=== PATIENT | male | born 1965 | race Caucasian/White ===

== ENCOUNTER → 2016-04-28 | Day surgery (SDC) | payer BC, OTHER ==
[2016-04-21 13:48] VITALS: BMI 26.0
[~2016-04-28] VITALS: Ht 175.3 cm; Wt 84.1 kg
[~2016-04-28] MED LIST: AMLO2.5T PO; CRG40 PO; FLV1 PO; LIDOCAINE HCL 2% 2 ML VIAL (20MG/ML) ONE; LISI-725 PO; LSX20 PO; LSX40 PO; MULT-1042 PO; NADO40TA PO; POTA10TA32 PO; PROPOFOL IV EMULSION 10 MG/ML 20 ML VIAL IV ONE; SODIUM CHLORIDE 0.9% 500ML 500 ML IV ONE; SPIR25TA PO; SPRN100 PO; THM100 PO; VANC5CAP PO; VNCS125 PO
[2016-04-28 08:26] VITALS: Ht 175.3 cm; Wt 84.1 kg
--- NOTE | 2016-04-28 09:29 | Endo History and Physical ---
History & Physical Date of Service: Apr 28, 2016. Chief Complaint: esophageal varices, cirrhosis of liver Referring Physician: Dr. William Faustin History of Present Illness esophageal varices Past Surgical History Hx Cardiac Surgery: No Hx Internal Defibrillator: No Hx Pacemaker: No Hx Abdominal Surgery: No Hx of Implantable Prosthesis: No Hx Post-Op Nausea and Vomiting: No Hx Cancer Surgery: No Hx Thoracic Surgery: No Hx Orthopedic: No Hx Urinary Tract Surgery: No Family History None Social History Smoking Status: Former Smoker Hx Substance Use: No Hx Alcohol Use: No (QUIT FEBRUARY 2016) Allergies Coded Allergies: Penicillins (Verified Allergy, Mild, GI UPSET, 04/28/16) Cephalosporins (Verified Adverse Reaction, Unknown, Nausea/Vomiting, ) Current Medications Reported Home Medications Medications Dose Route/Sig Max Daily Dose Days Date Category Norvasc (Amlodipine Besylate) 2.5 Mg Tab 2.5 Mg PO QAM 04/21/16 Reported Aldactone (Spironolactone) 25 Mg Tab 2 Tab PO QAM 04/21/16 Reported Vitamin B-1 (Thiamine HCl) 100 Mg Tab 100 Mg PO QAM 30 03/04/16 Rx Folic Acid 1 Mg Tab 1 Mg PO QAM 30 03/04/16 Rx Furosemide 20 Mg Tab 20 Mg PO QAM 30 03/04/16 Rx Nadolol 40 Mg Tab 40 Mg PO QAM 30 03/04/16 Rx Zestril (Lisinopril) 20 Mg Tab 20 Mg PO QAM 03/02/16 Reported Vital Signs Weight (Kilograms): 84.09 Height (Feet): 5 Height (Inches): 9 Date Time Temp Pulse Resp B/P Pulse Ox O2 Delivery O2 Flow Rate FiO2 04/28/16 08:29 36.7 69 20 143/65 99 Room Air Physical Exam General Appearance: no apparent distress Respiratory/Chest: Auscultation: breath sounds normal Cardiovascular: Heart Auscultation: RRR Abdomen: Inspection & Palpation: soft Assessment and Plan Cirrhosis - EGD
--- NOTE | 2016-04-28 10:13 | Discharge Instructions ---
Endoscopy Patient Instructions Date / Procedure(s) Performed Apr 28, 2016. EGD Allergy Information Coded Allergies: Penicillins (Verified Allergy, Mild, GI UPSET, 04/28/16) Cephalosporins (Verified Adverse Reaction, Unknown, Nausea/Vomiting, ) Discharge Date / Findings Apr 28, 2016. Esophagitis, small varices, portal gastropathy, small gastric polyp Medication Instructions Stopped Medication(s): told to only take blood pressure medications today. Provider Instructions Activity Restrictions - No exercising or heavy lifting for 24 hours. - Do not drink alcohol the day of the procedure. - Do not drive a car or operate machinery until the day after the procedure. - Do not make any important decisions or sign important papers in 24 hours after the procedure. Following Day: - Return to full activity which may include returning to work/school. Diet Start your diet with liquids and light foods (jello, soup, juice, toast). Then eat your usual diet if not nauseated. Treatment For Common After Affects For mild abdominal pain, bloating, or excessive gas: - Rest - Eat lightly - Lie on right side Follow-Up Information Follow-up with Dr. William Faustin as scheduled Anesthesia Information What You Should Know You have had a procedure that required some medicine to reduce anxiety and discomfort. This treatment is called moderate sedation. After receiving the treatment, you may be sleepy, but you will be able to breathe on your own. The effects of the treatment may last for several hours. Follow these instructions along with Activity/Diet recommendations noted above: * Do NOT do anything where dizziness or clumsiness would be dangerous. * Rest quietly at home today, then you can be up and about tomorrow. * Have a responsible person stay with you the rest of today. * You may have had an I.V. today. If so, you may take the dressing off later today. Recommendations Call your doctor if: * Trouble breathing * Continuous vomiting for more than 24 hours * Temperature above 101 degrees * Severe abdominal pain or bloating * Pain not relieved by pain medicine ordered * There is increased drainage or redness from any incision * A large amount of rectal bleeding greater than 2-3 tablespoons. (If you had a polyp/s removed or have hemorrhoids, a small amount of blood - from the rectum is to be expected.) * You have any unanswered questions or concerns. IN THE EVENT OF A SERIOUS EMERGENCY, GO TO THE NEAREST EMERGENCY ROOM Your discharge instructions were prepared by provider Keira Stokes. Patient Instructions Signature Page [place] Patient (or Guardian) Signature/Date: I have read and understand the instructions given to me by my caregivers. Caregiver/RN/Doctor Signature/Date: The above-named patient and/or guardian has received patient instructions on this date. + Original Patient Signature Page (only) stays with chart. Please make copy for patient.
[2016-04-28 10:20] VITALS: BP 139/65; PULSE 63; O2SAT 100
--- NOTE | 2016-04-28 10:53 | GI REPORT ---
Procedure Date: 04/28/2016 9:20 AM Procedure: Upper GI endoscopy Indications: Follow-up of esophageal varices Medicines: See the Anesthesia note for documentation of the administered medications Complications: No immediate complications. Estimated Blood Loss: Estimated blood loss: none. Procedure: Pre-Anesthesia Assessment: - ASA Grade Assessment: III - A patient with severe systemic disease. After obtaining informed consent, the endoscope was passed under direct vision. Throughout the procedure, the patient's blood pressure, pulse, and oxygen saturations were monitored continuously. The scope was introduced through the mouth, and advanced to the second part of duodenum. The upper GI endoscopy was accomplished without difficulty. The patient tolerated the procedure well. Findings: LA Grade B (one or more mucosal breaks greater than 5 mm, not extending between the tops of two mucosal folds) esophagitis with no bleeding was found. There was a single tongue of salmon colored mucosa extending approximately 1 cm above GE junction. The GE junction was found 40 cm from the incisors. This was brushed. Because of small varices, coagulopathy, and stigmata of portal HTN, this was not biopsied. A mild Schatzki ring (acquired) was found at the gastroesophageal junction. Grade I varices were found at the gastroesophageal junction. There was mild congestion of the mucosa in the fundus and body, suggestive of mild portal gastropathy. There was a 5 mm polyp in the body removed by saline lift and hot snare. Site was then clipped. The antrum was normal. The duodenum was normal. No adenoma was seen in duodenum. Impression: - LA Grade B reflux esophagitis. 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 - Mild Schatzki ring. - Grade I esophageal varices. - Gastric polyp. Recommendation: - Discharge patient to home. Continue BID PPI. Consider repeat exam in 1-2 years for variceal surveillance. Defer beta blockade. Keira Guthrie M.D. Keira Guthrie MD 04/28/2016 10:13:02 AM This report has been signed electronically. Note Initiated On: 04/28/2016 9:20 AM I attest to the content of the Intraoperative Record and orders documented therein, exceptions below
--- NOTE | 2016-04-28 11:12 | Anesthesiology Progress Note ---
Anesthesia Post Op Note Date & Time Apr 28, 2016 at 11:13 Vital Signs Pain Intensity: 0 Vital Signs Past 12 Hours Date Time Temp Pulse Resp B/P Pulse Ox O2 Delivery O2 Flow Rate FiO2 04/28/16 10:20 63 20 139/65 100 Room Air 04/28/16 10:05 67 20 136/62 100 Room Air 04/28/16 09:50 80 20 115/67 100 Room Air 04/28/16 08:29 36.7 69 20 143/65 99 Room Air Notes Mental Status: alert / awake / arousable, participated in evaluation Pt Amnestic to Procedure: Yes Nausea / Vomiting: adequately controlled Pain: adequately controlled Airway Patency, RR, SpO2: stable & adequate BP & HR: stable & adequate Hydration State: stable & adequate Anesthetic Complications: no major complications apparent
== END | disposition home or self-care (01) ==
LOC: C.GI 08:03
PROVIDERS: ATTEND Internal Medicine Gastroenterology
DX: K31.7 Polyp of stomach and duodenum (principal); K22.70 Barrett's esophagus without dysplasia; I85.00 Esophageal varices without bleeding; K22.2 Esophageal obstruction; K76.6 Portal hypertension; K21.0 Gastro-esophageal reflux disease with esophagitis; K76.9 Liver disease, unspecified; Z87.891 Personal history of nicotine dependence; Z88.0 Allergy status to penicillin; Z88.1 Allergy status to other antibiotic agents

== ENCOUNTER 2016-10-22 16:45 | Inpatient (IN) | payer BC ==
[~2016-10-22] VITALS: Ht 177.8 cm; Wt 85.4 kg
[~2016-10-22 16:45] MED LIST changes: -LIDOCAINE HCL 2% 2 ML VIAL (20MG/ML) ONE; -LSX40 PO; -MULT-1042 PO; -NADO40TA PO; -POTA10TA32 PO; -PROPOFOL IV EMULSION 10 MG/ML 20 ML VIAL IV ONE; -SODIUM CHLORIDE 0.9% 500ML 500 ML IV ONE; -SPRN100 PO; -VANC5CAP PO; -VNCS125 PO
[2016-10-22] MEDS ORDERED: SODIUM CHLORIDE 0.9% 1000ML 1,000 ML IV ONE (17:15)
--- NOTE | 2016-10-22 17:28 | EMERGENCY ROOM VISIT NOTE ---
History Report prepared by [place]: Osbaldo Bedoya Under the Supervision of: Dr. Alfonso Shields D.O. First contact with patient: 17:07 Chief Complaint: BACK PAIN Stated Complaint: BACK, NECK PAIN, STOMACH ACHE History of Present Illness The patient is a 50 year old male who presents to the Emergency Room with complaints of generalized weakness that began recently. The patient has chronic lower back and upper neck pain for the past 15 years. Recently, he has been shaky, pale, and not very active. He has not been eating very well as well. He has been experiencing the occasional bloody stool, and right sided abdominal pain. He denies any swelling in the legs. He has a past medical history of hypertension, stroke, and liver cirrhosis. He is scheduled for an MRI in a couple of weeks. He received recent blood work that he has not received the results for. Source of History: patient Onset: recently Position: other (Global) Symptom Intensity: mild Quality: other (Weakness) Timing: constant Associated Symptoms: + neck pain (chronic), + abdominal pain, + back pain ( chronic), + hematochezia Note: He denies any leg pain. Review of Systems See HPI for pertinent positives & negatives. A total of 10 systems reviewed and were otherwise negative. Past Medical & Surgical Medical Problems: (1) ARF (acute renal failure) (2) Decompensated hepatic cirrhosis (3) Intracerebral bleed (4) No Known Active Medical Problems Family History FH: diabetes mellitus FH: heart disease FHx: hypertension FHx: kidney disease Kidney stone Social History Smoking Status: Former Smoker Alcohol Use: occasionally Drug Use: none Marital Status: Housing Status: lives with family Occupation Status: employed Current/Historical Medications Scheduled Amlodipine (Norvasc), 2.5 MG PO QAM Folic Acid (Folic Acid), 1 MG PO QAM Furosemide (Furosemide), 20 MG PO QAM Lisinopril (Zestril), 20 MG PO QAM Nadolol (Nadolol), 40 MG PO QAM Spironolactone (Aldactone), 2 TAB PO QAM Thiamine HCl (Vitamin B-1), 100 MG PO QAM Allergies Coded Allergies: Penicillins (Verified Allergy, Mild, GI UPSET, 10/22/16) Cephalosporins (Verified Adverse Reaction, Unknown, Nausea/Vomiting, ) Physical Exam Vital Signs Date Time Temp Pulse Resp B/P (MAP) Pulse Ox O2 Delivery O2 Flow Rate FiO2 10/22/16 19:29 85 16 117/39 98 Room Air 10/22/16 19:14 87 10/22/16 18:59 88 16 100/47 98 Room Air 10/22/16 18:54 97 Room Air 10/22/16 18:18 93/45 10/22/16 17:54 73 114/45 98 Room Air 10/22/16 17:20 87/31 10/22/16 16:58 36.5 72 16 82/36 99 Room Air Physical Exam GENERAL: Patient is awake and somewhat listless appearing. Answers questions slowly buy appropriately. EYES: The conjunctivae are clear. The pupils are round and reactive. EARS, NOSE, MOUTH AND THROAT: The nose is without any evidence of any deformity. Mucous membranes are dry tongue is midline NECK: The neck is nontender and supple. RESPIRATORY: Diminished at the bilateral bases with rales noted in these areas. CARDIOVASCULAR: Regular rate and rhythm noted there no murmurs rubs or gallops normal S1 normal S2 GASTROINTESTINAL: The abdomen moderately distended but soft. There is diffuse tenderness noted with point tenderness in the RLQ. No guarding or rigidity. RECTAL: Light brown stool that is heme positive. PELVIS: The Pelvis is stable. No tenderness to palpation is noted. BACK: No midline tenderness or or step-off noted range of motion in flexion extension as well as rotation no signs of muscle spasm noted MUSCULOSKELETAL/EXTREMITIES: There is no evidence of gross deformity full range of motion is noted in the hips and shoulders. Pedal edema bilaterally. SKIN: There is no obvious evidence of any rash. There are no petechiae, pallor or cyanosis noted. Jaundiced skin. NEUROLOGIC: Oriented x3, strength is diminished on the right which is consistent with prior stroke. No drift in upper extremities. Medical Decision & Procedures ER Provider Diagnostic Interpretation: Radiology results as stated below per my review and radiologist interpretation: HEAD CT NONCONTRAST CT DOSE: 1133.88 mGy.cm HISTORY: Altered mental status. TECHNIQUE: Multiaxial CT images of the head were performed without the use of intravenous contrast. Automated exposure control was utilized for this study. A dose lowering technique was utilized adhering to the principles of ALARA. Comparison: Head CT 06/09/2015. Findings: The paranasal sinuses and mastoid air cells are clear. The calvarium and skull base are intact. There is a small linear focus of hyperdensity within the left high convexity at the site of prior intracranial hemorrhage. This is best seen on images 21 and 22. This is concerning for a small focus of acute hemorrhage. There is mild surrounding encephalomalacia due to the old hemorrhage. There is no mass or midline shift. Impression: Small linear hyperdense focus within the left high convexity of the site of prior intracranial hemorrhage. This is concerning for a small focus of acute hemorrhage. 6 [address] follow-up is recommended to ensure stability. Electronically signed by: Ishaan Haley M.D. 10/22/2016 6:20 PM Dictated Date/Time: 10/22/2016 6:15 PM CHEST ONE VIEW PORTABLE HISTORY: Sepsis COMPARISON: Chest 03/02/2016. FINDINGS: The lungs are clear. Cardiac silhouette is normal in size. No pleural effusions. No pneumothorax. IMPRESSION: No acute process. Electronically signed by: Ishaan Haley M.D. 10/22/2016 5:44 PM Dictated Date/Time: 10/22/2016 5:[address] SCAN OF THE ABDOMEN AND PELVIS WITHOUT CONTRAST CLINICAL HISTORY: right flank pain COMPARISON STUDY: 03/02/2016 TECHNIQUE: CT scan of the abdomen and pelvis was performed from the lung bases to the proximal femurs. Images are reviewed in the axial, sagittal, and coronal planes. IV contrast was not administered for this examination. A dose lowering technique was utilized adhering to the principles of ALARA. CT DOSE: FINDINGS: Lower chest: The heart is normal in size and configuration, without pericardial effusion. The lung bases and pleural spaces are clear. Liver: The liver has a nodular serosal surface. This may indicate cirrhosis. Gallbladder: Cholelithiasis with mild gallbladder wall thickening Spleen: Normal in size and attenuation. Pancreas: Unremarkable. Adrenal glands: Unremarkable. Kidneys: No renal, ureteral, or bladder calculi are visualized. Bowel: Evaluation the bowel is limited given the lack of intravenous and oral contrast. There are no transition zones to indicate bowel obstruction. There is bowel wall thickening involving the ascending colon with infiltration of the surrounding fat. The findings are indicative of a nonspecific colitis. There is mild appendiceal thickening but this is likely a secondary phenomenon. Peritoneum: There is no intraperitoneal free air or abdominal ascites. Vasculature: There are multiple upper abdominal varices, consistent with portal hypertension. Adenopathy: None. Pelvic viscera: The bladder, and pelvic viscera are unremarkable. Skeletal structures: No destructive osseous lesions are seen. IMPRESSION: 1. Cirrhotic liver with evidence of portal hypertension and multiple varices 2. No renal, ureteral, or bladder calculi identified 3. Bowel wall thickening involving the ascending colon with infiltration of the adjacent fat. The findings are indicative of a nonspecific colitis 4. Mild appendiceal thickening, likely secondary to the diffuse ascending colon colitis 5. Cholelithiasis and mild gallbladder wall thickening Electronically signed by: Randolph Metcalf M.D. 10/22/2016 6:25 PM Dictated Date/Time: 10/22/2016 6:20 PM Laboratory Results 10/22/16 17:49 Red Blood Count 2.11, Mean Corpuscular Volume 100.0, Mean Corpuscular Hemoglobin 37.4, Mean Corpuscular Hemoglobin Concent 37.4, Mean Platelet Volume 11.1, Neutrophils (%) (Auto) 70.5, Lymphocytes (%) (Auto) 11.6, Monocytes (%) ( Auto) 17.1, Eosinophils (%) (Auto) 0.2, Basophils (%) (Auto) 0.1, Neutrophils # (Auto) 8.89, Lymphocytes # (Auto) 1.46, Monocytes # (Auto) 2.16, Eosinophils # ( Auto) 0.03, Basophils # (Auto) 0.01 Test 10/22/16 17:27 10/22/16 17:31 10/22/16 17:49 10/22/16 17:52 Urine Color DK YELLOW Urine Appearance CLEAR (CLEAR) Urine pH 5.0 (4.5-7.5) Urine Specific Monette 1.020 (1.000-1.030) Urine Protein NEG (NEG) Urine Glucose (UA) NEG (NEG) Urine Ketones NEG (NEG) Urine Occult Blood NEG (NEG) Urine Nitrite NEG (NEG) Urine Bilirubin NEG (NEG) Urine Urobilinogen NEG (NEG) Urine Leukocyte Esterase NEG (NEG) Urine WBC (Auto) 1-5 /hpf (0-5) Urine RBC (Auto) 0-4 /hpf (0-4) Urine Hyaline Casts (Auto) 5-10 /lpf (0-5) Urine Epithelial Cells (Auto) 5-10 /lpf (0-5) Urine Bacteria (Auto) 1+ (NEG) Venous Blood pH 7.22 (7.36-7.41) Venous Blood Partial Pressure CO2 30 mmHg (38.0-50.0) Venous Blood Partial Pressure O2 26 mmHg Venous Blood HCO3 12 mmol/L Venous Blood Oxygen Saturation < 60.0 % Venous Blood Base Excess -14.4 mEq/L White Blood Count 12.61 K/uL (4.8-10.8) Red Blood Count 2.11 M/uL (4.7-6.1) Hemoglobin 7.9 g/dL (14.0-18.0) Hematocrit 21.1 % (42-52) Mean Corpuscular Volume 100.0 fL (80-100) Mean Corpuscular Hemoglobin 37.4 pg (25-34) Mean Corpuscular Hemoglobin Concent 37.4 g/dl (32-36) Platelet Count 71 K/uL (130-400) Mean Platelet Volume 11.1 fL (7.4-10.4) Neutrophils (%) (Auto) 70.5 % Lymphocytes (%) (Auto) 11.6 % Monocytes (%) (Auto) 17.1 % Eosinophils (%) (Auto) 0.2 % Basophils (%) (Auto) 0.1 % Neutrophils # (Auto) 8.89 K/uL (1.4-6.5) Lymphocytes # (Auto) 1.46 K/uL (1.2-3.4) Monocytes # (Auto) 2.16 K/uL (0.11-0.59) Eosinophils # (Auto) 0.03 K/uL (0-0.5) Basophils # (Auto) 0.01 K/uL (0-0.2) RDW Standard Deviation 51.7 fL (36.4-46.3) RDW Coefficient of Variation 14.1 % (11.5-14.5) Immature Granulocyte % (Auto) 0.5 % Immature Granulocyte # (Auto) 0.06 K/uL (0.00-0.02) Ovalocytes 1+ Echinocytes 2+ Erythrocyte Sedimentation Rate 29 mm/hr (0-14) Prothrombin Time 16.0 SECONDS (9.0-12.0) Prothromb Time International Ratio 1.5 (0.9-1.1) Activated Partial Thromboplast Time 34.3 SECONDS (21.0-31.0) Partial Thromboplastin Ratio 1.3 Est Creatinine Clear Calc Drug Dose 23.5 ml/min Phosphorus Level 6.6 mg/dl (2.5-4.9) Magnesium Level 2.3 mg/dl (1.8-2.4) Total Bilirubin 4.1 mg/dl (0.2-1) Aspartate Amino Transf (AST/SGOT) 39 U/L (15-37) Alanine Aminotransferase (ALT/SGPT) 28 U/L (12-78) Alkaline Phosphatase 121 U/L (45-117) Ammonia 28.0 umol/L (11-32) Total Creatine Kinase 51 U/L (39-308) Creatine Kinase MB 0.6 ng/ml (0.5-3.6) Creatine Kinase MB Ratio 1.2 (0-3.0) Troponin I < 0.015 ng/ml (0-0.045) C-Reactive Protein 1.14 mg/dl (0-0.29) Pro-B-Type Natriuretic Peptide 1902 pg/ml (0-900) Total Protein 6.2 gm/dl (6.4-8.2) Albumin 2.5 gm/dl (3.4-5.0) Globulin 3.7 gm/dl (2.5-4.0) Albumin/Globulin Ratio 0.7 (0.9-2) Bedside Lactic Acid Venous 1.73 mmol/L (0.90-1.70) Test 10/22/16 19:58 Laboratory results per my review. Medications Administered Medications (Trade) Dose Ordered Sig/Tim Route Start Time Stop Time Status Last Admin Dose Admin Sodium Chloride 1,000 ml @ 999 mls/hr Q1H1M ONCE IV 10/22/16 17:15 10/22/16 18:15 DC 10/22/16 17:27 999 MLS/HR Sodium Chloride 1,000 ml @ 999 mls/hr Q1H1M STAT IV 10/22/16 18:58 10/22/16 19:58 DC 10/22/16 19:17 999 MLS/HR Levofloxacin (Levaquin / D5W) 750 mg NOW STAT IV 10/22/16 18:58 10/22/16 18:59 DC 10/22/16 19:16 750 MG ECG Indication: weakness Rate (beats per minute): 73 Rhythm: normal sinus Findings: no ectopy, other (No acute ST segment abnormalities) ED Course 1706: The patient was evaluated in room B8. A complete history and physical examination were performed. 1714: Ordered NSS 1,000 ml @ 999 mls/hr IV 1857: Ordered Levofloxacin 750 mg IV, NSS 1,000 ml @ 999 mls/hr IV 1954: Upon reevaluation, the patient is resting. I discussed results and treatment plan with him. He verbalizes agreement and understanding. I spoke with Dr. Haile of the [facility]. The patient will be evaluated for further management and care. Medical Decision Differential diagnosis: Etiologies such as metabolic, infection, hypo/hyperglycemia, electrolyte abnormalities, cardiac sources, intracerebral event, toxicologic, neurologic, as well as others were entertained. Nursing notes reviewed. Additional history is obtained from the patient's significant other. The patient is a 50-year-old male who presented to the emergency department for evaluation of back pain and generalized weakness. The patient did not have any focal neurologic deficits but has a history of stroke in the past. The patient' s CT did not show a definite hemorrhagic CVA but did show some abnormality on the left parietal convexity which could be consistent with a small amount of intracranial blood. This was not traumatic in nature according to the patient in the history. The patient was also found have significant anemia renal insufficiency. He was treated with IV fluids and IV antibiotics. I discussed the patient's laboratory and radiographic studies with him. [facility] to evaluate the patient in the emergency apartment for further management and disposition. Medication Reconcilliation Current Medication List: was personally reviewed by me Blood Pressure Screening Patient's blood pressure: Low blood pressure Consults Time Called: 1949 Consulting Physician: Dr. Haile - [facility] Returned Call: 1954 I discussed the patient's case with him. The patient will be evaluated for further management. Impression Primary Impression: Colitis Additional Impressions: Hypotension Anemia GI bleeding Dehydration Acute kidney injury Hyponatremia Pancreatitis Scribe Attestation The scribe's documentation has been prepared under my direction and personally reviewed by me in its entirety. I confirm that the note above accurately reflects all work, treatment, procedures, and medical decision making performed by me. Departure Information Dispostion Being Evaluated By Hospitalist Referrals William Faustin M.D. (PCP) Patient Instructions [facility] Problem Qualifiers Additional Impressions: Hypotension Hypotension type: unspecified hypotension type Qualified Codes: I95.9 - Hypotension, unspecified Anemia Anemia type: unspecified type Qualified Codes: D64.9 - Anemia, unspecified GI bleeding GI bleed type/associated pathology: unspecified gastrointestinal hemorrhage type Qualified Codes: K92.2 - Gastrointestinal hemorrhage, unspecified Pancreatitis Chronicity: chronic
[2016-10-22 17:45] LABS: VEN BLD GAS O2 SATURATION < 60.0 %; VEN BLOOD GAS BASE EXCESS -14.4 mEq/L; VENOUS BLOOD GAS PCO2 30 mmHg (38.0-50.0); VENOUS BLOOD GAS PO2 26 mmHg
--- NOTE | 2016-10-22 17:45 | DIAGNOSTIC IMAGING REPORT ---
CHEST ONE VIEW PORTABLE HISTORY: Sepsis COMPARISON: Chest 03/02/2016. FINDINGS: The lungs are clear. Cardiac silhouette is normal in size. No pleural effusions. No pneumothorax. IMPRESSION: No acute process. Electronically signed by: Ishaan Haley M.D. 10/22/2016 5:44 PM Dictated Date/Time: 10/22/2016 5:43 PM
[2016-10-22 18:09] LABS: INR 1.5 (0.9-1.1); PARTIAL THROMBOPLASTIN RATIO 1.3
[2016-10-22 18:13] LABS: HEMATOCRIT 21.1 % (42-52); MEAN CORPUSCULAR HEMOGLOBIN 37.4 pg (25-34); MEAN CORPUSCULAR HGB CONC 37.4 g/dl (32-36); MEAN PLATELET VOLUME 11.1 fL (7.4-10.4); PLATELET COUNT 71 K/uL (130-400); RED BLOOD COUNT 2.11 M/uL (4.7-6.1); WHITE BLOOD COUNT 12.61 K/uL (4.8-10.8)
--- NOTE | 2016-10-22 18:22 | DIAGNOSTIC IMAGING REPORT ---
HEAD CT NONCONTRAST CT DOSE: 1133.88 mGy.cm HISTORY: Altered mental status. TECHNIQUE: Multiaxial CT images of the head were performed without the use of intravenous contrast. Automated exposure control was utilized for this study. A dose lowering technique was utilized adhering to the principles of ALARA. Comparison: Head CT 06/09/2015. Findings: The paranasal sinuses and mastoid air cells are clear. The calvarium and skull base are intact. There is a small linear focus of hyperdensity within the left high convexity at the site of prior intracranial hemorrhage. This is best seen on images 21 and 22. This is concerning for a small focus of acute hemorrhage. There is mild surrounding encephalomalacia due to the old hemorrhage. There is no mass or midline shift. Impression: Small linear hyperdense focus within the left high convexity of the site of prior intracranial hemorrhage. This is concerning for a small focus of acute hemorrhage. 6 [address] follow-up is recommended to ensure stability. Electronically signed by: Ishaan Haley M.D. 10/22/2016 6:20 PM Dictated Date/Time: 10/22/2016 6:15 PM
[2016-10-22 18:26] LABS: ALT/SGPT 28 U/L (12-78); AST/SGOT 39 U/L (15-37); BLOOD UREA NITROGEN 78 mg/dl (7-18); BUN/CREATININE RATIO 20.5 (10-20); CALCIUM 8.6 mg/dl (8.5-10.1); CARBON DIOXIDE 11 mmol/L (21-32); CHLORIDE 100 mmol/L (98-107); GLUCOSE 137 mg/dl (70-99); MAGNESIUM 2.3 mg/dl (1.8-2.4); POTASSIUM 4.9 mmol/L (3.5-5.1); SODIUM 125 mmol/L (136-145)
--- NOTE | 2016-10-22 18:26 | DIAGNOSTIC IMAGING REPORT ---
CT SCAN OF THE ABDOMEN AND PELVIS WITHOUT CONTRAST CLINICAL HISTORY: right flank pain COMPARISON STUDY: 03/02/2016 TECHNIQUE: CT scan of the abdomen and pelvis was performed from the lung bases to the proximal femurs. Images are reviewed in the axial, sagittal, and coronal planes. IV contrast was not administered for this examination. A dose lowering technique was utilized adhering to the principles of ALARA. CT DOSE: FINDINGS: Lower chest: The heart is normal in size and configuration, without pericardial effusion. The lung bases and pleural spaces are clear. Liver: The liver has a nodular serosal surface. This may indicate cirrhosis. Gallbladder: Cholelithiasis with mild gallbladder wall thickening Spleen: Normal in size and attenuation. Pancreas: Unremarkable. Adrenal glands: Unremarkable. Kidneys: No renal, ureteral, or bladder calculi are visualized. Bowel: Evaluation the bowel is limited given the lack of intravenous and oral contrast. There are no transition zones to indicate bowel obstruction. There is bowel wall thickening involving the ascending colon with infiltration of the surrounding fat. The findings are indicative of a nonspecific colitis. There is mild appendiceal thickening but this is likely a secondary phenomenon. Peritoneum: There is no intraperitoneal free air or abdominal ascites. Vasculature: There are multiple upper abdominal varices, consistent with portal hypertension. Adenopathy: None. Pelvic viscera: The bladder, and pelvic viscera are unremarkable. Skeletal structures: No destructive osseous lesions are seen. IMPRESSION: 1. Cirrhotic liver with evidence of portal hypertension and multiple varices 2. No renal, ureteral, or bladder calculi identified 3. Bowel wall thickening involving the ascending colon with infiltration of the adjacent fat. The findings are indicative of a nonspecific colitis 4. Mild appendiceal thickening, likely secondary to the diffuse ascending colon colitis 5. Cholelithiasis and mild gallbladder wall thickening Electronically signed by: Randolph Metcalf M.D. 10/22/2016 6:25 PM Dictated Date/Time: 10/22/2016 6:20 PM
[2016-10-22 18:28] LABS: ALB/GLOB RATIO 0.7 (0.9-2); ALKALINE PHOSPHATASE 121 U/L (45-117); C-REACTIVE PROTEIN 1.14 mg/dl (0-0.29); CKMB/CK RATIO 1.2 (0-3.0); PHOSPHORUS 6.6 mg/dl (2.5-4.9)
[2016-10-22 18:34] LABS: URINE APPEARANCE CLEAR (CLEAR); URINE BILIRUBIN NEG (NEG); URINE COLOR DK YELLOW; URINE NITRITE NEG (NEG); UROBILINOGEN NEG (NEG)
[2016-10-22 18:38] LABS: MANUAL MICROSCOPIC REQUIRED? NO; REVIEW REQ? YES
[2016-10-22 18:46] LABS: ZZUR CULT IF INDIC CLEAN CATCH YES
[2016-10-22] MEDS ORDERED: SODIUM CHLORIDE 0.9% 1000ML 1,000 ML IV STA (18:58)
[2016-10-22] MEDS ORDERED: LEVAQUIN 750MG / 150ML D5W IV STA (18:58)
[2016-10-22 19:45] LABS: BASO % 0.1 %; BASO ABS # 0.01 K/uL (0-0.2); COMPLETE YES; ECHINOCYTES 2+; EOS % 0.2 %; IG% 0.5 %; LYMPH % 11.6 %; LYMPH ABS # 1.46 K/uL (1.2-3.4); MONO % 17.1 %; NEUT % 70.5 %; OVALOCYTES 1+
[2016-10-22] MEDS ORDERED: THIAMINE HCL 100 MG/ML 2 ML VIAL IV STA (20:58)
[2016-10-22] MEDS ORDERED: LORAZEPAM 2 MG/ML 1 ML VIAL IV PRN (21:00)
[2016-10-22] MEDS ORDERED: ACETAMINOPHEN 325 MG TAB PO PRN (21:00)
[2016-10-22] MEDS ORDERED: ONDANSETRON INJ 2 MG/ML 2 ML VIAL IV PRN (21:00)
[2016-10-22] MEDS ORDERED: HYDROmorphone INJ 0.5 MG/0.5 ML SYR IV PRN (21:00)
[2016-10-22] MEDS ORDERED: NITROGLYCERIN 0.4 MG SL PER TAB CHARGE SL PRN (21:00)
[2016-10-22] MEDS ORDERED: GABAPENTIN 600 MG TAB PO SCH (21:00)
[2016-10-22] MEDS ORDERED: OXYCODONE HCL IR 5 MG TAB (IMMEDIATE RELEASE) PO PRN (21:00)
[2016-10-22 21:08] VITALS: Ht 177.8 cm; Wt 85.4 kg
[2016-10-22] MEDS ORDERED: PANTOprazole INJ 80 MG in DEXTROSE 5% 100ML IV SCH (21:15)
[2016-10-22] MEDS ORDERED: THIAMINE HCL INJ 100 MG in SYRINGE 9 ML IV SCH (21:15)
[2016-10-22 21:24] LABS: HEMATOCRIT 22.3 % (42-52)
[2016-10-22 21:27] VITALS: BP 107/60; PULSE 92; TEMP 36.5; O2SAT 97
[2016-10-22] MEDS: PANTOprazole INJ 40 MG in DEXTROSE 5% 100ML IV SCH (21:52)
[2016-10-22 21:53] LABS: BUN/CREATININE RATIO 22.8 (10-20); CALCIUM 8.3 mg/dl (8.5-10.1); CREATININE 3.2 mg/dl (0.60-1.40); POTASSIUM 4.5 mmol/L (3.5-5.1)
[2016-10-22 21:58] LABS: THYROID STIMULATING HORMONE 0.37 uIu/ml (0.300-4.500)
[2016-10-22] MEDS ORDERED: GABAPENTIN 600MG LOADING DOSE PO SCH ×2 (22:00)
[2016-10-22 23:38] VITALS: BP 99/44; PULSE 83; TEMP 36.6; O2SAT 98
[2016-10-23] VITALS (34 sets, daily range): BP systolic 71–120; BP diastolic 35–69; PULSE 69–98; TEMP 36.2–37.3; O2SAT 90–100
[2016-10-23] MEDS: SODIUM CHLORIDE 0.9% 1000ML 1,000 ML IV SCH (00:08)
[2016-10-23] MEDS: PANTOprazole INJ 40 MG in DEXTROSE 5% 100ML IV SCH ×3 (02:14→12:01)
[2016-10-23] MEDS ORDERED: CIPROFLOXACIN / D5W 400 MG in PREMIXED IN D5W 200 ML IV ONE (02:45)
[2016-10-23] MEDS: ALBUMIN HUMAN 25% 12.5 GM/50 ML VIAL IV SCH ×2 (02:45→04:10)
[2016-10-23 03:12] LABS: BUN/CREATININE RATIO 24.8 (10-20); CALCIUM 7.9 mg/dl (8.5-10.1); CREATININE 2.8 mg/dl (0.60-1.40); MAGNESIUM 1.9 mg/dl (1.8-2.4)
[2016-10-23 03:17] LABS: ALB/GLOB RATIO 0.6 (0.9-2)
[2016-10-23 03:22] LABS: HEMATOCRIT 20.2 % (42-52); MEAN CORPUSCULAR HEMOGLOBIN 36.1 pg (25-34); MEAN CORPUSCULAR HGB CONC 36.1 g/dl (32-36); MEAN PLATELET VOLUME 10.5 fL (7.4-10.4); PLATELET COUNT 53 K/uL (130-400); RED BLOOD COUNT 2.02 M/uL (4.7-6.1); WHITE BLOOD COUNT 7.68 K/uL (4.8-10.8)
[2016-10-23 03:28] LABS: BASO % 0.1 %; BASO ABS # 0.01 K/uL (0-0.2); COMPLETE YES; ECHINOCYTES 1+; EOS % 0.4 %; IG% 0.3 %; LYMPH % 13.3 %; LYMPH ABS # 1.02 K/uL (1.2-3.4); MONO % 17.4 %; NEUT % 68.5 %
[2016-10-23] MEDS: GABAPENTIN 100MG Q6H DOSE PO SCH ×2 (04:19→11:52)
[2016-10-23] MEDS: METRONIDAZOLE / NSS 500 MG in PREMIXED NSS 100 ML IV SCH ×3 (04:32→21:30)
--- NOTE | 2016-10-23 04:36 | Progress Note ---
Internal Med Progress Note Date of Service: Oct 23, 2016. Provider Documentation: Made aware by RN of persistent hypotension this AM. SBP 70 to 90s s. Patient comfortable. Minimal response to IVF bolus. Normal lactic acid. serum sodium 130 serum K 5 AP Hypotension Hyponatremia, borderline hyperkalemia (History one-week prednisone course prescribed by PCP last August, for back pain as per records) ? possible adrenal insufficiency Decadron 1 dose now Continue NSS Hold all anti-hypertensives for now Check serum cortisol, ACTH, cosyntropin simulation test tomorrow a.m. May need Endocrinology opinion. Will relay to AM provider. Vital Signs: Date Time Temp Pulse Resp B/P (MAP) Pulse Ox O2 Delivery O2 Flow Rate FiO2 10/23/16 09:20 36.5 76 16 93/54 10/23/16 08:50 36.6 76 16 94/54 10/23/16 08:20 36.7 76 18 93/58 10/23/16 08:05 37.0 76 18 90/48 10/23/16 07:59 37.0 76 18 95/55 (68) 98 Room Air 10/23/16 07:46 36.6 76 16 92/51 10/23/16 06:24 37.1 80 16 91/52 99 10/23/16 06:02 37.1 82 16 82/43 97 10/23/16 05:24 37.1 78 16 77/35 97 10/23/16 04:53 37.2 82 16 79/42 96 10/23/16 04:30 37.3 81 16 79/42 95 10/23/16 04:15 37.1 76 18 71/38 99 10/23/16 04:00 37.0 77 17 73/36 99 10/23/16 04:00 Room Air 10/23/16 03:55 37.3 69 17 81/38 97 10/23/16 03:35 78 74/35 (48) 10/23/16 02:58 84 87/48 (61) 10/23/16 02:20 83 78/36 (50) 10/23/16 00:00 Room Air 10/22/16 23:38 36.6 83 20 99/44 (62) 98 Room Air 10/22/16 21:27 36.5 92 18 107/60 (76) 97 Room Air 10/22/16 21:08 Room Air 10/22/16 20:20 72 16 104/34 98 Room Air 10/22/16 19:29 85 16 117/39 98 Room Air 10/22/16 19:14 87 10/22/16 18:59 88 16 100/47 98 Room Air 10/22/16 18:54 97 Room Air 10/22/16 18:18 93/45 10/22/16 17:54 73 114/45 98 Room Air 10/22/16 17:20 87/31 10/22/16 16:58 36.5 72 16 82/36 99 Room Air Lab Results: Results Past 24 Hours Test 10/22/16 17:27 10/22/16 17:31 10/22/16 17:49 10/22/16 17:52 Range/Units Urine Color DK YELLOW Urine Appearance CLEAR CLEAR Urine pH 5.0 4.5-7.5 Urine Specific [place] 1.020 1.000-1.030 Urine Protein NEG NEG Urine Glucose (UA) NEG NEG Urine Ketones NEG NEG Urine Occult Blood NEG NEG Urine Nitrite NEG NEG Urine Bilirubin NEG NEG Urine Urobilinogen NEG NEG Urine Leukocyte Esterase NEG NEG Urine WBC (Auto) 1-5 0-5 /hpf Urine RBC (Auto) 0-4 0-4 /hpf Urine Hyaline Casts (Auto) 5-10 0-5 /lpf Urine Epithelial Cells (Auto) 5-10 0-5 /lpf Urine Bacteria (Auto) 1+ NEG Urine Osmolality 325 500-800 mOms/kg Urine Random Sodium < 5 mEq/L Venous Blood pH 7.22 7.36-7.41 Venous Blood Partial Pressure CO2 30 38.0-50.0 mmHg Venous Blood Partial Pressure O2 26 mmHg Venous Blood HCO3 12 mmol/L Venous Blood Oxygen Saturation < 60.0 % Venous Blood Base Excess -14.4 mEq/L White Blood Count 12.61 4.8-10.8 K/uL Red Blood Count 2.11 4.7-6.1 M/uL Hemoglobin 7.9 14.0-18.0 g/dL Hematocrit 21.1 42-52 % Mean Corpuscular Volume 100.0 80-100 fL Mean Corpuscular Hemoglobin 37.4 25-34 pg Mean Corpuscular Hemoglobin Concent 37.4 32-36 g/dl Platelet Count 71 130-400 K/uL Mean Platelet Volume 11.1 7.4-10.4 fL Neutrophils (%) (Auto) 70.5 % Lymphocytes (%) (Auto) 11.6 % Monocytes (%) (Auto) 17.1 % Eosinophils (%) (Auto) 0.2 % Basophils (%) (Auto) 0.1 % Neutrophils # (Auto) 8.89 1.4-6.5 K/uL Lymphocytes # (Auto) 1.46 1.2-3.4 K/uL Monocytes # (Auto) 2.16 0.11-0.59 K/uL Eosinophils # (Auto) 0.03 0-0.5 K/uL Basophils # (Auto) 0.01 0-0.2 K/uL RDW Standard Deviation 51.7 36.4-46.3 fL RDW Coefficient of Variation 14.1 11.5-14.5 % Immature Granulocyte % (Auto) 0.5 % Immature Granulocyte # (Auto) 0.06 0.00-0.02 K/uL Ovalocytes 1+ Echinocytes 2+ Erythrocyte Sedimentation Rate 29 0-14 mm/hr Prothrombin Time 16.0 9.0-12.0 SECONDS Prothromb Time International Ratio 1.5 0.9-1.1 Activated Partial Thromboplast Time 34.3 21.0-31.0 SECONDS Partial Thromboplastin Ratio 1.3 Sodium Level 125 136-145 mmol/L Potassium Level 4.9 3.5-5.1 mmol/L Chloride Level 100 98-107 mmol/L Carbon Dioxide Level 11 21-32 mmol/L Anion Gap 14.0 3-11 mmol/L Blood Urea Nitrogen 78 7-18 mg/dl Creatinine 3.80 0.60-1.40 mg/dl Est Creatinine Clear Calc Drug Dose 23.5 ml/min Estimated GFR () 19.9 Estimated GFR (Non- 17.2 BUN/Creatinine Ratio 20.5 10-20 Random Glucose 137 70-99 mg/dl Calcium Level 8.6 8.5-10.1 mg/dl Phosphorus Level 6.6 2.5-4.9 mg/dl Magnesium Level 2.3 1.8-2.4 mg/dl Total Bilirubin 4.1 0.2-1 mg/dl Aspartate Amino Transf (AST/SGOT) 39 15-37 U/L Alanine Aminotransferase (ALT/SGPT) 28 12-78 U/L Alkaline Phosphatase 121 45-117 U/L Ammonia 28.0 11-32 umol/L Total Creatine Kinase 51 39-308 U/L Creatine Kinase MB 0.6 0.5-3.6 ng/ml Creatine Kinase MB Ratio 1.2 0-3.0 Troponin I < 0.015 0-0.045 ng/ml C-Reactive Protein 1.14 0-0.29 mg/dl Pro-B-Type Natriuretic Peptide 1902 0-900 pg/ml Total Protein 6.2 6.4-8.2 gm/dl Albumin 2.5 3.4-5.0 gm/dl Globulin 3.7 2.5-4.0 gm/dl Albumin/Globulin Ratio 0.7 0.9-2 Lipase 1106 73-393 U/L Bedside Lactic Acid Venous 1.73 0.90-1.70 mmol/L Test 10/22/16 20:59 10/23/16 02:40 Range/Units Hemoglobin 8.0 7.3 14.0-18.0 g/dL Hematocrit 22.3 20.2 42-52 % Sodium Level 129 130 136-145 mmol/L Potassium Level 4.5 5.0 3.5-5.1 mmol/L Chloride Level 104 108 98-107 mmol/L Carbon Dioxide Level 14 11 21-32 mmol/L Anion Gap 11.0 11.0 3-11 mmol/L Blood Urea Nitrogen 73 69 7-18 mg/dl Creatinine 3.20 2.80 0.60-1.40 mg/dl Est Creatinine Clear Calc Drug Dose 27.9 31.9 ml/min Estimated GFR () 24.5 28.8 Estimated GFR (Non- 21.1 24.8 BUN/Creatinine Ratio 22.8 24.8 10-20 Random Glucose 134 114 70-99 mg/dl Osmolality 285 280-300 mOsm/kg Lactic Acid Level 1.7 1.3 0.4-2.0 mmol/L Calcium Level 8.3 7.9 8.5-10.1 mg/dl Lipase 1381 1013 73-393 U/L Thyroid Stimulating Hormone (TSH) 0.370 0.300-4.500 uIu/ml Ethyl Alcohol mg/dL < 3.0 0-3 mg/dl White Blood Count 7.68 4.8-10.8 K/uL Red Blood Count 2.02 4.7-6.1 M/uL Mean Corpuscular Volume 100.0 80-100 fL Mean Corpuscular Hemoglobin 36.1 25-34 pg Mean Corpuscular Hemoglobin Concent 36.1 32-36 g/dl Platelet Count 53 130-400 K/uL Mean Platelet Volume 10.5 7.4-10.4 fL Neutrophils (%) (Auto) 68.5 % Lymphocytes (%) (Auto) 13.3 % Monocytes (%) (Auto) 17.4 % Eosinophils (%) (Auto) 0.4 % Basophils (%) (Auto) 0.1 % Neutrophils # (Auto) 5.26 1.4-6.5 K/uL Lymphocytes # (Auto) 1.02 1.2-3.4 K/uL Monocytes # (Auto) 1.34 0.11-0.59 K/uL Eosinophils # (Auto) 0.03 0-0.5 K/uL Basophils # (Auto) 0.01 0-0.2 K/uL RDW Standard Deviation 51.1 36.4-46.3 fL RDW Coefficient of Variation 13.9 11.5-14.5 % Immature Granulocyte % (Auto) 0.3 % Immature Granulocyte # (Auto) 0.02 0.00-0.02 K/uL Echinocytes 1+ Magnesium Level 1.9 1.8-2.4 mg/dl Total Bilirubin 3.3 0.2-1 mg/dl Aspartate Amino Transf (AST/SGOT) 32 15-37 U/L Alanine Aminotransferase (ALT/SGPT) 24 12-78 U/L Alkaline Phosphatase 102 45-117 U/L Total Protein 5.3 6.4-8.2 gm/dl Albumin 1.9 3.4-5.0 gm/dl Globulin 3.4 2.5-4.0 gm/dl Albumin/Globulin Ratio 0.6 0.9-2 Microbiology Results 10/22/16 Blood Culture, Received Pending 10/22/16 Blood Culture, Received Pending 10/23/16 C.difficile Toxin B Gene (PCR) - Final, Complete Positive for C. difficile toxin B gene 10/22/16 Urine Culture, Received Pending
[2016-10-23] MEDS ORDERED: DEXAMETHASONE INJ 4 MG in SYRINGE 0 ML IV ONE (05:00)
[2016-10-23] MEDS ORDERED: CIPROFLOXACIN CONSULT ACTIVE PRN ×2 (05:30)
--- NOTE | 2016-10-23 05:53 | HISTORY & PHYSICAL EXAMINATION ---
DATE OF ADMISSION: 10/22/2016 PRIMARY CARE DOCTOR: Dr. Faustin CHIEF COMPLAINT: Weakness and abdominal pain. HISTORY OF PRESENT ILLNESS: Medical is history significant for alcoholic cirrhosis, going on abuse, past tobacco abuse, hypertension, history of esophageal varices, history of intracranial hemorrhage,chronic thrombocytopenia, chronic anemia (baseline hemoglobin 10-11 since February 2016). In May 2015, the patient had intracranial hemorrhage, L parietal secondary to uncontrolled hypertension. Transferred to [facility]. No operative intervention was done. Recent confinement last February 2016 for decompensated cirrhosis. Two months ago patient was seen at PCPs office for bothersome back pain symptoms that has been going on for years - neck to low back, no numbness tingling. Outpatient cervical and lumbar spine x-rays showed degenerative disease and L4-L5 minimal grade 1 anterolisthesis and narrowing, respectively. Patient prescribed outpatient prednisone course. Some response as per patient. Outpatient PT recommended. In the last few weeks patient noted bleeding in stools, occasionally black, occasionally bloody. He had increasing generalized weakness. In the last week patient noted worsening weakness, right-sided abdominal pain, achy , some nausea. No vomiting. No fever, no chills, no headaches, no trauma. Patient denies NSAID intake. No recent antibiotics. No known sick contacts. Had a followup with PCP a few days ago. Patient still complaining of back pain despite PT. Outpatient MRI contemplated. Persistent right lower extremity weakness from intracranial hemorrhage from last year Noted to be pale. Patient denies headache, nausea vomiting. No chest pain or shortness of breath. Outpatient blood work was done. Hemoglobin was noted to be 8.9. BUN was noted to be 58. Creatinine 3.8. Patient brought to the emergency room by for worsening symptoms. MEDICAL HISTORY: As above. 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 PPI twice a day recommended. Beta reyna deferred as per GI note. Colonoscopy in September 2015 just showed cecal anal polyps. PAST SURGERIES: None. HOME MEDICATIONS: Include; Norvasc, lisinopril, Aldactone, nadolol and thiamine. ALLERGIES: TO CEPHALOSPORIN AND PENICILLIN. FAMILY HISTORY: Hypertension PERSONAL AND SOCIAL HISTORY: Ongoing occasional alcohol beverage intake, past tobacco abuse, Disabled. REVIEW OF SYSTEMS: As per HPI. All other ROS negative. PHYSICAL EXAMINATION: VITAL SIGNS: Blood pressure was noted to be initially 82/36 later 114/45 pulse rate of 73, RR 16, temperature 36.5, sats 98 on room air. GEN : Noted to be chronically ill. no respiratory distress. SKIN: Pallor. Spider angiomata HEENT: Pale palpebral conjunctivae. Dry mucosa. NECK: No JVD. Supple. CHEST: Clear to auscultation. HEART: Regular rate and rhythm. ABDOMEN: upper abdominal tenderness. EXTREMITIES: No edema. No tenderness NEUROLOGIC: No gross focality except for decrease MMT RLE (chronic), some rest tremors. LABORATORIES: Hemoglobin was 7.9, white cell count 12.6 and platelets 71, sodium 135, potassium 4.9, chloride 100 and CO2 11. BUN 78, creatinine 3.8, glucose was noted to be 137, lipase was 1106. CT head; small linear hyperdense focus within the left high convexity on site of previous intracranial hemorrhage. FFup 6 to [address] recommended. Chest x-ray; no acute process. CT abdomen and pelvis; cirrhosis with portal hypertension with varices, bowel wall thickening, ascending colon with infiltration and adjacent fat indicative of nonspecific colitis; appendiceal wall thickening secondary to reactive colitis, cholelithiasis, mild gallbladder wall thickening. ASSESSMENT: 1. Gastrointestinal bleed Elements of combined upper gastrointestinal bleeding and lower gastrointestinal bleed. Patient gives history of passage both melanotic and bloody brown stools over the last few months. Decreasing hemoglobin over the last few months on review of outpatient blood work. history of esophagitis, gastric polyps,varices on EGD; colonic polyps on colonoscopy Colitis on CT. 2. Abdominal pain Multifactorial : Colitis on CT rule out C. difficile ? Alcoholic/biliary pancreatitis Rule out cholecystitis 3. alcoholic cirrhosis, no overt decompensation except for bleeding 4. Hypertension, BP on the lower side, 5. hyponatremia, acute renal failure clinical dehydration secondary to illness, home meds, diuretics, ongoing alcohol abuse 6. Metabolic acidosis secondary to above 7. recurrent intracranial hemorrhage. Spontaneous on the basis patient account Patient denies headache or recent trauma. Neuro status stable. 8. Chronic thrombocytopenia secondary to cirrhosis PLAN: PCU transfuse packed RBC if hemoglobin is less than 7 and/or for symptomatic anemia, PPI drip for now for possible UGIB. IV Cipro, Flagyl for hemorrhagic colitis. Stool C. diff. Right upper quadrant ultrasound rule out cholecystitis GI consult for GI bleed Hold antihypertensives, home diuretics for now given borderline BP (Home beta reyna should have been stopped after every 04/2016 EGD as per note.) Monitor creatinine response to IV fluids Careful correction of sodium May need renal ultrasound , Nephrology consult if with worsening kidney function Follow-up CT of the head in a.m. ? Neurology consult Transfuse platelets to attain level of 100,000 with intracranial hemorrhage DT precautions. DVT prophylaxis, SCDs RE thrombocytopenia. Full code. MTDD
[2016-10-23] MEDS ORDERED: GABAPENTIN 100MG Q6H DOSE PO SCH (06:00)
--- NOTE | 2016-10-23 07:02 | DIAGNOSTIC IMAGING REPORT ---
CT HEAD WITHOUT CONTRAST (CT) CLINICAL HISTORY: Intracranial hemorrhage. Follow-up examination. COMPARISON STUDY: 10/22/2016 TECHNIQUE: Axial CT of the brain is performed from the vertex to the skull base. IV contrast was not administered for this examination. A dose lowering technique was utilized adhering to the principles of ALARA. CT DOSE: 614.27 mGy.cm FINDINGS: No intra or extra-axial mass lesions are visualized. There is no CT evidence of acute cortical infarction. There is no evidence of midline shift. There is a small linear focus of increased attenuation within the high left parasagittal convexity. This is in an area of prior hemorrhage as visualized in May 2015. This could represent mineralization, or a tiny focus of acute hemorrhage. There remains unchanged from the study dated 10/22/2016. There is adjacent subtle encephalomalacia. There are patchy white matter hypodensities likely on a small vessel basis. There is no evidence of pathologic ventricular dilatation. There is a small left maxillary sinus retention cyst/polyp. IMPRESSION: 1. No change from the preceding study 2. Stable linear hyperdense focus within the high left convexity. This could represent either a small focus of acute hemorrhage, or parenchymal mineralization secondary to a remote hemorrhage. There is mild adjacent encephalomalacia. Electronically signed by: Randolph Metcalf M.D. 10/23/2016 7:01 AM Dictated Date/Time: 10/23/2016 6:57 AM
--- NOTE | 2016-10-23 07:28 | DIAGNOSTIC IMAGING REPORT ---
BILIARY ULTRASOUND CLINICAL HISTORY: Right upper quadrant abdominal pain COMPARISON STUDY: CT scan dated 10/22/2016 FINDINGS: There are multiple gallstones. There is mild gallbladder wall thickening. There is a small amount of sludge in the gallbladder. There is a coarsened hepatic echotexture. The liver appears cirrhotic. There is 2 and fro flow within the main portal vein suggesting portal hypertension. There is no ductal dilatation. The common bile duct measures 5 mm. There is no right-sided hydronephrosis. There are multiple upper abdominal varices. Evaluation of the pancreas is quite limited. IMPRESSION: 1. Cirrhotic liver morphology with evidence of portal hypertension and multiple varices 2. Cholelithiasis with mild gallbladder wall thickening. No evidence of ductal dilatation. Electronically signed by: Randolph Metcalf M.D. 10/23/2016 7:26 AM Dictated Date/Time: 10/23/2016 7:24 AM
[2016-10-23] MEDS ORDERED: AMLODIPINE BESYLATE 5 MG TAB PO SCH (09:00)
[2016-10-23] MEDS ORDERED: NADOLOL 40 MG TAB PO SCH (09:00)
[2016-10-23] MEDS: THIAMINE HCL 100 MG TAB PO SCH (12:20)
[2016-10-23] MEDS: RASPBERRY SYRUP 5 ML UDP PO SCH ×3 (12:20→21:28)
[2016-10-23] MEDS: VANCOMYCIN HCL 125 MG/2.5ML SOLN PO SCH ×3 (12:21→21:29)
--- NOTE | 2016-10-23 13:02 | GASTROINTESTINAL CONSULTATION ---
DATE OF CONSULTATION: 10/23/2016 AGE: 50. SEX: Male. RACE: . ATTENDING PHYSICIAN: Dr. Haile. CONSULTING PHYSICIAN: Dr. Flores. REASON FOR CONSULTATION: Upper GI bleed. HISTORY OF PRESENT ILLNESS: Glen Deng is a 50-year-old male with a known past medical history of alcohol-induced cirrhosis with grade 1 esophageal varices as seen by Dr. Guthrie on prior upper endoscopy in April of 2016. At that time, he had no stigmata of bleeding and was placed on nonselective beta reyna. The patient was placed on nadolol [address] Guthrie for primary prophylaxis against variceal bleeding. Over the past few weeks, the patient developed general malaise and weakness and presented to the Department of Emergency Medicine on October 22 and did admit to having intermittent bloody stools. He has no history of colonoscopy as per chart review at [facility]. He did have an H&H of 7.9 and 21.1 on arrival. His vital signs did show some systolic blood pressures in the 70s-80s overnight and was given a fluid bolus. He underwent a CT scan of his abdomen and pelvis in the Department of Emergency Medicine and was noted to have a cirrhotic appearing liver with evidence of portal hypertension. There was no renal, ureteral or bladder calculi identified. There was bowel wall thickening involving the ascending colon. He had mild appendiceal thickening and he also underwent a gallbladder ultrasound, which did show cholelithiasis with mild gallbladder wall thickening, but no evidence of ductal dilatation and a head CT, which showed no change from prior study with stable linear hyperdense focus within the high left convexity. He was subsequently admitted. He did have a heme positive stool and C. diff testing did return positive. He was started on vancomycin therapy. At the time that I saw the patient, he had no complaints of hematemesis or melena. He states that he has moved his bowels a few times since his hospitalization. He denies any lightheadedness or dizziness. He denies any alcohol intake. His total bilirubin on admission was 4.1 and AST of 39, ALT of 28 and an alkaline phosphatase of 121. His INR was noted to be 1.5. He denies any fevers, chills or other complaints at present. PAST MEDICAL HISTORY: Significant for alcohol-induced cirrhosis, history of tobacco abuse, hypertension, chronic thrombocytopenia, intracranial hemorrhage, hypertension, and esophageal varices. PAST SURGICAL HISTORY: None. ALLERGIES: CEPHALOSPORINS AND PENICILLINS. MEDICATIONS AT PRESENT: Include Neurontin 200 mg p.o. daily, Neurontin 400 mg p.o. daily, Neurontin 600 mg p.o. daily, vancomycin 125 mg p.o. q.i.d., folic acid 1 mg p.o. q.a.m., thiamin 100 mg p.o. q.a.m., Flagyl 500 mg IV q. 8 hours, Protonix drip at 8 mg per hour, Dilaudid 0.5 mg IV q. 3 hours p.r.n. pain, oxycodone 5 mg p.o. q. 4 hours p.r.n. pain, Zofran 4 mg IV q. 6 hours p.r.n. nausea, and Ativan as needed for signs and symptoms of alcohol withdrawal. SOCIAL HISTORY: He is a former alcoholic and continues to have an occasional alcoholic beverage. He is on disability. He denies any tobacco or illicit drug use. FAMILY HISTORY: Negative for GI malignancy or inflammatory bowel disease. REVIEW OF SYSTEMS: Negative x12 system review other than pertinent positives listed in the HPI. PHYSICAL EXAMINATION: VITAL SIGNS: Include a temp of 37, pulse 77, respirations 18, blood pressure 94/51, and pulse ox 94% on room air. GENERAL: He is awake, cooperative, chronic ill appearing, in no acute distress. HEAD: Normocephalic and atraumatic. EYES: Pupils equally round. Sclerae are icteric. ENT: Oropharynx is clear. External evaluation of ears and nose is normal. NECK: Soft and supple. CHEST: Clear to auscultation bilaterally. CARDIOVASCULAR SYSTEM: Regular rate and rhythm. ABDOMEN: Soft. Tender in the right lower quadrant. Nondistended. Positive bowel sounds. There is no hepatosplenomegaly or stigmata of chronic liver disease appreciable on this exam. EXTREMITIES: No clubbing, cyanosis, or edema. SKIN: Noted jaundice. LABORATORY STUDIES AND RADIOGRAPHIC STUDIES: Reviewed in the HPI. IMPRESSION: This is a 50-year-old male who presented with general malaise, heme positive stool, abnormal CT imaging showing an ascending nonspecific colitis and a positive C. diff testing since his arrival. PLAN: At the present time, I believe the patient's symptoms including his GI bleeding are related to his acute colitis secondary to C. diff. He has been placed on vancomycin 125 mg p.o. q.i.d. I would recommend a 10-day treatment course with this. I would recommend monitoring for any further signs of overt GI blood loss. If he has any evidence of hematemesis or any melena, I am happy to reevaluate him and possibly perform an upper endoscopy during this hospitalization; however, he did just have an upper endoscopy in March and did have a primary prophylaxis with nadolol since that time. I will follow his clinical course and make further recommendations as needed. Once again, thanks for allowing me to participate in the care of this patient. If you have any further questions, please do not hesitate in contacting me. RODRICK
--- NOTE | 2016-10-23 13:23 | GASTROINTESTINAL CONSULTATION ---
DATE OF CONSULTATION: 10/23/2016 ADDENDUM The patient was placed on nadolol [address] Guthrie for primary prophylaxis against variceal bleeding. Over the past few weeks, the patient developed general malaise and weakness and presented to the Department of Emergency Medicine on October 22 and did admit to having intermittent bloody stools. He has no history of colonoscopy as per chart review at [facility]. He did have an H&H of 7.9 and 21.1 on arrival. His vital signs did show some systolic blood pressures in the 70s-80s overnight and was given a fluid bolus. He underwent a CT scan of his abdomen and pelvis in the Department of Emergency Medicine and was noted to have a cirrhotic appearing liver with evidence of portal hypertension. There was no renal, ureteral or bladder calculi identified. There was bowel wall thickening involving the ascending colon. He had mild appendiceal thickening and he also underwent a gallbladder ultrasound, which did show cholelithiasis with mild gallbladder wall thickening, but no evidence of ductal dilatation and a head CT, which showed no change from prior study with stable linear hyperdense focus within the high left convexity. He was subsequently admitted. He did have a heme positive stool and C. diff testing did return positive. He was started on vancomycin therapy. At the time that I saw the patient, he had no complaints of hematemesis or melena. He states that he has moved his bowels a few times since his hospitalization. He denies any lightheadedness or dizziness. He denies any alcohol intake. His total bilirubin on admission was 4.1 and AST of 39, ALT of 28 and an alkaline phosphatase of 121. His INR was noted to be 1.5. He denies any fevers, chills or other complaints at present. PAST MEDICAL HISTORY: Significant for alcohol-induced cirrhosis, history of tobacco abuse, hypertension, chronic thrombocytopenia, intracranial hemorrhage, hypertension, and esophageal varices. PAST SURGICAL HISTORY: None. ALLERGIES: CEPHALOSPORINS AND PENICILLINS. MEDICATIONS AT PRESENT: Include Neurontin 200 mg p.o. daily, Neurontin 400 mg p.o. daily, Neurontin 600 mg p.o. daily, vancomycin 125 mg p.o. q.i.d., folic acid 1 mg p.o. q.a.m., thiamin 100 mg p.o. q.a.m., Flagyl 500 mg IV q. 8 hours, Protonix drip at 8 mg per hour, Dilaudid 0.5 mg IV q. 3 hours p.r.n. pain, oxycodone 5 mg p.o. q. 4 hours p.r.n. pain, Zofran 4 mg IV q. 6 hours p.r.n. nausea, and Ativan as needed for signs and symptoms of alcohol withdrawal. SOCIAL HISTORY: He is a former alcoholic and continues to have an occasional alcoholic beverage. He is on disability. He denies any tobacco or illicit drug use. FAMILY HISTORY: Negative for GI malignancy or inflammatory bowel disease. REVIEW OF SYSTEMS: Negative x12 system review other than pertinent positives listed in the HPI. PHYSICAL EXAMINATION: VITAL SIGNS: Include a temp of 37, pulse 77, respirations 18, blood pressure 94/51, and pulse ox 94% on room air. GENERAL: He is awake, cooperative, chronic ill appearing, in no acute distress. HEAD: Normocephalic and atraumatic. EYES: Pupils equally round. Sclerae are icteric. ENT: Oropharynx is clear. External evaluation of ears and nose is normal. NECK: Soft and supple. CHEST: Clear to auscultation bilaterally. CARDIOVASCULAR SYSTEM: Regular rate and rhythm. ABDOMEN: Soft. Tender in the right lower quadrant. Nondistended. Positive bowel sounds. There is no hepatosplenomegaly or stigmata of chronic liver disease appreciable on this exam. EXTREMITIES: No clubbing, cyanosis, or edema. SKIN: Noted jaundice. LABORATORY STUDIES AND RADIOGRAPHIC STUDIES: Reviewed in the HPI. IMPRESSION: This is a 50-year-old male who presented with general malaise, heme positive stool, abnormal CT imaging showing an ascending nonspecific colitis and a positive C. diff testing since his arrival. PLAN: At the present time, I believe the patient's symptoms including his GI bleeding are related to his acute colitis secondary to C. diff. He has been placed on vancomycin 125 mg p.o. q.i.d. I would recommend a 10-day treatment course with this. I would recommend monitoring for any further signs of overt GI blood loss. If he has any evidence of hematemesis or any melena, I am happy to reevaluate him and possibly perform an upper endoscopy during this hospitalization; however, he did just have an upper endoscopy in March and did have a primary prophylaxis with nadolol since that time. I will follow his clinical course and make further recommendations as needed. Once again, thanks for allowing me to participate in the care of this patient. If you have any further questions, please do not hesitate in contacting me. RODRICK
[2016-10-23 13:31] LABS: HEMATOCRIT 20.8 % (42-52); MEAN CELL VOLUME 96.7 fL (80-100); MEAN CORPUSCULAR HEMOGLOBIN 34.4 pg (25-34); MEAN CORPUSCULAR HGB CONC 35.6 g/dl (32-36); MEAN PLATELET VOLUME 10.3 fL (7.4-10.4); PLATELET COUNT 76 K/uL (130-400); RED BLOOD COUNT 2.15 M/uL (4.7-6.1); WHITE BLOOD COUNT 6.31 K/uL (4.8-10.8)
[2016-10-23 13:32] LABS: COMPLETE YES; ECHINOCYTES 3+; LYMPH % 5.9 %; LYMPH ABS # 0.37 K/uL (1.2-3.4); MONO % 8.1 %
[2016-10-23 13:34] LABS: BUN/CREATININE RATIO 27.5 (10-20); CALCIUM 8.5 mg/dl (8.5-10.1); CREATININE 2.3 mg/dl (0.60-1.40); POTASSIUM 5.2 mmol/L (3.5-5.1)
[2016-10-23] MEDS ORDERED: ACETAMINOPHEN 325 MG TAB PO SCH (14:30)
[2016-10-23] MEDS ORDERED: FUROSEMIDE INJ 20 MG in SYRINGE 0 ML IV SCH (16:00)
[2016-10-23] MEDS ORDERED: CIPROFLOXACIN 400MG / D5W IV SCH (16:00)
--- NOTE | 2016-10-23 17:52 | Progress Note ---
Internal Med Progress Note Date of Service: Oct 23, 2016. Provider Documentation: SUBJECTIVE: resting comfortably feeling fine poor appetite has abdominal pain once in a while afebrile has diarrhea denies blood in stool or black stools no nausea or vomiting no headaches OBJECTIVE: Vital Signs-as noted below Exam: General-alert and oriented. Not in distress ENT-Normal hearing Neck-no neck masses supple Lungs-cta b/l no wheezing no crackles present Heart-s1 and s2 heard regular rate and rhythm no murmurs Abdomen-soft bowel sounds present non tender no distension Extremities- no erythema Neuro-alert and oriented moves extremities Lab data as noted below. ASSESSMENT & PLAN: 1. Gastrointestinal bleed question of acute GI bleed? heme positive stool acute vs chronic hb 7.9 on presentation and s/p one unit prbc transfused hb 7.4 today history of esophagitis, varices on EGD, colonic polyps on colonoscopy transfusing two more units today seen by GI if concern for acute bleeding GI plans for egd will monitor h and h. 2. c diff colitis abdominal pain colitis on ct scan hemepositive stools on iv Flagyl started on po vancomycin will monitor Gi on board. 3. alcoholic cirrhosis, no overt decompensation except for bleeding Diuretics and nadolol on hold for relative low BP. 4. Hypertension, BP on the lower side,. holding diuretics, nadolol and lisinopril. Will monitor. 5. hyponatremia, acute renal failure from clinical dehydration secondary to illness, home meds, diuretics, ongoing alcohol abuse on fluids will f/u labs. Hypotension Hyperkalemia adrenal insufficiency? was on steroids in recent past started on iv hydrocortisone will monitor Metabolic acidosis secondary to above f/u labs. recurrent intracranial hemorrhage.? Spontaneous on the basis patient account Patient denies headache or recent trauma. Neuro status stable. repeat ct head- possible remnants of old bleed will repeat ct head in am and consult neurology. Chronic thrombocytopenia secondary to cirrhosis DVT PROPHYLAXIS scds DISPOSITION to be determined Vital Signs: Date Time Temp Pulse Resp B/P (MAP) Pulse Ox O2 Delivery O2 Flow Rate FiO2 10/23/16 16:55 36.4 72 16 92/54 99 10/23/16 16:25 36.7 72 16 100/63 10/23/16 16:00 99 Room Air 10/23/16 15:55 36.6 72 16 91/52 99 10/23/16 15:40 36.2 72 16 110/67 99 10/23/16 15:25 36.5 72 18 98/62 99 10/23/16 15:22 36.5 72 18 98/62 99 0.0 10/23/16 12:00 Room Air 10/23/16 11:34 37.0 77 18 94/51 (65) 94 Room Air 10/23/16 10:20 36.9 74 18 92/54 97 10/23/16 09:20 36.5 76 16 93/54 10/23/16 08:50 36.6 76 16 94/54 10/23/16 08:20 36.7 76 18 93/58 10/23/16 08:05 37.0 76 18 90/48 10/23/16 08:00 98 Room Air 10/23/16 07:59 37.0 76 18 95/55 (68) 98 Room Air 10/23/16 07:46 36.6 76 16 92/51 10/23/16 06:24 37.1 80 16 91/52 99 10/23/16 06:02 37.1 82 16 82/43 97 10/23/16 05:24 37.1 78 16 77/35 97 10/23/16 04:53 37.2 82 16 79/42 96 10/23/16 04:30 37.3 81 16 79/42 95 10/23/16 04:15 37.1 76 18 71/38 99 10/23/16 04:00 37.0 77 17 73/36 99 10/23/16 04:00 Room Air 10/23/16 03:55 37.3 69 17 81/38 97 10/23/16 03:35 78 74/35 (48) 10/23/16 02:58 84 87/48 (61) 10/23/16 02:20 83 78/36 (50) 10/23/16 00:00 Room Air 10/22/16 23:38 36.6 83 20 99/44 (62) 98 Room Air 10/22/16 21:27 36.5 92 18 107/60 (76) 97 Room Air 10/22/16 21:08 Room Air 10/22/16 20:20 72 16 104/34 98 Room Air 10/22/16 19:29 85 16 117/39 98 Room Air 10/22/16 19:14 87 8/4/17 18:59 88 16 100/47 98 Room Air 10/22/16 18:54 97 Room Air 10/22/16 18:18 93/45 10/22/16 17:54 73 114/45 98 Room Air Lab Results: Results Past 24 Hours Test 10/22/16 17:49 10/22/16 17:52 10/22/16 20:59 10/23/16 02:40 Range/Units White Blood Count 12.61 7.68 4.8-10.8 K/uL Red Blood Count 2.11 2.02 4.7-6.1 M/uL Hemoglobin 7.9 8.0 7.3 14.0-18.0 g/dL Hematocrit 21.1 22.3 20.2 42-52 % Mean Corpuscular Volume 100.0 100.0 80-100 fL Mean Corpuscular Hemoglobin 37.4 36.1 25-34 pg Mean Corpuscular Hemoglobin Concent 37.4 36.1 32-36 g/dl Platelet Count 71 53 130-400 K/uL Mean Platelet Volume 11.1 10.5 7.4-10.4 fL Neutrophils (%) (Auto) 70.5 68.5 % Lymphocytes (%) (Auto) 11.6 13.3 % Monocytes (%) (Auto) 17.1 17.4 % Eosinophils (%) (Auto) 0.2 0.4 % Basophils (%) (Auto) 0.1 0.1 % Neutrophils # (Auto) 8.89 5.26 1.4-6.5 K/uL Lymphocytes # (Auto) 1.46 1.02 1.2-3.4 K/uL Monocytes # (Auto) 2.16 1.34 0.11-0.59 K/uL Eosinophils # (Auto) 0.03 0.03 0-0.5 K/uL Basophils # (Auto) 0.01 0.01 0-0.2 K/uL RDW Standard Deviation 51.7 51.1 36.4-46.3 fL RDW Coefficient of Variation 14.1 13.9 11.5-14.5 % Immature Granulocyte % (Auto) 0.5 0.3 % Immature Granulocyte # (Auto) 0.06 0.02 0.00-0.02 K/uL Ovalocytes 1+ Echinocytes 2+ 1+ Erythrocyte Sedimentation Rate 29 0-14 mm/hr Prothrombin Time 16.0 9.0-12.0 SECONDS Prothromb Time International Ratio 1.5 0.9-1.1 Activated Partial Thromboplast Time 34.3 21.0-31.0 SECONDS Partial Thromboplastin Ratio 1.3 Sodium Level 125 129 130 136-145 mmol/L Potassium Level 4.9 4.5 5.0 3.5-5.1 mmol/L Chloride Level 100 104 108 98-107 mmol/L Carbon Dioxide Level 11 14 11 21-32 mmol/L Anion Gap 14.0 11.0 11.0 3-11 mmol/L Blood Urea Nitrogen 78 73 69 7-18 mg/dl Creatinine 3.80 3.20 2.80 0.60-1.40 mg/dl Est Creatinine Clear Calc Drug Dose 23.5 27.9 31.9 ml/min Estimated GFR () 19.9 24.5 28.8 Estimated GFR (Non- 17.2 21.1 24.8 BUN/Creatinine Ratio 20.5 22.8 24.8 10-20 Random Glucose 137 134 114 70-99 mg/dl Calcium Level 8.6 8.3 7.9 8.5-10.1 mg/dl Phosphorus Level 6.6 2.5-4.9 mg/dl Magnesium Level 2.3 1.9 1.8-2.4 mg/dl Total Bilirubin 4.1 3.3 0.2-1 mg/dl Aspartate Amino Transf (AST/SGOT) 39 32 15-37 U/L Alanine Aminotransferase (ALT/SGPT) 28 24 12-78 U/L Alkaline Phosphatase 121 102 45-117 U/L Ammonia 28.0 11-32 umol/L Total Creatine Kinase 51 39-308 U/L Creatine Kinase MB 0.6 0.5-3.6 ng/ml Creatine Kinase MB Ratio 1.2 0-3.0 Troponin I < 0.015 0-0.045 ng/ml C-Reactive Protein 1.14 0-0.29 mg/dl Pro-B-Type Natriuretic Peptide 1902 0-900 pg/ml Total Protein 6.2 5.3 6.4-8.2 gm/dl Albumin 2.5 1.9 3.4-5.0 gm/dl Globulin 3.7 3.4 2.5-4.0 gm/dl Albumin/Globulin Ratio 0.7 0.6 0.9-2 Lipase 1106 1381 1013 73-393 U/L Bedside Lactic Acid Venous 1.73 0.90-1.70 mmol/L Osmolality 285 280-300 mOsm/kg Lactic Acid Level 1.7 1.3 0.4-2.0 mmol/L Thyroid Stimulating Hormone (TSH) 0.370 0.300-4.500 uIu/ml Ethyl Alcohol mg/dL < 3.0 0-3 mg/dl Test 10/23/16 11:49 10/23/16 12:30 10/23/16 16:00 Range/Units White Blood Count 6.31 4.8-10.8 K/uL Red Blood Count 2.15 4.7-6.1 M/uL Hemoglobin 7.4 14.0-18.0 g/dL Hematocrit 20.8 42-52 % Mean Corpuscular Volume 96.7 80-100 fL Mean Corpuscular Hemoglobin 34.4 25-34 pg Mean Corpuscular Hemoglobin Concent 35.6 32-36 g/dl Platelet Count 76 130-400 K/uL Mean Platelet Volume 10.3 7.4-10.4 fL Neutrophils (%) (Auto) 86.0 % Lymphocytes (%) (Auto) 5.9 % Monocytes (%) (Auto) 8.1 % Eosinophils (%) (Auto) 0.0 % Basophils (%) (Auto) 0.0 % Neutrophils # (Auto) 5.43 1.4-6.5 K/uL Lymphocytes # (Auto) 0.37 1.2-3.4 K/uL Monocytes # (Auto) 0.51 0.11-0.59 K/uL Eosinophils # (Auto) 0.00 0-0.5 K/uL Basophils # (Auto) 0.00 0-0.2 K/uL RDW Standard Deviation 55.9 36.4-46.3 fL RDW Coefficient of Variation 15.6 11.5-14.5 % Immature Granulocyte % (Auto) 0.0 % Immature Granulocyte # (Auto) 0.00 0.00-0.02 K/uL Echinocytes 3+ Sodium Level 132 136-145 mmol/L Potassium Level 5.2 3.5-5.1 mmol/L Chloride Level 111 98-107 mmol/L Carbon Dioxide Level 12 21-32 mmol/L Anion Gap 9.0 3-11 mmol/L Blood Urea Nitrogen 63 7-18 mg/dl Creatinine 2.30 0.60-1.40 mg/dl Est Creatinine Clear Calc Drug Dose 38.5 ml/min Estimated GFR () 36.5 Estimated GFR (Non- 31.5 BUN/Creatinine Ratio 27.5 10-20 Random Glucose 147 70-99 mg/dl Calcium Level 8.5 8.5-10.1 mg/dl Stool Occult Blood POSITIVE NEGATIVE Microbiology Results 10/22/16 Blood Culture, Received Pending 10/23/16 C.difficile Toxin B Gene (PCR) - Final, Complete Positive for C. difficile toxin B gene
[2016-10-23 23:59] LABS: HEMATOCRIT 27.1 % (42-52)
[2016-10-24] VITALS (7 sets, daily range): BP systolic 97–116; BP diastolic 51–69; PULSE 76–96; TEMP 36.2–37; O2SAT 97–100
[2016-10-24 00:24] LABS: BUN/CREATININE RATIO 22.3 (10-20); CALCIUM 8.5 mg/dl (8.5-10.1); CREATININE 2.5 mg/dl (0.60-1.40); POTASSIUM 4.5 mmol/L (3.5-5.1)
[2016-10-24] MEDS: SODIUM CHLORIDE 0.9% 1000ML 1,000 ML IV SCH (01:32)
[2016-10-24] MEDS: METRONIDAZOLE / NSS 500 MG in PREMIXED NSS 100 ML IV SCH ×2 (03:39→13:15)
[2016-10-24] MEDS ORDERED: COSYNTROPIN INJ 0.25 MCG in SYRINGE 4 ML IV ONE (08:00)
[2016-10-24 08:30] LABS: HEMATOCRIT 26.1 % (42-52); MEAN CELL VOLUME 94.9 fL (80-100); MEAN CORPUSCULAR HEMOGLOBIN 34.2 pg (25-34); RED BLOOD COUNT 2.75 M/uL (4.7-6.1); WHITE BLOOD COUNT 7.48 K/uL (4.8-10.8)
[2016-10-24 08:51] LABS: MEAN PLATELET VOLUME 10.8 fL (7.4-10.4); PLATELET COUNT 69 K/uL (130-400)
[2016-10-24 08:55] LABS: COMPLETE YES; ECHINOCYTES 2+; IG% 0.8 %; LYMPH % 8.3 %; LYMPH ABS # 0.62 K/uL (1.2-3.4); MONO % 15.4 %; NEUT % 75.5 %
[2016-10-24 08:57] LABS: BUN/CREATININE RATIO 25.5 (10-20); CALCIUM 8.7 mg/dl (8.5-10.1); CREATININE 2.1 mg/dl (0.60-1.40); MAGNESIUM 1.8 mg/dl (1.8-2.4); POTASSIUM 4.8 mmol/L (3.5-5.1)
[2016-10-24 09:00] LABS: ALB/GLOB RATIO 0.6 (0.9-2)
[2016-10-24] MEDS: THIAMINE HCL 100 MG TAB PO SCH (09:07)
--- NOTE | 2016-10-24 09:07 | DIAGNOSTIC IMAGING REPORT ---
HEAD CT NONCONTRAST CT DOSE: 537.48 mGy.cm HISTORY: recurrent intracranial hemorrhage? TECHNIQUE: Multiaxial CT images of the head were performed without the use of intravenous contrast. Automated exposure control was utilized for this study. A dose lowering technique was utilized adhering to the principles of ALARA. Comparison: Head CT 10/23/2016. Findings: Small retention cyst within the left max a sinus. No fluid levels within the paranasal sinuses. The mastoid air cells are clear. The calvarium and skull base are intact. There is no mass, midline shift, acute infarct. White matter hypodensity is nonspecific but suggestive of microvascular ischemic change. The ventricles and sulci demonstrate mild age-related involutional changes. There is again noted a tiny linear hyperdense focus within the left high convexity best seen on image 21. This has not increased in size. Impression: No significant change in the tiny linear hyperdense focus within the left high convexity at the site of prior hemorrhage. Therefore, this could represent a small focus of calcification versus acute hemorrhage. An additional [address] follow-up is recommended. Electronically signed by: Ishaan Haley M.D. 10/24/2016 9:06 AM Dictated Date/Time: 10/24/2016 9:02 AM
[2016-10-24] MEDS: RASPBERRY SYRUP 5 ML UDP PO SCH ×4 (09:08→21:33)
[2016-10-24] MEDS: PANTOprazole SOD 40 MG TAB PO SCH (09:12)
[2016-10-24] MEDS: VANCOMYCIN HCL 125 MG/2.5ML SOLN PO SCH ×4 (09:12→21:33)
[2016-10-24] MEDS ORDERED: GABAPENTIN 600MG X1 DOSE PO SCH ×2 (10:00→12:00)
--- NOTE | 2016-10-24 11:33 | PROGRESS NOTE ---
DATE: 10/24/2016 AGE: 50 SEX: Male. RACE: . I had the pleasure of seeing Glen Deng today at his bedside in cross coverage for [facility]. The patient states that he is feeling much better today. He did have one soft to semi-formed brown stool today without blood. He denies any abdominal pain, fevers, chills, nausea, vomiting, hematemesis, melena or hematochezia. REVIEW OF SYSTEMS: Negative x10. PHYSICAL EXAMINATION: VITAL SIGNS: Temp 37, pulse 79, respirations 18, blood pressure 98/51, pulse ox 100% on room air. GENERAL: He is awake, cooperative, chronic ill-appearing, in no acute distress. HEAD: Normocephalic, atraumatic. EYES: Pupils equally round. Extraocular muscles are intact. ENT: External evaluation of ears and nose are normal. Oropharynx is clear. NECK: Soft, supple. No JVD or lymphadenopathy. CHEST: Decreased breath sounds bilateral bases. CARDIOVASCULAR SYSTEM: Regular rate and rhythm. ABDOMEN: Soft, nontender, nondistended. There are positive bowel sounds. EXTREMITIES: No clubbing, cyanosis, or edema. LABORATORY STUDIES: From today include a white blood cell count of 7.48, hemoglobin 9.4, hematocrit 26.1 and a platelet count of 69. His sodium was 137, potassium 4.8, chloride 114, bicarb 16, BUN 54, creatinine 2.10. Blood glucose level 152. IMPRESSION: A 50-year-old male with history of cirrhosis and esophageal varices, who presented with general malaise and abnormal CT imaging and was subsequently found to have positive Clostridium difficile testing. PLAN: At the present time, he is feeling much better on vancomycin 125 mg p.o. q.i.d., I would recommend a 10-day treatment course with this. I would also recommend that he have reinitiation of his nadolol therapy 40 mg daily when he is felt to be stable from primary standpoint. I will follow his clinical course and he will have his care resumed by [facility] tomorrow.
--- NOTE | 2016-10-24 14:31 | CONSULTATION REPORT ---
DATE OF CONSULTATION: 10/24/2016 FOR: Dr. Quispe. HISTORY OF PRESENT ILLNESS: Glen is 50 years old, was admitted to the hospital for hypotension and anemia due to GI bleeding and this occurred in the setting of longstanding cirrhosis and thrombocytopenia and in the setting of some low back pain. I Refer the reader to the admission history and physical and progress notes. 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 In the course of his evaluation for his hypotension with low grade confusion, he had a CAT scan that showed possibly a recurrent hemorrhage in this area versus some calcification. He has had a second CAT scan which is unchanged and he is due for third one tomorrow. He is absolutely asymptomatic from a neurologic point of view, he has no headaches, no focal signs, he still has some back pain and abdominal pain and had some diarrhea and again I refer the reader to the progress notes from Dr. Quispe. Neurology has been consulted I suppose because of the abnormal CT scans. I reviewed the images. My personal opinion is that this is calcification from the prior hemorrhage, but I think a third CT scan should be sufficient to exclude active bleeding. This man is not on antiplatelet drugs anyway and at this point I do not think neurology has much more to offer. I will review the CAT scan tomorrow, but for now we do need to make regular visits to his bedside as he is absolutely asymptomatic and I am not going to charge for this consultation. RODRICK
--- NOTE | 2016-10-24 18:40 | Progress Note ---
Internal Med Progress Note Date of Service: Oct 24, 2016. Provider Documentation: SUBJECTIVE: resting comfortably ambulating ok no bowel movement today afebrile tolerating diet fine feeling better OBJECTIVE: Vital Signs-as noted below Exam: General-alert and oriented. Not in distress ENT-Normal hearing Neck-no neck masses supple Lungs-cta b/l no wheezing no crackles present Heart-s1 and s2 heard regular rate and rhythm no murmurs Abdomen-soft bowel sounds present non tender no distension Extremities- no erythema Neuro-alert and oriented moves extremities Lab data as noted below. ASSESSMENT & PLAN: 1. Gastrointestinal bleed question of acute GI bleed? heme positive stool acute vs chronic hb 7.9 on presentation and s/p one unit prbc transfused hb 7.4 on 10/23/16 history of esophagitis, varices on EGD, colonic polyps on colonoscopy transfusing two more units today seen by GI if concern for acute bleeding GI plans for egd will monitor h and h. hb stable at 9.4. 2. c diff colitis abdominal pain colitis on ct scan hemepositive stools on iv Flagyl started on po vancomycin will monitor improving will stop iv flagyl Gi on board. 3. alcoholic cirrhosis, no overt decompensation except for bleeding Diuretics and nadolol on hold for relative low BP.Will restart when BP improves. 4. Hypertension, BP on the lower side,. holding diuretics, nadolol and lisinopril. Will monitor. 5. hyponatremia, acute renal failure from clinical dehydration secondary to illness, home meds, diuretics, ongoing alcohol abuse on fluids cr2.1 today will f/u labs. Hypotension Hyperkalemia adrenal insufficiency? was on steroids in recent past improving Metabolic acidosis secondary to above f/u labs. recurrent intracranial hemorrhage.? Spontaneous on the basis patient account Patient denies headache or recent trauma. Neuro status stable. repeat ct head- possible remnants of old bleed appreciate neurology input f/u ct head in am. Chronic thrombocytopenia secondary to cirrhosis DVT PROPHYLAXIS scds DISPOSITION pt/ot possible d/c in 1-2 days Vital Signs: Date Time Temp Pulse Resp B/P (MAP) Pulse Ox O2 Delivery O2 Flow Rate FiO2 10/24/16 16:00 Room Air 10/24/16 15:26 36.3 90 18 113/69 (84) 100 Room Air 10/24/16 12:00 Room Air 10/24/16 11:37 36.2 81 18 112/62 (79) 98 Room Air 10/24/16 08:00 Room Air 10/24/16 07:32 37.0 79 18 98/51 (67) 100 Room Air 10/24/16 04:28 36.8 76 18 97/55 (69) 99 Room Air 10/24/16 04:00 Room Air 10/24/16 00:00 Room Air 10/24/16 00:00 36.6 81 20 98/56 (70) 100 Room Air 10/23/16 21:47 36.6 86 18 112/62 96 10/23/16 21:24 36.9 83 20 107/57 98 10/23/16 20:23 36.3 84 20 94/48 100 10/23/16 20:00 Room Air 10/23/16 19:50 36.7 80 16 97/55 99 10/23/16 19:05 36.6 80 18 94/54 99 10/23/16 18:46 36.7 83 18 83/43 98 Lab Results: Results Past 24 Hours Test 10/23/16 23:51 10/24/16 07:57 Range/Units Hemoglobin 9.6 9.4 14.0-18.0 g/dL Hematocrit 27.1 26.1 42-52 % Sodium Level 135 137 136-145 mmol/L Potassium Level 4.5 4.8 3.5-5.1 mmol/L Chloride Level 111 114 98-107 mmol/L Carbon Dioxide Level 12 16 21-32 mmol/L Anion Gap 12.0 7.0 3-11 mmol/L Blood Urea Nitrogen 56 54 7-18 mg/dl Creatinine 2.50 2.10 0.60-1.40 mg/dl Est Creatinine Clear Calc Drug Dose 35.4 42.5 ml/min Estimated GFR () 33.0 40.7 Estimated GFR (Non- 28.5 35.1 BUN/Creatinine Ratio 22.3 25.5 10-20 Random Glucose 169 152 70-99 mg/dl Calcium Level 8.5 8.7 8.5-10.1 mg/dl White Blood Count 7.48 4.8-10.8 K/uL Red Blood Count 2.75 4.7-6.1 M/uL Mean Corpuscular Volume 94.9 80-100 fL Mean Corpuscular Hemoglobin 34.2 25-34 pg Mean Corpuscular Hemoglobin Concent 36.0 32-36 g/dl Platelet Count 69 130-400 K/uL Mean Platelet Volume 10.8 7.4-10.4 fL Neutrophils (%) (Auto) 75.5 % Lymphocytes (%) (Auto) 8.3 % Monocytes (%) (Auto) 15.4 % Eosinophils (%) (Auto) 0.0 % Basophils (%) (Auto) 0.0 % Neutrophils # (Auto) 5.65 1.4-6.5 K/uL Lymphocytes # (Auto) 0.62 1.2-3.4 K/uL Monocytes # (Auto) 1.15 0.11-0.59 K/uL Eosinophils # (Auto) 0.00 0-0.5 K/uL Basophils # (Auto) 0.00 0-0.2 K/uL RDW Standard Deviation 60.5 36.4-46.3 fL RDW Coefficient of Variation 17.4 11.5-14.5 % Immature Granulocyte % (Auto) 0.8 % Immature Granulocyte # (Auto) 0.06 0.00-0.02 K/uL Echinocytes 2+ Magnesium Level 1.8 1.8-2.4 mg/dl Total Bilirubin 3.6 0.2-1 mg/dl Aspartate Amino Transf (AST/SGOT) 50 15-37 U/L Alanine Aminotransferase (ALT/SGPT) 34 12-78 U/L Alkaline Phosphatase 135 45-117 U/L Total Protein 5.9 6.4-8.2 gm/dl Albumin 2.3 3.4-5.0 gm/dl Globulin 3.6 2.5-4.0 gm/dl Albumin/Globulin Ratio 0.6 0.9-2 Cortisol Response to Stimulation Cortisol Baseline
[2016-10-25 04:33] VITALS: BP 94/52; PULSE 84; TEMP 37.1; O2SAT 98
[2016-10-25 07:08] VITALS: BP 116/66; PULSE 74; TEMP 36.6; O2SAT 99
[2016-10-25 08:13] LABS: HEMATOCRIT 26.8 % (42-52); MEAN CELL VOLUME 96.4 fL (80-100); MEAN CORPUSCULAR HEMOGLOBIN 34.2 pg (25-34); MEAN CORPUSCULAR HGB CONC 35.4 g/dl (32-36); RED BLOOD COUNT 2.78 M/uL (4.7-6.1); WHITE BLOOD COUNT 6.71 K/uL (4.8-10.8)
[2016-10-25 08:17] LABS: MEAN PLATELET VOLUME 10.1 fL (7.4-10.4); PLATELET COUNT 72 K/uL (130-400)
[2016-10-25] MEDS: PANTOprazole SOD 40 MG TAB PO SCH (08:38)
[2016-10-25] MEDS: RASPBERRY SYRUP 5 ML UDP PO SCH ×4 (08:38→20:51)
[2016-10-25] MEDS: VANCOMYCIN HCL 125 MG/2.5ML SOLN PO SCH ×4 (08:38→20:51)
[2016-10-25] MEDS: THIAMINE HCL 100 MG TAB PO SCH (08:38)
[2016-10-25 08:54] LABS: BUN/CREATININE RATIO 21.7 (10-20); CALCIUM 8.9 mg/dl (8.5-10.1); CREATININE 1.5 mg/dl (0.60-1.40); POTASSIUM 4.7 mmol/L (3.5-5.1)
[2016-10-25 09:39] LABS: COMPLETE YES; LYMPH ABS # 1.05 K/uL (1.2-3.4); LYMPHOCYTE % 15.7 %; NEUTROPHILS % 74.7 %
--- NOTE | 2016-10-25 09:50 | Gastroenterology Progress Note ---
Progress Note Date of Service: Oct 25, 2016 Subjective Pt evaluation today including: conversation w/ patient, physical exam, chart review, lab review Pt. was seen and examined. No acute changes overnight. He tells me he feels 50% improved this AM. He is tolerating a regular diet. Had one BM this morning, no black or bloody stools that he is aware of. Review of Systems Constitutional: No fever Respiratory: No cough Cardiac: No chest pain Abdomen: + diarrhea, No pain, No nausea, No vomiting, No constipation Medications Current Inpatient Medications Medications (Trade) Dose Ordered Sig/Tim Route Start Time Stop Time Status Last Admin Dose Admin Acetaminophen (Tylenol Tab) 325 mg Q6H PRN PO 10/22/16 21:00 11/21/16 20:59 Nitroglycerin (Nitrostat Tab) 0.4 mg UD PRN SL 10/22/16 21:00 11/21/16 20:59 Folic Acid (Folvite Tab) 1 mg QAM PO 10/23/16 09:00 11/22/16 08:59 10/25/16 08:38 1 MG Thiamine HCl (Vitamin B-1 Tab) 100 mg QAM PO 10/23/16 09:00 11/22/16 08:59 10/25/16 08:38 100 MG Hydromorphone HCl (Dilaudid Inj) 0.5 mg Q3H PRN IV 10/22/16 21:00 11/05/16 20:59 Oxycodone HCl (Roxicodone Immediate Rel Tab) 5 mg Q4H PRN PO 10/22/16 21:00 11/05/16 20:59 Ondansetron HCl (Zofran Inj) 4 mg Q6H PRN IV 10/22/16 21:00 11/21/16 20:59 Lorazepam (Ativan Inj) PRN Dosing -Active Protocol Q1H PRN IV 10/22/16 21:00 11/21/16 20:59 Gabapentin (Neurontin Cap) 400 mg Q24H PO 10/25/16 10:00 10/25/16 10:01 10/25/16 08:38 400 MG Gabapentin (Neurontin Cap) 200 mg Q24H PO 10/26/16 10:00 10/26/16 10:01 Vancomycin HCl (Vancomycin Oral Soln) 125 mg QID PO 10/23/16 13:00 11/06/16 12:59 10/25/16 08:38 125 MG Raspberry (Raspberry Syrup 5ml Cup) 5 ml QID PO 10/23/16 13:00 11/06/16 12:59 10/25/16 08:38 5 ML Pantoprazole Sodium (Protonix Tab) 40 mg QAM PO 10/24/16 09:00 11/23/16 08:59 10/25/16 08:38 40 MG Objective Vital Signs Date Time Temp Pulse Resp B/P (MAP) Pulse Ox O2 Delivery O2 Flow Rate FiO2 10/25/16 08:00 Room Air 10/25/16 07:08 36.6 74 18 116/66 (83) 99 Room Air 10/25/16 04:33 37.1 84 20 94/52 (66) 98 Room Air 10/25/16 04:00 Room Air 10/25/16 00:00 Room Air 10/24/16 22:51 36.4 93 20 110/63 (79) 97 Room Air 10/24/16 20:08 36.5 96 20 116/55 (75) 100 Room Air 10/24/16 20:00 Room Air 10/24/16 16:00 Room Air 10/24/16 15:26 36.3 90 18 113/69 (84) 100 Room Air 10/24/16 12:00 Room Air 10/24/16 11:37 36.2 81 18 112/62 (79) 98 Room Air Physical Exam General Appearance: no apparent distress Eyes: PERRL ENT: hearing grossly normal Neck: supple Respiratory/Chest: lungs clear Cardiovascular: regular rate, rhythm Abdomen: normal bowel sounds, soft Neurologic/Psych: alert, normal mood/affect, oriented x 3 Skin: + jaundice Laboratory Results Last 24 Hours Test 10/25/16 07:48 White Blood Count 6.71 K/uL Red Blood Count 2.78 M/uL Hemoglobin 9.5 g/dL Hematocrit 26.8 % Mean Corpuscular Volume 96.4 fL Mean Corpuscular Hemoglobin 34.2 pg Mean Corpuscular Hemoglobin Concent 35.4 g/dl Platelet Count 72 K/uL Mean Platelet Volume 10.1 fL RDW Standard Deviation 62.4 fL RDW Coefficient of Variation 17.5 % Neutrophils % (Manual) 74.7 % Lymphocytes % (Manual) 15.7 % Monocytes % (Manual) 9.6 % Neutrophils # (Manual) 5.01 K/uL Total Absolute Neutrophils 5.01 K/uL Lymphocytes # (Manual) 1.05 K/uL Total Absolute Lymphocytes 1.05 K/uL Monocytes # (Manual) 0.64 K/uL Sodium Level 139 mmol/L Potassium Level 4.7 mmol/L Chloride Level 113 mmol/L Carbon Dioxide Level 17 mmol/L Anion Gap 9.0 mmol/L Blood Urea Nitrogen 33 mg/dl Creatinine 1.50 mg/dl Est Creatinine Clear Calc Drug Dose 59.5 ml/min Estimated GFR () 61.2 Estimated GFR (Non- 52.8 BUN/Creatinine Ratio 21.7 Random Glucose 149 mg/dl Calcium Level 8.9 mg/dl Assessment and Plan A 50-year-old male with history of cirrhosis and esophageal varices, who presented with general malaise and abnormal CT imaging and was subsequently found to have positive Clostridium difficile testing - he was started on Vanaco and reports his symptoms are 50% improved. He tells me he continues to drink ETOH. - Vancomycin 125 mg QID x 10 days - Daily probiotic x 3 months - complete ETOH abstinence Per review of records non-selective BB have been deferred at time of most recent EGD GI to sign off. Please call with questions or concerns. ATTESTATION: I have performed a history and physical examination of this patient and reviewed the electronic record. Specifically, on physical examination abdomen is soft and non-tender. I have discussed the case with AKANKSHA Biggs. The above note reflects my findings, conclusions, and recommendations. Alfonso Mckeon MD
[2016-10-25] MEDS ORDERED: GABAPENTIN 400MG X1 DOSE PO SCH ×2 (10:00→12:00)
[2016-10-25 11:18] VITALS: BP 118/63; PULSE 93; TEMP 36.7; O2SAT 100
[2016-10-25 14:44] VITALS: BP 111/64; PULSE 93; TEMP 36.5; O2SAT 100
--- NOTE | 2016-10-25 18:02 | Progress Note ---
Internal Med Progress Note Date of Service: Oct 25, 2016. Provider Documentation: SUBJECTIVE: resting comfortably no more diarrhea didn't noticed blood in stools eating ok afebrile requests fo mri back as he was scheduled one for his back pain OBJECTIVE: Vital Signs-as noted below Exam: General-alert and oriented. Not in distress ENT-Normal hearing Neck-no neck masses supple Lungs-cta b/l no wheezing no crackles present Heart-s1 and s2 heard regular rate and rhythm no murmurs Abdomen-soft bowel sounds present non tender no distension Extremities- no erythema Neuro-alert and oriented moves extremities Lab data as noted below. ASSESSMENT & PLAN: 1. Gastrointestinal bleed question of acute GI bleed? heme positive stool acute vs chronic hb 7.9 on presentation and s/p one unit prbc transfused hb 7.4 on 10/23/16 history of esophagitis, varices on EGD, colonic polyps on colonoscopy transfusing two more units today seen by GI if concern for acute bleeding GI plans for egd will monitor h and h. hb stable at 9.4. stable 2. c diff colitis abdominal pain colitis on ct scan hemepositive stools was on iv Flagyl started on po vancomycin stopped iv flagyl improving to complete 10day course of po vancomycin 3. alcoholic cirrhosis, no overt decompensation except for bleeding Diuretics and nadolol on hold for relative low BP.Will restart when BP improves. 4. Hypertension, BP on the lower side,. holding diuretics, nadolol and lisinopril. Will monitor. 5. hyponatremia, acute renal failure from clinical dehydration secondary to illness, home meds, diuretics, ongoing alcohol abuse on fluids presented with cr 3.8 cr 1.5 today will f/u labs. Hypotension Hyperkalemia adrenal insufficiency? was on steroids in recent past improving Metabolic acidosis secondary to above f/u labs. recurrent intracranial hemorrhage.? Spontaneous on the basis patient account Patient denies headache or recent trauma. Neuro status stable. repeat ct head- possible remnants of old bleed appreciate neurology input f/u repeat ct head . Lower back santos limiting ambulation mri back. Chronic thrombocytopenia secondary to cirrhosis DVT PROPHYLAXIS scds DISPOSITION pt/ot possible d/c in am if stable Vital Signs: Date Time Temp Pulse Resp B/P (MAP) Pulse Ox O2 Delivery O2 Flow Rate FiO2 10/25/16 16:00 Room Air 10/25/16 14:44 36.5 93 20 111/64 (80) 100 Room Air 10/25/16 12:00 Room Air 10/25/16 11:18 36.7 93 20 118/63 (81) 100 Room Air 10/25/16 08:00 Room Air 10/25/16 07:08 36.6 74 18 116/66 (83) 99 Room Air 10/25/16 04:33 37.1 84 20 94/52 (66) 98 Room Air 10/25/16 04:00 Room Air 10/25/16 00:00 Room Air 10/24/16 22:51 36.4 93 20 110/63 (79) 97 Room Air 10/24/16 20:08 36.5 96 20 116/55 (75) 100 Room Air 10/24/16 20:00 Room Air Lab Results: Results Past 24 Hours Test 10/25/16 07:48 Range/Units White Blood Count 6.71 4.8-10.8 K/uL Red Blood Count 2.78 4.7-6.1 M/uL Hemoglobin 9.5 14.0-18.0 g/dL Hematocrit 26.8 42-52 % Mean Corpuscular Volume 96.4 80-100 fL Mean Corpuscular Hemoglobin 34.2 25-34 pg Mean Corpuscular Hemoglobin Concent 35.4 32-36 g/dl Platelet Count 72 130-400 K/uL Mean Platelet Volume 10.1 7.4-10.4 fL RDW Standard Deviation 62.4 36.4-46.3 fL RDW Coefficient of Variation 17.5 11.5-14.5 % Neutrophils % (Manual) 74.7 % Lymphocytes % (Manual) 15.7 % Monocytes % (Manual) 9.6 % Neutrophils # (Manual) 5.01 1.4-6.5 K/uL Total Absolute Neutrophils 5.01 1.4-6.5 K/uL Lymphocytes # (Manual) 1.05 1.2-3.4 K/uL Total Absolute Lymphocytes 1.05 1.2-3.4 K/uL Monocytes # (Manual) 0.64 0.11-0.59 K/uL Sodium Level 139 136-145 mmol/L Potassium Level 4.7 3.5-5.1 mmol/L Chloride Level 113 98-107 mmol/L Carbon Dioxide Level 17 21-32 mmol/L Anion Gap 9.0 3-11 mmol/L Blood Urea Nitrogen 33 7-18 mg/dl Creatinine 1.50 0.60-1.40 mg/dl Est Creatinine Clear Calc Drug Dose 59.5 ml/min Estimated GFR () 61.2 Estimated GFR (Non- 52.8 BUN/Creatinine Ratio 21.7 10-20 Random Glucose 149 70-99 mg/dl Calcium Level 8.9 8.5-10.1 mg/dl
--- NOTE | 2016-10-25 18:13 | DIAGNOSTIC IMAGING REPORT ---
HEAD WITHOUT CONTRAST (CT) CT DOSE: 537.48 mGy.cm HISTORY: Mental status change recurrent intracranial hemorrhage? TECHNIQUE: Multiaxial CT images of the head were performed without the use of intravenous contrast. A dose lowering technique was utilized adhering to the principles of ALARA. Comparison: 10/24/2016 Findings: The paranasal sinuses and mastoid air cells are clear. The previously described high density focus is not easily seen currently. Study currently is otherwise negative for acute intracranial hemorrhage. There are no new or interval progressive changes. Impression: Improved exam. No evidence for acute intracranial hemorrhage on the current study. The above report was generated using voice recognition software. It may contain grammatical, syntax or spelling errors. Electronically signed by: William Chavez M.D. 10/25/2016 6:12 PM Dictated Date/Time: 10/25/2016 6:10 PM
[2016-10-25 20:09] VITALS: BP 112/62; PULSE 97; TEMP 36.7; O2SAT 100
--- NOTE | 2016-10-25 21:16 | DIAGNOSTIC IMAGING REPORT ---
ORBITS FOR MRI HISTORY: Pre-MRI pre-MRI screening. COMPARISON: None. FINDINGS: There are no radiopaque foreign bodies identified within the orbits. IMPRESSION: No radiopaque foreign bodies identified within the orbits. The above report was generated using voice recognition software. It may contain grammatical, syntax or spelling errors. Electronically signed by: William Chavez M.D. 10/25/2016 9:15 PM Dictated Date/Time: 10/25/2016 9:14 PM
--- NOTE | 2016-10-25 21:54 | DIAGNOSTIC IMAGING REPORT ---
LUMBAR SPINE W/O CONTRAST HISTORY: Back pain severe back pain. Ambulatory dysfunction TECHNIQUE: Multiplanar multisequence MRI of the lumbar spine was performed without the use of contrast. COMPARISON: None. FINDINGS: For the purpose of the report the L5-S1 disc space will be located on axial image 27 of 30. Mild disc desiccation throughout the entire lumbar region. No compromise of vertebral body height. No bone marrow infiltrating process. L1-L2: No significant central canal or neural foraminal narrowing. L2-L3: No significant central canal or neural foraminal narrowing. L3-L4: Minimal broad-based disc bulge. No significant impact with the thecal sac. L4-L5: Broad-based right lateral disc bulge. Moderate narrowing right neuroforamina. No significant impact with thecal sac or left neural foramina. L5-S1: No significant central canal or neural foraminal narrowing. IMPRESSION: 1. Mild right lateral disc bulge L4-L5 with moderate narrowing of the right neuroforamina. 2. No major disc herniation or significant component of spinal stenosis. 3. Mild degenerative disc change throughout the entire lumbar region. The above report was generated using voice recognition software. It may contain grammatical, syntax or spelling errors. Electronically signed by: William Chavez M.D. 10/25/2016 9:53 PM Dictated Date/Time: 10/25/2016 9:49 PM
[2016-10-26] VITALS (7 sets, daily range): BP systolic 101–132; BP diastolic 51–69; PULSE 72–107; TEMP 36.3–37; O2SAT 99–100
[2016-10-26 07:20] LABS: HEMATOCRIT 27.1 % (42-52); MEAN CELL VOLUME 96.1 fL (80-100); MEAN CORPUSCULAR HEMOGLOBIN 31.9 pg (25-34); MEAN CORPUSCULAR HGB CONC 33.2 g/dl (32-36); RED BLOOD COUNT 2.82 M/uL (4.7-6.1); WHITE BLOOD COUNT 5.22 K/uL (4.8-10.8)
[2016-10-26 07:30] LABS: MEAN PLATELET VOLUME 10.2 fL (7.4-10.4); PLATELET COUNT 65 K/uL (130-400)
[2016-10-26 07:31] LABS: COMPLETE YES; EOS % 0.8 %; IG% 2.9 %; LYMPH % 23.9 %; LYMPH ABS # 1.25 K/uL (1.2-3.4); MONO % 19.7 %; NEUT % 52.7 %
[2016-10-26 07:55] LABS: BUN/CREATININE RATIO 19.6 (10-20); CALCIUM 8.4 mg/dl (8.5-10.1); CREATININE 1.2 mg/dl (0.60-1.40); POTASSIUM 4.7 mmol/L (3.5-5.1)
[2016-10-26] MEDS: RASPBERRY SYRUP 5 ML UDP PO SCH ×4 (09:15→20:39)
[2016-10-26] MEDS: THIAMINE HCL 100 MG TAB PO SCH (09:15)
[2016-10-26] MEDS: VANCOMYCIN HCL 125 MG/2.5ML SOLN PO SCH ×4 (09:15→20:39)
[2016-10-26] MEDS: PANTOprazole SOD 40 MG TAB PO SCH (09:15)
[2016-10-26] MEDS ORDERED: GABAPENTIN 200MG X1 DOSE PO SCH ×2 (10:00→12:00)
--- NOTE | 2016-10-26 19:07 | Progress Note ---
Internal Med Progress Note Date of Service: Oct 26, 2016. Provider Documentation: SUBJECTIVE: resting comfortably diarrhea improved afebrile eating ok has back pain OBJECTIVE: Vital Signs-as noted below Exam: General-alert and oriented. Not in distress ENT-Normal hearing Neck-no neck masses supple Lungs-cta b/l no wheezing no crackles present Heart-s1 and s2 heard regular rate and rhythm no murmurs Abdomen-soft bowel sounds present non tender no distension Extremities- no erythema Neuro-alert and oriented moves extremities Lab data as noted below. ASSESSMENT & PLAN: 1. Gastrointestinal bleed question of acute GI bleed? heme positive stool acute vs chronic hb 7.9 on presentation and s/p one unit prbc transfused hb 7.4 on 10/23/16 history of esophagitis, varices on EGD, colonic polyps on colonoscopy transfused total of three units prbc. seen by GI if concern for acute bleeding GI plans for egd will monitor h and h. hb stable at 9.4. stable 2. c diff colitis abdominal pain colitis on ct scan hemepositive stools was on iv Flagyl started on po vancomycin stopped iv flagyl improving to complete 10day course of po vancomycin 3. alcoholic cirrhosis, no overt decompensation except for bleeding Diuretics and nadolol on hold for relative low BP.Will restart when BP improves. May need to hold diuretics and restart nadolol at lower dose and close followup with pcp and gi. 4. Hypertension, BP on the lower side,. holding diuretics, nadolol and lisinopril and amlodipine. Will monitor. 5. hyponatremia, acute renal failure from clinical dehydration secondary to illness, home meds, diuretics, ongoing alcohol abuse on fluids presented with cr 3.8 cr 1.2 today will f/u labs. Hypotension Hyperkalemia adrenal insufficiency? was on steroids in recent past improving Metabolic acidosis secondary to above f/u labs. recurrent intracranial hemorrhage.? Spontaneous on the basis patient account Patient denies headache or recent trauma. Neuro status stable. repeat ct head- possible remnants of old bleed appreciate neurology input repeat ct head 10/25/16-improved . Lower back santos limiting ambulation mri back.-disc diseae. f/u as out patient Chronic thrombocytopenia secondary to cirrhosis DVT PROPHYLAXIS scds DISPOSITION pt/ot possible d/c in am if stable Vital Signs: Date Time Temp Pulse Resp B/P (MAP) Pulse Ox O2 Delivery O2 Flow Rate FiO2 10/26/16 16:00 Room Air 10/26/16 15:51 36.9 87 18 117/67 (84) 100 10/26/16 12:00 Room Air 10/26/16 11:42 36.9 107 18 132/69 (90) 100 10/26/16 08:00 Room Air 10/26/16 07:10 36.5 72 18 108/65 (79) 99 Room Air 10/26/16 05:10 36.3 75 20 103/63 (76) 99 Room Air 10/26/16 04:00 Room Air 10/26/16 00:33 36.8 86 20 111/55 (73) 100 Room Air 10/26/16 00:00 Room Air 10/25/16 20:09 36.7 97 20 112/62 (79) 100 Room Air 10/25/16 20:00 Room Air Lab Results: Results Past 24 Hours Test 10/26/16 06:47 Range/Units White Blood Count 5.22 4.8-10.8 K/uL Red Blood Count 2.82 4.7-6.1 M/uL Hemoglobin 9.0 14.0-18.0 g/dL Hematocrit 27.1 42-52 % Mean Corpuscular Volume 96.1 80-100 fL Mean Corpuscular Hemoglobin 31.9 25-34 pg Mean Corpuscular Hemoglobin Concent 33.2 32-36 g/dl Platelet Count 65 130-400 K/uL Mean Platelet Volume 10.2 7.4-10.4 fL Neutrophils (%) (Auto) 52.7 % Lymphocytes (%) (Auto) 23.9 % Monocytes (%) (Auto) 19.7 % Eosinophils (%) (Auto) 0.8 % Basophils (%) (Auto) 0.0 % Neutrophils # (Auto) 2.75 1.4-6.5 K/uL Lymphocytes # (Auto) 1.25 1.2-3.4 K/uL Monocytes # (Auto) 1.03 0.11-0.59 K/uL Eosinophils # (Auto) 0.04 0-0.5 K/uL Basophils # (Auto) 0.00 0-0.2 K/uL RDW Standard Deviation 61.6 36.4-46.3 fL RDW Coefficient of Variation 17.3 11.5-14.5 % Immature Granulocyte % (Auto) 2.9 % Immature Granulocyte # (Auto) 0.15 0.00-0.02 K/uL Sodium Level 138 136-145 mmol/L Potassium Level 4.7 3.5-5.1 mmol/L Chloride Level 112 98-107 mmol/L Carbon Dioxide Level 18 21-32 mmol/L Anion Gap 8.0 3-11 mmol/L Blood Urea Nitrogen 24 7-18 mg/dl Creatinine 1.20 0.60-1.40 mg/dl Est Creatinine Clear Calc Drug Dose 74.4 ml/min Estimated GFR () 80.1 Estimated GFR (Non- 69.1 BUN/Creatinine Ratio 19.6 10-20 Random Glucose 108 70-99 mg/dl Calcium Level 8.4 8.5-10.1 mg/dl
[2016-10-27 04:30] VITALS: BP 111/62; PULSE 78; TEMP 36.9; O2SAT 99
[2016-10-27 07:01] LABS: HEMATOCRIT 25.5 % (42-52); MEAN CORPUSCULAR HEMOGLOBIN 33.8 pg (25-34); MEAN CORPUSCULAR HGB CONC 34.9 g/dl (32-36); RED BLOOD COUNT 2.63 M/uL (4.7-6.1); WHITE BLOOD COUNT 5.11 K/uL (4.8-10.8)
[2016-10-27 07:09] VITALS: BP 109/66; PULSE 81; TEMP 36.9; O2SAT 100
[2016-10-27 07:27] LABS: BUN/CREATININE RATIO 17.9 (10-20); CALCIUM 8.2 mg/dl (8.5-10.1); CREATININE 1.1 mg/dl (0.60-1.40); POTASSIUM 4.4 mmol/L (3.5-5.1)
[2016-10-27] MEDS: RASPBERRY SYRUP 5 ML UDP PO SCH ×2 (07:30→12:42)
[2016-10-27] MEDS: PANTOprazole SOD 40 MG TAB PO SCH (07:30)
[2016-10-27] MEDS: THIAMINE HCL 100 MG TAB PO SCH (07:30)
[2016-10-27] MEDS: VANCOMYCIN HCL 125 MG/2.5ML SOLN PO SCH ×2 (07:31→12:42)
[2016-10-27 07:43] LABS: MEAN PLATELET VOLUME 9.9 fL (7.4-10.4); PLATELET COUNT 56 K/uL (130-400)
[2016-10-27 08:00] VITALS: O2SAT 100
[2016-10-27 08:42] LABS: ACANTHOCYTES 1+; ANISOCYTOSIS PRESENT; BASO % 0.2 %; BASO ABS # 0.01 K/uL (0-0.2); COMPLETE YES; ECHINOCYTES 1+; IG% 5.5 %; LYMPH % 22.3 %; LYMPH ABS # 1.14 K/uL (1.2-3.4); MONO % 23.1 %; NEUT % 46.9 %
[2016-10-27 11:22] VITALS: BP 114/62; PULSE 82; TEMP 37; O2SAT 99
[2016-10-27] MEDS ORDERED: VNCS125 PO ×2 (13:13→13:18)
[2016-10-27] MEDS ORDERED: MULT-1042 PO ×2 (13:13→13:18)
--- NOTE | 2016-10-27 13:16 | Discharge Instructions ---
Discharge Instructions Date of Service Oct 27, 2016. Admission Reason for Admission: ARF Discharge Discharge Diagnosis / Problem: ARF. C DIFF COLITIS Discharge Goals Goal(s): Decrease discomfort Activity Recommendations Activity Limitations: resume your previous activity . Instructions / Follow-Up Instructions / Follow-Up FOLLOWUP WITH FAMILY DOCTOR ON October AT 10:45AM LAB: BMP WITH MG LEVELS IN ONE WEEK AND FOLLOW RESULTS WITH FAMILY DOCTOR. RESTARTING OF DIURETICS ( FUROSEMIDE AND SPIRONOLACTONE), AND NADOLOL AND OTHER BLOOD PRESSURE MEDICATIONS PE FAMILY DOCTOR. Current Hospital Diet Patient's current hospital diet: Low Fiber Diet, Low Lactose Diet Discharge Diet Recommended Diet: Low Sodium Diet (2gm Na) Pending Studies Studies pending at discharge: no Medical Emergencies . Who to Call and When: Medical Emergencies: If at any time you feel your situation is an emergency, please call 911 immediately. . Non-Emergent Contact Non-Emergency issues call your: Primary Care Provider . . "Provider Documentation" section prepared by [employer]. . VTE Core Measure Inpt VTE Proph given/why not?: SCD's
[2016-10-27 13:30] VITALS: BP 114/62; PULSE 82; TEMP 37; O2SAT 99
--- NOTE | 2016-10-27 19:37 | Progress Note ---
Internal Med Progress Note Date of Service: Oct 27, 2016. Provider Documentation: SUBJECTIVE: resting comfortably diarrhea resolved has chronic back pain eating ok wants to go home OBJECTIVE: Vital Signs-as noted below Exam: General-alert and oriented. Not in distress ENT-Normal hearing Neck-no neck masses supple Lungs-cta b/l no wheezing no crackles present Heart-s1 and s2 heard regular rate and rhythm no murmurs Abdomen-soft bowel sounds present non tender no distension Extremities- no erythema Neuro-alert and oriented moves extremities Lab data as noted below. ASSESSMENT & PLAN: 1. Gastrointestinal bleed question of acute GI bleed? heme positive stool acute vs chronic hb 7.9 on presentation and s/p one unit prbc transfused hb 7.4 on 10/23/16 history of esophagitis, varices on EGD, colonic polyps on colonoscopy transfused total of three units prbc. seen by GI if concern for acute bleeding GI plans for egd will monitor h and h. hb stable at 9.4. stable 2. c diff colitis abdominal pain colitis on ct scan hemepositive stools was on iv Flagyl started on po vancomycin stopped iv flagyl improving to complete 10day course of po vancomycin 3. alcoholic cirrhosis, no overt decompensation except for bleeding Diuretics and nadolol on hold for relative low BP.Will restart when BP improves. May need to hold diuretics and restart nadolol at lower dose and close followup with pcp and gi. stooped diuretics and nadolol at discharge secondary to low BP. F/U with pcp and gI closely. 4. Hypertension, BP on the lower side,. holding diuretics, nadolol and lisinopril and amlodipine. Will monitor. Stopped all his BP meds at discharge. Close followup with pcp 5. hyponatremia, acute renal failure from clinical dehydration secondary to illness, home meds, diuretics, ongoing alcohol abuse on fluids presented with cr 3.8 cr 1.1 today will f/u labs with pcp Hypotension Hyperkalemia adrenal insufficiency? was on steroids in recent past resolved now Metabolic acidosis secondary to above f/u labs. recurrent intracranial hemorrhage.? Spontaneous on the basis patient account Patient denies headache or recent trauma. Neuro status stable. repeat ct head- possible remnants of old bleed appreciate neurology input repeat ct head 10/25/16-improved . Lower back santos limiting ambulation mri back.-disc disease. f/u as out patient Chronic thrombocytopenia secondary to cirrhosis Discharged home Vital Signs: Date Time Temp Pulse Resp B/P (MAP) Pulse Ox O2 Delivery O2 Flow Rate FiO2 10/27/16 13:30 37.0 82 16 99 Room Air 10/27/16 12:00 Room Air 10/27/16 11:22 37.0 82 16 114/62 (79) 99 Room Air 10/27/16 08:00 100 Room Air 10/27/16 07:09 36.9 81 16 109/66 (80) 100 Room Air 10/27/16 04:30 36.9 78 20 111/62 (78) 99 Room Air 10/27/16 04:00 Room Air 10/27/16 00:01 Room Air 10/26/16 23:50 36.9 81 20 101/51 (68) 100 Room Air 10/26/16 20:00 Room Air 10/26/16 19:44 37.0 95 20 115/62 (79) 99 Room Air Lab Results: Results Past 24 Hours Test 10/27/16 06:36 Range/Units White Blood Count 5.11 4.8-10.8 K/uL Red Blood Count 2.63 4.7-6.1 M/uL Hemoglobin 8.9 14.0-18.0 g/dL Hematocrit 25.5 42-52 % Mean Corpuscular Volume 97.0 80-100 fL Mean Corpuscular Hemoglobin 33.8 25-34 pg Mean Corpuscular Hemoglobin Concent 34.9 32-36 g/dl Platelet Count 56 130-400 K/uL Mean Platelet Volume 9.9 7.4-10.4 fL Neutrophils (%) (Auto) 46.9 % Lymphocytes (%) (Auto) 22.3 % Monocytes (%) (Auto) 23.1 % Eosinophils (%) (Auto) 2.0 % Basophils (%) (Auto) 0.2 % Neutrophils # (Auto) 2.40 1.4-6.5 K/uL Lymphocytes # (Auto) 1.14 1.2-3.4 K/uL Monocytes # (Auto) 1.18 0.11-0.59 K/uL Eosinophils # (Auto) 0.10 0-0.5 K/uL Basophils # (Auto) 0.01 0-0.2 K/uL RDW Standard Deviation 60.8 36.4-46.3 fL RDW Coefficient of Variation 17.1 11.5-14.5 % Immature Granulocyte % (Auto) 5.5 % Immature Granulocyte # (Auto) 0.28 0.00-0.02 K/uL Anisocytosis PRESENT Echinocytes 1+ Acanthocytes 1+ Sodium Level 136 136-145 mmol/L Potassium Level 4.4 3.5-5.1 mmol/L Chloride Level 109 98-107 mmol/L Carbon Dioxide Level 21 21-32 mmol/L Anion Gap 6.0 3-11 mmol/L Blood Urea Nitrogen 20 7-18 mg/dl Creatinine 1.10 0.60-1.40 mg/dl Est Creatinine Clear Calc Drug Dose 81.1 ml/min Estimated GFR () 89.0 Estimated GFR (Non- 76.8 BUN/Creatinine Ratio 17.9 10-20 Random Glucose 107 70-99 mg/dl Calcium Level 8.2 8.5-10.1 mg/dl
--- NOTE | 2016-10-27 19:49 | Discharge Summary ---
Discharge Summary Date of Service Oct 27, 2016. Discharge Summary Admission Date: Oct 22, 2016 at 20:05 Discharge Date: Oct 27, 2016 Discharge Disposition: Home Principal Diagnosis: GI BLEED C DIFF COLITIS ARF Secondary Diagnoses/Problems: alcoholic cirrhosis, going on abuse, past tobacco abuse, hypertension, history of esophageal varices, history of intracranial hemorrhage,chronic thrombocytopenia, chronic anemia Procedures: CT HEAD: Small linear hyperdense focus within the left high convexity of the site of prior intracranial hemorrhage. This is concerning for a small focus of acute hemorrhage. [address] follow-up is recommended to ensure stability. CT ABD/PELVIS: 1. Cirrhotic liver with evidence of portal hypertension and multiple varices 2. No renal, ureteral, or bladder calculi identified 3. Bowel wall thickening involving the ascending colon with infiltration of the adjacent fat. The findings are indicative of a nonspecific colitis 4. Mild appendiceal thickening, likely secondary to the diffuse ascending colon colitis 5. Cholelithiasis and mild gallbladder wall thickening GALL BLADDER US:1. Cirrhotic liver morphology with evidence of portal hypertension and multiple varices 2. Cholelithiasis with mild gallbladder wall thickening. No evidence of ductal dilatation. LUMBAR SPINE MRI: 1. Mild right lateral disc bulge L4-L5 with moderate narrowing of the right neuroforamina. 2. No major disc herniation or significant component of spinal stenosis. 3. Mild degenerative disc change throughout the entire lumbar region. CT HEAD 10/25/16: Improved exam. No evidence for acute intracranial hemorrhage on the current study. Consultations: GI Medication Reconciliation New Medications: Multiple Vitamins W/ Minerals (Multi Vitamin and Mineral) 1 Tab Tab 1 TAB PO DAILY for 30 Days, #30 TAB 1 Refill Vancomycin HCl (Vancomycin HCl) 125 Mg/2.5 Ml Susp 125 MG PO QID for 6 Days, #1 BTL vancomycin 125mg po four times daily x 6 days Continued Medications: Folic Acid (Folic Acid) 1 Mg Tab 1 MG PO QAM for 30 Days, #30 TAB Thiamine HCl (Vitamin B-1) 100 Mg Tab 100 MG PO QAM for 30 Days, #30 TAB Discontinued Medications: Amlodipine (Norvasc) 2.5 Mg Tab 2.5 MG PO QAM, TAB Furosemide (Furosemide) 20 Mg Tab 20 MG PO QAM for 30 Days, #30 TAB Lisinopril (Zestril) 20 Mg Tab 20 MG PO QAM, TAB Nadolol (Nadolol) 40 Mg Tab 40 MG PO QAM for 30 Days, #30 TAB Spironolactone (Aldactone) 25 Mg Tab 2 TAB PO QAM, TAB Admission Information HPI (per Admitting provider): Medical is history significant for alcoholic cirrhosis, going on abuse, past tobacco abuse, hypertension, history of esophageal varices, history of intracranial hemorrhage,chronic thrombocytopenia, chronic anemia (baseline hemoglobin 10-11 since February 2016). In May 2015, the patient had intracranial hemorrhage, L parietal secondary to uncontrolled hypertension. Transferred to [facility]. No operative intervention was done. Recent confinement last February 2016 for decompensated cirrhosis. Two months ago patient was seen at PCPs office for bothersome back pain symptoms that has been going on for years - neck to low back, no numbness tingling. Outpatient cervical and lumbar spine x-rays showed degenerative disease and L4-L5 minimal grade 1 anterolisthesis and narrowing, respectively. Patient prescribed outpatient prednisone course. Some response as per patient. Outpatient PT recommended. In the last few weeks patient noted bleeding in stools, occasionally black, occasionally bloody. He had increasing generalized weakness. In the last week patient noted worsening weakness, right-sided abdominal pain, achy , some nausea. No vomiting. No fever, no chills, no headaches, no trauma. Patient denies NSAID intake. No recent antibiotics. No known sick contacts. Had a followup with PCP a few days ago. Patient still complaining of back pain despite PT. Outpatient MRI contemplated. Persistent right lower extremity weakness from intracranial hemorrhage from last year Noted to be pale. Patient denies headache, nausea vomiting. No chest pain or shortness of breath. Outpatient blood work was done. Hemoglobin was noted to be 8.9. BUN was noted to be 58. Creatinine 3.8. Patient brought to the emergency room by for worsening symptoms. Physical Exam (per Admitting): VITAL SIGNS: Blood pressure was noted to be initially 82/36 later 114/45 pulse rate of 73, RR 16, temperature 36.5, sats 98 on room air. GEN : Noted to be chronically ill. no respiratory distress. SKIN: Pallor. Spider angiomata HEENT: Pale palpebral conjunctivae. Dry mucosa. NECK: No JVD. Supple. CHEST: Clear to auscultation. HEART: Regular rate and rhythm. ABDOMEN: upper abdominal tenderness. EXTREMITIES: No edema. No tenderness NEUROLOGIC: No gross focality except for decrease MMT RLE (chronic), some rest tremors. Hospital Course 1. Gastrointestinal bleed question of acute GI bleed? heme positive stool acute vs chronic hb 7.9 on presentation and s/p one unit prbc transfused hb 7.4 on 10/23/16 history of esophagitis, varices on EGD, colonic polyps on colonoscopy transfused total of three units prbc. seen by GI if concern for acute bleeding GI plans for egd will monitor h and h. hb stable at 9.4. stable 2. c diff colitis abdominal pain colitis on ct scan hemepositive stools was on iv Flagyl started on po vancomycin stopped iv flagyl improving to complete 10day course of po vancomycin 3. alcoholic cirrhosis, no overt decompensation except for bleeding Diuretics and nadolol on hold for relative low BP.Will restart when BP improves. May need to hold diuretics and restart nadolol at lower dose and close followup with pcp and gi. stooped diuretics and nadolol at discharge secondary to low BP. F/U with pcp and gI closely. 4. Hypertension, BP on the lower side,. holding diuretics, nadolol and lisinopril and amlodipine. Will monitor. Stopped all his BP meds at discharge. Close followup with pcp 5. hyponatremia, acute renal failure from clinical dehydration secondary to illness, home meds, diuretics, ongoing alcohol abuse on fluids presented with cr 3.8 cr 1.1 today will f/u labs with pcp Hypotension Hyperkalemia adrenal insufficiency? was on steroids in recent past resolved now Metabolic acidosis secondary to above f/u labs. recurrent intracranial hemorrhage.? Spontaneous on the basis patient account Patient denies headache or recent trauma. Neuro status stable. repeat ct head- possible remnants of old bleed appreciate neurology input repeat ct head 10/25/16-improved . Lower back santos limiting ambulation mri back.-disc disease. f/u as out patient Chronic thrombocytopenia secondary to cirrhosis Discharged home Total time spent on discharge = [id number] This includes examination of the patient, discharge planning, medication reconciliation, and communication with other providers. Discharge Instructions Discharge Instructions Date of Service Oct 27, 2016. Admission Reason for Admission: ARF Discharge Discharge Diagnosis / Problem: ARF. C DIFF COLITIS Discharge Goals Goal(s): Decrease discomfort Activity Recommendations Activity Limitations: resume your previous activity . Instructions / Follow-Up Instructions / Follow-Up FOLLOWUP WITH FAMILY DOCTOR ON October AT 10:45AM LAB: BMP WITH MG LEVELS IN ONE WEEK AND FOLLOW RESULTS WITH FAMILY DOCTOR. RESTARTING OF DIURETICS ( FUROSEMIDE AND SPIRONOLACTONE), AND NADOLOL AND OTHER BLOOD PRESSURE MEDICATIONS PE FAMILY DOCTOR. Current Hospital Diet Patient's current hospital diet: Low Fiber Diet, Low Lactose Diet Discharge Diet Recommended Diet: Low Sodium Diet (2gm Na) Pending Studies Studies pending at discharge: no Medical Emergencies . Who to Call and When: Medical Emergencies: If at any time you feel your situation is an emergency, please call 911 immediately. . Non-Emergent Contact Non-Emergency issues call your: Primary Care Provider . . "Provider Documentation" section prepared by [employer]. . VTE Core Measure Inpt VTE Proph given/why not?: SCD's
[2016-12-18] MEDS ORDERED: VANC5CAP PO (12:47)
== END 2016-10-27 14:46 | disposition home or self-care (01) | DRG 372 ==
LOC: C.EDB 16:46 → C.MED 20:05 → CANRESERV 20:35 → ENRESERV 20:35
PROVIDERS: ADMIT Internal Medicine; ATTEND Internal Medicine
DX: A04.7 Enterocolitis due to Clostridium difficile (principal); K92.2 Gastrointestinal hemorrhage, unspecified; N17.9 Acute kidney failure, unspecified; E87.1 Hypo-osmolality and hyponatremia; E87.2 Acidosis; I62.9 Nontraumatic intracranial hemorrhage, unspecified; K70.30 Alcoholic cirrhosis of liver without ascites; I10 Essential (primary) hypertension; D64.9 Anemia, unspecified; M54.5 Low back pain; G89.29 Other chronic pain; D69.59 Other secondary thrombocytopenia; Z79.899 Other long term (current) drug therapy; Z86.73 Personal history of transient ischemic attack (TIA), and cerebral infarction without residual deficits; Z87.891 Personal history of nicotine dependence; F10.10 Alcohol abuse, uncomplicated

== ENCOUNTER 2016-12-15 16:41 | Inpatient (IN) | payer BC ==
[~2016-12-15] VITALS: Ht 177.8 cm; Wt 88.9 kg
[~2016-12-15 16:41] MED LIST changes: -AMLO2.5T PO; -CRG40 PO; -LISI-725 PO; -LSX20 PO; +MULT-1042 PO; -SPIR25TA PO; +VNCS125 PO
[2016-12-15] MEDS ORDERED: ACETAMINOPHEN 325 MG TAB PO PRN (18:45)
[2016-12-15] MEDS ORDERED: ONDANSETRON INJ 2 MG/ML 2 ML VIAL IV PRN (18:45)
[2016-12-15] MEDS ORDERED: LSX40 PO (19:14)
[2016-12-15] MEDS ORDERED: NADO40TA PO (19:14)
[2016-12-15] MEDS ORDERED: SPRN100 PO (19:14)
[2016-12-15] MEDS ORDERED: POTA10TA32 PO (19:14)
[2016-12-15 19:17] LABS: HEMATOCRIT 33.2 % (42-52); MEAN CELL VOLUME 101.2 fL (80-100); MEAN CORPUSCULAR HEMOGLOBIN 34.5 pg (25-34); RED BLOOD COUNT 3.28 M/uL (4.7-6.1); WHITE BLOOD COUNT 3.76 K/uL (4.8-10.8)
[2016-12-15 19:23] LABS: BASO % 0.8 %; BASO ABS # 0.03 K/uL (0-0.2); COMPLETE YES; EOS % 4.5 %; IG% 0.3 %; LYMPH % 29.5 %; LYMPH ABS # 1.11 K/uL (1.2-3.4); MEAN PLATELET VOLUME 9.8 fL (7.4-10.4); MONO % 20.7 %; NEUT % 44.2 %; PLATELET COUNT 74 K/uL (130-400)
[2016-12-15 19:27] LABS: INR 1.6 (0.9-1.1); PARTIAL THROMBOPLASTIN RATIO 1.3; PROTHROMBIN TIME (PATIENT) 17.1 SECONDS (9.0-12.0)
[2016-12-15] MEDS ORDERED: POTASSIUM CHLORIDE 20 MEQ TABCR PO ONE (19:30)
[2016-12-15 19:36] LABS: ALB/GLOB RATIO 0.6 (0.9-2); ALKALINE PHOSPHATASE 261 U/L (45-117); ALT/SGPT 25 U/L (12-78); AST/SGOT 67 U/L (15-37); BLOOD UREA NITROGEN 4 mg/dl (7-18); BUN/CREATININE RATIO 6.4 (10-20); CALCIUM 8.3 mg/dl (8.5-10.1); CARBON DIOXIDE 30 mmol/L (21-32); CHLORIDE 103 mmol/L (98-107); CREATININE 0.66 mg/dl (0.60-1.40); GLUCOSE 115 mg/dl (70-99); POTASSIUM 3.3 mmol/L (3.5-5.1); SODIUM 140 mmol/L (136-145)
[2016-12-15 19:53] VITALS: BP 129/62; PULSE 78; TEMP 36.7; O2SAT 96; Ht 177.8 cm; Wt 88.9 kg
[2016-12-15] MEDS ORDERED: ALBUMIN 25% 50 ML with FUROSEMIDE INJ 40 MG IV ONE ×2 (20:30)
[2016-12-15 20:35] VITALS: BP 125/72; PULSE 77; TEMP 36.5; O2SAT 97
[2016-12-15 21:51] VITALS: BP 109/48; PULSE 78; TEMP 36.9; O2SAT 97
--- NOTE | 2016-12-15 21:54 | History and Physical ---
History & Physical Date & Time of Service: Dec 15, 2016 at 19:17 Chief Complaint: Cirrhosis With Ascitites Primary Care Physician: William Faustin M.D. History of Present Illness Source: patient, clinic records, hospital records This is a 51 y/o male with PMH of alcoholic cirrhosis, history of varices, HTN, history of intracranial hemorrhage, chronic thrombocytopenia, chronic anemia, and other problems listed below who was sent for direct admission by from GI clinic for alcoholic cirrhosis with bilateral LE edema. Patient was recently hospitalized at [facility] from October 22-2016 for GI bleed, C diff colitis, ARF. Patient reports increased bilateral LE edema x 1 month. Has been taking diuretics as prescribed. He is on Lasix 40 mg BID and was started on spironolactone 100 mg daily 1 week ago without improvement. He does not add salt to his food, however does not track sodium intake. He reports weight gain of approximately 15 lb after recent hospitalization. Daily weight has varied within a few lb over past few days. His recent C. diff diarrhea had resolved, but then developed diarrhea again for past 5-6 days with liquid stool 5x per day. Reports associated intermittent dull abdominal pain. No pain at present. States he is voiding frequently on the diuretics. He chronically feels cold. Denies fever, nausea, vomiting, chest pain, SOB, dysuria. Past Medical/Surgical History Medical Problems: (1) Chronic anemia Status: Chronic (2) Cirrhosis, alcoholic Status: Chronic (3) Esophageal varices Status: Chronic (4) History of Clostridium difficile colitis Status: Chronic (5) History of intracranial hemorrhage Status: Chronic (6) Hypertension Status: Chronic (7) Portal hypertensive gastropathy Status: Chronic (8) Thrombocytopenia Status: Chronic Surgical Problems: (1) H/O colonoscopy with polypectomy Status: Chronic (2) H/O esophagogastroduodenoscopy Status: Chronic Family History FH: diabetes mellitus FH: heart disease FHx: hypertension FHx: kidney disease Kidney stone Social History Smoking Status: Former Smoker Alcohol Use: prior alcohol use, last drink in September 2016 Drug Use: none Marital Status: Housing status: lives with significant other Multi-Drug Resistant Organisms History of MDRO: No Allergies Coded Allergies: Penicillins (Verified Adverse Reaction, Mild, GI UPSET, 10/22/16) Cephalosporins (Verified Adverse Reaction, Unknown, Nausea/Vomiting, ) Home Medications Scheduled Folic Acid (Folic Acid), 1 MG PO QAM Furosemide (Furosemide), 40 MG PO BID Multiple Vitamins W/ Minerals (Multi Vitamin and Mineral), 1 TAB PO DAILY Nadolol (Corgard), 0.5 TAB PO DAILY Potassium Chloride Microencaps (Potassium Chloride Er), 1 TAB PO DAILY Spironolactone (Spironolactone), 100 MG PO DAILY Thiamine HCl (Vitamin B-1), 100 MG PO QAM Review of Systems Ten systems reviewed and negative except as noted in HPI. Physical Exam General Appearance: WD/WN, no apparent distress Head: normocephalic, atraumatic Eyes: normal inspection, PERRL, sclerae normal ENT: hearing grossly normal, pharynx normal Neck: supple, trachea midline Respiratory/Chest: lungs clear, normal breath sounds, no respiratory distress, no accessory muscle use Cardiovascular: regular rate, rhythm, no murmur Abdomen/GI: normal bowel sounds, non tender, soft Extremities/Musculoskelatal: no calf tenderness, + pertinent finding ( bilateral lower extremity pitting edema 3+ extending to just above the knees) Neurologic/Psych: alert, normal mood/affect, oriented x 3 Skin: normal color, warm/dry Diagnostics Laboratory Results Results Past 24 Hours Test 12/15/16 19:03 Range/Units White Blood Count 3.76 4.8-10.8 K/uL Red Blood Count 3.28 4.7-6.1 M/uL Hemoglobin 11.3 14.0-18.0 g/dL Hematocrit 33.2 42-52 % Mean Corpuscular Volume 101.2 80-100 fL Mean Corpuscular Hemoglobin 34.5 25-34 pg RDW Standard Deviation 57.4 36.4-46.3 fL RDW Coefficient of Variation 15.6 11.5-14.5 % Microbiology Results 12/15/16 C.difficile Toxin B Gene (PCR), Ordered Pending 12/15/16 Shiga Toxin Test, Ordered Pending 12/15/16 Stool Culture, Ordered Pending Impression Assessment and Plan BILATERAL LE EDEMA in setting of ALCOHOLIC CIRRHOSIS Failed outpatient diuresis with Lasix 40 mg BID and spironolactone Check doppler of bilateral LE to r/o DVT Start IV Lasix 40 mg BID with albumin, continue spironolactone Sodium and fluid restriction Monitor daily weight, I/O's Consult GI DIARRHEA History of C. diff colitis treated in early October 2016 Check stool culture and C. diff HISTORY OF ESOPHAGEAL VARICES Continue nadolol HISTORY OF HYPERTENSION BP is controlled CHRONIC THROMBOCYTOPENIA No active bleeding Monitor FULL CODE DVT PROPHYLAXIS SCD's due to thrombocytopenia Patient seen in collaboration with Dr. Quispe. Please see his addendum. Agree with above H and P. Briefly 51M with hx of cirrhosis and recent hx of c diff was sent in by GI for worsening lower extremity edema. Denies sob or chest pain. No nausea or abdominal pain. Afebrile. p/e Ge not in distress Cvs s1 and s2 heard no murmurs Rs cta b/l no added sounds Abd: soft bs present non tender Cable Tester non focal Ext b/l lower extremity edema present a/p B/L lower extremity edema with underlying cirrhosis worsening failed out patient tx will start on iv Lasix with albumin i/o's daily weights GI consult Diarrhea recent hx of c diff recheck c diff VTE Prophylaxis VTE Risk Assessment Done? Y/N: Yes Risk Level: Moderate Given or contraindicated: SCD's
--- NOTE | 2016-12-15 23:02 | DIAGNOSTIC IMAGING REPORT ---
VENOUS DOPPLER LW EXT BILA HISTORY: Pain. Edema. dvt? COMPARISON STUDY: None. FINDINGS: There is normal compressibility, flow, and augmentation within the bilateral lower extremity deep venous systems. IMPRESSION: No DVT within the right or left lower extremity. The above report was generated using voice recognition software. It may contain grammatical, syntax or spelling errors. Electronically signed by: William Chavez M.D. 12/15/2016 11:01 PM Dictated Date/Time: 12/15/2016 11:00 PM
[2016-12-16 00:18] VITALS: BP 112/66; PULSE 74; TEMP 36.6; O2SAT 97
[2016-12-16] MEDS: RASPBERRY SYRUP 5 ML UDP PO SCH ×5 (01:16→19:59)
[2016-12-16] MEDS: VANCOMYCIN HCL 125 MG/2.5ML SOLN PO SCH ×5 (01:16→20:00)
[2016-12-16 07:13] VITALS: BP 106/58; PULSE 80; TEMP 36.7; O2SAT 92
[2016-12-16] MEDS ORDERED: NADOLOL 40 MG TAB PO SCH (08:00)
[2016-12-16 08:40] LABS: HEMATOCRIT 30.9 % (42-52); MEAN PLATELET VOLUME 10.2 fL (7.4-10.4); PLATELET COUNT 65 K/uL (130-400); RED BLOOD COUNT 3.09 M/uL (4.7-6.1); WHITE BLOOD COUNT 3.56 K/uL (4.8-10.8)
[2016-12-16] MEDS: POTASSIUM CHLORIDE 10 MEQ TABCR PO SCH (08:50)
[2016-12-16] MEDS: ALBUMIN 25% 50 ML with FUROSEMIDE INJ 40 MG IV SCH ×4 (08:50→20:01)
[2016-12-16] MEDS: THIAMINE HCL 100 MG TAB PO SCH (08:50)
[2016-12-16] MEDS: SPIRONOLACTONE 100 MG TAB PO SCH (08:51)
[2016-12-16] MEDS: CEROVITE ADV FORMULA TAB PO SCH (08:52)
[2016-12-16 09:12] LABS: BUN/CREATININE RATIO 8.9 (10-20); CALCIUM 8.2 mg/dl (8.5-10.1); CREATININE 0.56 mg/dl (0.60-1.40); MAGNESIUM 1.8 mg/dl (1.8-2.4); POTASSIUM 3.8 mmol/L (3.5-5.1)
--- NOTE | 2016-12-16 12:06 | Gastrointestinal Consultation ---
Gastrointestinal Consultation Date of Consultation: Dec 16, 2016 Attending Physician: Jatinder Ramírez Consulting Physician: Keira Santos Reason for Consultation: ETOH cirrhosis, bilateral LE edema History of Present Illness Patient is a 51 year old male w ETOH cirrhosis (last ETOH intake October 17 2016), admitted for leg edema. He was seen admitted at [facility] on 10/22-10/27 for Cdiff diarrhea which had resolved when followed up on 12/07/16 in GI clinic. At follow up he was c/o leg swelling & 10lbs weight gain in 2 weeks. On Lasix 40mg BID, Spironolactone previously DC'd due to hyponatremia. He admits being compliant w meds, also not using additional salt on food. Though never calculates sodium in food/seasoning. He was started back on Spironolactone 100mg daily. Told to f/u in one week. Saw AKANKSHA Biggs in GI clinic yesterday. He was down 10 lbs since previous visit on 12/07 though still c/o leg edema. Thus directly admitted at [facility] for volume overload management. VS, labs reviewed - stable mild anemia, elevated LFTs on baseline. Hypokalemia corrected. Bilateral LE doppler ruled out DVT. He had been started on Lasix 40mg IV BID, continued on Aldactone 100mg daily. He denies any fever, chills, CP , SOB, abd distension. Diarrhea back, and he tested positive on Cdiff, stool cx pending. He denies any rectal bleeding. He is started back on Vancomycin 125mg QID. Last EGD in 04/2017: Hyperplastic gastric polyp, no IM on bx, LA Grade B reflux esophagitis, grade I esophageal varices, mild Schatzski's ring. Last colonoscopy in 2016 - TA polyps, recommended for f/u in 1 year. Past Medical/Surgical History Medical Problems: (1) Acute kidney injury Status: Acute (2) Anemia Status: Acute (3) Cirrhosis Status: Acute (4) Colitis Status: Acute (5) Dehydration Status: Acute (6) GI bleeding Status: Acute (7) Hemorrhagic cerebrovascular accident (CVA) Status: Acute (8) Hyponatremia Status: Acute (9) Hypotension Status: Acute (10) Intra-abdominal varices Status: Acute (11) Jaundice Status: Acute (12) Pancreatitis Status: Acute Past Medical History: See above, HTN Portal HTN gastropathy Family History FH: diabetes mellitus FH: heart disease FHx: hypertension FHx: kidney disease Kidney stone Social History Smoking Status: Former Smoker Alcohol Use: occasionally Drug Use: none Marital Status: Housing Status: lives with family Allergies Coded Allergies: Penicillins (Verified Adverse Reaction, Mild, GI UPSET, 10/22/16) Cephalosporins (Verified Adverse Reaction, Unknown, Nausea/Vomiting, ) Current Medications Home Meds and Scripts Medications Dose Route/Sig Max Daily Dose Days Date Category Spironolactone 100 Mg Tab 100 Mg PO DAILY 12/15/16 Reported Potassium Chloride Er (Potassium Chloride Microencaps) 10 Meq Tab 1 Tab PO DAILY 30 12/15/16 Reported Furosemide 40 Mg Tab 40 Mg PO BID 12/15/16 Reported Corgard (Nadolol) 40 Mg Tab 0.5 Tab PO DAILY 30 12/15/16 Reported Multi Vitamin and Mineral (Multiple Vitamins W/ Minerals) 1 Tab Tab 1 Tab PO DAILY 30 10/27/16 Rx Vitamin B-1 (Thiamine HCl) 100 Mg Tab 100 Mg PO QAM 30 03/04/16 Rx Folic Acid 1 Mg Tab 1 Mg PO QAM 30 03/04/16 Rx Review of Systems Constitutional: No fever, No chills Respiratory: No cough, No shortness of breath Cardiac: + edema, No chest pain Abdomen: + diarrhea, No pain, No nausea, No vomiting, No GI bleeding Skin: No rash, No itch, No jaundice Physical Exam Date Time Temp Pulse Resp B/P (MAP) Pulse Ox O2 Delivery O2 Flow Rate FiO2 12/16/16 08:00 Room Air 12/16/16 07:13 36.7 80 18 106/58 (74) 92 Room Air 12/16/16 00:18 36.6 74 18 112/66 (81) 97 Room Air 12/16/16 00:00 Room Air 12/15/16 21:51 36.9 78 18 109/48 (68) 97 Room Air 12/15/16 20:35 36.5 77 18 125/72 (89) 97 Room Air 12/15/16 19:53 36.7 78 18 129/62 96 Room Air General Appearance: WD/WN, no apparent distress Eyes: normal inspection, PERRL, EOMI Neck: supple, no JVD, trachea midline Respiratory/Chest: normal breath sounds, no respiratory distress, no accessory muscle use Cardiovascular: regular rate, rhythm, no gallop, no murmur Abdomen: normal bowel sounds, non tender, soft Extremities: + swelling (+2-3 bilateral LE edema) Neurologic/Psych: alert, normal mood/affect, oriented x 3 Skin: + pertinent finding (spider angiomas on chest ) Laboratory Results Last 24 Hours Test 12/15/16 19:03 12/16/16 07:43 White Blood Count 3.76 K/uL 3.56 K/uL Red Blood Count 3.28 M/uL 3.09 M/uL Hemoglobin 11.3 g/dL 10.2 g/dL Hematocrit 33.2 % 30.9 % Mean Corpuscular Volume 101.2 fL 100.0 fL Mean Corpuscular Hemoglobin 34.5 pg 33.0 pg Mean Corpuscular Hemoglobin Concent 34.0 g/dl 33.0 g/dl Platelet Count 74 K/uL 65 K/uL Mean Platelet Volume 9.8 fL 10.2 fL Neutrophils (%) (Auto) 44.2 % Lymphocytes (%) (Auto) 29.5 % Monocytes (%) (Auto) 20.7 % Eosinophils (%) (Auto) 4.5 % Basophils (%) (Auto) 0.8 % Neutrophils # (Auto) 1.66 K/uL Lymphocytes # (Auto) 1.11 K/uL Monocytes # (Auto) 0.78 K/uL Eosinophils # (Auto) 0.17 K/uL Basophils # (Auto) 0.03 K/uL RDW Standard Deviation 57.4 fL 56.9 fL RDW Coefficient of Variation 15.6 % 15.7 % Immature Granulocyte % (Auto) 0.3 % Immature Granulocyte # (Auto) 0.01 K/uL Prothrombin Time 17.1 SECONDS Prothromb Time International Ratio 1.6 Activated Partial Thromboplast Time 34.7 SECONDS Partial Thromboplastin Ratio 1.3 Sodium Level 140 mmol/L 142 mmol/L Potassium Level 3.3 mmol/L 3.8 mmol/L Chloride Level 103 mmol/L 107 mmol/L Carbon Dioxide Level 30 mmol/L 27 mmol/L Anion Gap 7.0 mmol/L 8.0 mmol/L Blood Urea Nitrogen 4 mg/dl 5 mg/dl Creatinine 0.66 mg/dl 0.56 mg/dl Estimated GFR () 127.9 136.9 Estimated GFR (Non- 110.4 118.1 BUN/Creatinine Ratio 6.4 8.9 Random Glucose 115 mg/dl 87 mg/dl Calcium Level 8.3 mg/dl 8.2 mg/dl Magnesium Level 1.9 mg/dl 1.8 mg/dl Total Bilirubin 4.2 mg/dl Aspartate Amino Transf (AST/SGOT) 67 U/L Alanine Aminotransferase (ALT/SGPT) 25 U/L Alkaline Phosphatase 261 U/L Total Protein 6.3 gm/dl Albumin 2.3 gm/dl Globulin 4.0 gm/dl Albumin/Globulin Ratio 0.6 Blood Smear Review Est Creatinine Clear Calc Drug Dose 174.8 ml/min Impression Patient is a 51 year old male w ETOH cirrhosis, admitted w bilateral LE edema. MELD 17. He was on Lasix, Aldactone and reported low salt diet but doesn't calculate sodium amt in food nor on fluid restrictions. Bilateral LE dopplers w/ o sign of DVT. He is also having diarrhea. Hx of Cdiff in October. Cdiff positive again at this admission. Plan - Continue current doses of Lasix IV and Aldactone. Monitor electrolytes and renal function - Vancomycin 125mg QID x 14 days recurrent - Loading Unit Operator consult on FL restriction and low Na diet - Strict ETOH cessation Attg addendum: I interviewed and examined pt, reviewed chart and labs. Pt with cirrhosis, prgressive edema. Check urine na/k to eval diet compliance. Agree with current diuretic regimen; follow elytes and kidney funciton, and plan for albumin if has difficulty tolerating diuretics. Would consider liver imaging to r/o PVT, also urine studies and echo if has not been done recently. He is on BB but does not have large varices - conside rd.c. C diff rx as above - plan for taper.
--- NOTE | 2016-12-16 16:05 | Progress Note ---
Internal Med Progress Note Date of Service: Dec 16, 2016. Provider Documentation: SUBJECTIVE: Seen and examined at bedside States having some abdominal discomfort Had 3BMs today Denies CP, SOB, nausea, vomiting Has B/L leg swelling Poor understanding about his medical condition OBJECTIVE: Vital Signs-as noted below Physical Exam: General Appearance:Moderately built and nourished, no apparent distress Head: normocephalic, Atraumatic Eyes: normal inspection, EOMI, PERRL, Icteric Neck: supple, Trachea midline Respiratory/Chest: Normal breath sounds, CTA Cardiovascular: S1, S2, No murmur Abdomen/GI:Soft, RUQ tender, Bowel sounds present Extremities/Musculoskelatal:normal inspection, B/L LE edema Neurologic/Psych:grossly no focal neurological deficits Skin: normal color, warm Lab data as noted below. ASSESSMENT & PLAN: Alcoholic Cirrhosis: Presented with worsening B/L edema and weight gain Failed outpatient diuresis with Lasix 40 mg BID and spironolactone ? Compliance with salt and fluid restriction Venous Doppler: Negative for DVT Continue IV albumin, Lasix and spironolactone monitor electrolytes Check Urine sodium, potassium, ECHO Sodium and fluid restriction monitor daily weight, I/O's Appreciate GI Input May consider liver imaging to r/o PVT as per GI Recurrent C.diff Colitis : H/O C. diff colitis treated in early October 2016 Continue Oral Vancomycin Day # 04/03 H/O Esophageal Varices Not large varices nadolol discontinued as per GI recommendations H/O HTN stable Chronic Thrombocytopenia No active bleeding Monitor Code Status Full Code DVT Px: SCD's due to thrombocytopenia Disposition: Plan to discharge home when stable Vital Signs: Date Time Temp Pulse Resp B/P (MAP) Pulse Ox O2 Delivery O2 Flow Rate FiO2 12/16/16 16:08 36.8 77 18 104/61 (75) 94 Room Air 12/16/16 08:00 Room Air 12/16/16 07:13 36.7 80 18 106/58 (74) 92 Room Air 12/16/16 00:18 36.6 74 18 112/66 (81) 97 Room Air 12/16/16 00:00 Room Air 12/15/16 21:51 36.9 78 18 109/48 (68) 97 Room Air 12/15/16 20:35 36.5 77 18 125/72 (89) 97 Room Air 12/15/16 19:53 36.7 78 18 129/62 96 Room Air Lab Results: Results Past 24 Hours Test 12/15/16 19:03 12/16/16 07:43 Range/Units White Blood Count 3.76 3.56 4.8-10.8 K/uL Red Blood Count 3.28 3.09 4.7-6.1 M/uL Hemoglobin 11.3 10.2 14.0-18.0 g/dL Hematocrit 33.2 30.9 42-52 % Mean Corpuscular Volume 101.2 100.0 80-100 fL Mean Corpuscular Hemoglobin 34.5 33.0 25-34 pg Mean Corpuscular Hemoglobin Concent 34.0 33.0 32-36 g/dl Platelet Count 74 65 130-400 K/uL Mean Platelet Volume 9.8 10.2 7.4-10.4 fL Neutrophils (%) (Auto) 44.2 % Lymphocytes (%) (Auto) 29.5 % Monocytes (%) (Auto) 20.7 % Eosinophils (%) (Auto) 4.5 % Basophils (%) (Auto) 0.8 % Neutrophils # (Auto) 1.66 1.4-6.5 K/uL Lymphocytes # (Auto) 1.11 1.2-3.4 K/uL Monocytes # (Auto) 0.78 0.11-0.59 K/uL Eosinophils # (Auto) 0.17 0-0.5 K/uL Basophils # (Auto) 0.03 0-0.2 K/uL RDW Standard Deviation 57.4 56.9 36.4-46.3 fL RDW Coefficient of Variation 15.6 15.7 11.5-14.5 % Immature Granulocyte % (Auto) 0.3 % Immature Granulocyte # (Auto) 0.01 0.00-0.02 K/uL Prothrombin Time 17.1 9.0-12.0 SECONDS Prothromb Time International Ratio 1.6 0.9-1.1 Activated Partial Thromboplast Time 34.7 21.0-31.0 SECONDS Partial Thromboplastin Ratio 1.3 Sodium Level 140 142 136-145 mmol/L Potassium Level 3.3 3.8 3.5-5.1 mmol/L Chloride Level 103 107 98-107 mmol/L Carbon Dioxide Level 30 27 21-32 mmol/L Anion Gap 7.0 8.0 3-11 mmol/L Blood Urea Nitrogen 4 5 7-18 mg/dl Creatinine 0.66 0.56 0.60-1.40 mg/dl Estimated GFR () 127.9 136.9 Estimated GFR (Non- 110.4 118.1 BUN/Creatinine Ratio 6.4 8.9 10-20 Random Glucose 115 87 70-99 mg/dl Calcium Level 8.3 8.2 8.5-10.1 mg/dl Magnesium Level 1.9 1.8 1.8-2.4 mg/dl Total Bilirubin 4.2 0.2-1 mg/dl Aspartate Amino Transf (AST/SGOT) 67 15-37 U/L Alanine Aminotransferase (ALT/SGPT) 25 12-78 U/L Alkaline Phosphatase 261 45-117 U/L Total Protein 6.3 6.4-8.2 gm/dl Albumin 2.3 3.4-5.0 gm/dl Globulin 4.0 2.5-4.0 gm/dl Albumin/Globulin Ratio 0.6 0.9-2 Blood Smear Review Est Creatinine Clear Calc Drug Dose 174.8 ml/min Microbiology Results 12/15/16 C.difficile Toxin B Gene (PCR) - Final, Complete Positive for C. difficile toxin B gene 12/15/16 Shiga Toxin Test - Preliminary, Resulted No E. Coli shiga toxin 1 or shiga tox... 12/15/16 Stool Culture - Preliminary, Resulted NO SALMONELLA ISOLATED TO DATE,...
[2016-12-16 16:08] VITALS: BP 104/61; PULSE 77; TEMP 36.8; O2SAT 94
[2016-12-16 19:43] VITALS: BP 105/63; PULSE 78; TEMP 36.6; O2SAT 95
[2016-12-16 23:22] VITALS: BP 98/52; PULSE 104; TEMP 36.8; O2SAT 94
[2016-12-17 06:51] LABS: HEMATOCRIT 33.1 % (42-52); MEAN CELL VOLUME 100.9 fL (80-100); MEAN CORPUSCULAR HEMOGLOBIN 32.9 pg (25-34); MEAN CORPUSCULAR HGB CONC 32.6 g/dl (32-36); RED BLOOD COUNT 3.28 M/uL (4.7-6.1); WHITE BLOOD COUNT 3.94 K/uL (4.8-10.8)
[2016-12-17 06:56] LABS: MEAN PLATELET VOLUME 9.9 fL (7.4-10.4); PLATELET COUNT 68 K/uL (130-400)
[2016-12-17 07:35] LABS: BUN/CREATININE RATIO 13.7 (10-20); CALCIUM 8.2 mg/dl (8.5-10.1); CREATININE 0.61 mg/dl (0.60-1.40); MAGNESIUM 1.8 mg/dl (1.8-2.4); POTASSIUM 3.9 mmol/L (3.5-5.1)
[2016-12-17 07:49] VITALS: BP 92/50; PULSE 77; TEMP 36.6; O2SAT 93
[2016-12-17 08:38] VITALS: BP 119/66; PULSE 82
[2016-12-17] MEDS: ALBUMIN 25% 50 ML with FUROSEMIDE INJ 40 MG IV SCH ×4 (08:39→20:38)
[2016-12-17] MEDS: THIAMINE HCL 100 MG TAB PO SCH (08:40)
[2016-12-17] MEDS: CEROVITE ADV FORMULA TAB PO SCH (08:40)
[2016-12-17] MEDS: VANCOMYCIN HCL 125 MG/2.5ML SOLN PO SCH ×4 (08:40→20:38)
[2016-12-17] MEDS: RASPBERRY SYRUP 5 ML UDP PO SCH ×4 (08:40→20:40)
[2016-12-17] MEDS: POTASSIUM CHLORIDE 10 MEQ TABCR PO SCH (08:41)
[2016-12-17] MEDS: SPIRONOLACTONE 100 MG TAB PO SCH (08:41)
[2016-12-17 08:54] VITALS: BP 115/54; PULSE 78
[2016-12-17 10:00] VITALS: BP 128/68; PULSE 79
--- NOTE | 2016-12-17 12:05 | Gastroenterology Progress Note ---
Progress Note Date of Service: Dec 17, 2016 Subjective Pt evaluation today including: conversation w/ patient, physical exam, chart review, lab review, review of inpatient medication list Pt reports leg swelling is improving. Diarrhea also slowing down, stools forming up, denies any blood in stools. Denies any abd pain, n/v. Echo completed , awaiting results. Review of Systems Constitutional: No fever, No chills Respiratory: No cough, No shortness of breath Cardiac: + edema (improving), No chest pain Abdomen: + diarrhea (improving), No pain, No nausea, No vomiting Medications Current Inpatient Medications Medications (Trade) Dose Ordered Sig/Tim Route Start Time Stop Time Status Last Admin Dose Admin Acetaminophen (Tylenol Tab) 650 mg Q4H PRN PO 12/15/16 18:45 01/14/17 18:44 Ondansetron HCl (Zofran Inj) 4 mg Q6H PRN IV 12/15/16 18:45 01/14/17 18:44 Folic Acid (Folvite Tab) 1 mg QAM PO 12/16/16 08:00 01/15/17 07:59 12/17/16 08:39 1 MG Multivitamins/ Minerals (Multivitamin W/ Minerals Tab) 1 tab DAILY PO 12/16/16 08:00 01/15/17 07:59 12/17/16 08:40 1 TAB Potassium Chloride (Klor-Con M10) 10 meq DAILY PO 12/16/16 08:00 01/15/17 07:59 12/17/16 08:41 10 MEQ Spironolactone (Aldactone Tab) 100 mg DAILY PO 12/16/16 08:00 01/15/17 07:59 12/17/16 08:41 100 MG Thiamine HCl (Vitamin B-1 Tab) 100 mg QAM PO 12/16/16 08:00 01/15/17 07:59 12/17/16 08:40 100 MG Furosemide 40 mg/ Albumin Human 54 ml @ 54 mls/hr BID IV 12/16/16 08:00 12/19/16 07:59 12/17/16 08:39 54 MLS/HR Vancomycin HCl (Vancomycin Oral Soln) 125 mg QID PO 12/16/16 01:00 12/30/16 00:59 12/17/16 08:40 125 MG Raspberry (Raspberry Syrup 5ml Cup) 5 ml QID PO 12/16/16 01:00 12/30/16 00:59 12/17/16 08:40 5 ML Objective Vital Signs Date Time Temp Pulse Resp B/P (MAP) Pulse Ox O2 Delivery O2 Flow Rate FiO2 12/17/16 10:00 79 128/68 (88) 12/17/16 08:54 78 115/54 (74) Room Air 12/17/16 08:38 82 119/66 (83) 12/17/16 07:49 36.6 77 18 92/50 (64) 93 Room Air 12/17/16 00:00 Room Air 12/16/16 23:22 36.8 104 18 98/52 (67) 94 Room Air 12/16/16 19:43 36.6 78 18 105/63 (77) 95 Room Air 12/16/16 18:00 Room Air 12/16/16 16:08 36.8 77 18 104/61 (75) 94 Room Air Physical Exam General Appearance: WD/WN, no apparent distress Eyes: normal inspection, PERRL, EOMI Neck: supple, no JVD, trachea midline Respiratory/Chest: normal breath sounds, no respiratory distress, no accessory muscle use Cardiovascular: regular rate, rhythm, no gallop, no murmur Abdomen: normal bowel sounds, non tender, soft Extremities: + swelling (+1 pitting edema on bilateral LE) Neurologic/Psych: alert, normal mood/affect, oriented x 3 Skin: warm/dry, + jaundice Laboratory Results Last 24 Hours Test 12/16/16 17:20 12/17/16 06:24 Urine Random Sodium 26 mEq/L Urine Random Potassium 36.9 mEq/L White Blood Count 3.94 K/uL Red Blood Count 3.28 M/uL Hemoglobin 10.8 g/dL Hematocrit 33.1 % Mean Corpuscular Volume 100.9 fL Mean Corpuscular Hemoglobin 32.9 pg Mean Corpuscular Hemoglobin Concent 32.6 g/dl RDW Standard Deviation 57.2 fL RDW Coefficient of Variation 15.5 % Platelet Count 68 K/uL Mean Platelet Volume 9.9 fL Sodium Level 141 mmol/L Potassium Level 3.9 mmol/L Chloride Level 108 mmol/L Carbon Dioxide Level 28 mmol/L Anion Gap 5.0 mmol/L Blood Urea Nitrogen 8 mg/dl Creatinine 0.61 mg/dl Est Creatinine Clear Calc Drug Dose 158.9 ml/min Estimated GFR () 132.1 Estimated GFR (Non- 114.0 BUN/Creatinine Ratio 13.7 Random Glucose 88 mg/dl Calcium Level 8.2 mg/dl Magnesium Level 1.8 mg/dl Assessment and Plan Patient is a 51 year old male w ETOH cirrhosis, admitted w bilateral LE edema. MELD 17. He was on Lasix, Aldactone and reported low salt diet but doesn't calculate sodium amt in food nor on fluid restrictions. Bilateral LE dopplers w/ o sign of DVT. He is also having diarrhea. Hx of Cdiff in October. Cdiff positive again at this admission. Leg edema and diarrhea improving. Plans - Continue current doses of Lasix IV and Aldactone. Monitor electrolytes and renal function - Vancomycin taper for recurrent Cdiff. - Modeling Teacher consult on [place] restriction and low Na diet - Strict ETOH cessation - F/U on Urine Na, K, echo results. - Last abd imaging CT 10/22/16 w/o contrast - nodular liver, upper abd varices. Will obtain liver u/s to r/o PVT Attg addendum. I interviewed and examined pt, reviewed chart and labs. His edema is improved, and lytes remain stable. Diarrhea improved.Urine studies suggest compliance with low NA diet. Echo pending. Would cont IV lasix today, and loosen fluid restriction. Plan for d/c home tomorow on aldactone 200 + Lasix 40 BID, with outpt labs and clinic f/u in 1 week. Will need extended Vanco taper for C diff (125 QID x 10 days, then TID x 7 d, then BID x 7 d, then qd x 7 d, then QOD x 7d).
[2016-12-17 15:42] VITALS: BP 109/62; PULSE 82; TEMP 36.6; O2SAT 95
--- NOTE | 2016-12-17 16:30 | Progress Note ---
Internal Med Progress Note Date of Service: Dec 17, 2016. Provider Documentation: SUBJECTIVE: Seen and examined at bedside Had 2 BMs today Denies CP, SOB, nausea, vomiting B/L leg swelling is improving OBJECTIVE: Vital Signs-as noted below Physical Exam: General Appearance:Moderately built and nourished, no apparent distress Head: normocephalic, Atraumatic Eyes: normal inspection, EOMI, PERRL, Icteric Neck: supple, Trachea midline Respiratory/Chest: Normal breath sounds, CTA Cardiovascular: S1, S2, No murmur Abdomen/GI:Soft, RUQ tender, Bowel sounds present Extremities/Musculoskelatal:normal inspection, B/L LE edema Neurologic/Psych:grossly no focal neurological deficits Skin: normal color, warm Lab data as noted below. ASSESSMENT & PLAN: Alcoholic Cirrhosis: Presented with worsening B/L edema and weight gain Failed outpatient diuresis with Lasix 40 mg BID and spironolactone Continue salt and fluid restriction Venous Doppler: Negative for DVT Continue IV albumin, Lasix and spironolactone monitor electrolytes: stable ECHO pending monitor daily weight, I/O's Weight down by 3kg Appreciate GI Input Last abd CT: 11/04:nodular liver, upper abd varices Liver USD to r/o PVT: Pending Recurrent C.diff Colitis : H/O C.diff colitis treated in early October 2016 Continue Oral Vancomycin Day # 2/ Plan to give 125 QID x 10 days, then TID x 7 d, then BID x 7 d, then QD x 7 d, then QOD x 7d as per GI recommendations H/O Esophageal Varices Not large varices nadolol discontinued as per GI recommendations H/O HTN stable Chronic Thrombocytopenia No active bleeding Monitor Code Status Full Code DVT Px: SCD's due to thrombocytopenia Disposition: Plan to discharge home when stable Vital Signs: Date Time Temp Pulse Resp B/P (MAP) Pulse Ox O2 Delivery O2 Flow Rate FiO2 12/17/16 16:00 Room Air 12/17/16 15:42 36.6 82 20 109/62 (78) 95 Room Air 12/17/16 10:00 79 128/68 (88) 12/17/16 08:54 78 115/54 (74) Room Air 12/17/16 08:38 82 119/66 (83) 12/17/16 08:00 Room Air 12/17/16 07:49 36.6 77 18 92/50 (64) 93 Room Air 12/17/16 00:00 Room Air 12/16/16 23:22 36.8 104 18 98/52 (67) 94 Room Air 12/16/16 19:43 36.6 78 18 105/63 (77) 95 Room Air 12/16/16 18:00 Room Air Lab Results: Results Past 24 Hours Test 12/16/16 17:20 12/17/16 06:24 Range/Units Urine Random Sodium 26 mEq/L Urine Random Potassium 36.9 mEq/L White Blood Count 3.94 4.8-10.8 K/uL Red Blood Count 3.28 4.7-6.1 M/uL Hemoglobin 10.8 14.0-18.0 g/dL Hematocrit 33.1 42-52 % Mean Corpuscular Volume 100.9 80-100 fL Mean Corpuscular Hemoglobin 32.9 25-34 pg Mean Corpuscular Hemoglobin Concent 32.6 32-36 g/dl RDW Standard Deviation 57.2 36.4-46.3 fL RDW Coefficient of Variation 15.5 11.5-14.5 % Platelet Count 68 130-400 K/uL Mean Platelet Volume 9.9 7.4-10.4 fL Sodium Level 141 136-145 mmol/L Potassium Level 3.9 3.5-5.1 mmol/L Chloride Level 108 98-107 mmol/L Carbon Dioxide Level 28 21-32 mmol/L Anion Gap 5.0 3-11 mmol/L Blood Urea Nitrogen 8 7-18 mg/dl Creatinine 0.61 0.60-1.40 mg/dl Est Creatinine Clear Calc Drug Dose 158.9 ml/min Estimated GFR () 132.1 Estimated GFR (Non- 114.0 BUN/Creatinine Ratio 13.7 10-20 Random Glucose 88 70-99 mg/dl Calcium Level 8.2 8.5-10.1 mg/dl Magnesium Level 1.8 1.8-2.4 mg/dl
--- NOTE | 2016-12-17 16:50 | ECHOCARDIOGRAM REPORT ---
*NOTICE TO RECEIVING [employer] This information is strictly Confidential and protected under [place] law. [place] law prohibits you from making any further disclosure of this information unless further disclosure is expressly permitted by the written consent of the person to whom it pertains or is authorized by law. A general authorization for the release of medical or other information is not sufficient for this purpose. Hospital accepts no responsibility if the information is made available to any other person, INCLUDING THE PATIENT. Interpretation Summary * Name: CRYSTAL RUEDA JR Study Date: 12/17/2016 07:45 AM BP: 98/52 mmHg * Patient Location: .[id number] HR: 78 * : 1965 (M/d/yyyy) Gender: Male Height: 70 in * Age: 51 yrs Ethnicity: [place] Weight: 205 lb * Ordering Physician: Jatinder Ramírez * Referring Physician: No Doctor, Assigned * Performed By: Angela Spencer RCS * * Reason For Study: B/L Leg Swelling, Cirrhosis * BSA: 2.1 m2 * The study was technically adequate. * There is no comparison study available. * -- Conclusions -- * Ejection Fraction = 65-70%. * Pulse wave TDI of the anterior and posterior mitral annulas demonstrates normal LV relaxation * There is mild tricuspid regurgitation. * The estimated systolic PAP 35mmhg. * Aortic valve sclerosis mild, without significant aortic valvular stenosis. Procedure Details * A complete two-dimensional transthoracic echocardiogram was performed (2D, M-mode, Doppler and color flow Doppler). Left Ventricle * The left ventricle is normal in size. * There is normal left ventricular wall thickness. * Left ventricular systolic function is normal. * Ejection Fraction = 65-70%. * The left ventricular wall motion is normal. Right Ventricle * The right ventricle is normal size. * The right ventricular systolic function is normal as assessed by tricuspid annular plane systolic excursion (TAPSE) (normal >1.5 cm). Atria * The left atrium is mildly dilated. * Right atrial size is normal. * There is no evidence of atrial septal defect, but resolution does not allow assessment for a patent foramen ovale. Mitral Valve * The mitral valve is normal. * There is no mitral valve stenosis. * Significant mitral regurgitation is absent. Tricuspid Valve * The tricuspid valve is normal. * There is no tricuspid stenosis. * There is mild tricuspid regurgitation. * The estimated systolic PAP 35mmhg. Aortic Valve * The aortic valve is trileaflet. * Aortic valve sclerosis mild, without significant aortic valvular stenosis. * Aortic stenosis is absent. * There is no significant aortic regurgitation. Pulmonic Valve * The pulmonary valve is not well seen, but the Doppler examination is normal without significant regurgitation or stenosis. Great Vessels * The aortic root and proximal ascending aorta are normal sized. Pericardium/Pleural * There is no pericardial effusion. Great Vessels * Normal inferior vena cava size and collapsability with sniff indicates a normal right atrial pressure of 3 mmHg Left Ventricular Diastolic Function * Pulse wave TDI of the anterior and posterior mitral annulas demonstrates normal LV relaxation MMode 2D Measurements and Calculations IVSd 1.0 cm IVSs 1.3 cm LVIDd 4.9 cm LVIDs 2.3 cm LVPWd 1.0 cm LVPWs 1.4 cm IVS/LVPW 1.0 FS 52.2 % EDV(Teich) 113.9 ml ESV(Teich) 19.1 ml EF(Teich) 83.2 % EDV(cubed) 119.0 ml ESV(cubed) 13.0 ml EF(cubed) 89.1 % % IVS thick 28.3 % % LVPW thick 39.5 % LV mass(C)d 181.3 grams LV mass(C)dI 85.9 grams/m\S\2 LV mass(C)s 98.4 grams LV mass(C)sI 46.7 grams/m\S\2 SV(Teich) 94.7 ml SI(Teich) 44.9 ml/m\S\2 SV(cubed) 106.1 ml SI(cubed) 50.3 ml/m\S\2 Ao root diam 3.6 cm Ao root area 10.1 cm\S\2 ACS 1.6 cm LA dimension 4.0 cm LA/Ao 1.1 Doppler Measurements and Calculations MV E max joanna 115.9 cm/sec MV A max joanna 65.2 cm/sec MV E/A 1.8 MV P1/2t max joanna 146.9 cm/sec MV P1/2t 83.2 msec MVA(P1/2t) 2.6 cm\S\2 MV dec slope 517.1 cm/sec\S\2 MV dec time 0.21 sec Ao V2 max 134.3 cm/sec Ao max PG 7.2 mmHg Ao max PG (full) 1.4 mmHg LV V1 max PG 5.8 mmHg LV V1 max 120.7 cm/sec PA V2 max 128.2 cm/sec PA max PG 6.6 mmHg TR max joanna 253.4 cm/sec
--- NOTE | 2016-12-17 17:04 | DIAGNOSTIC IMAGING REPORT ---
DUPLEX PORTAL HEPATIC VEINS HISTORY: 51 years-old Male r/o PVT. Cirrhotic liver disease with ascites. Concern for possible portal venous thrombosis. COMPARISON: Ultrasound of the right upper quadrant 10/23/2016 TECHNIQUE: Multiple real-time sonographic images of the upper abdomen were obtained assessing grayscale appearance, color and spectral analysis FINDINGS: Increased vascularity within the region of the splenic vein noted with to and fro color Doppler suggesting portosystemic varices. Splenic vein appears patent. Portal splenic confluence is patent. Hepatopedal flow is noted within the portal vein which is patent. Hepatic artery is patent. Normal phasic waveforms are seen within the hepatic veins. Peak systolic velocities in the hepatic artery measures 160 cm/s. The liver demonstrates pacer chronic morphology measuring up to 12.3 cm. Previously noted cholelithiasis not imaged. IMPRESSION: 1. Cirrhotic morphology of the liver redemonstrated with perisplenic portosystemic varices. 2. Normal appearance of the hepatic vasculature as above. No evidence of portal vein thrombosis. The above report was generated using voice recognition software. It may contain grammatical, syntax or spelling errors. Electronically signed by: Wiliam Davis M.D. 12/17/2016 5:03 PM Dictated Date/Time: 12/17/2016 4:58 PM
[2016-12-17 23:27] VITALS: BP 93/46; PULSE 74; TEMP 37; O2SAT 93
[2016-12-18 06:50] VITALS: BP 109/63; PULSE 76; TEMP 36.8; O2SAT 92
[2016-12-18 07:27] LABS: HEMATOCRIT 30.3 % (42-52); MEAN CELL VOLUME 102.4 fL (80-100); MEAN CORPUSCULAR HEMOGLOBIN 33.1 pg (25-34); MEAN CORPUSCULAR HGB CONC 32.3 g/dl (32-36); RED BLOOD COUNT 2.96 M/uL (4.7-6.1)
[2016-12-18 07:33] LABS: MEAN PLATELET VOLUME 9.6 fL (7.4-10.4); PLATELET COUNT 59 K/uL (130-400)
[2016-12-18 08:06] LABS: BUN/CREATININE RATIO 11.3 (10-20); CALCIUM 8.2 mg/dl (8.5-10.1); CREATININE 0.62 mg/dl (0.60-1.40); MAGNESIUM 1.7 mg/dl (1.8-2.4); POTASSIUM 3.7 mmol/L (3.5-5.1)
[2016-12-18 08:20] VITALS: BP 109/61; PULSE 80
[2016-12-18] MEDS: RASPBERRY SYRUP 5 ML UDP PO SCH ×2 (08:23→13:04)
[2016-12-18] MEDS: ALBUMIN 25% 50 ML with FUROSEMIDE INJ 40 MG IV SCH ×2 (08:23)
[2016-12-18] MEDS: VANCOMYCIN HCL 125 MG/2.5ML SOLN PO SCH ×2 (08:23→13:04)
[2016-12-18] MEDS: SPIRONOLACTONE 100 MG TAB PO SCH (08:23)
[2016-12-18] MEDS: POTASSIUM CHLORIDE 10 MEQ TABCR PO SCH (08:24)
[2016-12-18] MEDS: CEROVITE ADV FORMULA TAB PO SCH (08:24)
[2016-12-18] MEDS: THIAMINE HCL 100 MG TAB PO SCH (08:24)
[2016-12-18 08:35] VITALS: BP 116/67; PULSE 76
[2016-12-18 08:55] VITALS: BP 123/70; PULSE 89
--- NOTE | 2016-12-18 12:20 | Progress Note ---
Internal Med Progress Note Date of Service: Dec 18, 2016. Provider Documentation: SUBJECTIVE: Seen and examined at bedside Feels well Had 1 BMs today Denies CP, SOB, nausea, vomiting B/L leg swelling is improving Eager to get discharged OBJECTIVE: Vital Signs-as noted below Physical Exam: General Appearance:Moderately built and nourished, no apparent distress Head: normocephalic, Atraumatic Eyes: normal inspection, EOMI, PERRL, Icteric Neck: supple, Trachea midline Respiratory/Chest: Normal breath sounds, CTA Cardiovascular: S1, S2, No murmur Abdomen/GI:Soft, RUQ tender, Bowel sounds present Extremities/Musculoskelatal:normal inspection, B/L LE edema Neurologic/Psych:grossly no focal neurological deficits Skin: normal color, warm Lab data as noted below. ASSESSMENT & PLAN: Alcoholic Cirrhosis: Presented with worsening B/L edema and weight gain Failed outpatient diuresis with Lasix 40 mg BID and spironolactone Continue salt and fluid restriction Venous Doppler: Negative for DVT Continue IV albumin, Lasix and spironolactone monitor electrolytes: stable ECHO: as below monitor daily weight, I/O's Weight down by 5kg Appreciate GI Input Last abd CT: 11/04:nodular liver, upper abd varices Liver USD: no PVT as below Recurrent C.diff Colitis : H/O C.diff colitis treated in early October 2016 Continue Oral Vancomycin Day # 3 Plan to give 125 QID x 10 days, then TID x 7 d, then BID x 7 d, then QD x 7 d, then QOD x 7d as per GI recommendations H/O Esophageal Varices Not large varices nadolol discontinued as per GI recommendations H/O HTN stable Chronic Thrombocytopenia No active bleeding Monitor Code Status Full Code DVT Px: SCD's due to thrombocytopenia Disposition: Plan to discharge home when stable Follow up with on Dec 23, 2016 at 12:45pm Follow up with your certified histologic technician in 2 weeks as advised Complete the antibiotic taper course (Vancomycin) as prescribed. Taper course:Start taking 125 Four every 6 hours for 8 more days, then every 8 hours for 7 days, then every 12 hours for 7 days, then once a day for 7 days, then once every other day for 7days. Seek immediate medical attention if your symptoms reoccur or worsen PROCEDURES: Liver USD: 1. Cirrhotic morphology of the liver re demonstrated with perisplenic portosystemic varices. 2. Normal appearance of the hepatic vasculature as above. No evidence of portal vein thrombosis. ECHO: * Ejection Fraction = 65-70%. * Pulse wave TDI of the anterior and posterior mitral annulas demonstrates normal LV relaxation * There is mild tricuspid regurgitation. * The estimated systolic PAP 35mmhg. * Aortic valve sclerosis mild, without significant aortic valvular stenosis. Vital Signs: Date Time Temp Pulse Resp B/P (MAP) Pulse Ox O2 Delivery O2 Flow Rate FiO2 12/18/16 08:55 89 123/70 (87) 12/18/16 08:35 76 116/67 (83) 12/18/16 08:20 80 109/61 (77) 12/18/16 08:00 Room Air 12/18/16 06:50 36.8 76 18 109/63 (78) 92 Room Air 12/18/16 00:45 Room Air 12/17/16 23:27 37.0 74 18 93/46 (62) 93 Room Air 12/17/16 21:37 Room Air 12/17/16 16:00 Room Air 12/17/16 15:42 36.6 82 20 109/62 (78) 95 Room Air Lab Results: Results Past 24 Hours Test 12/18/16 07:06 Range/Units White Blood Count 3.40 4.8-10.8 K/uL Red Blood Count 2.96 4.7-6.1 M/uL Hemoglobin 9.8 14.0-18.0 g/dL Hematocrit 30.3 42-52 % Mean Corpuscular Volume 102.4 80-100 fL Mean Corpuscular Hemoglobin 33.1 25-34 pg Mean Corpuscular Hemoglobin Concent 32.3 32-36 g/dl RDW Standard Deviation 58.3 36.4-46.3 fL RDW Coefficient of Variation 15.6 11.5-14.5 % Platelet Count 59 130-400 K/uL Mean Platelet Volume 9.6 7.4-10.4 fL Sodium Level 142 136-145 mmol/L Potassium Level 3.7 3.5-5.1 mmol/L Chloride Level 107 98-107 mmol/L Carbon Dioxide Level 28 21-32 mmol/L Anion Gap 7.0 3-11 mmol/L Blood Urea Nitrogen 7 7-18 mg/dl Creatinine 0.62 0.60-1.40 mg/dl Est Creatinine Clear Calc Drug Dose 154.7 ml/min Estimated GFR () 131.3 Estimated GFR (Non- 113.3 BUN/Creatinine Ratio 11.3 10-20 Random Glucose 96 70-99 mg/dl Calcium Level 8.2 8.5-10.1 mg/dl Magnesium Level 1.7 1.8-2.4 mg/dl
[2016-12-18] MEDS ORDERED: MAGNESIUM SULFATE 1GM / D5W 1 GM in PREMIXED IN D5W 100 ML IV ONE (12:30)
[2016-12-18] MEDS ORDERED: VANC5CAP PO (12:47)
--- NOTE | 2016-12-18 12:51 | Discharge Summary ---
Discharge Summary Date of Service Dec 18, 2016. Discharge Summary Admission Date: Dec 15, 2016 at 18:38 Discharge Date: Dec 18, 2016 Discharge Disposition: Home Principal Diagnosis: Cirrhosis Procedures: Liver USD: 1. Cirrhotic morphology of the liver re demonstrated with perisplenic portosystemic varices. 2. Normal appearance of the hepatic vasculature as above. No evidence of portal vein thrombosis. ECHO: * Ejection Fraction = 65-70%. * Pulse wave TDI of the anterior and posterior mitral annulas demonstrates normal LV relaxation * There is mild tricuspid regurgitation. * The estimated systolic PAP 35mmhg. * Aortic valve sclerosis mild, without significant aortic valvular stenosis. Consultations: GI Pending Studies/Follow-Up: Follow up with on Dec 23, 2016 at 12:45pm Follow up with your bed teacher in 2 weeks as advised Complete the antibiotic taper course (Vancomycin) as prescribed. Taper course:Start taking 125 Four every 6 hours for 8 more days, then every 8 hours for 7 days, then every 12 hours for 7 days, then once a day for 7 days, then once every other day for 7days. Seek immediate medical attention if your symptoms reoccur or worsen Your Nadolol was discontinued. Discuss with your bed teacher if it needed to be restarted again. Medication Reconciliation New Medications: Vancomycin Hcl (Vancomycin) 125 Mg Cap 125 MG PO UD for 43 Days, #81 CAP Start taking 125 QID x 8 days, then TID x 7 d, then BID x 7 d, then QD x 7 d, then QOD x 7d Continued Medications: Folic Acid (Folic Acid) 1 Mg Tab 1 MG PO QAM for 30 Days, #30 TAB Furosemide (Furosemide) 40 Mg Tab 40 MG PO BID Multiple Vitamins W/ Minerals (Multi Vitamin and Mineral) 1 Tab Tab 1 TAB PO DAILY for 30 Days, #30 TAB 1 Refill Potassium Chloride Microencaps (Potassium Chloride Er) 10 Meq Tab 1 TAB PO DAILY for 30 Days, #30 TAB 5 Refills Spironolactone (Spironolactone) 100 Mg Tab 100 MG PO DAILY Thiamine HCl (Vitamin B-1) 100 Mg Tab 100 MG PO QAM for 30 Days, #30 TAB Discontinued Medications: Nadolol (Corgard) 40 Mg Tab 0.5 TAB PO DAILY for 30 Days, #30 TAB 5 Refills Admission Information HPI (per Admitting provider): This is a 51 y/o male with PMH of alcoholic cirrhosis, history of varices, HTN, history of intracranial hemorrhage, chronic thrombocytopenia, chronic anemia, and other problems listed below who was sent for direct admission by from GI clinic for alcoholic cirrhosis with bilateral LE edema. Patient was recently hospitalized at [facility] from October 22-2016 for GI bleed, C diff colitis, ARF. Patient reports increased bilateral LE edema x 1 month. Has been taking diuretics as prescribed. He is on Lasix 40 mg BID and was started on spironolactone 100 mg daily 1 week ago without improvement. He does not add salt to his food, however does not track sodium intake. He reports weight gain of approximately 15 lb after recent hospitalization. Daily weight has varied within a few lb over past few days. His recent C. diff diarrhea had resolved, but then developed diarrhea again for past 5-6 days with liquid stool 5x per day. Reports associated intermittent dull abdominal pain. No pain at present. States he is voiding frequently on the diuretics. He chronically feels cold. Denies fever, nausea, vomiting, chest pain, SOB, dysuria. Physical Exam (per Admitting): General Appearance: WD/WN, no apparent distress Head: normocephalic, atraumatic Eyes: normal inspection, PERRL, sclerae normal ENT: hearing grossly normal, pharynx normal Neck: supple, trachea midline Respiratory/Chest: lungs clear, normal breath sounds, no respiratory distress, no accessory muscle use Cardiovascular: regular rate, rhythm, no murmur Abdomen/GI: normal bowel sounds, non tender, soft Extremities/Musculoskelatal: no calf tenderness, + pertinent finding ( bilateral lower extremity pitting edema 3+ extending to just above the knees) Neurologic/Psych: alert, normal mood/affect, oriented x 3 Skin: normal color, warm/dry Hospital Course Alcoholic Cirrhosis: Presented with worsening B/L edema and weight gain Failed outpatient diuresis with Lasix 40 mg BID and spironolactone Continue salt and fluid restriction Venous Doppler: Negative for DVT Continue IV albumin, Lasix and spironolactone monitor electrolytes: stable ECHO: as below monitor daily weight, I/O's Weight down by 5kg Appreciate GI Input Last abd CT: 11/04:nodular liver, upper abd varices Liver USD: no PVT as below Recurrent C.diff Colitis : H/O C.diff colitis treated in early October 2016 Continue Oral Vancomycin Day # 3 Plan to give 125 QID x 10 days, then TID x 7 d, then BID x 7 d, then QD x 7 d, then QOD x 7d as per GI recommendations H/O Esophageal Varices Not large varices nadolol discontinued as per GI recommendations H/O HTN stable Chronic Thrombocytopenia No active bleeding Monitor Code Status Full Code DVT Px: SCD's due to thrombocytopenia Disposition: Plan to discharge home when stable Follow up with on Dec 23, 2016 at 12:45pm Follow up with your bed teacher in 2 weeks as advised Complete the antibiotic taper course (Vancomycin) as prescribed. Taper course:Start taking 125 Four every 6 hours for 8 more days, then every 8 hours for 7 days, then every 12 hours for 7 days, then once a day for 7 days, then once every other day for 7days. Seek immediate medical attention if your symptoms reoccur or worsen PROCEDURES: Liver USD: 1. Cirrhotic morphology of the liver re demonstrated with perisplenic portosystemic varices. 2. Normal appearance of the hepatic vasculature as above. No evidence of portal vein thrombosis. ECHO: * Ejection Fraction = 65-70%. * Pulse wave TDI of the anterior and posterior mitral annulas demonstrates normal LV relaxation * There is mild tricuspid regurgitation. * The estimated systolic PAP 35mmhg. * Aortic valve sclerosis mild, without significant aortic valvular stenosis. Total time spent on discharge = 35 minutes This includes examination of the patient, discharge planning, medication reconciliation, and communication with other providers. Discharge Instructions Discharge Instructions Date of Service Dec 18, 2016. Admission Reason for Admission: Cirrhosis With Ascitites Discharge Discharge Diagnosis / Problem: Cirrhosis Discharge Goals Goal(s): Decrease discomfort, Improve function Activity Recommendations Activity Limitations: resume your previous activity Exercise/Sports Limitations: as tolerated . Instructions / Follow-Up Instructions / Follow-Up Follow up with on Dec 23, 2016 at 12:45pm Follow up with your bed teacher in 2 weeks as advised Complete the antibiotic taper course (Vancomycin) as prescribed. Taper course:Start taking 125 Four every 6 hours for 8 more days, then every 8 hours for 7 days, then every 12 hours for 7 days, then once a day for 7 days, then once every other day for 7days. Seek immediate medical attention if your symptoms reoccur or worsen Your Nadolol was discontinued. Discuss with your bed teacher if it needed to be restarted again. Current Hospital Diet Patient's current hospital diet: AHA Diet (Heart Healthy), Low Sodium Diet (2gm Na) Discharge Diet Recommended Diet: AHA Diet (Heart Healthy), Low Sodium Diet (2gm Na) Fluid Restriction: 1800 ml (7 cups) Pending Studies Studies pending at discharge: no Medical Emergencies . Who to Call and When: Medical Emergencies: If at any time you feel your situation is an emergency, please call 911 immediately. . Non-Emergent Contact Non-Emergency issues call your: Primary Care Provider, Service Inspector Call Non-Emergent contact if: you have a fever, your pain is not controlled, your pain is worsening, your pain is unusual for you, your pain is concerning you, you have any medication questions Seek immediate medical attention if your symptoms reoccur or worsen . . "Provider Documentation" section prepared by Jatinder Ramírez. . VTE Core Measure Inpt VTE Proph given/why not?: SCD's
[2016-12-18 13:14] VITALS: BP 123/70; PULSE 89; TEMP 36.8; O2SAT 92
== END 2016-12-18 15:05 | disposition home or self-care (01) | DRG 433 ==
LOC: C.MS4W 17:54 → UNDOADMOB 17:54 → OBSVTOIN 18:38
PROVIDERS: ADMIT Internal Medicine; ATTEND Internal Medicine
DX: K70.30 Alcoholic cirrhosis of liver without ascites (principal); I85.00 Esophageal varices without bleeding; A04.7 Enterocolitis due to Clostridium difficile; I10 Essential (primary) hypertension; D69.6 Thrombocytopenia, unspecified; D64.9 Anemia, unspecified; Z83.3 Family history of diabetes mellitus; Z82.49 Family history of ischemic heart disease and other diseases of the circulatory system; Z87.891 Personal history of nicotine dependence

== ENCOUNTER 2019-04-23 03:51 | Inpatient (IN) ==
--- OUTSIDE RECORDS SUMMARY | 2019-04-23 03:54 | External Medical Summary | Continuity of Care Document ---
:1965 Author Name Natty Green, Provider Address Unavailable Unavailable , Care Team Providers Name Role Phone NonMNPG MMargie, Provider Unavailable [email or web address], NO Unavailable Unavailable Problems Active medical history not documented Allergies and Adverse Reactions Allergy history not documented Medications Medications not documented Procedures Procedures not documented Immunizations Immunizations not documented Plan of Treatment Planned Observations Planned Goals not documented Results No Known Results Results not documented
--- OUTSIDE RECORDS SUMMARY | 2019-04-23 03:55 | External Medical Summary | Continuity of Care Document ---
:1965 Author Name Natty Green, Provider Address Unavailable Unavailable , Care Team Providers Name Role Phone NonMNPG MMargie, Provider Unavailable [email or web address] [email or web address], NO Unavailable Unavailable Problems Active medical history not documented Allergies and Adverse Reactions Allergy history not documented Medications Medications not documented Procedures Procedures not documented Immunizations Immunizations not documented Plan of Treatment Planned Observations Planned Goals not documented Results No Known Results Results not documented
[2019-04-23] MEDS ORDERED: DiphenhydrAMINE HCL 50 MG/ML VIAL IV STA (04:13)
[2019-04-23] MEDS ORDERED: METOCLOPRAMIDE HCL INJ 5 MG/ML 2 ML VIAL IV STA (04:13)
--- NOTE | 2019-04-23 04:16 | Emergency Department Note ---
History of Present Illness General Chief complaint: Headache Stated complaint: HEADACHE,BACK PAIN-CAN'T WALK,COUGH,NOT FEELING RI History of Present Illness Maximum Pain Intensity: 5 This 53-year-old presents to the ER complaining of headache, cough, weakness, back pain Location: Generalized Quality: Weak Severity: Moderate Duration: Past few days Timing: Started few days ago Context: Symptoms got worse and patient came in Modifying factors: better with rest; worse with activity Patient is on the liver transplant list. 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 Patient states his been feeling more weak lately with headache and back pain. Patient denies chest pain, dyspnea, abdominal pain, vomiting, diarrhea. No fever or chills. He states he had a lack of appetite. Patient denies any loss of vision or change in vision. Home Medications Home Medications Medication Instructions Recorded Confirmed Type folic acid 1 mg PO DAILY 04/23/19 04/23/19 History furosemide 60 mg PO BID 04/23/19 04/23/19 History nadolol 40 mg PO DAILY 04/23/19 04/23/19 History spironolactone 100 mg PO BID 04/23/19 04/23/19 History Allergies Allergy/AdvReac Type Severity Reaction Status Date / Time Penicillins AdvReac Mild GI UPSET Verified 04/23/19 04:14 Cephalosporins AdvReac Unknown Nausea/Vomi Verified 04/23/19 04:14 ting Past Med/Surg History Medical History Cirrhosis, alcoholic (Chronic) History of intracranial hemorrhage (Chronic) Hypertension (Chronic) Surgical History H/O esophagogastroduodenoscopy (Chronic) Social History Preferred Language: Bahamian Communication Ability: Effective Netting Weaver Required: No Beliefs That Will Affect Care: None Current Living Situation: Spouse Other Information That Helps Us Care for You: No Feels Safe at Home: Yes Safety Concerns: Feels Safe At This Time Smoking Status: Former smoker Do You Dip or Chew Tobacco: No ; Smoking End Date: 2015 ; Second Hand Exposure: No ; Tobacco Cessation Education Requested by Patient: No Hx Alcohol Use: No Hx Substance Use: No Review of Systems A total of 10 systems reviewed and were otherwise negative Physical Exam Vital Signs Vital Signs - 24 hr 04/23/19 03:52 04/23/19 04:13 04/23/19 04:21 Temperature 36.7 C Temperature Source Oral Pulse Rate - Lying Pulse Rate - Sitting Pulse Rate - Standing Pulse Rate 58 L 51 L 53 L Pulse Rate from SpO2 Sensor 52 L Pulse Rhythm Regular Respiratory Rate 18 20 15 Respiratory Effort / Characteristics Non-Labored Spontaneous Blood Pressure - Lying Blood Pressure - Sitting Blood Pressure- Standing Blood Pressure 108/53 L Blood Pressure Mean 71 Blood Pressure Position Sitting Pulse Oximetry 92 98 98 Oxygen Delivery Method Room Air Nasal Cannula Oxygen Flow Rate 2 Sepsis Recent Fever Within 48 Hours No Sepsis Action Taken by Nursing No Action Required 04/23/19 04:30 04/23/19 04:57 04/23/19 05:00 Temperature Temperature Source Pulse Rate - Lying Pulse Rate - Sitting Pulse Rate - Standing Pulse Rate 54 L 52 L 55 L Pulse Rate from SpO2 Sensor 53 L 52 L 55 L Pulse Rhythm Respiratory Rate 18 15 20 Respiratory Effort / Characteristics Blood Pressure - Lying Blood Pressure - Sitting Blood Pressure- Standing Blood Pressure 103/50 L 115/52 L Blood Pressure Mean 73 69 Blood Pressure Position Pulse Oximetry 99 94 92 Oxygen Delivery Method Oxygen Flow Rate Sepsis Recent Fever Within 48 Hours Sepsis Action Taken by Nursing 04/23/19 05:01 04/23/19 05:02 04/23/19 05:50 Temperature Temperature Source Pulse Rate - Lying 56 L Pulse Rate - Sitting 67 Pulse Rate - Standing 53 L Pulse Rate 53 L 63 54 L Pulse Rate from SpO2 Sensor 54 L 62 55 L Pulse Rhythm Respiratory Rate 16 16 13 Respiratory Effort / Characteristics Blood Pressure - Lying 103/50 L Blood Pressure - Sitting 115/52 L Blood Pressure- Standing 114/52 L Blood Pressure 114/52 L Blood Pressure Mean 83 Blood Pressure Position Pulse Oximetry 91 89 L 92 Oxygen Delivery Method Oxygen Flow Rate Sepsis Recent Fever Within 48 Hours Sepsis Action Taken by Nursing 04/23/19 06:00 Temperature Temperature Source Pulse Rate - Lying Pulse Rate - Sitting Pulse Rate - Standing Pulse Rate 54 L Pulse Rate from SpO2 Sensor 55 L Pulse Rhythm Respiratory Rate 13 Respiratory Effort / Characteristics Blood Pressure - Lying Blood Pressure - Sitting Blood Pressure- Standing Blood Pressure Blood Pressure Mean Blood Pressure Position Pulse Oximetry 92 Oxygen Delivery Method Oxygen Flow Rate Sepsis Recent Fever Within 48 Hours Sepsis Action Taken by Nursing VITALS: Vitals are noted on the nurse's note and reviewed by myself. Vital signs stable. GENERAL: Pleasant male weak appearing, in no acute distress, nondiaphoretic, well-developed well-nourished. SKIN: Capillary reflex less than 2 seconds. HEENT: Normocephalic. PERRLA. EOMI. no visual field deficits. Nares patent. Mucous membranes mildly dry. Neck is supple without nuchal rigidity. HEART: Regular rate and rhythm LUNGS: Clear to auscultation bilaterally without wheezes, rales or rhonchi. No retractions or accessory muscle use. ABDOMEN: Positive bowel sounds x 4. Normal tympanic percussion. Soft, nontender, without masses or organomegaly. Zeng sign negative. No guarding or rebound tenderness. MUSCULOSKELETAL: No gross musculoskeletal defects. No thoracic or lumbar tenderness on exam. Lower extremities venous stasis dermatitis right leg more swollen than the left NEURO: Patient was alert and oriented to person place and time. Cranial nerves II through XII grossly intact. No pronator drift. Cerebellar exam intact. No focal neurological deficits. Course Administered Medications Folic Acid (Folvite) 1 mg PO DAILY GARETH Stop: 05/23/19 09:27 Last Admin: 04/23/19 11:58 Dose: 1 mg Documented by: [id number] Albumin Human (Albumin 25%) 50 mls @ 50 mls/hr IV Q6H GARETH Stop: 04/26/19 11:59 Last Infusion: 04/23/19 21:09 Dose: 50 mls/hr Documented by: [id number] Admin: 04/23/19 18:29 Dose: 50 mls/hr Documented by: [id number] Infusion: 04/23/19 13:14 Dose: 0 mls/hr Documented by: [id number] Admin: 04/23/19 11:58 Dose: 50 mls/hr Documented by: [id number] Discontinued Medications Aspirin (Ecotrin Ectab) 81 mg PO NOW STA Stop: 04/23/19 06:49 Last Admin: 04/23/19 07:54 Dose: 81 mg Documented by: [id number] Diphenhydramine HCl (Benadryl) 25 mg IV NOW STA Stop: 04/23/19 04:14 Last Admin: 04/23/19 04:59 Dose: 25 mg Documented by: [id number] Sodium Chloride (Nss 1000ml) 1,000 mls @ 999 mls/hr IV .Q1H1M ONE Stop: 04/23/19 06:57 Last Infusion: 04/23/19 08:15 Dose: 0 mls/hr Documented by: [id number] Admin: 04/23/19 07:13 Dose: 999 mls/hr Documented by: [id number] Albumin Human (Albumin 25%) 50 mls @ 50 mls/hr IV ONE ONE Stop: 04/23/19 07:21 Last Infusion: 04/23/19 07:10 Dose: 0 mls/hr Documented by: [id number] Admin: 04/23/19 06:37 Dose: 50 mls/hr Documented by: [id number] Metoclopramide HCl (Reglan) 10 mg IV NOW STA Stop: 04/23/19 04:14 Last Admin: 04/23/19 04:59 Dose: 10 mg Documented by: [id number] Perflutren Lipid Microsphere (Definity) 2 ml IV ONCE ONE Stop: 04/23/19 10:47 Last Admin: 04/23/19 10:47 Dose: 2 ml Documented by: [id number] Medical Decision Making Medical Records Attestation: I reviewed the patient's medical records. Home Medications Current Medication List: was personally reviewed by me Laboratory Data Attestation: I reviewed the patient's lab results. Result diagrams: 04/23/19 04:43 04/23/19 09:52 Lab Results 04/23/19 04/23/19 04/23/19 Range/Units 04:43 04:43 04:43 WBC 5.88 (4.8-10.8) K/uL RBC 3.78 L (4.7-6.1) M/uL Hgb 13.3 L (14.0-18.0) g/dL Hct 38.6 L (42-52) % MCV 102.1 H (80-100) fL MCH 35.2 H (25-34) pg MCHC 34.5 (32-36) g/dL RDW Std Deviation 55.5 H (36.4-46.3) fL RDW Coeff of Cathy 14.7 H (11.5-14.5) % Plt Count 75 L (130-400) K/uL MPV 9.8 (7.4-10.4) fL Immature Gran % (Auto) 0.3 % Neut % (Auto) 54.9 % Lymph % (Auto) 23.6 % [place] % (Auto) 18.7 % Eos % (Auto) 2.0 % Baso % (Auto) 0.5 % Immature Gran # (Auto) 0.02 (0.00-0.02) K/uL Neut # (Auto) 3.22 (1.4-6.5) K/uL Lymph # (Auto) 1.39 (1.2-3.4) K/uL [place] # (Auto) 1.10 H (0.11-0.59) K/uL Eos # (Auto) 0.12 (0-0.5) K/uL Baso # (Auto) 0.03 (0-0.2) K/uL Platelet Estimate Decreased L (Normal) PT 17.6 H (9.0-12.0) Seconds INR 1.8 H (0.9-1.1) APTT 37.8 H (21.0-31.0) Seconds PTT Ratio 1.4 Sodium 135 L (136-145) mmol/L Potassium 3.6 (3.5-5.1) mmol/L Chloride 99 (98-107) mmol/L Carbon Dioxide 31 (21-32) mmol/L Anion Gap 5.0 (3-11) BUN 37 H (7-18) mg/dl Creatinine 2.28 H (0.6-1.4) mg/dl Est Cr Clr Drug Dosing 40.6 ml/min Est GFR ( Amer) 36.1 Est GFR (Non-Af Amer) 31.1 BUN/Creatinine Ratio 16.0 (10-20) Glucose 99 (70-99) mg/dl Calcium 8.9 (8.5-10.1) mg/dl Magnesium 2.0 (1.8-2.4) mg/dl Total Bilirubin 5.0 H (0.2-1) mg/dl AST 65 H (15-37) U/L ALT 30 (12-78) U/L Alkaline Phosphatase 211 H (45-117) U/L Total Creatine Kinase 64 (39-308) U/L Troponin I < 0.015 (0-0.045) ng/ml Total Protein 6.4 (6.4-8.2) gm/dl Albumin 1.6 L (3.4-5.0) gm/dl Globulin 4.8 H (2.5-4.0) gm/dl Albumin/Globulin Ratio 0.3 L (0.9-2) Lipase (73-393) U/L TSH 1.580 (0.300-4.500) uIu/ml 04/23/19 Range/Units 04:43 WBC (4.8-10.8) K/uL RBC (4.7-6.1) M/uL Hgb (14.0-18.0) g/dL Hct (42-52) % MCV (80-100) fL MCH (25-34) pg MCHC (32-36) g/dL RDW Std Deviation (36.4-46.3) fL RDW Coeff of Cathy (11.5-14.5) % Plt Count (130-400) K/uL MPV (7.4-10.4) fL Immature Gran % (Auto) % Neut % (Auto) % Lymph % (Auto) % [place] % (Auto) % Eos % (Auto) % Baso % (Auto) % Immature Gran # (Auto) (0.00-0.02) K/uL Neut # (Auto) (1.4-6.5) K/uL Lymph # (Auto) (1.2-3.4) K/uL [place] # (Auto) (0.11-0.59) K/uL Eos # (Auto) (0-0.5) K/uL Baso # (Auto) (0-0.2) K/uL Platelet Estimate (Normal) PT (9.0-12.0) Seconds INR (0.9-1.1) APTT (21.0-31.0) Seconds PTT Ratio Sodium (136-145) mmol/L Potassium (3.5-5.1) mmol/L Chloride (98-107) mmol/L Carbon Dioxide (21-32) mmol/L Anion Gap (3-11) BUN (7-18) mg/dl Creatinine (0.6-1.4) mg/dl Est Cr Clr Drug Dosing ml/min Est GFR ( Amer) Est GFR (Non-Af Amer) BUN/Creatinine Ratio (10-20) Glucose (70-99) mg/dl Calcium (8.5-10.1) mg/dl Magnesium (1.8-2.4) mg/dl Total Bilirubin (0.2-1) mg/dl AST (15-37) U/L ALT (12-78) U/L Alkaline Phosphatase (45-117) U/L Total Creatine Kinase (39-308) U/L Troponin I (0-0.045) ng/ml Total Protein (6.4-8.2) gm/dl Albumin (3.4-5.0) gm/dl Globulin (2.5-4.0) gm/dl Albumin/Globulin Ratio (0.9-2) Lipase 122 (73-393) U/L TSH (0.300-4.500) uIu/ml Imaging Data Attestation: I personally reviewed and interpreted this imaging study as follows: MDM Narrative Prior records/ancillary studies reviewed and summarized above. Nursing notes reviewed. Additional history obtained from family. The patient's history was concerning for weakness, cough, headache. Differential diagnosis: Etiologies such as metabolic, infection, hypo/hyperglycemia, electrolyte abnormalities, cardiac sources, intracerebral event, toxicologic, neurologic, as well as others were entertained. Physical examination: As above. ER treatment provided: IV Lock, IV fluids Benadryl, Reglan On reassessment the patient felt better. Diagnostics interpretation by me: ECG: Ordered for weakness EKG: Normal sinus, normal intervals, no acute ST-T wave changes. Impression sinus bradycardia interpreted myself I think arrhythmia is unlikely. EKG shows normal sinus rhythm with no interval abnormalities such as QT prolongation or WPW. There are no findings to suggest Brugada syndrome. Cardiac monitoring in the emergency department reveals no tachycardic or bradycardic dysrhythmia. Hypertrophic cardiomyopathy was considered but there are no clear historical elements pointing toward this. EKG is not suggestive. The QRS voltage is not extremely large and there are no suggestive Q waves. The labs revealed elevated creatinine. INR 1.8. Mild anemia. Imaging studies: Chest x-ray with mild pulmonary congestion without free air per my interpretation CT HEAD: Comparison: CT head 10/25/16. 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 Left paracentral lobule and parietal lobe subcortical hypoattenuation and volume loss, likely related to remote infarct, similar to prior. No acute intracranial hemorrhage or mass effect. Small retention cyst in left maxillary sinus. Radiologist: Orville Zuñiga MD Consultation: A consultation was placed with the hospitalist, Dr Haile The case was discussed and diagnostics were reviewed. The patient was evaluated in the ER for further treatment. Exam and history seem consistent with acute renal failure and late acute right posterior cerebral artery territory infarct. Medicine was consulted. Patient was hydrated as above. Patient is agreeable treatment plan of admission. By the evaluation outlined above emergent etiologies such as infection, cardiac sources, abnormalities blood glucose, as well as others were deemed relatively unlikely. The pt informed about the findings as listed above. All questions were answered and pleased with the treatment. The chart was completed utilizing [employer] Speech voice recognition software. Grammatical errors, random word insertions, pronoun errors, and incomplete sentences are an occassional consequence of this system due to software limitations, ambient noise, and hardware issues. Any formal questions or concerns about the content, text, or information contained within the body of this dictation should be directly addressed to the physician assistant executive housekeeper for clarification. Impression & Plan Acute renal failure (ARF), CVA (cerebrovascular accident) Discharge Plan Visit Data *Final* Discharge Date/Time: 04/23/19 08:18 Chief Complaint: Headache Stated Complaint: HEADACHE,BACK PAIN-CAN'T WALK,COUGH,NOT FEELING RI ED Provider: Comfort Agustin ED Midlevel Provider: Viky Acevedo Discharge Problem: Acute renal failure (ARF), CVA (cerebrovascular accident) Patient Disposition: Admitted As Inpatient Condition: Fair Discharge Instructions Interventions: ED Discharge Assessment Last Done: 04/23/19 08:18 Discharge Problem: Acute renal failure (ARF) Qualifiers: Acute renal failure type: unspecified Qualified Code(s): N17.9 - Acute kidney failure, unspecified
[2019-04-23 05:16] LABS: INR 1.8 (0.9-1.1); Partial Thromboplastin Ratio 1.4; Partial Thromboplastin Time 37.8 Seconds (21.0-31.0); Prothrombin Time 17.6 Seconds (9.0-12.0)
[2019-04-23 05:32] LABS: Alanine Aminotransferase 30 U/L (12-78); Albumin Level 1.6 gm/dl (3.4-5.0); Aspartate Aminotransferase 65 U/L (15-37); Blood Urea Nitrogen 37 mg/dl (7-18); Calcium 8.9 mg/dl (8.5-10.1); Carbon Dioxide 31 mmol/L (21-32); Chloride 99 mmol/L (98-107); Creatinine Clr Calc Pharmacy 40.6 ml/min; Est GFR (African American) 36.1; Est GFR (Non-African American) 31.1; Glucose 99 mg/dl (70-99); Potassium 3.6 mmol/L (3.5-5.1); Sodium 135 mmol/L (136-145)
[2019-04-23 05:33] LABS: Hematocrit (blood only) 38.6 % (42-52); Hemoglobin 13.3 g/dL (14.0-18.0); Mean Corpuscular Hemoglobin 35.2 pg (25-34); Mean Corpuscular Hgb Conc 34.5 g/dL (32-36); Mean Corpuscular Volume 102.1 fL (80-100); Mean Platelet Volume 9.8 fL (7.4-10.4); Platelet Count 75 K/uL (130-400); RDW Coefficient of Variation 14.7 % (11.5-14.5); RDW Standard Deviation 55.5 fL (36.4-46.3); Red Blood Count 3.78 M/uL (4.7-6.1); White Blood Count 5.88 K/uL (4.8-10.8)
[2019-04-23 05:35] LABS: Basophils # (auto) 0.03 K/uL (0-0.2); Basophils % (auto) 0.5 %; Eosinophils # (auto) 0.12 K/uL (0-0.5); Immature Granulocytes # (auto) 0.02 K/uL (0.00-0.02); Immature Granulocytes % (auto) 0.3 %; Lymphocytes # (auto) 1.39 K/uL (1.2-3.4); Lymphocytes % (auto) 23.6 %; Monocytes % (auto) 18.7 %; Neutrophils # (auto) 3.22 K/uL (1.4-6.5); Neutrophils % (auto) 54.9 %; Platelet Estimate Decreased (Normal)
[2019-04-23 05:43] LABS: Albumin Globulin Ratio 0.3 (0.9-2); Alkaline Phosphatase 211 U/L (45-117); Creatine Kinase 64 U/L (39-308); Globulin 4.8 gm/dl (2.5-4.0); Total Protein 6.4 gm/dl (6.4-8.2); Troponin I < 0.015 ng/ml (0-0.045)
[2019-04-23] MEDS ORDERED: SODIUM CHLORIDE 0.9% 1000ML 1,000 ML IV ONE (05:57)
[2019-04-23] MEDS ORDERED: ALBUMIN 25% 50 ML IV ONE (06:22)
[2019-04-23] MEDS ORDERED: ASPIRIN 81 MG ECTAB PO STA (06:48)
--- NOTE | 2019-04-23 06:48 | History & Physical Report ---
Date of Service April 23, 2019 Assessment & Plan (1) Acute renal failure (ARF): hx alcoholic cirrhosis on diuretic Rx Patient intravascularly dry with signs of fluid retention Rule out obstructive uropathy given back pain complaints Recent ischemic infarct on CT hx intracranial hemorrhage as per records HTN, BP on the lower side Pancytopenia secondary to cirrhosis Hemoglobin better than baseline likely secondary to hemoconcentration past tobacco/alcohol abuse Medical telemetry IV albumin given third spacing from liver disease Appropriate to hold home diuretics for now. Baseline UA, monitor daily renal function CT abdomen pelvis RE back pain Nephrology consult RE ARF in the setting of cirrhosis Aspirin for secondary stroke prevention MRI/MRA brain, carotid Dopplers, TTE, check lipid profile for stroke work-up Neurology consult RE subacute ischemic stroke Hold home beta-reyna for now given borderline BP DVT prophylaxis. SCDs RE thrombocytopenia Full code History of Present Illness Chief Complaint: Generalized weakness, not feeling well Primary Care Provider: William Faustin MD History obtained from patient, family, and records. Medical is history significant for alcoholic cirrhosis, past tobacco/alcohol abuse, hypertension, history of esophageal varices, history of intracranial hemorrhage, chronic thrombocytopenia, chronic anemia (baseline hemoglobin 9-10). Recent confinement November 2016 for decompensated cirrhosis and recurrent C. difficile colitis. Patient currently being evaluated by [facility] transplant service for liver transplantation. Patient not feeling well the last 3 days, feeling fuzzy, blurred vision on the left eye, aching headache and low back pain not radiating to the legs as per ángel weeks. Patient denies chest pain. Usual shortness of breath. Denies increase fluid retention or abdominal pain. Usual leg swelling. No recent changes with diuretic regimen. Patient brought to the ER for evaluation. MEDICAL HISTORY: As above. SURGERIES: None FAMILY HISTORY: Hypertension, heart disease, diabetes PERSONAL AND SOCIAL HISTORY: Past tobacco/alcohol use, disabled. Allergies Allergy/AdvReac Type Severity Reaction Status Date / Time Penicillins AdvReac Mild GI UPSET Verified 04/23/19 04:14 Cephalosporins AdvReac Unknown Nausea/Vomi Verified 04/23/19 04:14 ting Home Medications Home Medications Medication Instructions Recorded Confirmed Type folic acid 1 mg PO DAILY 04/23/19 04/23/19 History furosemide 60 mg PO BID 04/23/19 04/23/19 History nadolol 40 mg PO DAILY 02/03/20 02/03/20 History spironolactone 100 mg PO BID 04/23/19 04/23/19 History Past Med/Surg History Medical History Cirrhosis, alcoholic (Chronic) History of intracranial hemorrhage (Chronic) Hypertension (Chronic) Surgical History H/O esophagogastroduodenoscopy (Chronic) Social History Preferred Language: Uzbek Communication Ability: Effective Guard Manager Required: No Beliefs That Will Affect Care: None Current Living Situation: Spouse Other Information That Helps Us Care for You: No Feels Safe at Home: Yes Safety Concerns: Feels Safe At This Time Smoking Status: Former smoker Do You Dip or Chew Tobacco: No ; Smoking End Date: 2015 ; Second Hand Exposure: No ; Tobacco Cessation Education Requested by Patient: No Hx Alcohol Use: No Hx Substance Use: No Review of Systems Review of Systems: As per HPI, all 10 systems reviewed, all other ROS negative Physical Exam Physical Exam: GENERAL: Comfortable, chronically ill, somewhat apathetic, no respiratory distress SKIN: Pallor, warm HEENT: Pale palpebral conjunctivae, no ptosis, dry buccal mucosa NECK : Supple, no tenderness CHEST : Decreased breath sounds , no tenderness HEART : Bradycardic, no obvious murmurs ABDOMEN: Some distention, nontender EXTREMITIES : Bilateral LE swelling, no LE tenderness, no other conspicuous deformities noted NEUROLOGIC : Coherent, visual acuity (near and far) within normal limits, no facial asymmetry, rest tremors, no other gross focality Results & Data Vital Signs (Past 12 Hours) Vital Signs Temp Pulse Resp BP Pulse Ox 04/23/19 06:00 54 L 13 92 04/23/19 05:50 54 L 13 92 04/23/19 05:02 63 16 89 L 04/23/19 05:01 53 L 16 114/52 L 91 04/23/19 05:00 55 L 20 115/52 L 92 04/23/19 04:57 52 L 15 103/50 L 94 04/23/19 04:30 54 L 18 99 04/23/19 04:21 53 L 15 98 04/23/19 04:13 51 L 20 98 04/23/19 03:52 36.7 C 58 L 18 108/53 L 92 Laboratory Results Laboratory Results WBC 5.88 K/uL (4.8-10.8) 04/23/19 04:43 RBC 3.78 M/uL (4.7-6.1) L 04/23/19 04:43 Hgb 13.3 g/dL (14.0-18.0) L 04/23/19 04:43 Hct 38.6 % (42-52) L 04/23/19 04:43 MCV 102.1 fL (80-100) H 04/23/19 04:43 MCH 35.2 pg (25-34) H 04/23/19 04:43 MCHC 34.5 g/dL (32-36) 04/23/19 04:43 RDW Std Deviation 55.5 fL (36.4-46.3) H 04/23/19 04:43 RDW Coeff of Cathy 14.7 % (11.5-14.5) H 04/23/19 04:43 Plt Count 75 K/uL (130-400) L 04/23/19 04:43 MPV 9.8 fL (7.4-10.4) 04/23/19 04:43 Immature Gran % (Auto) 0.3 % 04/23/19 04:43 Neut % (Auto) 54.9 % 04/23/19 04:43 Lymph % (Auto) 23.6 % 04/23/19 04:43 [place] % (Auto) 18.7 % 04/23/19 04:43 Eos % (Auto) 2.0 % 04/23/19 04:43 Baso % (Auto) 0.5 % 04/23/19 04:43 Immature Gran # (Auto) 0.02 K/uL (0.00-0.02) 04/23/19 04:43 Neut # (Auto) 3.22 K/uL (1.4-6.5) 04/23/19 04:43 Lymph # (Auto) 1.39 K/uL (1.2-3.4) 04/23/19 04:43 [place] # (Auto) 1.10 K/uL (0.11-0.59) H 04/23/19 04:43 Eos # (Auto) 0.12 K/uL (0-0.5) 04/23/19 04:43 Baso # (Auto) 0.03 K/uL (0-0.2) 04/23/19 04:43 Platelet Estimate Decreased (Normal) L 04/23/19 04:43 PT 17.6 Seconds (9.0-12.0) H 04/23/19 04:43 INR 1.8 (0.9-1.1) H 04/23/19 04:43 APTT 37.8 Seconds (21.0-31.0) H 04/23/19 04:43 PTT Ratio 1.4 04/23/19 04:43 Sodium 135 mmol/L (136-145) L 04/23/19 04:43 Potassium 3.6 mmol/L (3.5-5.1) 04/23/19 04:43 Chloride 99 mmol/L (98-107) 04/23/19 04:43 Carbon Dioxide 31 mmol/L (21-32) 04/23/19 04:43 Anion Gap 5.0 (3-11) 04/23/19 04:43 BUN 37 mg/dl (7-18) H 04/23/19 04:43 Creatinine 2.28 mg/dl (0.6-1.4) H 04/23/19 04:43 Est Cr Clr Drug Dosing 40.6 ml/min 04/23/19 04:43 Est GFR ( Amer) 36.1 04/23/19 04:43 Est GFR (Non-Af Amer) 31.1 04/23/19 04:43 BUN/Creatinine Ratio 16.0 (10-20) 04/23/19 04:43 Glucose 99 mg/dl (70-99) 04/23/19 04:43 Calcium 8.9 mg/dl (8.5-10.1) 04/23/19 04:43 Magnesium 2.0 mg/dl (1.8-2.4) 04/23/19 04:43 Total Bilirubin 5.0 mg/dl (0.2-1) H 04/23/19 04:43 AST 65 U/L (15-37) H 04/23/19 04:43 ALT 30 U/L (12-78) 04/23/19 04:43 Alkaline Phosphatase 211 U/L (45-117) H 04/23/19 04:43 Total Creatine Kinase 64 U/L (39-308) 04/23/19 04:43 Troponin I < 0.015 ng/ml (0-0.045) 04/23/19 04:43 Total Protein 6.4 gm/dl (6.4-8.2) 04/23/19 04:43 Albumin 1.6 gm/dl (3.4-5.0) L 04/23/19 04:43 Globulin 4.8 gm/dl (2.5-4.0) H 04/23/19 04:43 Albumin/Globulin Ratio 0.3 (0.9-2) L 04/23/19 04:43 Lipase 122 U/L (73-393) 04/23/19 04:43 TSH 1.580 uIu/ml (0.300-4.500) 04/23/19 04:[address] head initial read: Late acute right posterior cerebral artery territory infarct involving the medial aspect of the right occipital lobe. Left parietal lobe/left paracentral lobule volume loss likely related to remote infarct. Chest x-ray as per my interpretation, cardiomegaly, congestion, pleural effusions right greater than left EKG as per my interpretation : Rate 50, sinus bradycardia, normal axis, no ischemia (1) Acute renal failure (ARF) Acute renal failure type: unspecified Qualified Code(s): N17.9 - Acute kidney failure, unspecified
--- NOTE | 2019-04-23 06:50 | CT Scan Report ---
CT OF THE HEAD WITHOUT CONTRAST CLINICAL HISTORY: Headache. COMPARISON STUDY: Head CT October 25, 2016. CT DOSE: 614.27 mGy.cm TECHNIQUE: Helical axial images of the head were obtained without IV contrast. Automated exposure con trol was utilized for the study. A dose lowering technique was utilized adhering to the principles o f ALARA. FINDINGS: No acute intracranial hemorrhage, midline shift or mass effect is present. A 4.5 x 2.3 cm h ypodensity with loss of dale-white dislocation within the right occipital lobe is noted. There is an adjacent linear hyperdensity. Small focus of encephalomalacia with subtle cortical hyperdensity withi n the left parietal lobe on axial image 24 is unchanged since exam of October 25, 2016. This represents a remote insult. Ventricular system is unremarkable. Basilar cisterns are patent. There are no signi ficant calvarial abnormalities. Small mucous retention cyst within left maxillary sinus is noted. IMPRESSION: 4.5 x 2.3 cm right occipital lobe hypodensity which represents a subacute to acute infarct. No hemorr tristian. No significant mass effect. Adjacent linear hyperdensity may reflect calcification/calcified em bolus within the vessel which resulted in the infarct. ACT 112: Negative or not required by law. Electronically signed by: Lm Pantoja M.D. 04/23/2019 6:48 AM
--- NOTE | 2019-04-23 06:59 | Ultrasound Report ---
ULTRASOUND BILATERAL LOWER EXTREMITY VENOUS CLINICAL HISTORY: Lower extremity edema. COMPARISON STUDY: Bilateral lower extremity venous ultrasound dated 12/15/2016. TECHNIQUE: Real-time, grayscale, and color Doppler sonography of the deep veins of the right and left lower extremity was performed from the inguinal crease to the calf. Compression and augmentation wer e utilized. FINDINGS: There is no sonographic evidence of deep venous thrombosis identified in the right or left lower extremity. The common femoral, superficial femoral, and popliteal veins are patent and normally compressible bilaterally. The greater saphenous vein and the profunda femoris vein at the junction w ith the common femoral vein are clear in both legs. The visualized calf veins are patent bilaterally. IMPRESSION: There is no sonographic evidence of deep venous thrombosis identified in the right or lef t lower extremity. ACT 112: Negative or not required by law. Electronically signed by: Nathaniel Roper M.D. 04/23/2019 6:58 AM
--- NOTE | 2019-04-23 07:08 | XRay Report ---
SINGLE VIEW CHEST CLINICAL HISTORY: Generalized weakness. FINDINGS: An AP, portable, upright chest radiograph is compared to study dated 10/22/2016. The examinat ion is degraded by portable technique and patient rotation. The heart is enlarged noting atheroscle rotic calcification of the thoracic aorta. There is mild pulmonary vascular congestion. There are lef t larger than right pleural effusions with bibasilar consolidation. No pneumothorax is seen. The bony thorax is grossly intact. IMPRESSION: 1. Cardiomegaly with evidence of congestive failure. 2. Left larger than right pleural effusions with bibasilar consolidation. ACT 112: Negative or not required by law. Electronically signed by: Nathaniel Roper M.D. 04/23/2019 7:07 AM
--- NOTE | 2019-04-23 09:11 | CT Scan Report ---
CT OF THE ABDOMEN AND PELVIS WITHOUT CONTRAST CLINICAL HISTORY: Back pain. COMPARISON STUDY: CT of the abdomen and pelvis October 22, 2016. Right upper quadrant ultrasound Augus 2016. TECHNIQUE: Axial images of the abdomen and pelvis were obtained without IV contrast. Images were revi ewed in the axial, sagittal, and coronal planes. Automated exposure control was utilized for the felipa dy. A dose lowering technique was utilized adhering to the principles of ALARA. FINDINGS: Imaged portions of the lower chest demonstrate moderate bilateral pleural effusions, left l arger than right. There is associated segmental atelectasis. Evaluation of the abdomen and pelvis is suboptimal on this unenhanced exam. Anasarca is noted. No pneumatosis, free air or portal venous gas is present. Marked gallbladder distention is noted. There are gallstones within the gallbladder. Ther e is no pericholecystic infiltration. The liver is cirrhotic. Sensitivity for detection of hepatic le sions is diminished on this unenhanced exam but none are identified. Collaterals are noted. The size of the spleen is normal. There is no hydronephrosis or hydroureter. There is no evidence for a bowel obstruction. There is no ascites. No suspicious osseous lesions are noted. No lymphadenopathy is pres ent. There is hyperdense material within the appendix without evidence for acute appendicitis. There is extensive plaque of the abdominal aorta which is normal in caliber. IMPRESSION: 1. Cholelithiasis. Marked gallbladder distention. No pericholecystic infiltration however acute carol cystitis cannot be excluded. A right upper quadrant ultrasound is recommended. 2. Cirrhosis. Collaterals indicative of portal hypertension. 3. Moderate bilateral pleural effusions. Anasarca. ACT 112: Negative or not required by law. Electronically signed by: Lm Pantoja M.D. 04/23/2019 9:09 AM
[2019-04-23] MEDS ORDERED: NITROGLYCERIN SL 0.4 MG/TAB TAB SL PRN (09:28)
[2019-04-23] MEDS ORDERED: PROMETHAZINE HCL 12.5 MG in SODIUM CHLORIDE 0.9% 50 ML IV PRN (09:28)
[2019-04-23] MEDS ORDERED: PHARMACIST DISCHARGE MED REC CONSULT PRN (09:28)
[2019-04-23] MEDS ORDERED: OXYCODONE HCL IR 5 MG TAB (IMMEDIATE RELEASE) PO PRN (09:28)
[2019-04-23] MEDS ORDERED: ACETAMINOPHEN 325 MG TAB PO PRN (09:28)
[2019-04-23 10:35] LABS: BUN Creatinine Ratio 17.2 (10-20); Calcium 8.4 mg/dl (8.5-10.1); Creatinine Clr Calc Pharmacy 43.4 ml/min; Est GFR (African American) 39.2; Est GFR (Non-African American) 33.8; Potassium 3.5 mmol/L (3.5-5.1)
[2019-04-23] MEDS ORDERED: PERFLUTREN LIPID MICROSPHERE (DEFINITY) IV ONE (10:46)
[2019-04-23] MEDS: ALBUMIN 25% 50 ML IV SCH ×2 (11:58→18:29)
[2019-04-23] MEDS: FOLIC ACID 1 MG TAB PO SCH (11:58)
--- NOTE | 2019-04-23 12:45 | Electrocardiogram Report ---
Test Reason : Blood Pressure : / mmHG Vent. Rate : 052 BPM Atrial Rate : 052 BPM P-R Int : 166 ms QRS Dur : 094 ms QT Int : 458 ms P-R-T Axes : 006 023 024 degrees QTc Int : 425 ms Sinus bradycardia Otherwise normal ECG When compared with ECG of 22-OCT-2016 17:08, T wave amplitude has decreased in Anterior leads Confirmed by Alfonso Mirza ([id number]) on 04/23/2019 12:45:29 PM Referred By: REFERRED SELF Confirmed By:Alfonso Mirza
--- NOTE | 2019-04-23 14:57 | Electrocardiogram Report ---
Test Reason : Blood Pressure : / mmHG Vent. Rate : 053 BPM Atrial Rate : 053 BPM P-R Int : 164 ms QRS Dur : 088 ms QT Int : 488 ms P-R-T Axes : -17 023 047 degrees QTc Int : 457 ms Sinus bradycardia Low voltage QRS Borderline ECG When compared with ECG of 23-APR-2019 04:40, No significant change was found Confirmed by Alfonso Mirza ([id number]) on 04/23/2019 2:56:58 PM Referred By: REFERRED SELF Confirmed By:Alfonso Mirza
--- NOTE | 2019-04-23 15:01 | Ultrasound Report ---
US carotid doppler BI CLINICAL HISTORY: 53 years-old Male presenting with stroke. TECHNIQUE: Real-time grayscale and color and spectral Doppler ultrasound imaging of the bilateral car otid arteries was performed. Stenosis measurements were based on NASCET-like criteria (distal lumen d iameter as the denominator for stenosis measurement). COMPARISON: None. FINDINGS: RIGHT: Common carotid artery (CCA): Patent. Peak systolic velocity (PSV) 101 cm/s. Internal carotid artery (ICA): Atherosclerosis of the proximal ICA. PSV 116 cm/s. End diastolic veloc ity (EDV) 11 cm/s. ICA/CCA (systolic) ratio: 1.1. External carotid artery (ECA): Patent. PSV 139 cm/s. LEFT: CCA: Patent. PSV 98 cm/s. ICA: Atherosclerosis of the proximal ICA. PSV 148 cm/s in the distal ICA. EDV 19 cm/s. ICA/CCA (systolic) ratio: 1.5. ECA: Patent. PSV 124 cm/s. Bilateral antegrade flow within the vertebral arteries. Blood pressure: Not performed Brachial: Right: mmHg, Left: mmHg. Reference ranges: Stenosis measurements are compared to reference velocity parameters by the Society of Radiologists in Ultrasound (SRU) consensus and Sonographic NASCET index (S-NASCET). * SRU Primary parameters: ICA PSV <125 cm/s = normal or less than 50% stenosis; ICA PSV 125-230 cm/s = 50-69% stenosis; ICA PSV >230 cm/s = greater than or equal to 70% stenosis. * SRU Additional parameters: ICA/CCA PSV ratio <2 = normal or less than 50% stenosis; ratio 2-4 = 5 0-69% stenosis; ratio >4 = greater than or equal to 70% stenosis. ICA EDV <40 cm/s = normal or less t ramos 50% stenosis; ICA EDV 40-100 cm/s = 50-69% stenosis; ICA EDV >100 cm/s = greater than or equal to 70% stenosis. * S-NASCET parameters: Deceleration spectral broadening + PSV <125 cm/s = less than 50% stenosis; pa nsystolic spectral broadening + PSV <125 cm/s = 16-49% stenosis; pansystolic spectral broadening + PS V >125 cm/s + EDV <110 cm/s or ICA/CCA PSV ratio 2-4 = 50-69% stenosis; pansystolic spectral broadeni ng + PSV >270 cm/s OR EDV >110 cm/s OR ICA/CCA PSV ratio >4 = 70-79% stenosis; EDV >140 cm/s = 80-99% stenosis. IMPRESSION: 1. 50-69% stenosis of the distal left ICA. Follow-up to be considered. 2. No hemodynamically significant stenosis of the right ICA. ACT 112: Negative or not required by law. Electronically signed by: Jose Luis Giles M.D. 04/23/2019 3:00 PM
--- NOTE | 2019-04-23 16:07 | Nephrology Consultation ---
Date of Consultation April 23, 2019 Assessment & Plan (1) Acute renal failure (ARF): baseline creatinine 1.0-1.1. Renal imaging on CT reassuring no obstruction. chemistries acceptable and notable for mild hypokalemia. marked volume overload w/ BL L>R pl effusions, hypoxia, ascites, anasarca. suspect prerenal w/ total body overload but intravascular volume depletion; also possibly a role for nsaids -check UA and prot/creat-orders in -daily bmp -agree w/ trial of resuscitation w/ albumin, cautiously and stop if hypoxia worsens -cont to hold diuretics for now -cont to avoid nephrotoxins, including nsaids -will limit fluid to 1.5L/day and Na intake to <2 gm -daily standing wts pls Present on Admission?: Yes History of Present Illness Reason for Consultation: BETSY on CKD Requesting Physician: Dr Richards Attending Physician: Jaye Keller MD History of Present Illness 53 y/o M whom I'm asked to see for Acute renal failure after he was admitted overnight for same. Baseline creatinine 1.1; presenting creatinine 2.3 on presentation this am, slight improvment to 2.1 later this morning. PMH includes alcoholic cirrhosis on OP diuretics and w/ hx esophageal varices, 2016 intracranial hemorrhage, pancytopenia; past EtOH and tobacco abuse; admission 2017 for decompensated cirrhosis and C diff colitis. Being evaluated at [facility] for liver txplt. Concern at admission for ischemic stroke; neuro eval pending. His baseline creatinine is 1.1; has been in this range since December, most recently 03/29/2019. slow renal progression since 2017 when creat was 0.7 gradually up to current baseline; no dipstick proteinuria on 01/2019 check. he had 1L NS in ER; then changed to albumin 12.5 gm q 6h. pt family at bedside and answers many questions for him -- , daughter. son present but does not contribute. mentions pt took ibuprofen yesterday late afternoon for PEREZ. pt CC is back pain; 's is generalized weakness. Allergies Allergy/AdvReac Type Severity Reaction Status Date / Time Penicillins AdvReac Mild GI UPSET Verified 04/23/19 04:14 Cephalosporins AdvReac Unknown Nausea/Vomi Verified 04/23/19 04:14 ting Home Medications Home Medications Medication Instructions Recorded Confirmed Type folic acid 1 mg PO DAILY 04/23/19 04/23/19 History furosemide 60 mg PO BID 04/23/19 04/23/19 History nadolol 40 mg PO DAILY 04/23/19 04/23/19 History spironolactone 100 mg PO BID 04/23/19 04/23/19 History Patient History Medical History Cirrhosis, alcoholic (Chronic) History of intracranial hemorrhage (Chronic) Hypertension (Chronic) Surgical History H/O esophagogastroduodenoscopy (Chronic) Social History Preferred Language: Bulgarian Communication Ability: Effective Training And Documentation Specialist Required: No Beliefs That Will Affect Care: None Current Living Situation: Spouse Other Information That Helps Us Care for You: No Feels Safe at Home: Yes Safety Concerns: Feels Safe At This Time Smoking Status: Former smoker Do You Dip or Chew Tobacco: No ; Smoking End Date: 2015 ; Second Hand Exposure: No ; Tobacco Cessation Education Requested by Patient: No Hx Alcohol Use: No Hx Substance Use: No Review of Systems Constitutional: + weakness; no fever, no body aches and no weight gain Eyes: no worsening vision Ear, Nose, Mouth, Throat: no dry mouth Respiratory: + dyspnea and + dyspnea on exertion Cardiovascular: + edema (stable chronic) Gastrointestinal: no vomiting and no diarrhea/loose stools Genitourinary: + flank pain and + problem reported (c/o darker/tea colored urine < does) Musculoskeletal: + swelling Integumentary: no rash Hematologic / Lymphatic: + easy bleeding Physical Exam Constitutional: well developed and well nourished; no acute distress on 02nc 2L, nad; maneuvers readily for exam Eyes: EOM intact bilaterally ENMT: Ears: no external ear abnormality Nose: no external nose abnormality Mouth: + dry oral mucous membranes Neck: no nuchal rigidity Respiratory: normal respiratory effort Auscultation: + breath sounds absent (BL posterior hernandez 1/3 (R) to 1/2 way (L) up from base) and + diminished lung sounds; no wheezes Gastrointestinal (Abdomen): Inspection/Auscultation: normal bowel sounds Percussion/Palpation: abdomen soft; abdomen nontender Musculoskeletal: Extremities: strength 5/5 throughout Skin: no rashes, warm and dry Neurologic: morejon, fluent speech, no tremor Genitourinary: no estrada Results & Data Vital Signs (Past 12 Hours) Vital Signs Temp Pulse Pulse Resp BP BP Pulse Ox 04/23/19 08:18 53 L 16 101/44 L 04/23/19 07:25 56 L 16 104/43 L 04/23/19 06:00 54 L 13 92 04/23/19 05:50 54 L 13 92 04/23/19 05:02 63 16 89 L 04/23/19 05:01 53 L 16 114/52 L 91 04/23/19 05:00 55 L 20 115/52 L 92 04/23/19 04:57 52 L 15 103/50 L 94 04/23/19 04:30 54 L 18 99 04/23/19 04:21 53 L 15 98 04/23/19 04:13 51 L 20 98 04/23/19 03:52 36.7 C 58 L 18 108/53 L 92 Laboratory Results 04/23/19 04:43 04/23/19 09:52 albumin 1.6; TSH wnl; rd urine sodium 26 Diagnostic Findings cxr 2/3 1. Cardiomegaly with evidence of congestive failure. 2. Left larger than right pleural effusions with bibasilar consolidation. head CT 4.5 x 2.3 cm right occipital lobe hypodensity which represents a subacute to acute infarct. No hemorrhage. No significant mass effect. Adjacent linear hyperdensity may reflect calcification/calcified embolus within the vessel which resulted in the infarct. Venous dopplers no DVT either LE noncon CT abd/pelvis FINDINGS: Imaged portions of the lower chest demonstrate moderate bilateral pleural effusions, left larger than right. There is associated segmental atelectasis. Evaluation of the abdomen and pelvis is suboptimal on this unenha nced exam. Anasarca is noted. No pneumatosis, free air or portal venous gas is present. Marked gallbladder distention is noted. There are gallstones within the gallbladder. There is no pericholecystic infiltration. The liver is cirrhotic. Sensitivity for detection of hepatic lesions is diminished on this unenhanced exam but none are identified. Collaterals are noted. The size of the spleen is normal. There is no hydronephrosis or hydroureter. There is no evidence for a bowel obstruction. There is no ascites. No suspicious osseous lesions are noted. No lymphadenopathy is present. There is hyperdense material within the appendix without evidence for acute appendicitis. There is extensive plaque of the abdominal aorta which is normal in caliber. IMPRESSION: 1. Cholelithiasis. Marked gallbladder distention. No pericholecystic infiltration however acute cholecystitis cannot be excluded. A right upper quadrant ultrasound is recommended. 2. Cirrhosis. Collaterals indicative of portal hypertension. 3. Moderate bilateral pleural effusions. Anasarca. TTE 01/25/19 ([facility]) EF 58%; normal lv WM/cavity size; PASP 30; small L pl effusion present as is ascites TTE today > moderate [facility]; EF 55-60%; patent foramen ovale (1) Acute renal failure (ARF) Acute renal failure type: unspecified Qualified Code(s): N17.9 - Acute kidney failure, unspecified
--- NOTE | 2019-04-23 17:02 | Neurology Consultation ---
Date of Consultation April 23, 2019 Assessment & Plan (1) CVA (cerebrovascular accident): 1. CT head- evidence of ischemic event 2. TTE- EF 55-60% PFO 3. optimize HTN, HLD, DM LDL <70 4. would advise dual antiplt but in this setting risk may outway benefit 5. MRI brain MRa head and neck ordered 6. may not drive with current vision deficency and will need formal ophthalmology exam as outpatient 7. PT/OT speech for discharge needs 8. medical management per primary team (2) Acute renal failure (ARF): 1. per nephology recs (3) Thrombocytopenia: 1. low plt - risk of bleed with aspirin (4) Hypertension: as above Supervising Physician Co-Signing Physician Notes I have seen and discussed above patient with Dr Coretta Sethi, neurology. PT liver failure with elevated PTT and prior hx of L parietal cortical hemorrhage in 2016. Pt had impaired vision poss speech and gait x several day. 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 carotid LICA 50-69%, echo, mri P. Exam Os L field cut, otherwise pt appearing chronically ill, with no facial asymm or drift. Eq strength. No flapPlt 65k INR 1.8 related to liver disease . 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 Await mri brain to see if evidence of other hems or microhem. Will then need hospitalist to advise re bleeding risk, antiplt tx. Wi ll follow with you. MD Erich History of Present Illness Reason for Consultation: stroke Requesting Physician: Arianna Cee MD Attending Physician: Jaye Keller MD History of Present Illness Glen is a 53 year old male with PMH includes alcoholic cirrhosis on OP diuretics and w/ hx esophageal varices, 2016 intracranial hemorrhage, pancytopenia; past EtOH and tobacco abuse; admission 2017 for decompensated cirrhosis and C diff colitis, low plts. His states he was having difficulty walking and left sided weakness. He walks at baseline with a cane, but no recent falls. He has not been on antiplt therapy due to high risk of bleed and low plts. He currently is walking in the room with his cane slow steady gait. denies CP, SOB, abdominal pain, one sided weakness, numbness tingling, N, V, +vision changes. Allergies Allergy/AdvReac Type Severity Reaction Status Date / Time Penicillins AdvReac Mild GI UPSET Verified 04/23/19 04:14 Cephalosporins AdvReac Unknown Nausea/Vomi Verified 04/23/19 04:14 ting Home Medications Home Medications Medication Instructions Recorded Confirmed Type folic acid 1 mg PO DAILY 04/23/19 04/23/19 History furosemide 60 mg PO BID 04/23/19 04/23/19 History nadolol 40 mg PO DAILY 04/23/19 04/23/19 History spironolactone 100 mg PO BID 04/23/19 04/23/19 History Patient History Medical History Cirrhosis, alcoholic (Chronic) History of intracranial hemorrhage (Chronic) Hypertension (Chronic) Surgical History H/O esophagogastroduodenoscopy (Chronic) Social History Preferred Language: Yakut Communication Ability: Effective Door 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 Installer Required: No Beliefs That Will Affect Care: None Current Living Situation: Spouse Other Information That Helps Us Care for You: No Feels Safe at Home: Yes Safety Concerns: Feels Safe At This Time Smoking Status: Former smoker Do You Dip or Chew Tobacco: No ; Smoking End Date: 2015 ; Second Hand Exposure: No ; Tobacco Cessation Education Requested by Patient: No Hx Alcohol Use: No Hx Substance Use: No Physical Exam Physical Exam: Physical Exam: Constitutional: appearance older than stated age Ears, Nose, Mouth and Throat: mucous membranes moist, no injection and skin normal, eyes normal Cardiovascular: normal S-1 and S-2 and regular rate and rhythm Respiratory: course breath sounds Musculoskeletal: no peripheral edema decrease peripheral pulses Skin: bilateral venous stasis R>L, decrease sensation to touch and cool, jaundice Eyes: extraocular muscles intact (EOMI) and pupils equal, round and reactive to light (PERRL), left sided hemianopsia NEUROLOGIC EXAMINATION: Mental status: Alert and interactive Oriented to full date and location Oriented to person Speech fluent with no evidence of aphasia Cranial Nerves smile eye brow raise symmetric Reflexes: Deep tendon reflexes were symmetrical and brisk, no hand flap bilaterally, down going toes Sensory: decreased sensation in LE bilaterally with cool and light touch Coordination: finger to nose no bi pass, heel to batres intact, rapid hand movement bilaterally slow Gait/Stance: Posture normal. Gait normal: with steady with steps, base, turning, and tandem gait slow but stable. Motor: Negative for pronator drift of out stretched arms with eyes closed. Strength: hand back shoe cutter biceps triceps bilaterally 5/5 hip flex plantar flex ext patellar flex ext 5/5 bilaterally Results & Data Vital Signs (Past 12 Hours) Vital Signs Temp Pulse Pulse Resp BP BP Pulse Ox 04/23/19 16:06 36.4 C L 57 L 19 94/54 L 97 04/23/19 08:18 53 L 16 101/44 L 04/23/19 07:25 56 L 16 104/43 L 04/23/19 06:00 54 L 13 92 04/23/19 05:50 54 L 13 92 04/23/19 05:02 63 16 89 L Laboratory Results Abnormal lab results 04/23/19 04/23/19 04/23/19 Range/Units 04:43 04:43 04:43 RBC 3.78 L (4.7-6.1) M/uL Hgb 13.3 L (14.0-18.0) g/dL Hct 38.6 L (42-52) % MCV 102.1 H (80-100) fL MCH 35.2 H (25-34) pg RDW Std Deviation 55.5 H (36.4-46.3) fL RDW Coeff of Cathy 14.7 H (11.5-14.5) % Plt Count 75 L (130-400) K/uL Victoria # (Auto) 1.10 H (0.11-0.59) K/uL Platelet Estimate Decreased L (Normal) PT 17.6 H (9.0-12.0) Seconds INR 1.8 H (0.9-1.1) APTT 37.8 H (21.0-31.0) Seconds Sodium 135 L (136-145) mmol/L BUN 37 H (7-18) mg/dl Creatinine 2.28 H (0.6-1.4) mg/dl Calcium (8.5-10.1) mg/dl Total Bilirubin 5.0 H (0.2-1) mg/dl AST 65 H (15-37) U/L Alkaline Phosphatase 211 H (45-117) U/L Ammonia (11-32) umol/L Albumin 1.6 L (3.4-5.0) gm/dl Globulin 4.8 H (2.5-4.0) gm/dl Albumin/Globulin Ratio 0.3 L (0.9-2) 04/23/19 04/23/19 Range/Units 09:52 09:52 RBC (4.7-6.1) M/uL Hgb (14.0-18.0) g/dL Hct (42-52) % MCV (80-100) fL MCH (25-34) pg RDW Std Deviation (36.4-46.3) fL RDW Coeff of Cathy (11.5-14.5) % Plt Count (130-400) K/uL Victoria # (Auto) (0.11-0.59) K/uL Platelet Estimate (Normal) PT (9.0-12.0) Seconds INR (0.9-1.1) APTT (21.0-31.0) Seconds Sodium (136-145) mmol/L BUN 37 H (7-18) mg/dl Creatinine 2.13 H (0.6-1.4) mg/dl Calcium 8.4 L (8.5-10.1) mg/dl Total Bilirubin (0.2-1) mg/dl AST (15-37) U/L Alkaline Phosphatase (45-117) U/L Ammonia < 10.0 L (11-32) umol/L Albumin (3.4-5.0) gm/dl Globulin (2.5-4.0) gm/dl Albumin/Globulin Ratio (0.9-2) Diagnostic Findings CXR - Cardiomegaly with evidence of congestive failure. Left larger than right pleural effusions with bibasilar consolidation. abd/pelvis CT-Cholelithiasis. Marked gallbladder distention. No pericholecystic infiltration however acute cholecystitis cannot be excluded. A right upper quadrant ultrasound is recommended. Cirrhosis. Collaterals indicative of portal hypertension. Moderate bilateral pleural effusions. Anasarca. doppler LE- There is no sonographic evidence of deep venous thrombosis identified in the right or left lower extremity. CT head- 4.5 x 2.3 cm right occipital lobe hypodensity which represents a subacute to acute infarct. No hemorrhage. No significant mass effect. Adjacent linear hyperdensity may reflect calcification/calcified embolus within the vessel which resulted in the infarct. (1) Acute renal failure (ARF) Acute renal failure type: unspecified Qualified Code(s): N17.9 - Acute kidney failure, unspecified
[2019-04-23 18:48] LABS: Appearance Urine Clear (Clear); Bilirubin Urine Negative (Negative); Blood Urine Negative (Negative); Color Urine Dark Yellow; Glucose Urine UA Negative (Negative); Ketones Urine Negative (Negative); Leukocyte Esterase Urine Negative (Negative); Nitrite Urine Negative (Negative); Protein Urine Negative (Negative); Specific Gravity Urine 1.012 (1.000-1.030); Urobilinogen Urine Negative (Negative)
--- NOTE | 2019-04-23 18:57 | Communication Note ---
Date of Service: April 23, 2019
[2019-04-23 19:50] LABS: Influenza A virus by PCR Neg for Influ A (Neg); Influenza B virus by PCR Neg for Influ B (Neg)
[2019-04-24] MEDS: ALBUMIN 25% 50 ML IV SCH ×2 (00:35→06:19)
[2019-04-24 01:52] LABS: Total Protein Urine Random < 5.0 mg/dl (0-11.9)
[2019-04-24] MEDS ORDERED: POTASSIUM CHLORIDE 10 MEQ TABCR PO STA (02:13)
[2019-04-24] MEDS ORDERED: MAGNESIUM SULFATE / D5W 1 GM/100 ML BAG IV ONE (02:13)
[2019-04-24] MEDS ORDERED: ALBUT/IPRATROP 3MG/0.5MG NEB 3 ML VIAL NEB STA (02:15)
[2019-04-24 02:44] LABS: Hematocrit (blood only) 31.9 % (42-52); Hemoglobin 11.3 g/dL (14.0-18.0); Mean Corpuscular Hemoglobin 35.6 pg (25-34); Mean Corpuscular Hgb Conc 35.4 g/dL (32-36); Mean Corpuscular Volume 100.6 fL (80-100); RDW Coefficient of Variation 14.8 % (11.5-14.5); RDW Standard Deviation 54.1 fL (36.4-46.3); Red Blood Count 3.17 M/uL (4.7-6.1)
[2019-04-24] MEDS ORDERED: ALBUMIN 25% 50 ML with FUROSEMIDE 20 MG IV ONE (02:46)
[2019-04-24 02:49] LABS: Mean Platelet Volume 10.3 fL (7.4-10.4); Platelet Count 65 K/uL (130-400)
[2019-04-24 03:03] LABS: Base Excess ABG 3.7 mEq/L (-9-1.8); HCO3 ABG 28 mmol/L (19-24); Oxygen Saturation ABG 95.9 % (90-95); PCO2 ABG 39 mmHg (35-46); PO2 ABG 77 mmHg (80-95); pH ABG 7.47 (7.35-7.45)
[2019-04-24 03:04] LABS: Allen Test POS (Pos)
[2019-04-24 03:15] LABS: Albumin Globulin Ratio 0.5 (0.9-2); Albumin Level 2.1 gm/dl (3.4-5.0); BUN Creatinine Ratio 19.6 (10-20); Bilirubin,Total 5.3 mg/dl (0.2-1); Calcium 8.1 mg/dl (8.5-10.1); Creatinine Clr Calc Pharmacy 43.6 ml/min; Est GFR (African American) 39.4; Globulin 3.9 gm/dl (2.5-4.0); Magnesium 1.8 mg/dl (1.8-2.4); Potassium 3.4 mmol/L (3.5-5.1)
[2019-04-24 03:39] LABS: Basophils # (auto) 0.02 K/uL (0-0.2); Basophils % (auto) 0.4 %; Echinocytes 1+; Eosinophils # (auto) 0.11 K/uL (0-0.5); Eosinophils % (auto) 2.4 %; Immature Granulocytes # (auto) 0.02 K/uL (0.00-0.02); Immature Granulocytes % (auto) 0.4 %; Lymphocytes # (auto) 1.09 K/uL (1.2-3.4); Lymphocytes % (auto) 23.7 %; Monocytes # (auto) 0.78 K/uL (0.11-0.59); Neutrophils # (auto) 2.58 K/uL (1.4-6.5); Neutrophils % (auto) 56.1 %
[2019-04-24] MEDS ORDERED: POTASSIUM CHLORIDE 20 MEQ TABCR PO STA ×2 (04:07→08:24)
--- NOTE | 2019-04-24 06:45 | XRay Report ---
XR chest 1V portable CLINICAL HISTORY: low o2 COMPARISON STUDY: Chest radiograph April 23, 2019. FINDINGS: Pulmonary edema persists. There is no pneumothorax. Moderate bilateral pleural effusions, l eft larger than right, are again noted. Cardiomediastinal silhouette is stable. Appearance of the kaylene st is unchanged. IMPRESSION: No change in appearance of the chest. Persistent pulmonary edema and moderate bilateral pleural effusions, left larger than right. ACT 112: Negative or not required by law. Electronically signed by: Lm Pantoja M.D. 04/24/2019 6:44 AM
--- NOTE | 2019-04-24 06:49 | Magnetic Resonance Report ---
MR angio neck wo con HISTORY: 53 years-old Male r occiptal infarct acute strokelike symptoms with right occipital lobe in farct COMPARISON: Brain MRI and MRA of the head of same day TECHNIQUE: MRA of the neck was obtained without the use of IV contrast utilizing 3-D [id number]-[id number] s equencing with MIP reformats. All measurements were obtained according to NASCET criteria. FINDINGS: Motion degraded exam. Three-vessel morphology of aortic arch. Visualized proximal subclavian arteries appear patent. The common carotid and internal carotid arteries appear patent. Codominant vertebral arteries. Vertebral arteries also appear patent. No aneurysm, dissection, high-grade stenosis or prox imal branch occlusion identified. Luminal narrowing of the petrous segment right ICA is not identified on the MRA head of same day and is likely artifactual. IMPRESSION: Motion degraded exam with otherwise unremarkable MRA of the neck. ACT 112: Negative or not required by law. The above report was generated using voice recognition software. It may contain grammatical, syntax o r spelling errors. Electronically signed by: Wiliam Davis M.D. 04/24/2019 6:47 AM
--- NOTE | 2019-04-24 07:10 | Magnetic Resonance Report ---
MR brain wo con CLINICAL HISTORY: 53 years-old Male presenting with acute infarct suspected on noncontrast CT head, M RI for further characterization, dizziness, headache, history of stroke/intracranial hemorrhage 3 yea rs ago in 2016. TECHNIQUE: Multisequence, multiplanar MR imaging of the brain was performed without the use of intrav enous contrast. IV contrast: None. COMPARISON: Noncontrast CT head from 04/23/2019. FINDINGS: Localizer images: Unremarkable. Bone marrow signal intensity within the calvarium within normal limits. Normal midline sagittal structures. Effacement of the right lateral ventricle occipital horn. No hydr ocephalus. No midline shift. Regional mass effect in the paramedian right occipital lobe. Restricted diffusion in the paramedian right occipital lobe. Associated T2/FLAIR hyperintensity of this region. Punctate foci of restricted diffusion in the splenium of the corpus callosum and left superior meenu. Susceptibility artifact in the paramedian left parieto-occipital region associated with encephalomala shruit and gliosis consistent with an old hemorrhagic infarct. No extra-axial fluid collection. Susceptibility artifact along the P2/P3 segment of the right posteri or cerebral artery consistent with thrombus (series 10 image 40). IMPRESSION: 1. Acute infarct in the right occipital lobe at least 6 to 12 hours old evidenced by abnormal T2/FLA IR signal. 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 Please see separately dictated MRA head. 2. Acute lacunar infarcts in the splenium of the corpus callosum and left superior meenu. 3. Old hemorrhagic infarct in the left parieto-occipital region. These findings were discussed with nurse Herbert by Dr. Zuñiga on 04/24/2019 2:50 AM. ACT 112: Negative or not required by law. Electronically signed by: Jose Luis Giles M.D. 04/24/2019 7:08 AM
--- NOTE | 2019-04-24 07:46 | Magnetic Resonance Report ---
MRA OF THE INTRACRANIAL CIRCULATION WITHOUT CONTRAST CLINICAL HISTORY: stroke COMPARISON STUDY: Head CT April 23, 2019. TECHNIQUE: Utilizing a 1.5 Yenifer magnet and 3-D [id number] technique, unenhanced MRA of the intra cranial circulation was obtained. FINDINGS: The bilateral M1, M2, A1 and A2 segments are patent. There is suspected cutoff of a distal branch of the right posterior cerebral artery shown on axial image 140 of 200. This corresponds to th e hyperdensity on head CT May 03 and would account for the acute infarct within the right oc cipital lobe on MRI. No additional sites of vessel occlusion are noted. There is no intracranial aneu rysm. There is no evidence for dissection within the major intracranial vessels. IMPRESSION: Suspected cut off of a distal branch of the right posterior cerebral artery, likely due to thrombus. This corresponds to the hyperdensity on head CT of April 23, 2019 and would account fo r the acute infarct within the right occipital lobe on MRI. This finding will be called/faxed to the ordering provider at time of dictation. ACT 112: Negative or not required by law. Electronically signed by: Lm Pantoja M.D. 04/24/2019 7:45 AM
[2019-04-24] MEDS: ASPIRIN 81 MG ECTAB PO SCH (10:07)
[2019-04-24] MEDS: FOLIC ACID 1 MG TAB PO SCH (10:07)
[2019-04-24] MEDS: ALBUMIN 25% 50 ML with FUROSEMIDE 40 MG IV SCH ×2 (10:09→22:02)
--- NOTE | 2019-04-24 12:18 | Nephrology Progress Note ---
Date of Service April 24, 2019 Assessment & Plan (1) Acute renal failure (ARF): baseline creatinine 1.0-1.1. presenting creatinine 2.3, stable compared to last evening /this am at 2.1. Renal imaging on CT reassuring no obstruction. chemistries acceptable and notable for mild hypokalemia which is ongoing. marked volume overload w/ BL L>R pl effusions, hypoxia, ascites, anasarca. suspect prerenal w/ total body overload but intravascular volume depletion; also possibly a role for nsaids. bland urine sediment -daily bmp -trial of albumin w/ lasix - if renal function worsens again will need to hold diuretic; not on home 02 -cont to avoid nephrotoxins, including nsaids -cont to limit fluid to 1.5L/day and Na intake to <2 gm -daily standing wts pls >> 88.5 kg this am Subjective seen on rounds, no complaints of pain or sob or limitations by edema to getting around; working w/ PT on using walker Review of Systems Constitutional: + fatigue; no weakness and no weight gain Eyes: no worsening vision Respiratory: no cough, no dyspnea and no dyspnea on exertion Cardiovascular: + edema (chronic stable R>L); no chest pain Genitourinary: no dysuria and no urinary hesitancy Hematologic / Lymphatic: no easy bleeding Physical Exam Constitutional: well developed and well nourished; no acute distress on RA at time I saw him Eyes: EOM intact bilaterally ENMT: Ears: no external ear abnormality Nose: no external nose abnormality Mouth: + dry oral mucous membranes Neck: no nuchal rigidity Respiratory: normal respiratory effort Auscultation: + breath sounds absent (BL posterior hernandez 1/3 (R) to 1/2 way (L) up from base) and + diminished lung sounds; no wheezes Cardiovascular: Rate/Rhythm: regular rate and regular rhythm Extremities: + edema (2+ LLE, 3+ L pedal) Gastrointestinal (Abdomen): Inspection/Auscultation: normal bowel sounds Percussion/Palpation: abdomen soft; abdomen nontender Musculoskeletal: Extremities: strength 5/5 throughout Skin: no rashes, warm and dry icteric Neurologic: morejon, fluent speech Results & Data Vital Signs (Past 12 Hours) Vital Signs Temp Pulse Resp BP Pulse Ox 04/24/19 11:10 36.6 C 71 16 108/62 96 04/24/19 07:38 36.8 C 82 18 110/57 L 88 L 04/24/19 03:53 36.7 C 68 16 110/62 96 04/24/19 02:41 60 20 94 04/24/19 00:39 36.5 C 57 L 19 115/56 L 94 Laboratory Results 04/24/19 02:32 04/24/19 02:32 no blood or protein in urine; sb 1012 (1) Acute renal failure (ARF) Acute renal failure type: unspecified Qualified Code(s): N17.9 - Acute kidney failure, unspecified
--- NOTE | 2019-04-24 16:23 | Neurology Progress Note ---
Date of Service April 24, 2019 Assessment & Plan (1) CVA (cerebrovascular accident): 1. CT head- evidence of ischemic event 2. TTE- EF 55-60% PFO 3. optimize HTN, HLD, DM LDL <70 4. would advise dual antiplt but in this setting risk may out way benefit 5. MRI brain MRA head and neck acute and chronic infarcts and MRA occlusion R HUNTER GUIDE stenosis R ICA 6. [address] with current vision deficiency and will need formal ophthalmology exam as outpatient 7. PT/OT speech for discharge needs 8. medical management per primary team- hematology may be helpful with management and risk to start aspirin would not start dual therapy (2) Acute renal failure (ARF): 1. per nephology recs (3) Thrombocytopenia: 1. low plt - risk of bleed with aspirin (4) Hypertension: as above Supervising Physician Co-Signing Physician Notes I have seen and discussed above patient with Dr Coretta Sethi, neurology. Discussed with Kalin, MRI mult vasc distribution acute infarct. Hx of prior intracranial hem. Pt INR 1.8 due to liver disease. REc discussion with heme/GI re plt, plt function and antiplt tx. Check lipid status, unclear to me if pt would be a candidate for statin. LICA stenosis, asx. Rec fu carotid us in 6 months and if stable yearly.Referral to vascular surgery if degree of stenosis greater than 70% Subjective Glen is a 53 year old male with PMH includes alcoholic cirrhosis on OP diuretics and w/ hx esophageal varices, 2016 intracranial hemorrhage, pancytopenia; past EtOH and tobacco abuse; admission 2017 for decompensated cirrhosis and C diff colitis, low plts. His states he was having difficulty walking and left sided weakness. He walks at baseline with a cane, but no recent falls. He has not been on antiplt therapy due to high risk of bleed and low plts. He is lying in bed. States he has been up to the bathroom with cane. denies CP, SOB, abdominal pain, one sided weakness, numbness tingling, N, V, +vision changes. 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 hip flex plantar flex ext 5/5 smile eye brow raise symmetric left visual field hemianopsia Results & Data Vital Signs (Past 12 Hours) Vital Signs Temp Pulse Pulse Resp BP Pulse Ox 04/24/19 15:35 36.6 C 62 18 106/56 L 97 04/24/19 11:10 36.6 C 71 16 108/62 96 04/24/19 08:00 61 04/24/19 07:38 36.8 C 82 18 110/57 L 88 L Laboratory Results Abnormal lab results 04/24/19 04/24/19 04/24/19 Range/Units 02:32 02:32 02:32 WBC 4.60 L (4.8-10.8) K/uL RBC 3.17 L (4.7-6.1) M/uL Hgb 11.3 L (14.0-18.0) g/dL Hct 31.9 L (42-52) % MCV 100.6 H (80-100) fL MCH 35.6 H (25-34) pg RDW Std Deviation 54.1 H (36.4-46.3) fL RDW Coeff of Cathy 14.8 H (11.5-14.5) % Plt Count 65 L (130-400) K/uL Lymph # (Auto) 1.09 L (1.2-3.4) K/uL [place] # (Auto) 0.78 H (0.11-0.59) K/uL ABG pH 7.47 H (7.35-7.45) ABG pO2 77 L (80-95) mmHg ABG HCO3 28 H (19-24) mmol/L ABG O2 Saturation 95.9 H (90-95) % ABG Base Excess 3.7 H (-9-1.8) mEq/L Potassium 3.4 L (3.5-5.1) mmol/L BUN 41 H (7-18) mg/dl Creatinine 2.12 H (0.6-1.4) mg/dl Calcium 8.1 L (8.5-10.1) mg/dl Total Bilirubin 5.3 H (0.2-1) mg/dl AST 51 H (15-37) U/L Alkaline Phosphatase 152 H (45-117) U/L Total Protein 6.0 L (6.4-8.2) gm/dl Albumin 2.1 L (3.4-5.0) gm/dl Albumin/Globulin Ratio 0.5 L (0.9-2) Diagnostic Findings MRI brain- Acute infarct in the right occipital lobe at least 6 to 12 hours old evidenced by abnormal T2/FLAIR signal. Associated thrombus in the distal right HUNTER GUIDE. Acute lacunar infarcts in the splenium of the corpus callosum and left superior meenu. Old hemorrhagic infarct in the left parieto-occipital region. carotid doppler- 50-69% stenosis of the distal left ICA. Follow-up to be considered. No hemodynamically significant stenosis of the right ICA. MRA head/neck-Suspected cut off of a distal branch of the right posterior cerebral artery, likely due to thrombus. This corresponds to the hyperdensity on head CT of April 23, 2019 and would account for the acute infarct within the right occipital lobe on MRI. CXR-No change in appearance of the chest. Persistent pulmonary edema and moderate bilateral pleural effusions, left larger than right. (1) Acute renal failure (ARF) Acute renal failure type: unspecified Qualified Code(s): N17.9 - Acute kidney failure, unspecified
--- NOTE | 2019-04-24 18:13 | Hospitalist Progress Note ---
Date of Service April 24, 2019 Assessment & Plan (1) Acute renal failure (ARF): Creatinine on admission 2.2, baseline creatinine 1.0-1.[address]ure[address] for Cirrh[address] abd/pelvis showed no hydronephrosis or hydroureter Creatinine today 2.1 Spironolactone on hold Nephrology on board recommended Lasix and albumin Continue monitor BMP Recent CVA CT head showed 4.5 x 2.3 cm right occipital lobe hypodensity which represents a subacute to acute infarct. MRI of head showed acute infarct in the right occipital lobe at least 6 to 12 hours old evidenced by abnormal T2/FLAIR signal. 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 Acute lacunar infarcts in the splenium of the corpus callosum and left superior meenu. Carotid doppler showed 50-69% stenosis of the distal left ICA. MRA HEAD showed suspected cut off of a distal branch of the right posterior cerebral artery, likely due to thrombus. case discussed with Neuro recommended to hematology advised since pt is very high risk for bleeding due to low platelet, hx of intracranial hemorrhage and esophageal varices in the setting of auto anticoagulate with INR 1.8 Case discussed with hematology Dr. Alonzo recommended to use only a single agent due to very high risk of bleeding( Low platetet of 65, INR 1.8, Bilirubin of 5.3, Hx Esophageal varices) Pt awared of risk of bleeding with the use of antiplatelet therapy Since we cannot use dual antiplatelet, pt understands the risk of more stroke Thrombocytopenia Platelet 65 today Will monitor closely for sign of bleeding while on aspirin 81mg HTN BP in the low side Nadolol on hold Continue monitor BP Alcoholic Cirrhosis of Liver Hx Esophageal varices Pt has been abstinence for alcohol Nadolol on hold due to borderline BS DVT prophylaxis. SCDs RE thrombocytopenia Full code Subjective Pt was seen and examined Lying in bed with no distress Pt said that he feels a little weak Yesterday pt had 3 episodes of VTach During his ECHO, his HR dropped in the 20's when they tried to lower the head of the bed Pt was asymptomatic during the episode Denies any chest pain, palpitation, dizziness and SOB Physical Exam Physical Exam: General- No acute distress Head- atraumatic Eyes- PERRL, EOMI, ENT- oropharynx clear Neck- supple, no JVD Lungs- Coarse BS Heart- regular rhythm; no murmur Abdomen- normal bowel sounds, soft, nontender Extremities- no calf tenderness, +edema Neuro- alert, oriented x 3; PERRL, EOMI; no facial palsy; no dysarthria Skin- warm & dry Results & Data ([facility]) Vital Signs (Past 12 Hours) Vital Signs Temp Pulse Pulse Resp BP Pulse Ox 04/24/19 15:35 36.6 C 62 18 106/56 L 97 04/24/19 11:10 36.6 C 71 16 108/62 96 04/24/19 08:00 61 04/24/19 07:38 36.8 C 82 18 110/57 L 88 L (1) Acute renal failure (ARF) Acute renal failure type: unspecified Qualified Code(s): N17.9 - Acute kidney failure, unspecified
[2019-04-25 07:28] LABS: Hemoglobin 10.8 g/dL (14.0-18.0); Mean Corpuscular Hemoglobin 35.2 pg (25-34); Mean Corpuscular Hgb Conc 33.8 g/dL (32-36); Mean Corpuscular Volume 104.2 fL (80-100); RDW Standard Deviation 57.1 fL (36.4-46.3); Red Blood Count 3.07 M/uL (4.7-6.1); White Blood Count 3.75 K/uL (4.8-10.8)
[2019-04-25 07:36] LABS: Prothrombin Time 19.5 Seconds (9.0-12.0)
[2019-04-25 07:39] LABS: Mean Platelet Volume 9.9 fL (7.4-10.4); Platelet Count 59 K/uL (130-400)
[2019-04-25 08:13] LABS: BUN Creatinine Ratio 22.6 (10-20); Calcium 8.5 mg/dl (8.5-10.1); Creatinine Clr Calc Pharmacy 61.5 ml/min; Est GFR (African American) 60.4; Est GFR (Non-African American) 52.1; Potassium 3.5 mmol/L (3.5-5.1)
[2019-04-25] MEDS: ASPIRIN 81 MG ECTAB PO SCH (09:15)
[2019-04-25] MEDS: FOLIC ACID 1 MG TAB PO SCH (09:15)
[2019-04-25] MEDS: ALBUMIN 25% 50 ML with FUROSEMIDE 40 MG IV SCH ×2 (09:31→21:30)
--- NOTE | 2019-04-25 16:13 | Hospitalist Progress Note ---
Date of Service April 25, 2019 Assessment & Plan (1) Acute renal failure (ARF): Creatinine on admission 2.2, baseline creatinine 1.0-1.1 On Diuretic for Cirrhosis CT abd/pelvis showed no hydronephrosis or hydroureter Creatinine today 2.1 Spironolactone on hold Nephrology on board recommended Lasix and albumin Renal function is improving with creatinine of 1.49 as of 04/25/2019 We will continue current management and advised more fluid intake up to 1500 mL a day Recent CVA CT head showed 4.5 x 2.3 cm right occipital lobe hypodensity which represents a subacute to acute infarct. MRI of head showed acute infarct in the right occipital lobe at least 6 to 12 hours old evidenced by abnormal T2/FLAIR signal. 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 Acute lacunar infarcts in the splenium of the corpus callosum and left superior meenu. Carotid doppler showed 50-69% stenosis of the distal left ICA. MRA HEAD showed suspected cut off of a distal branch of the right posterior cerebral artery, likely due to thrombus. case discussed with Neuro recommended to hematology advised since pt is very high risk for bleeding due to low platelet, hx of intracranial hemorrhage and esophageal varices in the setting of auto anticoagulate with INR 1.8 Case discussed with hematology Dr. Alonzo recommended to use only a single agent due to very high risk of bleeding( Low platetet of 65, INR 1.8, Bilirubin of 5.3, Hx Esophageal varices) Pt awared of risk of bleeding with the use of antiplatelet therapy Since we cannot use dual antiplatelet, pt understands the risk of more stroke He has been put on aspirin 81 mg daily no additional anticoagulants due to high risk of bleeding Thrombocytopenia Platelet 65 today Will monitor closely for sign of bleeding while on aspirin 81mg HTN BP in the low side Nadolol on hold Continue monitor BP Alcoholic Cirrhosis of Liver Hx Esophageal varices Pt has been abstinence for alcohol Nadolol on hold due to borderline BP DVT prophylaxis. SCDs RE thrombocytopenia Full code We will continue PT and OT evaluation Subjective 04/25/2019 The patient was seen and examined in medical telemetry unit Medical is history significant for alcoholic cirrhosis, past tobacco/alcohol abuse,hypertension, history of esophageal varices, history of intracranial hemorrhage, chronic thrombocytopenia, chronic anemia (baseline hemoglobin 9-10). Admitted with a generalized weakness and noted to have acute renal failure Remains weak and lethargic Denies any acute symptoms Review of Systems Review of Systems: All systems reviewed and are unremarkable except as noted below Constitutional: + malaise and + weakness Neurologic: + generalized weakness Physical Exam Physical Exam: Lying in bed without any acute distress Constitutional: well developed, well nourished and + ill appearing; no acute distress Eyes: PERRL, conjunctivae normal, anicteric sclerae ENMT: external ear and nose normal, oropharynx normal Neck: trachea midline, no thyromegaly Respiratory: normal respiratory effort; no respiratory distress Auscultation: + diminished lung sounds and + crackles (Minimal bibasilar rales) Cardiovascular: Rate/Rhythm: regular rate and regular rhythm Heart Sounds: no murmur Gastrointestinal (Abdomen): Inspection/Auscultation: abdomen normal to inspection and normal bowel sounds Percussion/Palpation: abdomen soft; abdomen nontender Musculoskeletal: No acute arthritis in any joints Neurologic: moves all extremities; no focal motor deficits Lymphatic: no cervical or axillary lymphadenopathy Results & Data ([place]) Vital Signs (Past 12 Hours) Vital Signs Temp Pulse Pulse Resp BP Pulse Ox 04/25/19 15:27 63 04/25/19 11:19 36.5 C 68 18 123/60 95 04/25/19 10:15 36.7 C 65 16 130/73 98 04/25/19 10:00 36.6 C 70 16 128/62 93 04/25/19 09:45 36.5 C 75 16 119/66 93 04/25/19 09:30 36.4 C L 76 16 105/58 L 96 04/25/19 07:26 36.5 C 70 18 101/53 L 95 04/25/19 07:00 69 Laboratory Results Short CBC 04/25/19 Range/Units 07:18 WBC 3.75 L (4.8-10.8) K/uL Hgb 10.8 L (14.0-18.0) g/dL Hct 32.0 L (42-52) % Plt Count 59 L (130-400) K/uL BMP 04/25/19 07:18 Sodium 140 Potassium 3.5 Chloride 105 Carbon Dioxide 30 BUN 34 H Creatinine 1.49 H D Glucose 117 H Calcium 8.5 Medications Administered Current Inpatient Medications Acetaminophen (Tylenol) 325 mg PO Q6H PRN PRN Reason: Pain or Fever Stop: 05/23/19 09:27 Aspirin (Ecotrin Ectab) 81 mg PO QAM [facility] Stop: 05/24/19 08:59 Last Admin: 04/25/19 09:15 Dose: 81 mg Documented by: Folic Acid (Folvite) 1 mg PO DAILY [facility] Stop: 05/23/19 09:27 Last Admin: 04/25/19 09:15 Dose: 1 mg Documented by: Promethazine HCl 12.5 mg/ (Sodium Chloride) 50.5 mls @ 202 mls/hr IV Q6H PRN PRN Reason: Nausea And Vomiting Stop: 05/23/19 09:27 Furosemide 40 mg/ Albumin (Human) 54 mls @ 54 mls/hr IV BID [facility] Stop: 04/27/19 09:29 Last Infusion: 04/25/19 10:36 Dose: Infused Documented by: Miscellaneous Information (Pharmacist Discharge Med Rec Consult) 1 ea N/A UD PRN PRN Reason: Consult Stop: 05/23/19 09:27 Nitroglycerin (Nitrostat) 0.4 mg SL UD PRN PRN Reason: Chest Pain Stop: 05/23/19 09:27 Oxycodone HCl (Roxicodone Immediate Rel) 5 mg PO Q4H PRN PRN Reason: Pain Stop: 05/07/19 09:27 (1) Acute renal failure (ARF) Acute renal failure type: unspecified Qualified Code(s): N17.9 - Acute kidney failure, unspecified
--- NOTE | 2019-04-25 19:14 | Nephrology Progress Note ---
Date of Service April 25, 2019 Assessment & Plan (1) Acute renal failure (ARF): improving. baseline creatinine 1.0-1.1. presenting creatinine 2.3, further improved this am at 1.5. Renal imaging on CT reassuring no obstruction. chemistries acceptable and notable for mild hypokalemia which is ongoing. marked volume overload w/ BL L>R pl effusions, hypoxia, ascites, anasarca. suspect prerenal w/ total body overload but intravascular volume depletion; also possibly a role for nsaids. bland urine sediment -daily bmp -cont to hold OP diuretics -continue albumin w/ lasix - if renal function worsens again will need to hold diuretic; not on home 02 -cont to avoid nephrotoxins, including nsaids -cont to limit fluid to 1.5L/day and Na intake to <2 gm -daily standing wts pls >> 88.5 kg > 88.1 this am Subjective seen on rounds this am at 0955; no particular complaints except that he keeps sliding down in bed/thinks something wrong w/ bed; denies focal weakness/numbness, sob Review of Systems Review of Systems: All systems reviewed & are unremarkable except as noted in HPI & below Physical Exam Constitutional: well developed and well nourished; no acute distress now on 02nc Eyes: EOM intact bilaterally ENMT: Ears: no external ear abnormality Nose: no external nose abnormality Mouth: + dry oral mucous membranes Neck: no nuchal rigidity Respiratory: normal respiratory effort Auscultation: + breath sounds absent (BL posterior hernandez 1/3 (R) to 1/2 way (L) up from base) and + diminished lung sounds; no wheezes Cardiovascular: Rate/Rhythm: regular rate and regular rhythm Extremities: + edema (1+ LLE, 2+ L pedal) Gastrointestinal (Abdomen): Inspection/Auscultation: normal bowel sounds Percussion/Palpation: abdomen soft; abdomen nontender Musculoskeletal: Extremities: strength 5/5 throughout Skin: no rashes, warm and dry + jaundice Neurologic: morejon; no tremor; fluent but limited speech Results & Data Vital Signs (Past 12 Hours) Vital Signs Temp Pulse Pulse Resp BP Pulse Ox 04/25/19 15:27 63 04/25/19 11:19 36.5 C 68 18 123/60 95 04/25/19 10:15 36.7 C 65 16 130/73 98 04/25/19 10:00 36.6 C 70 16 128/62 93 04/25/19 09:45 36.5 C 75 16 119/66 93 04/25/19 09:30 36.4 C L 76 16 105/58 L 96 04/25/19 07:26 36.5 C 70 18 101/53 L 95 Laboratory Results 04/25/19 07:18 04/25/19 07:18 (1) Acute renal failure (ARF) Acute renal failure type: unspecified Qualified Code(s): N17.9 - Acute kidney failure, unspecified
[2019-04-26 06:34] LABS: Hematocrit (blood only) 31.1 % (42-52); Hemoglobin 10.5 g/dL (14.0-18.0); Mean Corpuscular Hgb Conc 33.8 g/dL (32-36); Mean Corpuscular Volume 103.7 fL (80-100); Platelet Count 59 K/uL (130-400); RDW Coefficient of Variation 14.9 % (11.5-14.5); RDW Standard Deviation 56.8 fL (36.4-46.3); White Blood Count 4.17 K/uL (4.8-10.8)
[2019-04-26 07:19] LABS: Calcium 8.6 mg/dl (8.5-10.1); Creatinine Clr Calc Pharmacy 78.2 ml/min; Est GFR (African American) 81.7; Est GFR (Non-African American) 70.5; Magnesium 1.4 mg/dl (1.8-2.4); Potassium 3.4 mmol/L (3.5-5.1)
[2019-04-26 07:25] LABS: Basophils # (auto) 0.01 K/uL (0-0.2); Basophils % (auto) 0.2 %; Eosinophils # (auto) 0.09 K/uL (0-0.5); Eosinophils % (auto) 2.2 %; Immature Granulocytes # (auto) 0.02 K/uL (0.00-0.02); Immature Granulocytes % (auto) 0.5 %; Lymphocytes # (auto) 0.95 K/uL (1.2-3.4); Lymphocytes % (auto) 22.8 %; Monocytes # (auto) 0.91 K/uL (0.11-0.59); Monocytes % (auto) 21.8 %; Neutrophils # (auto) 2.19 K/uL (1.4-6.5); Neutrophils % (auto) 52.5 %
--- NOTE | 2019-04-26 07:51 | Nephrology Progress Note ---
Date of Service April 26, 2019 Assessment & Plan (1) Acute renal failure (ARF): improving. baseline creatinine 1.0-1.1. presenting creatinine 2.3, further improved this am at 1.2. Renal imaging on CT reassuring no obstruction. chemistries acceptable and notable for mild hypokalemia which is ongoing. marked volume overload w/ BL L>R pl effusions, hypoxia, ascites, anasarca. suspect prerenal w/ total body overload but intravascular volume depletion; also possibly a role for nsaids. bland urine sediment -daily bmp -today will resume OP diuretics and stop IV albumin/lasix - orders in ->> Follow-up weights and labs tomorrow after changes -Weights improving but still overloaded; not on home 02 -cont to avoid nephrotoxins, including nsaids -cont to limit fluid to 1.5L/day and Na intake to <2 gm -daily standing wts pls >> 88.5 kg > 88.1 > 86.1 this am (2) Electrolyte and fluid disorder: Hypomagnesemia and hypokalemia on diuresis. Patient will require standing obligate diuretics. Started daily magnesium and potassium supplements p.o.: May not need potassium supplements at discharge Gave 1 g magnesium IV Daily magnesium and chemistry ordered Present on Admission?: Yes Subjective Anxious for discharge home. Denies shortness of breath. Notes increased lower extremity swelling. Denies increased abdominal girth. No voiding complaints Review of Systems Review of Systems: All systems reviewed & are unremarkable except as noted in HPI & below Physical Exam Constitutional: well developed and well nourished; no acute distress Movers readily for exam Eyes: EOM intact bilaterally ENMT: Ears: no external ear abnormality Nose: no external nose abnormality Mouth: + dry oral mucous membranes Neck: no nuchal rigidity Respiratory: normal respiratory effort Auscultation: + breath sounds absent (BL posterior hernandez 1/3 (R) to 1/2 way (L) up from base) and + diminished lung sounds; no wheezes Cardiovascular: Rate/Rhythm: regular rate and regular rhythm Extremities: + edema (2+ bilateral lower extremity edema) Gastrointestinal (Abdomen): Inspection/Auscultation: normal bowel sounds Percussion/Palpation: abdomen soft; abdomen nontender Musculoskeletal: Extremities: strength 5/5 throughout Skin: no rashes, warm and dry + jaundice Neurologic: Was all extremities, fluent speech, no tremor Psychiatric: A+Ox3, euthymic affect Results & Data Vital Signs (Past 12 Hours) Vital Signs Temp Pulse Pulse Resp BP Pulse Ox 04/26/19 07:40 36.9 C 80 20 109/50 L 96 04/26/19 07:02 73 04/26/19 05:24 74 04/26/19 03:00 36.6 C 84 18 127/61 94 04/25/19 23:56 36.7 C 74 22 126/66 98 Laboratory Results 04/26/19 05:56 04/26/19 05:56 mag 1.4 (1) Acute renal failure (ARF) Acute renal failure type: unspecified Qualified Code(s): N17.9 - Acute kidney failure, unspecified
[2019-04-26] MEDS ORDERED: MAGNESIUM SULFATE / D5W 1 GM/100 ML BAG IV ONE (08:00)
[2019-04-26] MEDS: ASPIRIN 81 MG ECTAB PO SCH (08:35)
[2019-04-26] MEDS: FOLIC ACID 1 MG TAB PO SCH (08:35)
[2019-04-26] MEDS: MAGNESIUM OXIDE 400 MG TAB PO SCH (08:35)
[2019-04-26] MEDS: POTASSIUM CHLORIDE 20 MEQ TABCR PO SCH (08:35)
[2019-04-26] MEDS: SPIRONOLACTONE 100 MG TAB PO SCH ×2 (08:36→16:34)
[2019-04-26] MEDS: FUROSEMIDE 20 MG TAB PO SCH ×2 (08:38→16:34)
[2019-04-26] MEDS ORDERED: POTASSIUM CHLORIDE 20 MEQ TABCR PO STA (09:08)
--- NOTE | 2019-04-26 17:10 | Hospitalist Progress Note ---
Date of Service April 26, 2019 Assessment & Plan (1) Acute renal failure (ARF): Creatinine on admission 2.2, baseline creatinine 1.0-1.1 On Diuretic for Cirrhosis CT abd/pelvis showed no hydronephrosis or hydroureter Creatinine today 2.1 Spironolactone on hold Nephrology on board recommended Lasix and albumin Renal function is improving with creatinine of 1.49 as of 04/25/2019 We will continue current management and advised more fluid intake up to 1500 mL a day Renal function is normalized Recent CVA CT head showed 4.5 x 2.3 cm right occipital lobe hypodensity which represents a subacute to acute infarct. MRI of head showed acute infarct in the right occipital lobe at least 6 to 12 hours old evidenced by abnormal T2/FLAIR signal. 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 Acute lacunar infarcts in the splenium of the corpus callosum and left superior meenu. Carotid doppler showed 50-69% stenosis of the distal left ICA. MRA HEAD showed suspected cut off of a distal branch of the right posterior cerebral artery, likely due to thrombus. case discussed with Neuro recommended to hematology advised since pt is very high risk for bleeding due to low platelet, hx of intracranial hemorrhage and esophageal varices in the setting of auto anticoagulate with INR 1.8 Case discussed with hematology Dr. Alonzo recommended to use only a single agent due to very high risk of bleeding( Low platetet of 65, INR 1.8, Bilirubin of 5.3, Hx Esophageal varices) Pt awared of risk of bleeding with the use of antiplatelet therapy Since we cannot use dual antiplatelet, pt understands the risk of more stroke He has been put on aspirin 81 mg daily no additional anticoagulants due to high risk of bleeding Denies any symptoms suggestive of neurological origin Thrombocytopenia Platelet 65 today Will monitor closely for sign of bleeding while on aspirin 81mg HTN BP in the low side Nadolol on hold Continue monitor BP -remains the lower side of normal Alcoholic Cirrhosis of Liver Hx Esophageal varices Pt has been abstinence for alcohol Nadolol on hold due to borderline BP DVT prophylaxis. SCDs RE thrombocytopenia Full code We will continue PT and OT evaluation Likely be discharged tomorrow Subjective 04/25/2019 The patient was seen and examined in medical telemetry unit Medical is history significant for alcoholic cirrhosis, past tobacco/alcohol abuse,hypertension, history of esophageal varices, history of intracranial hemorrhage, chronic thrombocytopenia, chronic anemia (baseline hemoglobin 9-10). Admitted with a generalized weakness and noted to have acute renal failure Remains weak and lethargic Denies any acute symptoms 04/26/2019 The patient was seen and examined in medical telemetry unit He remains weak but otherwise stable Wants to drink more water and has been getting about 1500 mL daily Advised not to drink any more fluid than recommended Review of Systems Review of Systems: All systems reviewed and are unremarkable except as noted below Constitutional: + malaise and + weakness Neurologic: + generalized weakness Physical Exam Physical Exam: Lying in bed without any acute distress Constitutional: well developed, well nourished and + ill appearing; no acute distress Eyes: PERRL, conjunctivae normal, anicteric sclerae ENMT: external ear and nose normal, oropharynx normal Neck: trachea midline, no thyromegaly Respiratory: normal respiratory effort; no respiratory distress Auscultation: + diminished lung sounds and + crackles (Minimal bibasilar rales) Cardiovascular: Rate/Rhythm: regular rate and regular rhythm Heart Sounds: no murmur Gastrointestinal (Abdomen): Inspection/Auscultation: abdomen normal to inspection and normal bowel sounds Percussion/Palpation: abdomen soft; abdomen nontender Musculoskeletal: No acute arthritis in any joint Neurologic: moves all extremities; no focal motor deficits Lymphatic: no cervical or axillary lymphadenopathy Results & Data ([facility]) Vital Signs (Past 12 Hours) Vital Signs Temp Pulse Pulse Resp BP Pulse Ox 04/26/19 16:56 80 04/26/19 15:51 37 C 72 18 108/53 L 93 04/26/19 11:13 36.9 C 75 18 106/52 L 93 04/26/19 07:40 36.9 C 80 20 109/50 L 96 04/26/19 07:02 73 04/26/19 05:24 74 Laboratory Results Short CBC 04/26/19 Range/Units 05:56 WBC 4.17 L (4.8-10.8) K/uL Hgb 10.5 L (14.0-18.0) g/dL Hct 31.1 L (42-52) % Plt Count 59 L (130-400) K/uL BMP 04/26/19 05:56 Sodium 139 Potassium 3.4 L Chloride 103 Carbon Dioxide 32 BUN 27 H Creatinine 1.16 D Glucose 109 H Calcium 8.6 Medications Administered Current Inpatient Medications Acetaminophen (Tylenol) 325 mg PO Q6H PRN PRN Reason: Pain or Fever Stop: 05/23/19 09:27 Aspirin (Ecotrin Ectab) 81 mg PO [facility] Stop: 05/24/19 08:59 Last Admin: 04/26/19 08:35 Dose: 81 mg Documented by: Folic Acid (Folvite) 1 mg PO DAILY [facility] Stop: 05/23/19 09:27 Last Admin: 04/26/19 08:35 Dose: 1 mg Documented by: Furosemide (Lasix) 60 mg PO BID17 [facility] Stop: 05/26/19 08:59 Last Admin: 04/26/19 16:34 Dose: 60 mg Documented by: Promethazine HCl 12.5 mg/ (Sodium Chloride) 50.5 mls @ 202 mls/hr IV Q6H PRN PRN Reason: Nausea And Vomiting Stop: 05/23/19 09:27 Magnesium Oxide (Mag-Ox) 400 mg PO [facility] Stop: 05/26/19 08:59 Last Admin: 04/26/19 08:35 Dose: 400 mg Documented by: Miscellaneous Information (Pharmacist Discharge Med Rec Consult) 1 ea N/A UD PRN PRN Reason: Consult Stop: 05/23/19 09:27 Nitroglycerin (Nitrostat) 0.4 mg SL UD PRN PRN Reason: Chest Pain Stop: 05/23/19 09:27 Oxycodone HCl (Roxicodone Immediate Rel) 5 mg PO Q4H PRN PRN Reason: Pain Stop: 05/07/19 09:27 Potassium Chloride (Klor-Con M20) 20 meq PO [facility] Stop: 05/26/19 08:59 Last Admin: 04/26/19 08:35 Dose: 20 meq Documented by: Spironolactone (Aldactone) 100 mg PO BID17 [facility] Stop: 05/26/19 08:59 Last Admin: 04/26/19 16:34 Dose: 100 mg Documented by: (1) Acute renal failure (ARF) Acute renal failure type: unspecified Qualified Code(s): N17.9 - Acute kidney failure, unspecified
[2019-04-27 07:27] LABS: BUN Creatinine Ratio 19.6 (10-20); Calcium 8.6 mg/dl (8.5-10.1); Creatinine Clr Calc Pharmacy 79.3 ml/min; Est GFR (African American) 82.6; Est GFR (Non-African American) 71.2; Magnesium 1.3 mg/dl (1.8-2.4); Potassium 3.5 mmol/L (3.5-5.1)
[2019-04-27] MEDS: POTASSIUM CHLORIDE 20 MEQ TABCR PO SCH (08:24)
[2019-04-27] MEDS: MAGNESIUM OXIDE 400 MG TAB PO SCH (08:24)
[2019-04-27] MEDS: ASPIRIN 81 MG ECTAB PO SCH (08:24)
[2019-04-27] MEDS: FOLIC ACID 1 MG TAB PO SCH (08:24)
[2019-04-27] MEDS: SPIRONOLACTONE 100 MG TAB PO SCH (08:24)
[2019-04-27] MEDS: FUROSEMIDE 20 MG TAB PO SCH (08:24)
[2019-04-27] MEDS: MAGNESIUM SULFATE / D5W 1 GM/100 ML BAG IV SCH ×2 (10:59→11:55)
--- NOTE | 2019-04-27 14:07 | Hospitalist Progress Note ---
Date of Service April 27, 2019 Assessment & Plan (1) Acute renal failure (ARF): Creatinine on admission 2.2, baseline creatinine 1.0-1.1 On [address]uretic for Cirrh[address] CT abd/pelvis showed no hydronephrosis or hydroureter Creatinine today 2.1 Spironolactone on hold Nephrology on board recommended Lasix and albumin Renal function is improving with creatinine of 1.49 as of 04/25/2019 We will continue current management and advised more fluid intake up to 1500 mL a day Renal function is normalized Recent CVA CT head showed 4.5 x 2.3 cm right occipital lobe hypodensity which represents a subacute to acute infarct. MRI of head showed acute infarct in the right occipital lobe at least 6 to 12 hours old evidenced by abnormal T2/FLAIR signal. 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 Acute lacunar infarcts in the splenium of the corpus callosum and left superior meenu. Carotid doppler showed 50-69% stenosis of the distal left ICA. MRA HEAD showed suspected cut off of a distal branch of the right posterior cerebral artery, likely due to thrombus. case discussed with Neuro recommended to hematology advised since pt is very high risk for bleeding due to low platelet, hx of intracranial hemorrhage and esophageal varices in the setting of auto anticoagulate with INR 1.8 Case discussed with hematology Dr. Alonzo recommended to use only a single agent due to very high risk of bleeding( Low platetet of 65, INR 1.8, Bilirubin of 5.3, Hx Esophageal varices) Pt awared of risk of bleeding with the use of antiplatelet therapy Since we cannot use dual antiplatelet, pt understands the risk of more stroke He has been put on aspirin 81 mg daily no additional anticoagulants due to high risk of bleeding Denies any symptoms suggestive of neurological origin Thrombocytopenia Platelet 65 today Will monitor closely for sign of bleeding while on aspirin 81mg HTN BP in the low side Nadolol on hold Continue monitor BP -remains the lower side of normal Alcoholic Cirrhosis of Liver Hx Esophageal varices Pt has been abstinence for alcohol Nadolol on hold due to borderline BP DVT prophylaxis. SCDs RE thrombocytopenia Full code We will continue PT and OT evaluation Likely be discharged tomorrow Subjective 04/25/2019 The patient was seen and examined in medical telemetry unit Medical is history significant for alcoholic cirrhosis, past tobacco/alcohol abuse,hypertension, history of esophageal varices, history of intracranial hemorrhage, chronic thrombocytopenia, chronic anemia (baseline hemoglobin 9-10). Admitted with a generalized weakness and noted to have acute renal failure Remains weak and lethargic Denies any acute symptoms 04/26/2019 The patient was seen and examined in medical telemetry unit He remains weak but otherwise stable Wants to drink more water and has been getting about 1500 mL daily Advised not to drink any more fluid than recommended Review of Systems Review of Systems: All systems reviewed and are unremarkable except as noted below Constitutional: + malaise and + weakness Neurologic: + generalized weakness Physical Exam Physical Exam: Lying in bed without any acute distress Constitutional: well developed, well nourished and + ill appearing; no acute distress Eyes: PERRL, conjunctivae normal, anicteric sclerae ENMT: external ear and nose normal, oropharynx normal Neck: trachea midline, no thyromegaly Respiratory: normal respiratory effort; no respiratory distress Auscultation: + diminished lung sounds and + crackles (Minimal bibasilar rales) Cardiovascular: Rate/Rhythm: regular rate and regular rhythm Heart Sounds: no murmur Gastrointestinal (Abdomen): Inspection/Auscultation: abdomen normal to inspection and normal bowel sounds Percussion/Palpation: abdomen soft; abdomen nontender Neurologic: moves all extremities; no focal motor deficits Lymphatic: no cervical or axillary lymphadenopathy Results & Data ([facility]) Vital Signs (Past 12 Hours) Vital Signs Temp Pulse Pulse Resp BP BP Pulse Ox 04/27/19 12:01 37.0 C 78 18 105/61 93 04/27/19 07:50 73 04/27/19 07:00 36.6 C 76 20 111/56 L 90 04/27/19 04:14 36.9 C 76 18 102/58 L 90 Laboratory Results [facility] 04/27/19 06:18 Sodium 137 Potassium 3.5 Chloride 101 Carbon Dioxide 32 BUN 23 H Creatinine 1.15 Glucose 106 H Calcium 8.6 Medications Administered Current Inpatient Medications Acetaminophen (Tylenol) 325 mg PO Q6H PRN PRN Reason: Pain or Fever Stop: 05/23/19 09:27 [facility] ([facility]) [facility] Stop: 05/24/19 08:59 Last Admin: 04/27/19 08:24 Dose: 81 mg Documented by: Folic Acid (Folvite) 1 mg PO DAILY [facility] Stop: 05/23/19 09:27 Last Admin: 04/27/19 08:24 Dose: 1 mg Documented by: Furosemide (Lasix) 60 mg PO BID17 [facility] Stop: 05/26/19 08:59 Last Admin: 04/27/19 08:24 Dose: 60 mg Documented by: Promethazine HCl 12.5 mg/ (Sodium Chloride) 50.5 mls @ 202 mls/hr IV Q6H PRN PRN Reason: Nausea And Vomiting Stop: 05/23/19 09:27 Magnesium Oxide (Mag-Ox) [facility] Stop: 05/26/19 08:59 Last Admin: 04/27/19 08:24 Dose: 400 mg Documented by: Miscellaneous Information (Pharmacist Discharge Med Rec Consult) 1 ea N/A UD PRN PRN Reason: Consult Stop: 05/23/19 09:27 Nitroglycerin (Nitrostat) 0.4 mg SL UD PRN PRN Reason: Chest Pain Stop: 05/23/19 09:27 Oxycodone HCl (Roxicodone Immediate Rel) 5 mg PO Q4H PRN PRN Reason: Pain Stop: 05/07/19 09:27 Potassium Chloride (Klor-Con M20) 20 meq PO [facility] Stop: 05/26/19 08:59 Last Admin: 04/27/19 08:24 Dose: 20 meq Documented by: Spironolactone (Aldactone) 100 mg PO BID17 [facility] Stop: 05/26/19 08:59 Last Admin: 04/27/19 08:24 Dose: 100 mg Documented by: (1) Acute renal failure (ARF) Acute renal failure type: unspecified Qualified Code(s): N17.9 - Acute kidney failure, unspecified
[2019-04-27] MEDS ORDERED: STROKE PATIENT DISCHARGE ONE (14:12)
--- NOTE | 2019-04-27 14:41 | Pharmacy Report ---
Pharmacist Stroke Counseling - Date of Service April 27, 2019 - Scope: Pharmacy has been consulted to provide medication discharge counseling for this patient admitted with ischemic stroke as per the Pharmacist Discharge Counseling for Stroke Patients Protocol. - Medications on Discharge: Home Medications Medication Instructions Recorded Confirmed folic acid 1 mg PO DAILY 04/23/19 04/23/19 furosemide 60 mg PO BID 04/23/19 04/23/19 nadolol 40 mg PO DAILY 04/23/19 04/23/19 spironolactone 100 mg PO BID 04/23/19 04/23/19 New Rx's Medication Instructions Recorded aspirin [Ecotrin Low Strength] 81 mg PO QAM 30 Days #30 tab 04/27/19 magnesium oxide 400 mg PO QAM 30 Days #30 tab 04/27/19 potassium chloride [Klor-Con M20] 20 meq PO QAM 30 Days #30 tab 04/27/19 - Action: The above medications, specifically ones for stroke treatment/prophylaxis, have been reviewed in detail with the patient prior to discharge. This includes indication, common adverse reactions, drug interactions, and medication administration. Medication counseling has been employed using the teach-back method to ensure understanding. - Outcome: The patient has demonstrated understanding of the medications. Please note, they are aware that the pharmacist will call them within 72 hours post-discharge to confirm that the appropriate medications are being taken and answer any further medication related questions the patient might have at that time. Contact information Individual to be contacted: patient or patient's Phone number: [phone] or 's cellphone: [phone] Best time to call: anytime Additional comments: Statin not recommended d/t liver cirrhosis. Thank you for allowing pharmacy to be involved in the care of this patient. Please call [phone] or [phone] with any additional questions
--- NOTE | 2019-04-28 08:22 | Discharge Summary ---
Date of Service April 28, 2019 Admission HPI Per Admitting Provider History obtained from patient, family, and records. Medical is history significant for alcoholic cirrhosis, past tobacco/alcohol abuse, hypertension, history of esophageal varices, history of intracranial hemorrhage, chronic thrombocytopenia, chronic anemia (baseline hemoglobin 9-10). Recent confinement November 2016 for decompensated cirrhosis and recurrent C. difficile colitis. Patient currently being evaluated by [facility] transplant service for liver transplantation. Patient not feeling well the last 3 days, feeling fuzzy, blurred vision on the left eye, aching headache and low back pain not radiating to the legs as per patient. Patient denies chest pain. Usual shortness of breath. Denies increase fluid retention or abdominal pain. Usual leg swelling. No recent changes with diuretic regimen. Patient brought to the ER for evaluation. MEDICAL HISTORY: As above. SURGERIES: None FAMILY HISTORY: Hypertension, heart disease, diabetes PERSONAL AND SOCIAL HISTORY: Past tobacco/alcohol use, disabled. Admission Exam Per Admitting Provider Physical Exam: GENERAL: Comfortable, chronically ill, somewhat apathetic, no respiratory distress SKIN: Pallor, warm HEENT: Pale palpebral conjunctivae, no ptosis, dry buccal mucosa NECK : Supple, no tenderness CHEST : Decreased breath sounds , no tenderness HEART : Bradycardic, no obvious murmurs ABDOMEN: Some distention, nontender EXTREMITIES : Bilateral LE swelling, no LE tenderness, no other conspicuous deformities noted NEUROLOGIC : Coherent, visual acuity (near and far) within normal limits, no facial asymmetry, rest tremors, no other gross focality Principal Diagnosis Acute renal failure-resolved, stroke, alcoholic cirrhosis, hypertension Discharge Exam Constitutional well developed, well nourished and + ill appearing; no acute distress Eyes PERRL, conjunctivae normal, anicteric sclerae ENMT external ear and nose normal, oropharynx normal Neck trachea midline, no thyromegaly Respiratory normal respiratory effort; no respiratory distress Auscultation: + diminished lung sounds and + crackles (Minimal bibasilar rales) Cardiovascular Rate/Rhythm: regular rate and regular rhythm Heart Sounds: no murmur Gastrointestinal (Abdomen) Inspection/Auscultation: abdomen normal to inspection and normal bowel sounds Percussion/Palpation: abdomen soft; abdomen nontender Neurologic moves all extremities; no focal motor deficits Lymphatic no cervical or axillary lymphadenopathy Discharge Data Allergies Allergy/AdvReac Type Severity Reaction Status Date / Time Penicillins AdvReac Mild GI UPSET Verified 04/23/19 04:14 Cephalosporins AdvReac Unknown Nausea/Vomi Verified 04/23/19 04:14 ting Consultations 04/23/19 06:01 ED Decision to Admit Stat 04/23/19 09:28 Consult Case Management - Discharge Planning Routine Consult Case Management - Discharge Planning Routine Consult Nephrology Routine Consult Neurology Routine Ordered Studies 04/23/19 04:13 CT head/brain wo con Urgent 04/23/19 04:18 US venous doppler LE BI Urgent 04/23/19 06:53 CT abd pelvis wo con Urgent 04/23/19 09:28 MR angio head wo con Routine MR brain wo con Routine US carotid doppler BI Routine 04/23/19 15:57 MR angio neck wo con Routine Hospital Course (1) Acute renal failure (ARF): Creatinine on admission 2.2, baseline creatinine 1.0-1.[address] for [address] abd/pelvis showed no hydronephrosis or hydroureter Creatinine today 2.1 Spironolactone on hold Nephrology on board recommended Lasix and albumin Renal function is improving with creatinine of 1.49 as of 04/25/2019 We will continue current management and advised more fluid intake up to 1500 mL a day Renal function is normalized Recent CVA CT head showed 4.5 x 2.3 cm right occipital lobe hypodensity which represents a subacute to acute infarct. MRI of head showed acute infarct in the right occipital lobe at least 6 to 12 hours old evidenced by abnormal T2/FLAIR signal. Associated thrombus in the distal right VARNISHER. Acute lacunar infarcts in the splenium of the corpus callosum and left superior meenu. Carotid doppler showed 50-69% stenosis of the distal left ICA. MRA HEAD showed suspected cut off of a distal branch of the right posterior ce rebral artery, likely due to thrombus. case discussed with Neuro recommended to hematology advised since pt is very high risk for bleeding due to low platelet, hx of intracranial hemorrhage and esophageal varices in the setting of auto anticoagulate with INR 1.8 Case discussed with hematology Dr. Alonzo recommended to use only a single agent due to very high risk of bleeding( Low platetet of 65, INR 1.8, Bilirubin of 5.3, Hx Esophageal varices) Pt awared of risk of bleeding with the use of antiplatelet therapy Since we cannot use dual antiplatelet, pt understands the risk of more stroke He has been put on aspirin 81 mg daily no additional anticoagulants due to high risk of bleeding Denies any symptoms suggestive of neurological origin Thrombocytopenia Platelet 65 today Will monitor closely for sign of bleeding while on aspirin 81mg HTN BP in the low side Nadolol on hold Continue monitor BP -remains the lower side of normal Alcoholic Cirrhosis of Liver Hx Esophageal varices Pt has been abstinence for alcohol Nadolol on hold due to borderline BP DVT prophylaxis. SCDs RE thrombocytopenia Full code We will continue PT and OT evaluation Likely be discharged tomorrow Total Time Total Time Spent Total Time Spent (In Minutes): 35 minutes Total Time Includes: Examination of the Patient, Discharge Planning, Medication Reconciliation and Communication With Other Providers Discharge Plan Discharge Items Patient Disposition: Home - Self-Care Reason For Visit: STROKE, ARF Discharge Diagnosis: Acute renal failure-resolved, stroke, alcoholic cirrhosis, hypertension Condition on Discharge: Fair Activity: Resume your previous activity Non-emergency contact: Primary Care Provider Call non-emergency contact if: you have any medication questions and your symptoms worsen Follow-up/Referrals: William Faustin MD [Primary Care Provider] - 05/02/19 10:45 am Diet: Regular and Low Sodium (2gm) Fluids: 1500ml (6 cups) Addtl Attending Provider Instructions: Please take precaution to avoid falls Please keep appointment with your transplant team Pending Studies at Discharge: No Stand-Alone Forms: Medications to Prevent Stroke, My [facility] Spectra Analysis Instruments, Smoking Cessation Medications and DC Order Prescriptions: New aspirin [Ecotrin Low Strength] 81 mg Tablet,Delayed Release (Dr/Ec) 81 mg PO QAM 30 Days Qty: 30 RF: 0 potassium chloride [Klor-Con M20] 20 mEq Tablet,Er Particles/Crystals 20 meq PO QAM 30 Days Qty: 30 RF: 0 magnesium oxide 400 mg (241.3 mg magnesium) Tablet 400 mg PO QAM 30 Days Qty: 30 RF: 0 Continued furosemide 40 mg tablet 60 mg PO BID RF: 0 folic acid 1 mg tablet 1 mg PO DAILY RF: 0 spironolactone 100 mg tablet 100 mg PO BID RF: 0 nadolol 40 mg tablet 40 mg PO DAILY RF: 0 Discharge Orders: Discharge Order (Routine); Ordered 04/27/19 Ordered By: Rodney Hi Admission Data Admit Date/Time: 04/23/19 06:50 Attending Provider: Rodney Hi Admit Provider: Alec Haile Primary Care Provider: William Faustin Other Providers: Alec Haile ; Savanah Wiley ; Car Ramírez ; Samantha Kimball ; Julissa Valenzuela ; Hien Hammer ; Coretta Real ; Artur Fuller ; Coretta Sethi ; Cristino Iqbal ; Jaye Keller Other Interventions: Discharge Summary Assessment (RN) Last Done: 04/27/19 14:55 DC Date/Time DO NOT enter until pt leaves facility: 04/27/19 15:35
--- NOTE | 2019-04-30 11:35 | Pharmacy Report ---
Pharmacist Post D/C Phone Note - Phone Note: Date of phone call: April 30, 2019. Individual with whom pharmacist spoke to: CRYSTAL RUEDA JR The following questions were reviewed during the phone call with responses listed below each: Can you tell me the medications that you are currently taking as well as when and how you take each medication? -See Table Below When have you missed any doses of your medications? - NONE What side effects are you having from your medications, specifically, the new medications you were started on? - DIARRHEA (instructed patient to notify PCP about this) What questions do you have about your medications? - NONE What problems are you having obtaining your medications? - NO When is your next appointment with your primary care doctor? - TOMORROW Additional comments: - Patient takes spironolactone 100 mg - take 2 tablets once daily ... TOTAL daily dose is not incorrect on med list. As per the Pharmacist Discharge Counseling for Stroke Patients Protocol, this phone call has been completed within 72 hours of discharge. Thank you for allowing us to be involved in the care of this patient. - Home Medications: Home Medications Medication Instructions Recorded Confirmed folic acid 1 mg PO DAILY 04/23/19 04/23/19 furosemide 60 mg PO BID 04/23/19 04/23/19 nadolol 40 mg PO DAILY 04/23/19 04/23/19 spironolactone 100 mg PO BID 04/23/19 04/23/19 New Rx's Medication Instructions Recorded aspirin [Ecotrin Low Strength] 81 mg PO QAM 30 Days #30 tab 04/27/19 magnesium oxide 400 mg PO QAM 30 Days #30 tab 04/27/19 potassium chloride [Klor-Con M20] 20 meq PO QAM 30 Days #30 tab 04/27/19
== END 2019-04-27 15:35 | disposition home or self-care (01) | DRG 682 ==
LOC: ED 03:51 → 2N 06:50 → SUATTDRO 06:50 → 2N 08:18

== ENCOUNTER 2020-06-21 21:54 | Inpatient (IN) ==
[2020-06-21] MEDS ORDERED: ERTAPENEM SODIUM 10 ML IV STA (22:19)
[2020-06-21] MEDS ORDERED: SODIUM CHLORIDE 0.9% 1000ML 500 ML IV ONE ×2 (22:19→22:52)
--- NOTE | 2020-06-21 22:36 | Emergency Department Note ---
Impression & Plan Hypotension, Acute confusion, Fever, Hypomagnesemia, Vaccine reaction ED Provider Note NAME: CRYSTAL RUEDA JR AGE: 54 SEX: M : 1965 ARRIVES VIA: Ambulance INFORMANT: [Patient][, ems] ED PROVIDER(S): [Nathaniel España MD] CHIEF COMPLAINT: Weakness HISTORY OF PRESENT ILLNESS: The patient is a 54-year-old male who had his first Covid vaccine on the , 4 days ago. Today, he woke up with a slight headache. As the day went on, he felt weak. He did have a controlled fall today without any injuries. He developed some confusion and was noted to have a fever. EMS was called. The patient initially refused transport however, his O2 saturation was noted to be in the mid 80s. He had a fever. Transport to the hospital was advised. In route, he was given a gram of IV Tylenol, he received around 500 cc of IV saline. The patient denies any pain currently. He just complains of diffuse weakness. His arms and legs both are weak. He has had a previous stroke and his right side is always weaker than the left. As per his , she thinks he is more confused and definitely weaker than baseline. There has been no reported vomiting or diarrhea. The patient admits to a slight cough. He is not short of breath, no chest pain, no abdominal pain. No urinary complaints. He has had no sick contacts. Of note, the patient did have COVID-19 last year in January, his had this illness at the same time. REVIEW OF SYSTEMS: See HPI for pertinent positives and negatives. A total of ten systems were reviewed and were otherwise negative. PMHx/PSHx: See Below SOCIAL HISTORY: See Below. PHYSICAL EXAM: GENERAL: Patient is in no acute distress. HEENT: No acute trauma, normocephalic atraumatic, mucous membranes moist, no nasal congestion. NECK: No stridor, no adenopathy, no meningismus, trachea is midline. LUNGS: Clear to auscultation bilaterally when listening anterior, no wheeze, no rhonchi, breath sounds equal. HEART: Without murmurs gallops or rubs, regular rate and rhythm. ABDOMEN: Soft, nontender, bowel sounds positive, no hernias, no peritonitis. EXTREMITIES: No cyanosis, chronic bilateral pedal edema with skin change--worse on the right, full range of motion of all the joints without pain or difficulty, no signs for acute trauma. NEUROLOGIC: Oriented x 3, no acute motor or sensory deficits, no focal weakness. No speech slur. No extremity drift. The right arm and leg seem slightly weaker than the left but this is reportedly baseline. Both legs can be lifted off the bed. SKIN: No rash, moderate jaundice, no diaphoresis. Groin: There is no scrotal erythema. DIFFERENTIAL DIAGNOSIS: Sepsis, UTI, pneumonia, metabolic abnormality, electrolyte abnormalities, cardiac sources, cellulitis, UTI, COVID-19, influenza, vaccine reaction, spontaneous bacterial peritonitis, elevated ammonia level, bacteremia, intracerebral event, toxicologic etiology, neurologic event, as well as other pathologies. EMERGENCY DEPARTMENT COURSE/PROCEDURES: ECG: Indication was weakness. The ECG shows a normal sinus rhythm with a rate of 73. There is no ST elevation, no PVCs. The QTc is 425. Continuous Cardiac Monitoring: An order was placed for continuous cardiac monitoring. The monitor shows a rate of 73 with normal sinus rhythm. Given the patients BMI >30, IBW was used to calculate the 30ml/kg fluid bolus. Critical Care Note: I have personally spent 56 minutes of critical care time in the direct management of this patient. This includes bedside care, interpretation of diagnostic studies, and testing, discussion with consultants, patient, and family members, and other required patient management activities. This 56 minutes is in excess of all separately billable procedures. MEDICAL DECISION MAKING: There is no leukocytosis. The patient is anemic but this is baseline looking back at previous testing. Platelet count is low but baseline for the patient. INR is elevated, this is also baseline and consistent with his liver disease. No renal failure. Lactic acid level was elevated consistent with possible dehydration and/or infection. Magnesium was low at 1.1. Total bilirubin was high at 3.9, this elevation is consistent with his liver disease. Ammonia level was not elevated. Urinalysis did not show any evidence for infection. Covid and influenza testing returned negative. Chest film shows some chronic findings, no obvious pneumonia. Brain CT shows no acute bleed or mass-effect. The patient presents febrile, slightly confused as per his , hypotensive. He does carry a history of a lower blood pressure but, his pressure today was lower than baseline. Patient was felt at risk for sepsis. He received 2.5 L of IV saline in total. Some was given prehospital, the rest given here. The amount was given based on his ideal body weight. The patient received IV ertapenem as empiric antibiotic coverage. He was given IV magnesium. He had received Tylenol prior to arrival. The patient's blood pressure is still somewhat low. He feels better though and his believes he is more alert. I do not find any source for infection. Blood cultures are of course still pending. He does not have any abdominal pain so I doubt SBP as a cause for his fever. I suspect he is having a vaccine reaction from his recent Covid vaccinat ion. Given all his findings, given his hypotension, given the possibility of sepsis without a source, a hospitalization was felt warranted. I did speak with the patient and case management. I spoke with his as well. The on-call hospitalist was consulted. Past Med/Surg History Medical History Chronic back pain Cirrhosis, alcoholic Esophageal varices ? no banding History of intracranial hemorrhage Hypertension Stroke 2015--right leg weakness, uses a cane to ambulate; [facility] Transient ischemic attack (TIA) x2--last 04/2019--no deficits Surgical History H/O esophagogastroduodenoscopy History of colonoscopy with polypectomy History of tonsillectomy History of tooth extraction Family History Father Family history of diabetes mellitus Other No family history of adverse response to anesthesia Social History Smoking Status: Never smoker Second Hand Exposure: No; Hx Alcohol Use: No (quit 2015) Hx Substance Use: No Preferred Language: Kiswahili Communication Ability: Effective [employer] Chief Creative Officer Required: No Beliefs That Will Affect Care: None Current Living Situation: Spouse and Family Current Living Situation Comment: Lives with and stepson Feels Safe at Home: Yes Assistive Devices: Cane, Glasses and Wheelchair Allergies Allergies Allergy/AdvReac Type Severity Reaction Status Date / Time Cephalosporins AdvReac Mild Nausea/Vomi Verified 10/16/19 11:12 ting Penicillins AdvReac Mild GI UPSET Verified 10/16/19 11:12 Home Meds Home Medications Medication Instructions Recorded Confirmed folic acid 1 mg PO QAM 04/23/19 10/16/19 furosemide 60 mg PO BID 04/23/19 10/16/19 nadolol 40 mg PO QAM 04/23/19 10/16/19 spironolactone 200 mg PO QAM 04/23/19 10/16/19 Men 50 Plus Multivitamin 1 tab PO QAM 10/10/19 10/16/19 albuterol sulfate 1 inh INHALATION QID PRN 10/10/19 10/16/19 aspirin [Aspirin Low Dose] 81 mg PO QAM 10/10/19 10/16/19 magnesium oxide 200 mg PO QAM 10/10/19 10/16/19 thiamine HCl (vitamin B1) 100 mg PO QAM 10/10/19 10/16/19 Results & Data (ED) Vital Signs Vital Signs - 24 hr 06/21/20 21:54 06/21/20 23:02 06/21/20 23:11 Temperature 38.1 C H Temperature Source Oral Pulse Rate 77 73 73 Pulse Rate from SpO2 Sensor Pulse Rhythm Regular Respiratory Rate 12 16 20 Respiratory Effort / Characteristics Non-Labored Spontaneous Blood Pressure 92/41 L 93/34 L Blood Pressure [Right Arm] 75/42 L Blood Pressure Mean 58 53 Blood Pressure Mean [Right Arm] 53 Pulse Oximetry 95 94 95 Oxygen Delivery Method Room Air Room Air Sepsis Recent Fever Within 48 Hours Yes Sepsis New/Unexplained Change in Mental Status Yes Sepsis Action Taken by Nursing No Action Required 06/21/20 23:12 06/21/20 23:15 06/21/20 23:30 Temperature Temperature Source Pulse Rate 73 73 81 Pulse Rate from SpO2 Sensor 73 73 Pulse Rhythm Respiratory Rate 19 16 21 Respiratory Effort / Characteristics Blood Pressure 74/34 L 91/46 L Blood Pressure [Right Arm] Blood Pressure Mean 47 61 Blood Pressure Mean [Right Arm] Pulse Oximetry 95 95 Oxygen Delivery Method Sepsis Recent Fever Within 48 Hours Sepsis New/Unexplained Change in Mental Status Sepsis Action Taken by Nursing 06/21/20 23:31 06/21/20 23:45 06/22/20 00:00 Temperature Temperature Source Pulse Rate 73 72 71 Pulse Rate from SpO2 Sensor 74 72 Pulse Rhythm Respiratory Rate 15 19 20 Respiratory Effort / Characteristics Blood Pressure 90/39 L 83/37 L 88/38 L Blood Pressure [Right Arm] Blood Pressure Mean 56 52 54 Blood Pressure Mean [Right Arm] Pulse Oximetry 97 97 97 Oxygen Delivery Method Sepsis Recent Fever Within 48 Hours Sepsis New/Unexplained Change in Mental Status Sepsis Action Taken by Nursing 06/22/20 00:15 06/22/20 00:30 06/22/20 00:45 Temperature Temperature Source Pulse Rate 67 72 71 Pulse Rate from SpO2 Sensor 72 71 Pulse Rhythm Respiratory Rate 20 19 17 Respiratory Effort / Characteristics Blood Pressure 97/42 L 85/40 L 90/42 L Blood Pressure [Right Arm] Blood Pressure Mean 60 55 58 Blood Pressure Mean [Right Arm] Pulse Oximetry 95 96 95 Oxygen Delivery Method Sepsis Recent Fever Within 48 Hours Sepsis New/Unexplained Change in Mental Status Sepsis Action Taken by Nursing 06/22/20 01:00 Temperature Temperature Source Pulse Rate 69 Pulse Rate from SpO2 Sensor 69 Pulse Rhythm Respiratory Rate 18 Respiratory Effort / Characteristics Blood Pressure 84/41 L Blood Pressure [Right Arm] Blood Pressure Mean 55 Blood Pressure Mean [Right Arm] Pulse Oximetry 95 Oxygen Delivery Method Sepsis Recent Fever Within 48 Hours Sepsis New/Unexplained Change in Mental Status Sepsis Action Taken by Jail Medications Current Medication List: was personally reviewed by me Laboratory Data Attestation: I reviewed the patient's lab results. Result diagrams: 06/21/20 22:50 06/21/20 22:50 Lab Results 06/21/20 06/21/20 06/21/20 Range/Units 22:30 22:50 22:50 WBC (4.8-10.8) K/uL RBC (4.7-6.1) M/uL Hgb (14.0-18.0) g/dL Hct (42-52) % MCV (80-100) fL MCH (25-34) pg MCHC (32-36) g/dL RDW Std Deviation (36.4-46.3) fL RDW Coeff of Cathy (11.5-14.5) % Plt Count (130-400) K/uL MPV (7.4-10.4) fL Immature Gran % (Auto) % Neut % (Auto) % Lymph % (Auto) % [place] % (Auto) % Eos % (Auto) % Baso % (Auto) % Neut # (Auto) (1.4-6.5) K/uL Lymph # (Auto) (1.2-3.4) K/uL [place] # (Auto) (0.11-0.59) K/uL Eos # (Auto) (0-0.5) K/uL Baso # (Auto) (0-0.2) K/uL Immature Gran # (Auto) (0.00-0.02) K/uL PT (9.0-12.0) Seconds INR (0.9-1.1) APTT (21.0-31.0) Seconds PTT Ratio Sodium 137 (136-145) mmol/L Potassium 3.7 (3.5-5.1) mmol/L Chloride 111 H (98-107) mmol/L Carbon Dioxide 20 L (21-32) mmol/L Anion Gap 6.0 (3-11) BUN 24 H (7-18) mg/dl Creatinine 1.29 (0.6-1.4) mg/dl Est Cr Clr Drug Dosing 73.4 ml/min Est GFR ( Amer) 71.4 Est GFR (Non-Af Amer) 61.6 BUN/Creatinine Ratio 18.2 (10-20) Glucose 122 H (70-99) mg/dl Lactate (0.4-2.0) mmol/L Calcium 6.8 L (8.5-10.1) mg/dl Magnesium 1.1 L (1.8-2.4) mg/dl Total Bilirubin 3.9 H (0.2-1) mg/dl AST 43 H (15-37) U/L ALT 23 (12-78) U/L Alkaline Phosphatase 111 (45-117) U/L Ammonia 28.4 (11-32) umol/L Troponin I 0.036 (0-0.045) ng/ml Total Protein 4.8 L (6.4-8.2) gm/dl Albumin 1.6 L (3.4-5.0) gm/dl Globulin 3.2 (2.5-4.0) gm/dl Albumin/Globulin Ratio 0.5 L (0.9-2) Procalcitonin (0-0.5) ng/ml Urine Color [place] Urine Appearance Clear (Clear) Urine pH 5.0 (4.5-7.5) Ur Specific [place] 1.015 (1.000-1.030) Urine Protein Negative (Negative) Urine Glucose (UA) Negative (Negative) Urine Ketones Negative (Negative) Urine Blood Negative (Negative) Urine Nitrite Positive A (Negative) Urine Bilirubin Negative (Negative) Urine Urobilinogen Negative (Negative) Ur Leukocyte Esterase Negative (Negative) Urine WBC (Auto) 1-5 (0-5) /hpf Urine RBC (Auto) 0-4 (0-4) /hpf U Hyaline Cast (Auto) 10-30 H (0-5) /lpf U Epithel Cells (Auto) 5-10 H (0-5) /lpf Urine Bacteria (Auto) Negative (Negative) COVID-19 Eval Order SARS-CoV-2 (PCR) (Negative) Influenza Type A (PCR) (Neg) Influenza Type B (PCR) (Neg) RSV (RT-PCR) (Neg) 06/21/20 06/21/20 06/21/20 Range/Units 22:50 22:50 22:50 WBC 9.22 (4.8-10.8) K/uL RBC 2.95 L (4.7-6.1) M/uL Hgb 10.1 L (14.0-18.0) g/dL Hct 29.1 L (42-52) % MCV 98.6 (80-100) fL MCH 34.2 H (25-34) pg MCHC 34.7 (32-36) g/dL RDW Std Deviation 54.7 H (36.4-46.3) fL RDW Coeff of Cathy 15.3 H (11.5-14.5) % Plt Count 61 L (130-400) K/uL MPV 10.1 (7.4-10.4) fL Immature Gran % (Auto) 0.2 % Neut % (Auto) 83.8 % Lymph % (Auto) 4.2 % [place] % (Auto) 11.7 % Eos % (Auto) 0.0 % Baso % (Auto) 0.1 % Neut # (Auto) 7.72 H (1.4-6.5) K/uL Lymph # (Auto) 0.39 L (1.2-3.4) K/uL [place] # (Auto) 1.08 H (0.11-0.59) K/uL Eos # (Auto) 0.00 (0-0.5) K/uL Baso # (Auto) 0.01 (0-0.2) K/uL Immature Gran # (Auto) 0.02 (0.00-0.02) K/uL PT 18.4 H (9.0-12.0) Seconds INR 1.9 H (0.9-1.1) APTT 41.0 H (21.0-31.0) Seconds PTT Ratio 1.6 Sodium (136-145) mmol/L Potassium (3.5-5.1) mmol/L Chloride (98-107) mmol/L Carbon Dioxide (21-32) mmol/L Anion Gap (3-11) BUN (7-18) mg/dl Creatinine (0.6-1.4) mg/dl Est Cr Clr Drug Dosing ml/min Est GFR ( Amer) Est GFR (Non-Af Amer) BUN/Creatinine Ratio (10-20) Glucose (70-99) mg/dl Lactate (0.4-2.0) mmol/L Calcium (8.5-10.1) mg/dl Magnesium (1.8-2.4) mg/dl Total Bilirubin (0.2-1) mg/dl AST (15-37) U/L ALT (12-78) U/L Alkaline Phosphatase (45-117) U/L Ammonia (11-32) umol/L Troponin I (0-0.045) ng/ml Total Protein (6.4-8.2) gm/dl Albumin (3.4-5.0) gm/dl Globulin (2.5-4.0) gm/dl Albumin/Globulin Ratio (0.9-2) Procalcitonin 0.92 H (0-0.5) ng/ml Urine Color Urine Appearance (Clear) Urine pH (4.5-7.5) Ur Specific [place] (1.000-1.030) Urine Protein (Negative) Urine Glucose (UA) (Negative) Urine Ketones (Negative) Urine Blood (Negative) Urine Nitrite (Negative) Urine Bilirubin (Negative) Urine Urobilinogen (Negative) Ur Leukocyte Esterase (Negative) Urine WBC (Auto) (0-5) /hpf Urine RBC (Auto) (0-4) /hpf U Hyaline Cast (Auto) (0-5) /lpf U Epithel Cells (Auto) (0-5) /lpf Urine Bacteria (Auto) (Negative) COVID-19 Eval Order SARS-CoV-2 (PCR) (Negative) Influenza Type A (PCR) (Neg) Influenza Type B (PCR) (Neg) RSV (RT-PCR) (Neg) 06/21/20 06/21/20 06/21/20 Range/Units 22:50 23:22 23:22 WBC (4.8-10.8) K/uL RBC (4.7-6.1) M/uL Hgb (14.0-18.0) g/dL Hct (42-52) % MCV (80-100) fL MCH (25-34) pg MCHC (32-36) g/dL RDW Std Deviation (36.4-46.3) fL RDW Coeff of Cathy (11.5-14.5) % Plt Count (130-400) K/uL MPV (7.4-10.4) fL Immature Gran % (Auto) % Neut % (Auto) % Lymph % (Auto) % [place] % (Auto) % Eos % (Auto) % Baso % (Auto) % Neut # (Auto) (1.4-6.5) K/uL Lymph # (Auto) (1.2-3.4) K/uL [place] # (Auto) (0.11-0.59) K/uL Eos # (Auto) (0-0.5) K/uL Baso # (Auto) (0-0.2) K/uL Immature Gran # (Auto) (0.00-0.02) K/uL PT (9.0-12.0) Seconds INR (0.9-1.1) APTT (21.0-31.0) Seconds PTT Ratio Sodium (136-145) mmol/L Potassium (3.5-5.1) mmol/L Chloride (98-107) mmol/L Carbon Dioxide (21-32) mmol/L Anion Gap (3-11) BUN (7-18) mg/dl Creatinine (0.6-1.4) mg/dl Est Cr Clr Drug Dosing ml/min Est GFR ( Amer) Est GFR (Non-Af Amer) BUN/Creatinine Ratio (10-20) Glucose (70-99) mg/dl Lactate 2.7 H* (0.4-2.0) mmol/L Calcium (8.5-10.1) mg/dl Magnesium (1.8-2.4) mg/dl Total Bilirubin (0.2-1) mg/dl AST (15-37) U/L ALT (12-78) U/L Alkaline Phosphatase (45-117) U/L Ammonia (11-32) umol/L Troponin I (0-0.045) ng/ml Total Protein (6.4-8.2) gm/dl Albumin (3.4-5.0) gm/dl Globulin (2.5-4.0) gm/dl Albumin/Globulin Ratio (0.9-2) Procalcitonin (0-0.5) ng/ml Urine Color Urine Appearance (Clear) Urine pH (4.5-7.5) Ur Specific [place] (1.000-1.030) Urine Protein (Negative) Urine Glucose (UA) (Negative) Urine Ketones (Negative) Urine Blood (Negative) Urine Nitrite (Negative) Urine Bilirubin (Negative) Urine Urobilinogen (Negative) Ur Leukocyte Esterase (Negative) Urine WBC (Auto) (0-5) /hpf Urine RBC (Auto) (0-4) /hpf U Hyaline Cast (Auto) (0-5) /lpf U Epithel Cells (Auto) (0-5) /lpf Urine Bacteria (Auto) (Negative) COVID-19 Eval Order CovFluRsv at [facility] SARS-CoV-2 (PCR) NEGATIVE (Negative) Influenza Type A (PCR) Negative (Neg) Influenza Type B (PCR) Negative (Neg) RSV (RT-PCR) Negative (Neg) 06/22/20 Range/Units 00:39 WBC (4.8-10.8) K/uL RBC (4.7-6.1) M/uL Hgb (14.0-18.0) g/dL Hct (42-52) % MCV (80-100) fL MCH (25-34) pg MCHC (32-36) g/dL RDW Std Deviation (36.4-46.3) fL RDW Coeff of Cathy (11.5-14.5) % Plt Count (130-400) K/uL MPV (7.4-10.4) fL Immature Gran % (Auto) % Neut % (Auto) % Lymph % (Auto) % [place] % (Auto) % Eos % (Auto) % Baso % (Auto) % Neut # (Auto) (1.4-6.5) K/uL Lymph # (Auto) (1.2-3.4) K/uL [place] # (Auto) (0.11-0.59) K/uL Eos # (Auto) (0-0.5) K/uL Baso # (Auto) (0-0.2) K/uL Immature Gran # (Auto) (0.00-0.02) K/uL PT (9.0-12.0) Seconds INR (0.9-1.1) APTT (21.0-31.0) Seconds PTT Ratio Sodium (136-145) mmol/L Potassium (3.5-5.1) mmol/L Chloride (98-107) mmol/L Carbon Dioxide (21-32) mmol/L Anion Gap (3-11) BUN (7-18) mg/dl Creatinine (0.6-1.4) mg/dl Est Cr Clr Drug Dosing ml/min Est GFR ( Amer) Est GFR (Non-Af Amer) BUN/Creatinine Ratio (10-20) Glucose (70-99) mg/dl Lactate 1.6 (0.4-2.0) mmol/L Calcium (8.5-10.1) mg/dl Magnesium (1.8-2.4) mg/dl Total Bilirubin (0.2-1) mg/dl AST (15-37) U/L ALT (12-78) U/L Alkaline Phosphatase (45-117) U/L Ammonia (11-32) umol/L Troponin I (0-0.045) ng/ml Total Protein (6.4-8.2) gm/dl Albumin (3.4-5.0) gm/dl Globulin (2.5-4.0) gm/dl Albumin/Globulin Ratio (0.9-2) Procalcitonin (0-0.5) ng/ml Urine Color Urine Appearance (Clear) Urine pH (4.5-7.5) Ur Specific [place] (1.000-1.030) Urine Protein (Negative) Urine Glucose (UA) (Negative) Urine Ketones (Negative) Urine Blood (Negative) Urine Nitrite (Negative) Urine Bilirubin (Negative) Urine Urobilinogen (Negative) Ur Leukocyte Esterase (Negative) Urine WBC (Auto) (0-5) /hpf Urine RBC (Auto) (0-4) /hpf U Hyaline Cast (Auto) (0-5) /lpf U Epithel Cells (Auto) (0-5) /lpf Urine Bacteria (Auto) (Negative) COVID-19 Eval Order SARS-CoV-2 (PCR) (Negative) Influenza Type A (PCR) (Neg) Influenza Type B (PCR) (Neg) RSV (RT-PCR) (Neg) Administered Medications Magnesium Sulfate/Dextrose (Magnesium Sulfate / D5w) 1 gm in 100 mls @ 100 mls/hr IV NOW STA Stop: 06/22/20 01:22 Last Admin: 06/22/20 00:37 Dose: 100 mls/hr Documented by: [id number] Discontinued Medications Sodium Chloride (Nss 1000ml) 500 mls @ 999 mls/hr IV .Q31M ONE Stop: 06/21/20 22:49 Last Infusion: 06/21/20 23:14 Dose: 0 mls/hr Documented by: [id number] Admin: 06/21/20 22:45 Dose: 999 mls/hr Documented by: [id number] Ertapenem (Invanz) 10 mls @ 2 mls/min IV NOW STA Stop: 06/21/20 22:23 Last Admin: 06/21/20 23:09 Dose: 2 mls/min Documented by: [id number] Sodium Chloride (Nss 1000ml) 500 mls @ 999 mls/hr IV .Q31M ONE Stop: 06/21/20 23:22 Last Infusion: 06/21/20 23:43 Dose: 0 mls/hr Documented by: [id number] Admin: 06/21/20 23:09 Dose: 999 mls/hr Documented by: [id number] Sodium Chloride (Nss 1000ml) 1,000 mls @ 999 mls/hr IV .Q1H1M ONE Stop: 06/22/20 00:45 Last Infusion: 06/22/20 00:56 Dose: 0 mls/hr Documented by: [id number] Admin: 06/21/20 23:54 Dose: 999 mls/hr Documented by: [id number] Imaging Data Attestation: I personally reviewed and interpreted this imaging study as follows: My Impression: Chest x-ray: There are some smaller pleural effusions, there is no CHF, no pneumonia. The film looks improved compared to previous films. Radiologist's Impression: Brain CT: There is no intracranial hemorrhage or mass- effect or edema. There is a chronic right occipital infarct. The sinuses are clear. There is no skull fracture. Discharge Plan Visit Data Chief Complaint: Altered Mental Status Stated Complaint: ALTERED MENTAL STATUS/FALL/WEAK ED Provider: Nathaniel España Discharge Problem: Hypotension, Acute confusion, Fever, Hypomagnesemia, Vaccine reaction Patient Disposition: Admitted As Inpatient Condition: Serious Forms Stand Alone Forms: My [facility] [employer] Prescriptions Prescriptions: No Action thiamine HCl (vitamin B1) 100 mg Tablet 100 mg PO QAM RF: 0 aspirin [Aspirin Low Dose] 81 mg Tablet,Delayed Release (Dr/Ec) 81 mg PO QAM RF: 0 albuterol sulfate 90 mcg/actuation Hfa Aerosol Inhaler 1 inh INHALATION QID PRN (Reason: Shortness Of Breath) RF: 0 Men 50 Plus Multivitamin 300-600-300 mcg Tablet 1 tab PO QAM RF: 0 magnesium oxide 400 mg magnesium Tablet 200 mg PO QAM RF: 0 furosemide 40 mg tablet 60 mg PO BID RF: 0 folic acid 1 mg tablet 1 mg PO QAM RF: 0 spironolactone 100 mg tablet 200 mg PO QAM RF: 0 nadolol 40 mg tablet 40 mg PO QAM RF: 0 Referrals Referrals: William Faustin MD [Primary Care Provider] - Discharge Problem: Hypotension Qualifiers: Hypotension type: unspecified hypotension type Qualified Code(s): I95.9 - Hypotension, unspecified Fever Qualifiers: Fever type: unspecified Qualified Code(s): R50.9 - Fever, unspecified Vaccine reaction Qualifiers: Encounter type: initial encounter Qualified Code(s): T50.Z95A - Adverse effect of other vaccines and biological substances, initial encounter
[2020-06-21 23:05] LABS: Appearance Urine Clear (Clear); Bacteria Urine Automated Negative (Negative); Bilirubin Urine Negative (Negative); Blood Urine Negative (Negative); Color Urine Orange; Glucose Urine UA Negative (Negative); Ketones Urine Negative (Negative); Leukocyte Esterase Urine Negative (Negative); Nitrite Urine Positive (Negative); Protein Urine Negative (Negative); RBC Urine Automated 0-4 /hpf (0-4); Specific Gravity Urine 1.015 (1.000-1.030); Urobilinogen Urine Negative (Negative)
[2020-06-21 23:20] LABS: INR 1.9 (0.9-1.1); Partial Thromboplastin Ratio 1.6; Prothrombin Time 18.4 Seconds (9.0-12.0)
[2020-06-21 23:33] LABS: Albumin Level 1.6 gm/dl (3.4-5.0); BUN Creatinine Ratio 18.2 (10-20); Calcium 6.8 mg/dl (8.5-10.1); Creatinine Clr Calc Pharmacy 73.4 ml/min; Est GFR (African American) 71.4; Est GFR (Non-African American) 61.6; Magnesium 1.1 mg/dl (1.8-2.4); Potassium 3.7 mmol/L (3.5-5.1)
[2020-06-21 23:38] LABS: Albumin Globulin Ratio 0.5 (0.9-2); Bilirubin,Total 3.9 mg/dl (0.2-1); Globulin 3.2 gm/dl (2.5-4.0); Total Protein 4.8 gm/dl (6.4-8.2); Troponin I 0.036 ng/ml (0-0.045)
[2020-06-21] MEDS ORDERED: SODIUM CHLORIDE 0.9% 1000ML 1,000 ML IV ONE (23:45)
[2020-06-22 00:20] LABS: Hematocrit (blood only) 29.1 % (42-52); Hemoglobin 10.1 g/dL (14.0-18.0); Mean Corpuscular Hemoglobin 34.2 pg (25-34); Mean Corpuscular Hgb Conc 34.7 g/dL (32-36); Mean Corpuscular Volume 98.6 fL (80-100); Mean Platelet Volume 10.1 fL (7.4-10.4); Platelet Count 61 K/uL (130-400); RDW Coefficient of Variation 15.3 % (11.5-14.5); RDW Standard Deviation 54.7 fL (36.4-46.3); Red Blood Count 2.95 M/uL (4.7-6.1); White Blood Count 9.22 K/uL (4.8-10.8)
[2020-06-22] MEDS ORDERED: MAGNESIUM SULFATE / D5W 1 GM/100 ML BAG IV STA (00:23)
[2020-06-22 00:38] LABS: Basophils # (auto) 0.01 K/uL (0-0.2); Basophils % (auto) 0.1 %; Immature Granulocytes # (auto) 0.02 K/uL (0.00-0.02); Immature Granulocytes % (auto) 0.2 %; Lymphocytes # (auto) 0.39 K/uL (1.2-3.4); Lymphocytes % (auto) 4.2 %; Monocytes # (auto) 1.08 K/uL (0.11-0.59); Monocytes % (auto) 11.7 %; Neutrophils # (auto) 7.72 K/uL (1.4-6.5); Neutrophils % (auto) 83.8 %
[2020-06-22 00:39] LABS: Influenza A virus by PCR Negative (Neg); Influenza B virus by PCR Negative (Neg); RSV by PCR Negative (Neg); SARS CoV2 RNA(COVID-19) InHosp NEGATIVE (Negative)
[2020-06-22] MEDS ORDERED: ALBUTEROL HFA 8 GM INHALER INH PRN (03:56)
[2020-06-22] MEDS ORDERED: ACETAMINOPHEN 325 MG TAB PO STA (03:56)
[2020-06-22] MEDS ORDERED: NITROGLYCERIN SL 0.4 MG/TAB TAB SL PRN (03:56)
[2020-06-22] MEDS ORDERED: ONDANSETRON INJ 2 MG/ML 2 ML VIAL IV PRN (03:56)
[2020-06-22] MEDS ORDERED: ERTAPENEM CONSULT ACTIVE PRN (04:25)
[2020-06-22] MEDS: SODIUM CHLORIDE 0.9% 1000ML 1,000 ML IV SCH ×2 (04:54→16:35)
[2020-06-22 05:52] LABS: Hematocrit (blood only) 32.2 % (42-52); Hemoglobin 11.2 g/dL (14.0-18.0); Mean Corpuscular Hemoglobin 34.5 pg (25-34); Mean Corpuscular Hgb Conc 34.8 g/dL (32-36); Mean Corpuscular Volume 99.1 fL (80-100); RDW Coefficient of Variation 15.3 % (11.5-14.5); RDW Standard Deviation 55.7 fL (36.4-46.3); Red Blood Count 3.25 M/uL (4.7-6.1); White Blood Count 10.46 K/uL (4.8-10.8)
--- NOTE | 2020-06-22 06:07 | XRay Report ---
XR chest 1V portable CLINICAL HISTORY: SEPSIS COMPARISON STUDY: 04/24/2019 FINDINGS: The cardiac and mediastinal contours remain stable. There is interval decrease in size of t he bilateral pleural effusions. There are associated basilar airspace opacities, likely atelectatic a lthough an infectious/inflammatory process could appear similar[. There is been resolution of the pre viously described pulmonary edema IMPRESSION: 1. Resolution of the previously described pulmonary edema 2. Persistent but decreasing bilateral pleural effusions with associated basilar opacity statisticall y atelectatic ACT 112: Negative or not required by law. Electronically signed by: Randolph Metcalf M.D. 06/22/2020 6:06 AM
[2020-06-22 06:09] LABS: Mean Platelet Volume 10.4 fL (7.4-10.4); Platelet Count 60 K/uL (130-400)
[2020-06-22 06:18] LABS: Immature Granulocytes # (auto) 0.02 K/uL (0.00-0.02); Immature Granulocytes % (auto) 0.2 %; Lymphocytes # (auto) 0.41 K/uL (1.2-3.4); Lymphocytes % (auto) 3.9 %; Monocytes % (auto) 11.5 %; Neutrophils # (auto) 8.83 K/uL (1.4-6.5); Neutrophils % (auto) 84.4 %
[2020-06-22 06:24] LABS: BUN Creatinine Ratio 20.1 (10-20); Calcium 7.4 mg/dl (8.5-10.1); Creatinine Clr Calc Pharmacy 62.3 ml/min; Est GFR (African American) 58.5; Est GFR (Non-African American) 50.5; Magnesium 1.9 mg/dl (1.8-2.4); Potassium 4.6 mmol/L (3.5-5.1)
--- NOTE | 2020-06-22 07:06 | CT Scan Report ---
CT SCAN OF THE BRAIN WITHOUT IV CONTRAST CLINICAL HISTORY: Change in mental status. COMPARISON STUDY: CT an MRI of the brain dated 04/23/2019. TECHNIQUE: Unenhanced axial CT scan of the brain is performed from the vertex to the skull base. A d ose lowering technique was utilized adhering to the principles of ALARA. CT DOSE: 614.27 mGy.cm FINDINGS: Brain parenchyma: Foci of high left posterior parietal and right occipital encephalomalacia are consi stent with remote insults. There is no hemorrhage, mass effect, or evidence of acute territorial isch emia by CT criteria. Scanlon-white matter differentiation is preserved. No extra-axial fluid collection is seen. Ventricles, sulci, cisterns: Normal in configuration. Intracranial vasculature: The visualized intracranial vasculature at the skull base is normal in appe arance. Calvarium: Unremarkable. Sinuses and mastoids: There is trace mucosal thickening in the left maxillary antrum. The remaining p aranasal sinuses are clear. The mastoid air cells are well pneumatized. Orbits: The bony orbits are grossly intact. IMPRESSION: Chronic infarcts as above with no hemorrhage, mass effect, or evidence of acute territori al ischemia by CT criteria. ACT 112: Negative or not required by law. Electronically signed by: Nathaniel Roper M.D. 06/22/2020 7:05 AM
[2020-06-22] MEDS: THIAMINE HCL 100 MG TAB PO SCH (08:34)
[2020-06-22] MEDS: FOLIC ACID 1 MG TAB PO SCH (08:34)
[2020-06-22] MEDS: MAGNESIUM OXIDE 400 MG TAB PO SCH (08:34)
[2020-06-22] MEDS: ASPIRIN 81 MG ECTAB PO SCH (08:34)
[2020-06-22] MEDS: CEROVITE ADV FORMULA TAB PO SCH (08:34)
--- NOTE | 2020-06-22 08:46 | Hospitalist Progress Note ---
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 afebrile now , no source of infection noted (3) Hypotension: combination of poor PO intake on diuretics for chronic liver disease BP improved to baseline cont gentle IV hydration hold diuretics for now (4) Hypomagnesemia: (5) Vaccine reaction: s/p ist dose of COVID 19 vaccine on 06/17/20 , developed -fever , body ache ( common /know reaction ) given pt;s underlying liver disease /alcoholic liver cirrhosis /also hx or Prior COVID 19 infection -felt worse clinically leading to hypotension , febrile episode , confusion symptoms has improved with supportive care only (6) Cirrhosis of liver: hx of chronic liver disease with esophageal varices stable , LFT at baseline , normal ammonia level no evidence of hepatic decompensation or hepatic encephalopathy spontaneous coagulopahty INR 1.9 /thrombocytopeia -chronic ; due to above avoid antiplatelets no bleeding complication noted (7) ARF (acute renal failure): (8) Acute renal failure (ARF): with CKD stage 3 CR elevated 1.5 possible due to hypotensive episode bp stable now hold diuretics repeat BMP Full CODE DVT Prophylaxis ; SCD and Teds ambulate Disposition; expected to be discharged home when medically stable needs PT/OT eval prior to discharge to assess gait /ambulatory dysfunction will be updated over phone Admission and Anticipated Discharge Date Admission Date: June 22, 2020 Subjective Follow up visit for hypotension /fever /confusion /post vaccine reaction : pt is awake and alert , conversing appropriately no fever or chills BP has been stable overnight says he feels fine , complains of back pain which is been chronic wants to be discharged home today Review of Systems Review of Systems: All systems reviewed & are unremarkable except as noted in Subjective Physical Exam Constitutional: WD/WN, vitals as above + ill appearing Eyes: PERRL, conjunctivae normal, anicteric sclerae + anicteric sclerae ENMT: external ear and nose normal, oropharynx normal Neck: trachea midline, no thyromegaly Respiratory: normal respiratory effort, lungs clear to auscultation Cardiovascular: RRR, no murmur, no edema Gastrointestinal (Abdomen): Percussion/Palpation: abdomen soft; abdomen nontender Musculoskeletal: no cyanosis or clubbing, extremities motor strength 5/5 Skin: no rashes, warm and dry Neurologic: PERRL, EOMI, accommodation nl, no face palsy, no dysarthria Psychiatric: A+Ox3, euthymic affect Results & Data Results & Data ([facility]) Vital Signs (Past 12 Hours) Vital Signs Temp Pulse Pulse Resp BP BP Pulse Ox 06/22/20 08:05 36.5 C 63 18 102/61 95 06/22/20 07:05 64 06/22/20 05:20 72 06/22/20 05:09 37.0 C 79 16 107/66 93 06/22/20 05:08 93 06/22/20 03:25 63 14 88/44 L 96 06/22/20 02:22 36.7 C 06/22/20 02:00 81 15 89/39 L 96 06/22/20 01:45 71 20 91/39 L 100 06/22/20 01:30 71 20 90/44 L 100 06/22/20 01:15 69 17 94/53 L 97 06/22/20 01:00 69 18 84/41 L 95 06/22/20 00:45 71 17 90/42 L 95 06/22/20 00:30 72 19 85/40 L 96 06/22/20 00:15 67 20 97/42 L 95 06/22/20 00:00 71 20 88/38 L 97 06/21/20 23:45 72 19 83/37 L 97 06/21/20 23:31 73 15 90/39 L 97 06/21/20 23:30 81 21 91/46 L 06/21/20 23:15 73 16 74/34 L 95 06/21/20 23:12 73 19 95 06/21/20 23:11 73 20 93/34 L 95 06/21/20 23:02 73 16 75/42 L 94 06/21/20 21:54 38.1 C H 77 12 92/41 L 95 (1) Fever Fever type: unspecified Qualified Code(s): R50.9 - Fever, unspecified (2) Hypotension Hypotension type: unspecified hypotension type Qualified Code(s): I95.9 - Hypotension, unspecified (3) Vaccine reaction Encounter type: initial encounter Qualified Code(s): T50.Z95A - Adverse effect of other vaccines and biological substances, initial encounter (4) Acute renal failure (ARF) Acute renal failure type: unspecified Qualified Code(s): N17.9 - Acute kidney failure, unspecified
--- NOTE | 2020-06-22 09:02 | Communication Note ---
Date of Service: June 22, 2020 spoke with over phone worried about pt's profound weakness -fell on the floor twice yesterday , family had hard time getting him up does not feel safe for pt to return to home too early . will call and speak with her to stay in hospital to receive tx PT/OT eval ordered pt is set in mind to be discharged home today , will continue to academic counselor pt- need for hospital stay Tele monitor reviewed : normal sinus @ 70's-60's quality assurance monitor final Cale Durant MD
--- NOTE | 2020-06-22 12:47 | History and Physical Report ---
DATE OF ADMISSION: 06/22/2020 CHIEF COMPLAINT: Confusion. 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 The patient says he had COVID in January and on 06/19/2020 as per patient he had his Moderna COVID shot and since then he is not feeling good, having body aches, not able to ambulate, and somewhat confused, so he was brought in here and he was hypotensive, blood pressure in the 70s. He received about 2 L of fluids in the ER, still blood pressure running on lower side.The patient was febrile in the ER. Denies any chest pain, no shortness of breath, no cough, no headache, no blurred vision, no earache, no runny nose, no sore throat, no nausea, no vomiting, no abdominal pain. Normal bowel and bladder movements, chronic swelling of the legs. Currently alert and oriented. ALLERGIES: CEPHALOSPORINS AND PENICILLINS. PAST MEDICAL HISTORY: As mentioned above. PAST SURGICAL HISTORY: Colonoscopies, EGDs. MEDICATIONS: The patient is on folic acid 1 mg p.o. daily, nadolol 40 mg p.o. daily, spironolactone 200 mg p.o. daily, Lasix 60 mg p.o. b.i.d., albuterol 2 puffs every 4 hours p.r.n., aspirin 81 mg p.o. daily, magnesium 400 mg p.o. daily, multivitamins 1 tablet p.o. daily, thiamine 100 mg p.o. daily. FAMILY HISTORY: Significant for mother had cancer, hypertension. Father has diabetes, [place]. Sister has hypertension, congenital heart disease. SOCIAL HISTORY: , smokes half pack a day for 34 years, says he is smoking now, currently not drinking alcohol, no drug use. REVIEW OF SYMPTOMS: As per HPI. Rest of review of systems negative. PHYSICAL EXAMINATION: GENERAL: The patient is of moderate build, not in acute distress. VITAL SIGNS: Temperature T-max 38.1, pulse 81, respiratory rate 15, blood pressure 89/39 currently, oxygen 96% on room air. HEENT: Pupils equal, round, reactive to light. Oral mucosa moist. NECK: No JVD, no neck masses. CARDIOVASCULAR: S1, S2, regular rate and rhythm, no murmur, no gallop. RESPIRATORY SYSTEM: Normal AP diameter. No accessory muscle use. No wheezing, no crackles. ABDOMEN: Soft, bowel sounds present, nontender. No distention. CENTRAL NERVOUS SYSTEM: Alert and oriented x3. Speech is clear, no facial droop. Obeys simple commands. Moves extremities. EXTREMITIES: Chronic lower extremity edema present with lower extremity skin changes seen. No erythema seen. LABORATORY DATA: WBC 9.3, hemoglobin 10.1, hematocrit 29.1, platelets 61. PT 18.4, INR 1.9, APTT 41.41. Sodium 137, potassium 3.7, chloride 111, CO2 20, BUN 24, creatinine 1.2, serum glucose 122, lactate 1.6, calcium 6.8, magnesium 1.1, total bilirubin 3.9, AST 43, ALT 23, alkaline phosphatase 111. Ammonia 28. Troponin I 0.036. Procalcitonin 0.9. Urinalysis positive for nitrite, negative for bacteria. SARS-CoV-2 PCR negative. Influenza A and B PCR negative, RSV PCR negative. IMAGING: Chest x-ray, no acute findings. CT of the head, no acute findings. EKG: Normal sinus rhythm, rate of 73, no significant change was found. ASSESSMENT AND PLAN: This is a 54-year-old male who presents with confusion and weakness. 1. Confusion, weakness post-COVID vaccine dose. He had COVID January, most likely reaction to the vaccine. Possible also sepsis because of hypotension and questionable urinary tract infection. We will empirically start him on Invanz. Continue gentle fluids at 75 mL per hour. We will follow the cultures. Closely monitor in tele floor. Monitor his hemodynamics. 2. History of alcoholic liver cirrhosis. Holding diuretics, Lasix and spironolactone. Getting fluids. Monitor for volume overload. Holding nadolol because of hypotension. Continue his folic acid and thiamine. 3. History of chronic obstructive pulmonary disease, nebs p.r.n. 4. Thrombocytopenia secondary to cirrhosis. We will monitor the labs. 5. Deep venous thrombosis prophylaxis, sequential compression devices. DISPOSITION: Admit to tele floor. Expect discharge home and follow with family doctor, PT and OT prior to discharge. Social service to help with discharge planning. RODRICK
--- NOTE | 2020-06-22 13:37 | Electrocardiogram Report ---
Test Reason : Blood Pressure : / mmHG Vent. Rate : 073 BPM Atrial Rate : 073 BPM P-R Int : 160 ms QRS Dur : 084 ms QT Int : 386 ms P-R-T Axes : 069 013 030 degrees QTc Int : 425 ms Normal sinus rhythm Low voltage QRS Borderline ECG When compared with ECG of 23-APR-2019 10:53, No significant change was found Confirmed by Olegario Awad ([id number]) on 06/22/2020 1:37:46 PM Referred By: REFERRED SELF Confirmed By:Olegario Awad
[2020-06-22 15:18] LABS: Calcium 7.5 mg/dl (8.5-10.1); Creatinine Clr Calc Pharmacy 52.9 ml/min; Est GFR (Non-African American) 41.4; Potassium 4.2 mmol/L (3.5-5.1)
--- NOTE | 2020-06-22 15:31 | Communication Note ---
Date of Service: June 22, 2020 acute renal failure : cr worsened from 1.29-> 1.5 -> 1.72 diuretics been on hold since admission given IV fluids @ 75ml/hr increased rate to 100 ml/hr , pt had similar episode on last [facility] consulted repeat Labs in am Lilia Durant MD
[2020-06-22] MEDS ORDERED: ERTAPENEM SODIUM 1,000 MG in SODIUM CHLORIDE 0.9% 50 ML IV SCH (22:00)
[2020-06-23] MEDS: SODIUM CHLORIDE 0.9% 1000ML 1,000 ML IV SCH (01:47)
[2020-06-23] MEDS ORDERED: COUGH DROP (SUGAR FREE) LOZ 24 LOZ/1 BOX BUCCAL ONE (02:05)
[2020-06-23 06:54] LABS: BUN Creatinine Ratio 23.3 (10-20); Calcium 7.7 mg/dl (8.5-10.1); Creatinine Clr Calc Pharmacy 80.9 ml/min; Est GFR (African American) 80.3; Est GFR (Non-African American) 69.3; Potassium 4.7 mmol/L (3.5-5.1)
[2020-06-23] MEDS: FOLIC ACID 1 MG TAB PO SCH (08:44)
[2020-06-23] MEDS: CEROVITE ADV FORMULA TAB PO SCH (08:44)
[2020-06-23] MEDS: MAGNESIUM OXIDE 400 MG TAB PO SCH (08:44)
[2020-06-23] MEDS: THIAMINE HCL 100 MG TAB PO SCH (08:44)
[2020-06-23] MEDS: ASPIRIN 81 MG ECTAB PO SCH (08:45)
--- NOTE | 2020-06-23 10:10 | Communication Note ---
Date of Service: June 23, 2020 cr improved to baseline 1.17 DC IV fluid pt had PT eval this am , will be discharged home later today will benefit with home health and Home PT uses a [facility] at home script for rolling walker will be given Lilia Durant
--- NOTE | 2020-06-23 10:30 | Consultation Report ---
DATE OF CONSULTATION: 06/22/2020 REASON FOR CONSULT: Hyponatremia and acute renal failure. HISTORY OF PRESENT ILLNESS: The patient is a 54-year-old male with past medical history of liver cirrhosis secondary to alcohol with portal hypertension, COPD, history of stroke, presented to the hospital with weakness, confusion and not feeling well. He was found to have hyponatremia and slight acute renal failure. Diuretics were kept on hold and he was given some IV fluid and with that serum sodium and creatinine this morning is better and back to baseline. He might even be discharged later today. The patient is a poor historian, but he says after the vaccine, he received on 06/19/2020, he has been feeling poor and weak. He was hypotensive in the Emergency Department, but got better after the IV fluid. PAST MEDICAL HISTORY: COPD, portal hypertension, hypertension, cirrhosis of liver, alcohol abuse, history of hemiplegia and hemiparesis, history of nontraumatic intracranial hemorrhage, pancytopenia, pulmonary nodules, tobacco abuse. PAST SURGICAL HISTORY: Colonoscopy, EGDs. ALLERGIES: CEPHALOSPORIN, AND PENICILLIN. REVIEW OF SYSTEMS: As detailed in HPI, unless stated otherwise, 12 systems reviewed and negative. MEDICATIONS: At home was reviewed and includes folic acid as nadolol, spironolactone 200 daily, Lasix 60 twice daily, albuterol 2 puffs every 4 hours, aspirin 81 daily, magnesium 400 daily, multivitamin, thiamine. FAMILY HISTORY: Negative for renal disease or dialysis. SOCIAL HISTORY: He is , smokes half pack a day for 34 years. Used to be a heavy drinker, but not now. PHYSICAL EXAMINATION: GENERAL: The patient is a middle-aged but looks chronically ill. He is not in any overt respiratory distress. He seems fairly awake and alert but unable to answer difficult questions about his medication and medical problems. VITAL SIGNS: Blood pressure 119/63, pulse rate 71, temperature 36.9, 92% on room air. HEENT: Mucous membranes moist. NECK: Supple. No jugular venous distention. CHEST: Bilateral decreased breath sounds with prolonged expiration. CARDIOVASCULAR: S1, S2 regular. ABDOMEN: Soft, nontender. Ascites present. EXTREMITIES: Shows 2-3+ edema with chronic skin changes related with chronic edema. LABORATORY TESTS: Serum sodium was 134 yesterday at the time of admission, this morning it was 137, creatinine at baseline is around 1.3. He had 1.79 yesterday, this morning it is back to baseline of 1.17, BUN is 27, potassium 4.7. Chest x-ray, resolution of the previously described pulmonary edema. ASSESSMENT AND PLAN: A 54-year-old male with liver cirrhosis and many other medical problems, admitted with confusion, weakness and had associated acute renal failure with hyponatremia. I have been consulted for acute renal failure, hyponatremia. RECOMMENDATIONS: 1. Both renal failure and hyponatremia has got better with the use of normal saline and holding diuretics. 2. Hold diuretics today and tomorrow and restart from Tuesday. 3. Acute renal failure was prerenal related with hypotension, but is now better. 4. If felt needed, he can be discharged from renal standpoint. At this point, he does not need followup with Nephrology Clinic.
--- NOTE | 2020-06-23 18:07 | Discharge Summary ---
Date of Service June 23, 2020 Admission HPI Per Admitting Provider DICTATED BY: Bull Quispe MD DATE OF ADMISSION: 06/22/2020 CHIEF COMPLAINT: Confusion. 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 The patient says he had COVID in January and on 06/19/2020 as per patient he had his Moderna COVID shot and since then he is not feeling good, having body aches, not able to ambulate, and somewhat confused, so he was brought in here and he was hypotensive, blood pressure in the 70s. He received about 2 L of fluids in the ER, still blood pressure running on lower side.The patient was febrile in the ER. Denies any chest pain, no shortness of breath, no cough, no headache, no blurred vision, no earache, no runny nose, no sore throat, no nausea, no vomiting, no abdominal pain. Normal bowel and bladder movements, chronic swelling of the legs. Currently alert and oriente Principal Diagnosis Confusion -resolved * weakness * Post vaccine reaction * chronic alcoholic liver disease * chronic anemia * chronic thrombocytopenia * Acute renal failure * hx of CVA /stroke Discharge Exam Constitutional WD/WN, vitals as above + ill appearing Eyes PERRL, conjunctivae normal, anicteric sclerae + anicteric sclerae ENMT external ear and nose normal, oropharynx normal Neck trachea midline, no thyromegaly Respiratory normal respiratory effort, lungs clear to auscultation Cardiovascular RRR, no murmur, no edema Gastrointestinal (Abdomen) Percussion/Palpation: abdomen soft; abdomen nontender Musculoskeletal no cyanosis or clubbing, extremities motor strength 5/5 Skin no rashes, warm and dry Neurologic PERRL, EOMI, accommodation nl, no face palsy, no dysarthria Psychiatric A+Ox3, euthymic affect Discharge Data Allergies Allergy/AdvReac Type Severity Reaction Status Date / Time Cephalosporins AdvReac Mild Nausea/Vomi Verified 10/16/19 11:12 ting Penicillins AdvReac Mild GI UPSET Verified 10/16/19 11:12 Consultations 06/22/20 00:41 ED Decision to Admit Stat 06/22/20 15:28 Consult Nephrology Routine Ordered Studies 06/21/20 22:19 CT head/brain wo con Urgent Hospital Course (1) Acute confusion: presented with fever , acute confusion , hypotension , generalized weakness after receiving COVID 19 vaccine ( ist dose ) -4 days back on no evidence of sepsis had mild elevation of lactic acid -due to hypotension , resolved after iV hydration mental status improved to baseline -possible metabolic encephalopathy due to hypotension , fever , post vaccine reaction no evidence of hepatic encephalopathy CT head shows evidence of 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 no source of infection noted (3) Hypotension: resolved, BP stable after IV fluid on diuretics for chronic liver disease (4) Hypomagnesemia: (5) Vaccine reaction: s/p ist dose of COVID 19 vaccine on 06/17/20 , developed -fever , body ache ( common /know reaction ) given pt;s underlying liver disease /alcoholic liver cirrhosis /also hx or Prior COVID 19 infection -felt worse clinically leading to hypotension , febrile episode , confusion symptoms hresolved with supportive care only (6) Cirrhosis of liver: hx of chronic liver disease with esophageal varices stable , LFT at baseline , normal ammonia level no evidence of hepatic decompensation or hepatic encephalopathy spontaneous coagulopahty INR 1.9 /thrombocytopeia -chronic ; due to above avoid antiplatelets no bleeding complication noted (7) ARF (acute renal failure): Acute renal failure with CKD stage 3 cr was elevated on admission due to hypotension , pre renal vol depletion diuretics kept on hold renal failure resolved after IV hydration appreciate input from Nephrology stable to be discharged home today , hospital follow up arranged with Family physician repeat BMP check ordered with next physician visit pt is asked to avoid NSAID's Total Time Total Time Spent Total Time Spent (In Minutes): 30 mins Total Time Includes: Discharge Planning and Medication Reconciliation Discharge Plan Discharge Items Patient Disposition: Home - Self-Care Reason For Visit: AMS Discharge Diagnosis: * Confusion -resolved * weakness * Post vaccine reaction * chronic alcoholic liver disease * chronic anemia * chronic thrombocytopenia * Acute renal failure * hx of CVA /stroke Condition on Discharge: Serious Activity: Resume your previous activity Non-emergency contact: Primary Care Provider Call non-emergency contact if: you have any medication questions Follow-up/Referrals: William Faustin MD [Primary Care Provider] - 06/27/20 11:20 am (Hospital follow up in a week Date & Time 06/27/2020 11:20 AM Provider William Faustin MD [facility] ) Diet: Heart Healthy and Low Sodium (2gm) Addtl Attending Provider Instructions: Please take all medications as instructed on discharge list below. It is recommended that you follow-up with your primary care physician within 1-2 weeks of hospital discharge to ensure you are still doing well. Please call if you have any questions or problems. You can reach a [facility] hospitalist on duty at [facility] 24 hours a day by calling [phone] Lab work : Basic metabolic panel on 06/27/20 Addtl Heel Sorter Provider Instructions: Do not take group of medications belonging to NSAIDs group -can cause worsening of your kidney function. List Of these medications includes but not limited to: Diclofenac Ibuprofen, Motrin, Advil Toradol,ketorolac Naproxen, Aleve, Naprosyn You can take Tylenol as needed for pain or fever When buying [id number] pain medications please consult with pharmacy if you are not sure regarding ingredients, as a lot of the pain medications have combination of NSAIDs and Tylenol. Pending Studies at Discharge: No Stand-Alone Forms: My [facility], Smoking Cessation Medications and DC Order Prescriptions: Continued thiamine HCl (vitamin B1) 100 mg Tablet 100 mg PO QAM RF: 0 aspirin [Aspirin Low Dose] 81 mg Tablet,Delayed Release (Dr/Ec) 81 mg PO QAM RF: 0 albuterol sulfate 90 mcg/actuation Hfa Aerosol Inhaler 1 inh INHALATION QID PRN (Reason: Shortness Of Breath) RF: 0 Men 50 Plus Multivitamin 300-600-300 mcg Tablet 1 tab PO QAM RF: 0 magnesium oxide 400 mg magnesium Tablet 200 mg PO QAM RF: 0 furosemide 40 mg tablet 60 mg PO BID RF: 0 folic acid 1 mg tablet 1 mg PO QAM RF: 0 spironolactone 100 mg tablet 200 mg PO QAM RF: 0 nadolol 40 mg tablet 40 mg PO QAM RF: 0 Discharge Orders: Discharge Order (Routine); Ordered 06/23/20 Ordered By: Lilia Carey/Other Patient Handouts: Understanding Cirrhosis, Preventing Falls in the Home, ED Leg Swelling in Both Legs Admission Data Admit Date/Time: 06/22/20 01:45 Attending Provider: Lilia Durant Admit Provider: Bull Quispe Primary Care Provider: William Faustin Other Providers: Bull Quispe ; Savanah Wiley ; Car Ramírez Elissa R. ; Julissa Valenzuela Japheth E. ; Dejuan Patel Other Interventions: Discharge Summary Assessment (RN) Last Done: 06/23/20 10:09
== END 2020-06-23 14:25 | disposition home or self-care (01) | DRG 682 ==
LOC: ED 21:54 → 2N 06-22 01:45

== ENCOUNTER 2020-06-25 20:17 | Inpatient (IN) ==
[2020-06-25 20:59] LABS: Hematocrit (blood only) 32.3 % (42-52); Hemoglobin 11.2 g/dL (14.0-18.0); Mean Corpuscular Hgb Conc 34.7 g/dL (32-36); Mean Corpuscular Volume 98.2 fL (80-100); RDW Coefficient of Variation 15.6 % (11.5-14.5); RDW Standard Deviation 55.8 fL (36.4-46.3); Red Blood Count 3.29 M/uL (4.7-6.1); White Blood Count 11.83 K/uL (4.8-10.8)
[2020-06-25] MEDS ORDERED: SODIUM CHLORIDE 0.9% 1000ML 1,000 ML IV SCH (21:00)
--- NOTE | 2020-06-25 21:01 | Emergency Department Note ---
History of Present Illness General Chief complaint: Illness Stated complaint: ILNESS Time Seen by Provider: 06/25/20 20:45 Source: patient Mode of arrival: EMS Limitations: no limitations History of Present Illness Provider complaint: Weakness This is a 54-year-old male who presents to the ED with a chief complaint of generalized weakness. The patient was discharged from the hospital 2 days ago after a 2-day admission for post Covid symptoms and some acute renal failure. The patient has a slight cough and has been weak since that time. EMS stated that the felt the patient was discharged too soon. He states that he was able to get up to go to the bathroom on his own today with a walker but otherwise he has not been moving around because of his weakness. The patient has no other complaints at this time. Denies any headaches, chest pains, shortness of breath, abdominal pains, nausea or vomiting. Home Medications Medication Instructions Recorded Confirmed Type folic acid 1 mg PO QAM 04/23/19 10/16/19 History furosemide 60 mg PO BID 04/23/19 10/16/19 History nadolol 40 mg PO QAM 04/23/19 10/16/19 History spironolactone 200 mg PO QAM 04/23/19 10/16/19 History Men 50 Plus Multivitamin 1 tab PO QAM 10/10/19 10/16/19 History albuterol sulfate 1 inh INHALATION QID PRN 10/10/19 10/16/19 History aspirin [Aspirin Low Dose] 81 mg PO QAM 10/10/19 10/16/19 History magnesium oxide 200 mg PO QAM 10/10/19 10/16/19 History thiamine HCl (vitamin B1) 100 mg PO QAM 10/10/19 10/16/19 History Allergies Allergy/AdvReac Type Severity Reaction Status Date / Time Cephalosporins AdvReac Mild Nausea/Vomi Verified 10/16/19 11:12 ting Penicillins AdvReac Mild GI UPSET Verified 10/16/19 11:12 Past Med/Surg History Medical History (Updated 06/26/20 @ 00:25 by Bigg Simeon DO) Chronic back pain Cirrhosis, alcoholic Esophageal varices ? no banding History of intracranial hemorrhage Hypertension Stroke 2016--right leg weakness, uses a cane to ambulate; [facility] neurologist @ [facility] Transient ischemic attack (TIA) x2--last 04/2019--no deficits Surgical History H/O esophagogastroduodenoscopy History of colonoscopy with polypectomy History of tonsillectomy History of tooth extraction Family History Father Family history of diabetes mellitus Other No family history of adverse response to anesthesia Social History Smoking Status: Never smoker Second Hand Exposure: No; Hx Alcohol Use: Yes (quit 2016) Hx Substance Use: No Preferred Language: Maltese Communication Ability: Effective Labor Specialist Required: No Beliefs That Will Affect Care: None marital status: Current Living Situation: Spouse and Family Current Living Situation Comment: Lives with and stepson Feels Safe at Home: Yes Assistive Devices: Walker Review of Systems A total of 10 systems reviewed and were otherwise negative Physical Exam Vital Signs Vital Signs - 24 hr 06/25/20 20:34 06/25/20 20:50 06/25/20 21:00 Temperature 37.3 C Temperature Source Oral Pulse Rate 70 69 Pulse Rate from SpO2 Sensor 69 Respiratory Rate 19 17 Respiratory Effort / Characteristics Non-Labored Respiratory Depth Normal Blood Pressure 98/70 L 114/44 L Blood Pressure Mean 79 67 Blood Pressure Position Lying Pulse Oximetry 95 96 Oxygen Delivery Method Room Air Room Air Sepsis Recent Fever Within 48 Hours Yes Sepsis New/Unexplained Change in Mental Status No Sepsis Action Taken by Nursing No Action Required 06/25/20 21:07 06/25/20 21:15 06/25/20 21:30 Temperature Temperature Source Pulse Rate 70 69 71 Pulse Rate from SpO2 Sensor 70 69 73 Respiratory Rate 23 23 Respiratory Effort / Characteristics Respiratory Depth Blood Pressure 110/47 L 127/58 L Blood Pressure Mean 68 81 Blood Pressure Position Pulse Oximetry 96 98 99 Oxygen Delivery Method Sepsis Recent Fever Within 48 Hours Sepsis New/Unexplained Change in Mental Status Sepsis Action Taken by Nursing 06/25/20 21:45 06/25/20 21:46 06/25/20 22:00 Temperature Temperature Source Pulse Rate 73 71 72 Pulse Rate from SpO2 Sensor 78 Respiratory Rate Respiratory Effort / Characteristics Respiratory Depth Blood Pressure 103/48 L Blood Pressure Mean 66 Blood Pressure Position Pulse Oximetry 97 Oxygen Delivery Method Sepsis Recent Fever Within 48 Hours Sepsis New/Unexplained Change in Mental Status Sepsis Action Taken by Nursing 06/25/20 22:01 06/25/20 22:15 06/25/20 22:30 Temperature Temperature Source Pulse Rate 87 71 72 Pulse Rate from SpO2 Sensor 86 71 70 Respiratory Rate 19 18 Respiratory Effort / Characteristics Respiratory Depth Blood Pressure 118/69 124/65 107/51 L Blood Pressure Mean 85 84 69 Blood Pressure Position Pulse Oximetry 97 97 97 Oxygen Delivery Method Sepsis Recent Fever Within 48 Hours Sepsis New/Unexplained Change in Mental Status Sepsis Action Taken by Nursing 06/25/20 22:45 06/25/20 23:00 06/25/20 23:15 Temperature Temperature Source Pulse Rate 87 70 83 Pulse Rate from SpO2 Sensor 86 69 84 Respiratory Rate 18 10 L 20 Respiratory Effort / Characteristics Respiratory Depth Blood Pressure 114/46 L 88/61 L Blood Pressure Mean 68 70 Blood Pressure Position Pulse Oximetry 95 96 96 Oxygen Delivery Method Sepsis Recent Fever Within 48 Hours Sepsis New/Unexplained Change in Mental Status Sepsis Action Taken by Nursing 06/25/20 23:30 06/25/20 23:31 06/25/20 23:45 Temperature Temperature Source Pulse Rate 70 73 67 Pulse Rate from SpO2 Sensor 70 70 67 Respiratory Rate 18 18 17 Respiratory Effort / Characteristics Respiratory Depth Blood Pressure 94/43 L Blood Pressure Mean 60 Blood Pressure Position Pulse Oximetry 96 97 97 Oxygen Delivery Method Sepsis Recent Fever Within 48 Hours Sepsis New/Unexplained Change in Mental Status Sepsis Action Taken by Nursing 06/25/20 23:46 06/26/20 00:00 06/26/20 00:01 Temperature Temperature Source Pulse Rate 70 84 69 Pulse Rate from SpO2 Sensor 72 85 69 Respiratory Rate 16 16 18 Respiratory Effort / Characteristics Respiratory Depth Blood Pressure 117/68 113/68 Blood Pressure Mean 84 83 Blood Pressure Position Pulse Oximetry 97 96 97 Oxygen Delivery Method Sepsis Recent Fever Within 48 Hours Sepsis New/Unexplained Change in Mental Status Sepsis Action Taken by Nursing CONSTITUTIONAL/VITAL SIGNS: Reviewed / noted above. GENERAL: Non-toxic in appearance. Generalized weakness. INTEGUMENTARY: Warm, dry, and [place]. HEAD: Normocephalic. EYES: without scleral icterus or trauma. ENT/OROPHARYNX: clear and moist. LYMPHADENOPATHY/NECK: Is supple without lymphadenopathy or meningismus. RESPIRATORY: Lungs clear and equal. CARDIOVASCULAR: Regular rate and rhythm. GI/ABDOMEN: Soft and nontender. No organomegaly or pulsatile mass. No rebound or guarding. Normal bowel sounds. EXTREMITIES: Warm and well perfused. Lower extremity edema. BACK: No CVA tenderness. NEUROLOGICAL: Intact without focal deficits. PSYCHIATRIC: normal affect. MUSCULOSKELETAL: Normally developed with poor muscle tone in the lower extremities. TRIAGE NURSING DOCUMENTATION REVIEWED. Course Administered Medications Discontinued Medications Sodium Chloride (Nss 1000ml) 1,000 mls @ 999 mls/hr IV .Q1H1M GARETH Stop: 06/25/20 22:00 Last Infusion: 06/25/20 22:46 Dose: 0 mls/hr Documented by: [id number] Admin: 06/25/20 21:12 Dose: 999 mls/hr Documented by: [id number] Medical Decision Making Differential Diagnosis Differential includes acute coronary syndrome, myocardial infarction, CVA, TIA, anemia, infection, pneumonia, UTI, pyelonephritis, poor nutrition, dehydration, electrolyte disturbance,hypoglycemia. Medical Records Attestation: I reviewed the patient's medical records. Home Medications Current Medication List: was personally reviewed by me Laboratory Data Attestation: I reviewed the patient's lab results. Result diagrams: 06/25/20 Unknown 06/25/20 Unknown Lab Results 06/25/20 06/25/20 Range/Units Unknown Unknown WBC 11.83 H (4.8-10.8) K/uL RBC 3.29 L (4.7-6.1) M/uL Hgb 11.2 L (14.0-18.0) g/dL Hct 32.3 L (42-52) % MCV 98.2 (80-100) fL MCH 34.0 (25-34) pg MCHC 34.7 (32-36) g/dL RDW Std Deviation 55.8 H (36.4-46.3) fL RDW Coeff of Cathy 15.6 H (11.5-14.5) % Plt Count 76 L (130-400) K/uL MPV 10.4 (7.4-10.4) fL Immature Gran % (Auto) 0.5 % Neut % (Auto) 86.1 % Lymph % (Auto) 4.6 % [place] % (Auto) 8.5 % Eos % (Auto) 0.2 % Baso % (Auto) 0.1 % Neut # (Auto) 10.20 H (1.4-6.5) K/uL Lymph # (Auto) 0.54 L (1.2-3.4) K/uL [place] # (Auto) 1.00 H (0.11-0.59) K/uL Eos # (Auto) 0.02 (0-0.5) K/uL Baso # (Auto) 0.01 (0-0.2) K/uL Immature Gran # (Auto) 0.06 H (0.00-0.02) K/uL Platelet Estimate Decreased L (Normal) Sodium 135 L (136-145) mmol/L Potassium 4.0 (3.5-5.1) mmol/L Chloride 109 H (98-107) mmol/L Carbon Dioxide 20 L (21-32) mmol/L Anion Gap 6.0 (3-11) BUN 23 H (7-18) mg/dl Creatinine 1.32 (0.6-1.4) mg/dl Est Cr Clr Drug Dosing 72.5 ml/min Est GFR ( Amer) 69.4 Est GFR (Non-Af Amer) 59.9 BUN/Creatinine Ratio 17.3 (10-20) Glucose 130 H (70-99) mg/dl Calcium 8.0 L (8.5-10.1) mg/dl Magnesium 1.6 L (1.8-2.4) mg/dl Total Bilirubin 3.1 H (0.2-1) mg/dl AST 77 H (15-37) U/L ALT 39 (12-78) U/L Alkaline Phosphatase 121 H (45-117) U/L Total Creatine Kinase 81 (39-308) U/L Troponin I < 0.015 (0-0.045) ng/ml Total Protein 5.7 L (6.4-8.2) gm/dl Albumin 1.9 L (3.4-5.0) gm/dl Globulin 3.8 (2.5-4.0) gm/dl Albumin/Globulin Ratio 0.5 L (0.9-2) Imaging Data Radiologist's Impression: Chest X-Ray 06/25/20 20:50 SINGLE VIEW CHEST CLINICAL HISTORY: Generalized weakness. FINDINGS: An AP, portable, upright chest radiograph is compared to study dated 06/21/2020. The heart is enlarged noting atherosclerotic calcification of the thoracic aorta. There is pulmonary vascular congestion. There are bilateral airspace opacities, as well as pleural effusions with bibasilar consolidation. No pneumothorax is seen. The skeletal structures are osteopenic. The bony thorax is grossly intact. IMPRESSION: 1. Cardiomegaly with evidence of congestive failure. 2. Bilateral airspace opacities likely represent pulmonary edema. Clinical correlation will be required. 3. Pleural effusions with bibasilar consolidation. ACT 112: Negative or not required by law. Electronically signed by: Nathaniel Roper M.D. 06/25/2020 9:19 PM ECG Data Attestation: I personally reviewed and interpreted this ECG as follows: Rate (beats per minute): 70 Rhythm: + normal sinus ECG Intervals/blocks: + Normal QT-c ECG ST segments: no ST elevation ECG Findings: no PVCs MDM Narrative Patient presents with generalized weakness status post Covid vaccine on the of last month. Denies other symptoms symptoms. History of alcoholism and cirrhosis. His initial vital signs revealed a blood pressure 98/70. He is afebrile. Oxygen saturations were 95% on room air. He is in no distress. He has generalized weakness especially in the lower extremities on exam. His lower extremity edema. This appears chronic. The patient CBC and chemistry panel did not show any concerning abnormalities. No significant anemia or leukocytosis. Troponin was negative. Chest x-ray as noted above. Patient does not have any clinical findings to suggest pneumonia or congestive heart failure. The patient was told the results. After speaking with the patient's , the patient is not safe to go home. The patient is not able to ambulate and will require rehab. I spoke with the hospitalist, who will see the patient for further ev aluation and care. Impression & Plan Generalized weakness Discharge Plan Visit Data Chief Complaint: Illness Stated Complaint: ILNESS ED Provider: Bigg Simeon Discharge Problem: Generalized weakness Patient Disposition: Being Evaluated by Hospitalist Forms Stand Alone Forms: My [facility] Prescriptions Prescriptions: No Action thiamine HCl (vitamin B1) 100 mg Tablet 100 mg PO QAM RF: 0 aspirin [Aspirin Low Dose] 81 mg Tablet,Delayed Release (Dr/Ec) 81 mg PO QAM RF: 0 albuterol sulfate 90 mcg/actuation Hfa Aerosol Inhaler 1 inh INHALATION QID PRN (Reason: Shortness Of Breath) RF: 0 Men 50 Plus Multivitamin 300-600-300 mcg Tablet 1 tab PO QAM RF: 0 magnesium oxide 400 mg magnesium Tablet 200 mg PO QAM RF: 0 furosemide 40 mg tablet 60 mg PO BID RF: 0 folic acid 1 mg tablet 1 mg PO QAM RF: 0 spironolactone 100 mg tablet 200 mg PO QAM RF: 0 nadolol 40 mg tablet 40 mg PO QAM RF: 0 Referrals Referrals: William Faustin MD [Primary Care Provider] -
[2020-06-25 21:19] LABS: Alanine Aminotransferase 39 U/L (12-78); Albumin Level 1.9 gm/dl (3.4-5.0); Aspartate Aminotransferase 77 U/L (15-37); BUN Creatinine Ratio 17.3 (10-20); Blood Urea Nitrogen 23 mg/dl (7-18); Carbon Dioxide 20 mmol/L (21-32); Chloride 109 mmol/L (98-107); Creatinine Clr Calc Pharmacy 72.5 ml/min; Est GFR (African American) 69.4; Est GFR (Non-African American) 59.9; Glucose 130 mg/dl (70-99); Magnesium 1.6 mg/dl (1.8-2.4); Sodium 135 mmol/L (136-145)
--- NOTE | 2020-06-25 21:20 | XRay Report ---
SINGLE VIEW CHEST CLINICAL HISTORY: Generalized weakness. FINDINGS: An AP, portable, upright chest radiograph is compared to study dated 06/21/2020. The heart is enlarged noting atherosclerotic calcification of the thoracic aorta. There is pulmonary vascular con gestion. There are bilateral airspace opacities, as well as pleural effusions with bibasilar consolid ation. No pneumothorax is seen. The skeletal structures are osteopenic. The bony thorax is grossly in tact. IMPRESSION: 1. Cardiomegaly with evidence of congestive failure. 2. Bilateral airspace opacities likely represent pulmonary edema. Clinical correlation will be requir ed. 3. Pleural effusions with bibasilar consolidation. ACT 112: Negative or not required by law. Electronically signed by: Nathaniel Roper M.D. 06/25/2020 9:19 PM
[2020-06-25 21:23] LABS: Albumin Globulin Ratio 0.5 (0.9-2); Alkaline Phosphatase 121 U/L (45-117); Bilirubin,Total 3.1 mg/dl (0.2-1); Creatine Kinase 81 U/L (39-308); Globulin 3.8 gm/dl (2.5-4.0); Total Protein 5.7 gm/dl (6.4-8.2); Troponin I < 0.015 ng/ml (0-0.045)
[2020-06-25 21:27] LABS: Basophils # (auto) 0.01 K/uL (0-0.2); Basophils % (auto) 0.1 %; Eosinophils # (auto) 0.02 K/uL (0-0.5); Eosinophils % (auto) 0.2 %; Immature Granulocytes # (auto) 0.06 K/uL (0.00-0.02); Immature Granulocytes % (auto) 0.5 %; Lymphocytes # (auto) 0.54 K/uL (1.2-3.4); Lymphocytes % (auto) 4.6 %; Mean Platelet Volume 10.4 fL (7.4-10.4); Monocytes % (auto) 8.5 %; Neutrophils % (auto) 86.1 %; Platelet Count 76 K/uL (130-400); Platelet Estimate Decreased (Normal)
[2020-06-26] MEDS ORDERED: FUROSEMIDE 40 MG/4 ML VIAL IV STA (01:20)
--- NOTE | 2020-06-26 01:21 | History & Physical Report ---
Date of Service June 26, 2020 Assessment & Plan (1) Acute hypoxemic respiratory failure: Secondary to severe COVID-19 pneumonia hx CVA as per records Alcoholic cirrhosis, mild decompensation HTN, stable Pancytopenia secondary to cirrhosis, hemoglobin at baseline Hyperglycemia rule out DM past tobacco/alcohol abuse Medical telemetry Supplemental O2 Baseline ABG Decadron indicated for severe COVID-19 pneumonia MDI RTC Hold Remdesivir given cirrhosis. Pulmonology consult if without improvement. Lasix albumin Continue home diuretic Rx Check hemoglobin A1c DVT prophylaxis. SCDs RE thrombocytopenia Full code Patient's requesting updates from providers. Ms. Leona Deng, contact number #[phone]. Text document was generated using [employer] voice recognition software. It may contain grammatical or spelling errors. Kindly contact undersigned for clarification of any documentation item in question. History of Present Illness Chief Complaint: Leg swelling, confusion as per records Primary Care Provider: William Faustin MD History obtained from patient, family, and records. Medical is history significant for ischemic CVA/ICH as per records, COPD, alcoholic cirrhosis, hypertension, history of esophageal varices, chronic thrombocytopenia, chronic anemia (baseline hemoglobin 9-10), past tobacco/alcohol use. Recent confinement 3 days ago for confusion, body aches after receiving first dose of COVID-19 vaccine last week. COVID-19 test was negative. Patient discharged home. Patient still weak upon arriving home. No chest pain, no cough, no S OB. Increased leg swelling right greater than the left despite compliance with diuretic regimen. Denies dietary indiscretion. Patient had trouble walking and noted to be somewhat confused by . worried about another stroke. Patient brought to the ER for evaluation. O2 sats 70s at one point at the ER. MEDICAL HISTORY: As above. SURGERIES: None FAMILY HISTORY: Hypertension, heart disease, diabetes PERSONAL AND SOCIAL HISTORY: Past tobacco/alcohol use, disabled. Allergies Allergy/AdvReac Type Severity Reaction Status Date / Time Cephalosporins AdvReac Mild Nausea/Vomi Verified 06/26/20 00:29 ting Penicillins AdvReac Mild GI UPSET Verified 06/26/20 00:29 Home Medications Medication Instructions Recorded Confirmed Type folic acid 1 mg PO QAM 04/23/19 06/26/20 History furosemide 60 mg PO BID 04/23/19 06/26/20 History nadolol 40 mg PO QAM 04/23/19 06/26/20 History spironolactone 200 mg PO QAM 04/23/19 06/26/20 History Men 50 Plus Multivitamin 1 tab PO QAM 10/10/19 06/26/20 History albuterol sulfate 1 inh INHALATION QID PRN 10/10/19 06/26/20 History aspirin [Aspirin Low Dose] 81 mg PO QAM 10/10/19 06/26/20 History magnesium oxide 200 mg PO QAM 10/10/19 06/26/20 History thiamine HCl (vitamin B1) 100 mg PO QAM 10/10/19 06/26/20 History Past Med/Surg History Medical History (Updated 06/26/20 @ 06:28 by Alec Haile MD) Chronic back pain Cirrhosis, alcoholic Esophageal varices ? no banding History of intracranial hemorrhage Hypertension Stroke 2015--right leg weakness, uses a cane to ambulate; follows with [facility] neurologist @ [facility] Transient ischemic attack (TIA) x2--last 04/2019--no deficits Surgical History H/O esophagogastroduodenoscopy History of colonoscopy with polypectomy History of tonsillectomy History of tooth extraction Family History Father Family history of diabetes mellitus Other No family history of adverse response to anesthesia Social History Smoking Status: Former smoker Second Hand Exposure: No; Do You Dip or Chew Tobacco: No; Tobacco Cessation Education Requested by Patient: No Hx Alcohol Use: No Hx Substance Use: No Preferred Language: Croatian Communication Ability: Effective Appellate Conferee Required: No Beliefs That Will Affect Care: None marital status: Current Living Situation: Spouse Current Living Situation Comment: Lives with and stepson Other Information That Helps Us Care for You: No Feels Safe at Home: Yes Safety Concerns: Feels Safe At This Time Assistive Devices: Cane, Glasses and Walker Review of Systems Review of Systems: As per HPI, all 10 systems reviewed, all other ROS negative Physical Exam Physical Exam: GENERAL: uncomfortable, mild hearing impairment, no respiratory distress SKIN: Pallor , warm HEENT: Pale palpebral conjunctivae, no ptosis, dry buccal mucosa NECK : Supple, no tenderness CHEST : CTA, no tenderness HEART : RRR, no obvious murmurs ABDOMEN: Some distention, nontender EXTREMITIES : Bilateral LE swelling (R>L) with minimal tenderness, no other conspicuous deformities noted NEUROLOGIC : Coherent, no facial asymmetry, mild hearing impairment, no other gross focality Results & Data Results & Data ([facility]) Vital Signs (Past 12 Hours) Vital Signs Temp Pulse Resp BP Pulse Ox 06/26/20 01:15 69 17 06/26/20 01:00 66 16 06/26/20 00:45 73 21 06/26/20 00:31 68 18 97 06/26/20 00:30 68 18 107/56 L 96 06/26/20 00:15 84 18 91/55 L 96 06/26/20 00:01 69 18 97 06/26/20 00:00 84 16 113/68 96 06/25/20 23:46 70 16 117/68 97 06/25/20 23:45 67 17 97 06/25/20 23:31 73 18 97 06/25/20 23:30 70 18 94/43 L 96 06/25/20 23:15 83 20 88/61 L 96 06/25/20 23:00 70 10 L 114/46 L 96 06/25/20 22:45 87 18 95 06/25/20 22:30 72 18 107/51 L 97 06/25/20 22:15 71 19 124/65 97 06/25/20 22:01 87 118/69 97 06/25/20 22:00 72 97 06/25/20 21:46 71 103/48 L 06/25/20 21:45 73 06/25/20 21:30 71 127/58 L 99 06/25/20 21:15 69 23 110/47 L 98 06/25/20 21:07 70 23 96 06/25/20 21:00 69 17 114/44 L 96 06/25/20 20:34 37.3 C 70 19 98/70 L 95 Laboratory Results Laboratory Results WBC 11.83 K/uL (4.8-10.8) H 06/25/20 Unknown RBC 3.29 M/uL (4.7-6.1) L 06/25/20 Unknown Hgb 11.2 g/dL (14.0-18.0) L 06/25/20 Unknown Hct 32.3 % (42-52) L 06/25/20 Unknown MCV 98.2 fL (80-100) 06/25/20 Unknown MCH 34.0 pg (25-34) 06/25/20 Unknown MCHC 34.7 g/dL (32-36) 06/25/20 Unknown RDW Std Deviation 55.8 fL (36.4-46.3) H 06/25/20 Unknown RDW Coeff of Cathy 15.6 % (11.5-14.5) H 06/25/20 Unknown Plt Count 76 K/uL (130-400) L 06/25/20 Unknown MPV 10.4 fL (7.4-10.4) 06/25/20 Unknown Immature Gran % (Auto) 0.5 % 06/25/20 Unknown Neut % (Auto) 86.1 % 06/25/20 Unknown Lymph % (Auto) 4.6 % 06/25/20 Unknown [place] % (Auto) 8.5 % 06/25/20 Unknown Eos % (Auto) 0.2 % 06/25/20 Unknown Baso % (Auto) 0.1 % 06/25/20 Unknown Neut # (Auto) 10.20 K/uL (1.4-6.5) H 06/25/20 Unknown Lymph # (Auto) 0.54 K/uL (1.2-3.4) L 06/25/20 Unknown [place] # (Auto) 1.00 K/uL (0.11-0.59) H 06/25/20 Unknown Eos # (Auto) 0.02 K/uL (0-0.5) 06/25/20 Unknown Baso # (Auto) 0.01 K/uL (0-0.2) 06/25/20 Unknown Immature Gran # (Auto) 0.06 K/uL (0.00-0.02) H 06/25/20 Unknown Platelet Estimate Decreased (Normal) L 06/25/20 Unknown Sodium 135 mmol/L (136-145) L 06/25/20 Unknown Potassium 4.0 mmol/L (3.5-5.1) 06/25/20 Unknown Chloride 109 mmol/L (98-107) H 06/25/20 Unknown Carbon Dioxide 20 mmol/L (21-32) L 06/25/20 Unknown Anion Gap 6.0 (3-11) 06/25/20 Unknown BUN 23 mg/dl (7-18) H 06/25/20 Unknown Creatinine 1.32 mg/dl (0.6-1.4) 06/25/20 Unknown Est Cr Clr Drug Dosing 72.5 ml/min 06/25/20 Unknown Est GFR ( Amer) 69.4 06/25/20 Unknown Est GFR (Non-Af Amer) 59.9 06/25/20 Unknown BUN/Creatinine Ratio 17.3 (10-20) 06/25/20 Unknown Glucose 130 mg/dl (70-99) H 06/25/20 Unknown Calcium 8.0 mg/dl (8.5-10.1) L 06/25/20 Unknown Magnesium 1.6 mg/dl (1.8-2.4) L 06/25/20 Unknown Total Bilirubin 3.1 mg/dl (0.2-1) H 06/25/20 Unknown AST 77 U/L (15-37) H 06/25/20 Unknown ALT 39 U/L (12-78) 06/25/20 Unknown Alkaline Phosphatase 121 U/L (45-117) H 06/25/20 Unknown Total Creatine Kinase 81 U/L (39-308) 06/25/20 Unknown Troponin I < 0.015 ng/ml (0-0.045) 06/25/20 Unknown Total Protein 5.7 gm/dl (6.4-8.2) L 06/25/20 Unknown Albumin 1.9 gm/dl (3.4-5.0) L 06/25/20 Unknown Globulin 3.8 gm/dl (2.5-4.0) 06/25/20 Unknown Albumin/Globulin Ratio 0.5 (0.9-2) L 06/25/20 Unknown COVID-19 Eval Order CovFluRsv at [facility] 06/26/20 01:05 Impressions Chest X-Ray 06/25/20 20:50 SINGLE VIEW CHEST CLINICAL HISTORY: Generalized weakness. FINDINGS: An AP, portable, upright chest radiograph is compared to study dated 06/21/2020. The heart is enlarged noting atherosclerotic calcification of the thoracic aorta. There is pulmonary vascular congestion. There are bilateral airspace opacities, as well as pleural effusions with bibasilar consolidation. No pneumothorax is seen. The skeletal structures are osteopenic. The bony thorax is grossly intact. IMPRESSION: 1. Cardiomegaly with evidence of congestive failure. 2. Bilateral airspace opacities likely represent pulmonary edema. Clinical correlation will be required. 3. Pleural effusions with bibasilar consolidation. ACT 112: Negative or not required by law. Electronically signed by: Nathaniel Roper M.D. 06/25/2020 9:[address] head initial read: No intracranial hemorrhage, mass-effect, or edema. Chronic right occipital infarct. Ultrasound LE venous Dopplers initial read: No evidence of bilateral LE DVT. Limited evaluation of calf vessels due to lower extremity edema. Diagnostic Findings EKG as per my interpretation: Rate 70, NSR, normal axis, T wave abnormalities inferior leads and septal leads
[2020-06-26] MEDS ORDERED: ALBUMIN 25% 12.5 GM/50 ML VIAL IV STA (01:23)
[2020-06-26 02:16] LABS: Influenza A virus by PCR Negative (Neg); Influenza B virus by PCR Negative (Neg); RSV by PCR Negative (Neg)
[2020-06-26 02:51] LABS: SARS CoV2 RNA(COVID-19) InHosp POSITIVE (Negative)
[2020-06-26] MEDS ORDERED: dexAMETHasone 6 MG in SYRINGE 0 ML IV STA (02:56)
[2020-06-26] MEDS ORDERED: MAGNESIUM SULFATE / D5W 1 GM/100 ML BAG IV STA (02:59)
[2020-06-26] MEDS ORDERED: ALBUTEROL HFA 8 GM INHALER INH STA (02:59)
[2020-06-26] MEDS ORDERED: DEXAMETHASONE SOD INJ 4 MG/ML VIAL IV STA (03:00)
[2020-06-26 03:03] LABS: Thyroid Stimulating Hormone 0.409 uIu/ml (0.300-4.500)
[2020-06-26 05:01] LABS: Appearance Urine Clear (Clear); Bilirubin Urine Negative (Negative); Blood Urine Negative (Negative); Color Urine Yellow; Glucose Urine UA Negative (Negative); Ketones Urine Negative (Negative); Leukocyte Esterase Urine Negative (Negative); Nitrite Urine Negative (Negative); Protein Urine Negative (Negative); Urobilinogen Urine Negative (Negative)
[2020-06-26 06:12] LABS: Estimated Average Glucose 100 mg/dl; Hemoglobin A1C 5.1 % (4.5-5.6)
[2020-06-26] MEDS ORDERED: ACETAMINOPHEN 325 MG TAB PO PRN (07:44)
[2020-06-26] MEDS ORDERED: PROMETHAZINE HCL 12.5 MG in SODIUM CHLORIDE 0.9% 50 ML IV PRN (07:44)
[2020-06-26] MEDS ORDERED: oxyCODONE HCL IR 5 MG TAB (IMMEDIATE RELEASE) PO PRN (07:44)
--- NOTE | 2020-06-26 08:06 | Ultrasound Report ---
ULTRASOUND BILATERAL LOWER EXTREMITY VENOUS CLINICAL HISTORY: Lower extremity edema. COMPARISON STUDY: Bilateral lower extremity venous ultrasound dated 04/23/2019. TECHNIQUE: Real-time, grayscale, and color Doppler sonography of the deep veins of the right and left lower extremity was performed from the inguinal crease to the calf. Compression and augmentation wer e utilized. FINDINGS: There is no sonographic evidence of deep venous thrombosis identified in the right or left lower extremity. The common femoral, superficial femoral, and popliteal veins are patent and normally compressible bilaterally. The greater saphenous vein and the profunda femoris vein at the junction w ith the common femoral vein are clear in both legs. The visualized calf veins are patent bilaterally. IMPRESSION: There is no sonographic evidence of deep venous thrombosis identified in the right or lef t lower extremity. ACT 112: Negative or not required by law. Electronically signed by: Nathaniel Roper M.D. 06/26/2020 8:05 AM
--- NOTE | 2020-06-26 08:08 | CT Scan Report ---
CT head/brain wo con CLINICAL HISTORY: 54 years-old Male with trouble walking, transient confusion as per . Acutely a ltered mental status TECHNIQUE: Multiple axial CT images of the head were obtained without contrast. A dose lowering tech nique was utilized adhering to the principles of ALARA. CT DOSE: 614.27 mGy.cm COMPARISON: Head CT 06/21/2020 FINDINGS: No acute intracranial hemorrhage, midline shift, intracranial mass, hydrocephalus, territorial ischem ia or abnormal extra-axial collection. Chronic infarcts of the right occipital and left frontal parie kamar distribution near the vertex. White matter hypodensities suggest chronic microvascular ischemic d isease. The calvarium is intact. The paranasal sinuses, mastoid air cells, and middle ear cavities are clear . IMPRESSION: Chronic findings as above without acute intracranial abnormality. ACT 112: Negative or not required by law. The above report was generated using voice recognition software. It may contain grammatical, syntax o r spelling errors. Electronically signed by: Wiliam Davis M.D. 06/26/2020 8:07 AM
[2020-06-26] MEDS: SPIRONOLACTONE 100 MG TAB PO SCH (10:31)
[2020-06-26] MEDS: nadoloL 40 MG TAB PO SCH (10:31)
[2020-06-26] MEDS: FOLIC ACID 1 MG TAB PO SCH (10:31)
[2020-06-26] MEDS: THIAMINE HCL 100 MG TAB PO SCH (10:31)
[2020-06-26] MEDS: FUROSEMIDE 20 MG TAB PO SCH ×2 (10:31→17:27)
[2020-06-26] MEDS: ASPIRIN 81 MG ECTAB PO SCH (10:32)
[2020-06-26] MEDS: ALBUTEROL HFA 8 GM INHALER INH SCH ×4 (10:55→19:56)
--- NOTE | 2020-06-26 15:06 | Electrocardiogram Report ---
Test Reason : Blood Pressure : / mmHG Vent. Rate : 071 BPM Atrial Rate : 071 BPM P-R Int : 162 ms QRS Dur : 088 ms QT Int : 388 ms P-R-T Axes : 059 014 031 degrees QTc Int : 421 ms Normal sinus rhythm Normal ECG When compared with ECG of 21-JUN-2020 23:19, No significant change was found Confirmed by Glen Shin ([id number] on 06/26/2020 3:06:20 PM Referred By: REFERRED SELF Confirmed By:Glen Shin
--- NOTE | 2020-06-26 23:21 | Hospitalist Progress Note ---
Date of Service June 26, 2020 Assessment & Plan (1) Acute hypoxemic respiratory failure: COVID-19 pneumonia Present on admission with weakness and confusion Testing positive with COVID 19 CXR showed bilateral airspace opacities likely represent pulmonary edema. 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 SCDs RE thrombocytopenia Full code Patient's requesting updates from providers. Ms. Leona Deng, contact number #[phone]. Admission and Anticipated Discharge Date Admission Date: June 26, 2020 Subjective Pt was seen and examined for follow up of covid 19 Pt said that he feels weak He said that he is having loose stool He saturated well on RA Denies any chest pain, palpitation, dizziness and SOB Review of Systems Review of Systems: All systems reviewed & are unremarkable except as noted in Subjective Physical Exam Physical Exam: General- No acute distress Head- atraumatic Eyes- PERRL, EOMI, ENT- oropharynx clear Neck- supple, no JVD Lungs- Coarse BS Heart- regular rhythm; no murmur Abdomen- normal bowel sounds, soft, nontender Extremities- no calf tenderness, +edema Neuro- alert, oriented x 3; PERRL, EOMI; no facial palsy; no dysarthria Skin- warm & dry Results & Data Results & Data ([facility]) Vital Signs (Past 12 Hours) Vital Signs Temp Pulse Pulse Resp BP Pulse Ox 06/26/20 19:58 64 06/26/20 19:57 67 18 93 06/26/20 19:40 36.8 C 62 19 117/70 96 06/26/20 15:33 62 16 95 06/26/20 15:23 36.4 C L 61 17 110/62 95 06/26/20 14:50 63 06/26/20 12:00 36.4 C L 62 19 102/54 L 95
[2020-06-27 06:51] LABS: Albumin Level 1.7 gm/dl (3.4-5.0); BUN Creatinine Ratio 21.9 (10-20); Calcium 7.9 mg/dl (8.5-10.1); Creatinine Clr Calc Pharmacy 76.6 ml/min; Est GFR (African American) 74.9; Est GFR (Non-African American) 64.6; Magnesium 1.6 mg/dl (1.8-2.4); Potassium 4.2 mmol/L (3.5-5.1)
[2020-06-27 06:53] LABS: Hematocrit (blood only) 31.7 % (42-52); Hemoglobin 11.1 g/dL (14.0-18.0); Mean Corpuscular Hemoglobin 34.3 pg (25-34); Mean Corpuscular Volume 97.8 fL (80-100); RDW Coefficient of Variation 15.9 % (11.5-14.5); RDW Standard Deviation 56.4 fL (36.4-46.3); Red Blood Count 3.24 M/uL (4.7-6.1); White Blood Count 13.24 K/uL (4.8-10.8)
[2020-06-27 06:56] LABS: Albumin Globulin Ratio 0.4 (0.9-2); Bilirubin,Total 2.8 mg/dl (0.2-1); C Reactive Protein 6.44 mg/dl (0-0.29); Ferritin 899.9 ng/ml (8-388); Globulin 3.9 gm/dl (2.5-4.0); Total Protein 5.6 gm/dl (6.4-8.2)
[2020-06-27 06:59] LABS: Mean Platelet Volume 10.6 fL (7.4-10.4); Platelet Count 80 K/uL (130-400)
[2020-06-27 07:22] LABS: Echinocytes 1+; Immature Granulocytes # (auto) 0.11 K/uL (0.00-0.02); Immature Granulocytes % (auto) 0.8 %; Lymphocytes # (auto) 0.58 K/uL (1.2-3.4); Lymphocytes % (auto) 4.4 %; Monocytes # (auto) 1.29 K/uL (0.11-0.59); Monocytes % (auto) 9.7 %; Neutrophils # (auto) 11.26 K/uL (1.4-6.5); Neutrophils % (auto) 85.1 %
[2020-06-27] MEDS: ALBUTEROL HFA 8 GM INHALER INH SCH (07:26)
[2020-06-27] MEDS: nadoloL 40 MG TAB PO SCH (09:33)
[2020-06-27] MEDS: dexAMETHasone 6 MG in SYRINGE 0 ML IV SCH (09:33)
[2020-06-27] MEDS: THIAMINE HCL 100 MG TAB PO SCH (09:33)
[2020-06-27] MEDS: FUROSEMIDE 20 MG TAB PO SCH ×2 (09:33→17:14)
[2020-06-27] MEDS: FOLIC ACID 1 MG TAB PO SCH (09:35)
[2020-06-27] MEDS: ASPIRIN 81 MG ECTAB PO SCH (09:35)
[2020-06-27] MEDS: SPIRONOLACTONE 100 MG TAB PO SCH (09:36)
[2020-06-27] MEDS ORDERED: ALBUTEROL HFA 8 GM INHALER INH PRN (09:38)
[2020-06-27 10:34] LABS: Lyme Ab IgG w/WB Rflx Negative (Negative); Lyme Ab IgM w/WB Rflx Negative (Negative)
--- NOTE | 2020-06-27 17:09 | Hospitalist Progress Note ---
Date of Service June 27, 2020 Assessment & Plan (1) Acute hypoxemic respiratory failure: COVID-19 pneumonia Present on admission with weakness and confusion Testing positive with COVID 19 CXR showed bilateral airspace opacities likely represent pulmonary edema. Was starting on dexamethasone 6mg IV Remdesivir did not start due to history of liver disease No plasma was offered on admission due to pulmonary edema on CXR Elevated procalcitonin, will add doxycycline for possible superimposed bacteria pneumonia Currently saturated well on RA Will monitor closely in tele Confusion Pt was recently discharge on 06/[address] head showed no acute finding Resolved Weakness Might be related to COVID 19 Lyme titer negative PT/OT eval Fall precaution Pulmonary edema Will holp PO lasix 60mg BID and start on IV lasix Continue spironolactone 200mg daily Will repeat cxr [place] am Hx CVA Continue aspirin Thrombocytopenia Platelet 80 today Continue monitor closely for sign of bleeding while on aspirin 81mg Lower extremity edema doppler of LE showed no sonographic evidence of deep venous thrombosis identified in the right or left lower extremity. 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 SCDs RE thrombocytopenia Full code Patient's requesting updates from providers. Ms. Leona Deng, contact number #[phone]. Admission and Anticipated Discharge Date Admission Date: June 26, 2020 Subjective Pt was seen and examined for follow up of COVID 19 Pt was sitting in bed comfortable on RA I was able to watch him using the walker to use the bathroom Denies any symptoms such as chest pain, palpitation and SOB Review of Systems Review of Systems: All systems reviewed & are unremarkable except as noted in Subjective Physical Exam Physical Exam: General- No acute distress Head- atraumatic Eyes- PERRL, EOMI, ENT- oropharynx clear Neck- supple, no JVD Lungs- Coarse BS Heart- regular rhythm; no murmur Abdomen- normal bowel sounds, soft, nontender Extremities- no calf tenderness, +edema R>L Neuro- alert, oriented x 3; PERRL, EOMI; no facial palsy; no dysarthria Skin- warm & dry Results & Data Results & Data ([facility]) Vital Signs (Past 12 Hours) Vital Signs Temp Pulse Pulse Resp BP Pulse Ox Pulse Ox 06/27/20 15:41 36.3 C L 66 19 118/59 L 96 06/27/20 15:00 65 06/27/20 14:32 93 06/27/20 11:36 94 06/27/20 11:16 36.6 C 66 17 115/54 L 95 06/27/20 09:39 66 107/55 L 06/27/20 07:27 65 16 94 06/27/20 07:11 36.4 C L 65 17 99/44 L 95 06/27/20 07:00 62
[2020-06-27] MEDS ORDERED: FUROSEMIDE 40 MG/4 ML VIAL IV ONE ×2 (17:30→20:08)
[2020-06-27] MEDS: DOXYCYCLINE HYCLATE 100 MG CAP PO SCH (20:10)
[2020-06-28 06:13] LABS: Hematocrit (blood only) 30.8 % (42-52); Hemoglobin 10.8 g/dL (14.0-18.0); Mean Corpuscular Hemoglobin 34.2 pg (25-34); Mean Corpuscular Hgb Conc 35.1 g/dL (32-36); Mean Corpuscular Volume 97.5 fL (80-100); RDW Coefficient of Variation 15.9 % (11.5-14.5); RDW Standard Deviation 56.6 fL (36.4-46.3); Red Blood Count 3.16 M/uL (4.7-6.1); White Blood Count 11.51 K/uL (4.8-10.8)
[2020-06-28 06:26] LABS: Platelet Count 80 K/uL (130-400)
[2020-06-28 06:47] LABS: BUN Creatinine Ratio 25.6 (10-20); Creatinine Clr Calc Pharmacy 75.5 ml/min; Est GFR (African American) 74.1; Potassium 4.1 mmol/L (3.5-5.1)
[2020-06-28] MEDS: dexAMETHasone 6 MG in SYRINGE 0 ML IV SCH (08:36)
[2020-06-28] MEDS: ASPIRIN 81 MG ECTAB PO SCH (08:37)
[2020-06-28] MEDS: FUROSEMIDE 60 MG in SYRINGE 0 ML IV SCH ×2 (08:37→20:27)
[2020-06-28] MEDS: DOXYCYCLINE HYCLATE 100 MG CAP PO SCH ×2 (08:37→20:27)
[2020-06-28] MEDS: SPIRONOLACTONE 100 MG TAB PO SCH (08:38)
[2020-06-28] MEDS: THIAMINE HCL 100 MG TAB PO SCH (08:38)
[2020-06-28] MEDS: nadoloL 40 MG TAB PO SCH (08:38)
[2020-06-28] MEDS: FOLIC ACID 1 MG TAB PO SCH (08:38)
--- NOTE | 2020-06-28 10:53 | Hospitalist Progress Note ---
Date of Service June 28, 2020 Assessment & Plan (1) Acute hypoxemic respiratory failure: COVID-19 pneumonia Present on admission with weakness and confusion Testing positive with COVID 19 CXR showed bilateral airspace opacities likely represent pulmonary edema. Continue dexamethasone 6mg IV Remdesivir did not start due to history of liver disease No plasma was offered on admission due to pulmonary edema on CXR Elevated procalcitonin, will add doxycycline for possible superimposed bacteria pneumonia Continue PO doxycycline to complete 5 days course Currently saturated well on RA Clinically improves significantly Confusion Pt was recently discharge on 06/[address] head showed no acute finding Resolved Weakness Might be related to COVID 19 Lyme titer negative PT/OT eval Fall precaution Pulmonary edema Will holp PO lasix 60mg BID and start on IV lasix Continue spironolactone 200mg daily Continue IV lasix 60 mg BID Will repeat CXR today Hx CVA Continue aspirin Thrombocytopenia Platelet 80 today Continue monitor closely for sign of bleeding while on aspirin 81mg Lower extremity edema doppler of LE showed no sonographic evidence of deep venous thrombosis identified in the right or left lower extremity. 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 SCDs RE thrombocytopenia Full code Patient's requesting updates from providers. Ms. Leona Deng, contact number #[phone]. Admission and Anticipated Discharge Date Admission Date: June 26, 2020 Subjective Pt was seen and examined for follow up of COVID 19 Lying in bed with no distress with TV He said that he feels ok He said that his diarrhea improves Right lower extremity edema minimally improves Denies any chest pain, palpitation, dizziness and SOB Review of Systems Review of Systems: All systems reviewed & are unremarkable except as noted in Subjective Physical Exam Physical Exam: General- No acute distress Head- atraumatic Eyes- PERRL, EOMI, ENT- oropharynx clear Neck- supple, no JVD Lungs- Coarse BS Heart- regular rhythm; no murmur Abdomen- normal bowel sounds, soft, nontender Extremities- no calf tenderness, +edema R>L Neuro- alert, oriented x 3; PERRL, EOMI; no facial palsy; no dysarthria Skin- warm & dry Results & Data Results & Data ([facility]) Vital Signs (Past 12 Hours) Vital Signs Temp Pulse Pulse Resp BP Pulse Ox 06/28/20 10:13 58 L 06/28/20 07:24 37.0 C 61 16 111/52 L 94 06/28/20 02:56 36.6 C 61 20 120/52 L 95 06/27/20 23:44 37.0 C 64 20 121/56 L 96
[2020-06-29] MEDS: FUROSEMIDE 60 MG in SYRINGE 0 ML IV SCH ×2 (08:00→17:32)
[2020-06-29] MEDS: dexAMETHasone 6 MG in SYRINGE 0 ML IV SCH (08:00)
[2020-06-29 09:41] LABS: Hematocrit (blood only) 34.6 % (42-52); Hemoglobin 12.5 g/dL (14.0-18.0); Mean Corpuscular Hemoglobin 34.9 pg (25-34); Mean Corpuscular Hgb Conc 36.1 g/dL (32-36); Mean Corpuscular Volume 96.6 fL (80-100); RDW Coefficient of Variation 15.8 % (11.5-14.5); RDW Standard Deviation 56.6 fL (36.4-46.3); Red Blood Count 3.58 M/uL (4.7-6.1); White Blood Count 10.73 K/uL (4.8-10.8)
[2020-06-29] MEDS: DOXYCYCLINE HYCLATE 100 MG CAP PO SCH ×2 (09:42→20:50)
[2020-06-29] MEDS: nadoloL 40 MG TAB PO SCH (09:43)
[2020-06-29] MEDS: FOLIC ACID 1 MG TAB PO SCH (09:43)
[2020-06-29] MEDS: THIAMINE HCL 100 MG TAB PO SCH (09:43)
[2020-06-29] MEDS: ASPIRIN 81 MG ECTAB PO SCH (09:43)
[2020-06-29] MEDS: SPIRONOLACTONE 100 MG TAB PO SCH (09:43)
[2020-06-29 09:44] LABS: Mean Platelet Volume 10.6 fL (7.4-10.4); Platelet Count 99 K/uL (130-400)
[2020-06-29 09:56] LABS: BUN Creatinine Ratio 22.5 (10-20); Calcium 8.5 mg/dl (8.5-10.1); Creatinine Clr Calc Pharmacy 75.7 ml/min; Est GFR (African American) 74.9; Est GFR (Non-African American) 64.6; Potassium 3.7 mmol/L (3.5-5.1)
[2020-06-29] MEDS: LIDOCAINE 5% 1 PATCH TD SCH (10:00)
--- NOTE | 2020-06-29 10:13 | XRay Report ---
XR chest 1V portable HISTORY: Shortness of breath. Follow-up. COMPARISON: Chest 06/25/2020. FINDINGS: No pneumothorax. There are small bilateral pleural effusions and bibasilar densities, uncha nged. The heart remains mildly enlarged. Diffuse interstitial thickening persists. IMPRESSION: 1. No significant change. 2. Small bilateral pleural effusions and bibasilar densities are again noted. 2. Mild congestive change persists. ACT 112: Negative or not required by law. Electronically signed by: Ishaan Haley M.D. 06/29/2020 10:12 AM
[2020-06-29] MEDS ORDERED: DEXTROSE 50% 50 ML SYRINGE IV PRN (13:34)
[2020-06-29] MEDS ORDERED: GLUCAGON FOR INJ 1 MG VIAL SQ PRN (13:34)
[2020-06-29] MEDS ORDERED: CARBOHYDRATES FOR HYPOGLYCEMIA PO PRN (13:34)
[2020-06-29] MEDS ORDERED: GLUCOSE 10 TABS/TUBE PO PRN (13:34)
[2020-06-29] MEDS ORDERED: GLUCOSE 40% GEL 15 GM TUBE PO PRN (13:34)
[2020-06-29] MEDS: INSULIN ASPART 100 UNITS/ML 3 ML PEN SC SCH ×2 (17:32→20:49)
--- NOTE | 2020-06-29 18:09 | Hospitalist Progress Note ---
Date of Service June 29, 2020 Assessment & Plan (1) Acute hypoxemic respiratory failure: COVID-19 pneumonia Present on admission with weakness and confusion Testing positive with COVID 19 CXR showed bilateral airspace opacities likely represent pulmonary edema. Continue dexamethasone 6mg IV Remdesivir did not start due to history of liver disease No plasma was offered on admission due to pulmonary edema on CXR Elevated procalcitonin, will add doxycycline for possible superimposed bacteria pneumonia Continue PO doxycycline to complete 5 days course Currently saturated well on RA Clinically improves significantly Confusion Pt was recently discharge on 06/[address] head showed no acute finding Resolved Weakness Might be related to COVID 19 Lyme titer negative PT/OT eval Fall precaution Pulmonary edema repeat CXR showed small bilateral pleural effusions and bibasilar densities are again noted. Mild congestive change persists. Will holp PO lasix 60mg BID and start on IV lasix Continue spironolactone 200mg daily Continue IV lasix 60 mg BID, will transition to PO in am Hx CVA Continue aspirin Thrombocytopenia Platelet 99 today Continue monitor closely for sign of bleeding while on aspirin 81mg Lower extremity edema doppler of LE showed no sonographic evidence of deep venous thrombosis identified in the right or left lower extremity. 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 SCDs RE thrombocytopenia Full code Patient's requesting updates from providers. Ms. Leona Deng, contact number #[phone]. Admission and Anticipated Discharge Date Admission Date: June 26, 2020 Subjective Pt was seen and examined for follow up of COVID 19 Lying in bed with no distress He said that he feels ok he said that his diarrhea is less Denies any chest pain, palpitation, dizziness and SOB Review of Systems Review of Systems: All systems reviewed & are unremarkable except as noted in Subjective Physical Exam Physical Exam: General- No acute distress Head- atraumatic Eyes- PERRL, EOMI, ENT- oropharynx clear Neck- supple, no JVD Lungs- Coarse BS Heart- regular rhythm; no murmur Abdomen- normal bowel sounds, soft, nontender Extremities- no calf tenderness, +edema R>L Neuro- alert, oriented x 3; PERRL, EOMI; no facial palsy; no dysarthria Skin- warm & dry Results & Data Results & Data ([facility]) Vital Signs (Past 12 Hours) Vital Signs Temp Pulse Pulse Resp BP Pulse Ox 06/29/20 15:18 36.6 C 58 L 17 132/59 L 95 06/29/20 11:11 36.6 C 60 16 131/61 94 06/29/20 07:36 36.8 C 59 L 16 126/55 L 95 06/29/20 07:00 56 L
[2020-06-29] MEDS ORDERED: INSULIN HUMAN REGULAR PER UNIT 8 UNITS in SYRINGE 7.92 ML IV ONE ×2 (18:15→21:00)
[2020-06-29] MEDS ORDERED: INSULIN GLARGINE SOLOSTAR 100 UNITS/ML 3 ML PEN SC SCH (18:15)
[2020-06-29] MEDS ORDERED: Nursing to Pharmacy Communication STA (18:56)
[2020-06-29] MEDS ORDERED: FUROSEMIDE 20 MG in SYRINGE 0 ML IV ONE (22:00)
[2020-06-30] MEDS ORDERED: INSULIN ASPART 100 UNITS/ML 3 ML PEN SC ONE (04:00)
[2020-06-30] MEDS: INSULIN ASPART 100 UNITS/ML 3 ML PEN SC SCH ×4 (04:28→20:44)
[2020-06-30] MEDS: INSULIN GLARGINE SOLOSTAR 100 UNITS/ML 3 ML PEN SC SCH (04:29)
[2020-06-30 07:48] LABS: BUN Creatinine Ratio 24.6 (10-20); Calcium 8.4 mg/dl (8.5-10.1); Creatinine Clr Calc Pharmacy 71.6 ml/min; Est GFR (African American) 70.7; Potassium 3.6 mmol/L (3.5-5.1)
[2020-06-30] MEDS: FUROSEMIDE 60 MG in SYRINGE 0 ML IV SCH ×2 (08:37→18:04)
[2020-06-30] MEDS: dexAMETHasone 6 MG in SYRINGE 0 ML IV SCH (08:37)
[2020-06-30] MEDS: ASPIRIN 81 MG ECTAB PO SCH (08:38)
[2020-06-30] MEDS: LIDOCAINE 5% 1 PATCH TD SCH (08:38)
[2020-06-30] MEDS: FOLIC ACID 1 MG TAB PO SCH (08:38)
[2020-06-30] MEDS: SPIRONOLACTONE 100 MG TAB PO SCH (08:38)
[2020-06-30] MEDS: nadoloL 40 MG TAB PO SCH (08:38)
[2020-06-30] MEDS: DOXYCYCLINE HYCLATE 100 MG CAP PO SCH ×2 (09:43→20:36)
[2020-06-30] MEDS: THIAMINE HCL 100 MG TAB PO SCH (09:43)
[2020-06-30] MEDS ORDERED: INSULIN HUMAN REGULAR PER UNIT 10 UNITS in SYRINGE 9.9 ML IV STA (11:52)
--- NOTE | 2020-06-30 18:39 | Hospitalist Progress Note ---
Date of Service June 30, 2020 Assessment & Plan (1) Acute hypoxemic respiratory failure: COVID-19 pneumonia Present on admission with weakness and confusion Testing positive with COVID 19 CXR showed bilateral airspace opacities likely represent pulmonary edema. Continue dexamethasone 6mg IV Remdesivir did not start due to history of liver disease No plasma was offered on admission due to pulmonary edema on CXR Elevated procalcitonin, will add doxycycline for possible superimposed bacteria pneumonia Continue PO doxycycline to complete 5 days course Currently saturated well on RA Clinically improves significantly Confusion Pt was recently discharge on 06/[address] head showed no acute finding Resolved Weakness Might be related to COVID 19 Lyme titer negative PT/OT humberto [facility] denied him because he did well with PT/OT Plan to go home with home health Fall precaution Pulmonary edema repeat CXR showed small bilateral pleural effusions and bibasilar densities are again noted. Mild congestive change persists. Will holp PO lasix 60mg BID and start on IV lasix Continue spironolactone 200mg daily Continue IV lasix 60 mg BID, will transition to PO lasix Hx CVA Continue aspirin Thrombocytopenia Platelet 99 today Continue monitor closely for sign of bleeding while on aspirin 81mg Lower extremity edema doppler of LE showed no sonographic evidence of deep venous thrombosis identified in the right or left lower extremity. 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 SCDs RE thrombocytopenia Full code Patient's requesting updates from providers. Ms. Leona Deng, contact number #[phone]. Admission and Anticipated Discharge Date Admission Date: June 26, 2020 Subjective Pt was seen and examined for follow up of COVID 19 Lying in bed with no distress He said that he feels ok Taryn was denies for rehab His BS was very high today due to steroid Denies any chest pain, palpitation, dizziness and SOB Review of Systems Review of Systems: All systems reviewed & are unremarkable except as noted in Subjective Physical Exam Physical Exam: General- No acute distress Head- atraumatic Eyes- PERRL, EOMI, ENT- oropharynx clear Neck- supple, no JVD Lungs- Coarse BS Heart- regular rhythm; no murmur Abdomen- normal bowel sounds, soft, nontender Extremities- no calf tenderness, +edema R>L Neuro- alert, oriented x 3; PERRL, EOMI; no facial palsy; no dysarthria Skin- warm & dry Results & Data Results & Data ([facility]) Vital Signs (Past 12 Hours) Vital Signs Temp Pulse Pulse Resp BP Pulse Ox 06/30/20 15:28 36.9 C 62 18 123/66 94 06/30/20 15:25 58 L 06/30/20 10:49 36.5 C 64 16 125/56 L 95 06/30/20 08:00 54 L 06/30/20 07:00 36.7 C 65 16 158/89 H 95
[2020-07-01] MEDS: INSULIN ASPART 100 UNITS/ML 3 ML PEN SC SCH ×5 (08:23→23:39)
[2020-07-01] MEDS: FUROSEMIDE 60 MG in SYRINGE 0 ML IV SCH ×2 (08:25→17:40)
[2020-07-01] MEDS: INSULIN GLARGINE SOLOSTAR 100 UNITS/ML 3 ML PEN SC SCH (08:25)
[2020-07-01] MEDS: dexAMETHasone 1 MG TAB PO SCH (08:26)
[2020-07-01] MEDS: SPIRONOLACTONE 100 MG TAB PO SCH (08:26)
[2020-07-01] MEDS: DOXYCYCLINE HYCLATE 100 MG CAP PO SCH ×2 (08:26→20:20)
[2020-07-01] MEDS: LIDOCAINE 5% 1 PATCH TD SCH (08:26)
[2020-07-01] MEDS: ASPIRIN 81 MG ECTAB PO SCH (08:27)
[2020-07-01] MEDS: THIAMINE HCL 100 MG TAB PO SCH (08:27)
[2020-07-01] MEDS: nadoloL 40 MG TAB PO SCH (08:27)
[2020-07-01] MEDS: FOLIC ACID 1 MG TAB PO SCH (08:27)
--- NOTE | 2020-07-01 17:30 | Hospitalist Progress Note ---
Date of Service July 01, 2020 Assessment & Plan (1) Acute hypoxemic respiratory failure: COVID-19 pneumonia Present on admission with weakness and confusion Testing positive with COVID 19 CXR showed bilateral airspace opacities likely represent pulmonary edema. Continue dexamethasone 6mg IV, transition to PO Remdesivir did not start due to history of liver disease No plasma was offered on admission due to pulmonary edema on CXR Elevated procalcitonin, will add doxycycline for possible superimposed bacteria pneumonia On doxycycline to complete 5 days course, will complete today Will discontinue steroid on discharge Currently saturated well on RA Clinically improves significantly Confusion Pt was recently discharge on 06/[address] head showed no acute finding Resolved Weakness Might be related to COVID 19 Lyme titer negative PT/OT humberto [facility] denied him because he did well with PT/OT case management will put referral for [facility] If denies, plan to go home with home health Fall precaution Pulmonary edema repeat CXR showed small bilateral pleural effusions and bibasilar densities are again noted. Mild congestive change persists. Continue spironolactone 200mg daily On IV lasix 60 mg BID, will transition to PO lasix in am Hx CVA Continue aspirin Thrombocytopenia Platelet 99 today Continue monitor closely for sign of bleeding while on aspirin 81mg Hyperglycemia Mostly due to dexamethasone Most recent A1c 5.1 BS has been running in the 200 to 400's Continue lantus and insulin sliding scale Will consult pharmacy for glycemic management Lower extremity edema doppler of LE showed no sonographic evidence of deep venous thrombosis identified in the right or left lower extremity. 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 SCDs RE thrombocytopenia Full code Disposition waiting for placement to SNF Patient's requesting updates from providers. Wagner Leona Deng, contact number #[phone]. Admission and Anticipated Discharge Date Admission Date: June 26, 2020 Subjective Pt was seen and examined for follow up of COVID 19 Lying in bed with no distress He said that he feels ok Taryn was denies for rehab [facility] is out of network for him Case management said that the closest facility in [place] that is about 1 hr away would like him to go to rehab Denies any chest pain, palpitation, dizziness and SOB Physical Exam Physical Exam: General- No acute distress Head- atraumatic Eyes- PERRL, EOMI, ENT- oropharynx clear Neck- supple, no JVD Lungs- Coarse BS Heart- regular rhythm; no murmur Abdomen- normal bowel sounds, soft, nontender Extremities- no calf tenderness, +edema R>L Neuro- alert, oriented x 3; PERRL, EOMI; no facial palsy; no dysarthria Skin- warm & dry Results & Data Results & Data ([facility]) Vital Signs (Past 12 Hours) Vital Signs Temp Pulse Pulse Resp BP Pulse Ox 07/01/20 16:12 58 L 07/01/20 15:27 37.1 C 60 22 126/62 96 07/01/20 10:51 36.6 C 62 20 129/62 92 07/01/20 07:52 56 L 07/01/20 07:00 36.8 C 57 L 16 130/62 95
[2020-07-01] MEDS ORDERED: PHARMACY GLYCEMIC MGMT CONSULT PRN (18:00)
[2020-07-01] MEDS ORDERED: INSULIN GLARGINE SOLOSTAR 100 UNITS/ML 3 ML PEN SC STA (18:16)
[2020-07-02] MEDS: INSULIN ASPART 100 UNITS/ML 3 ML PEN SC SCH ×5 (03:54→20:49)
[2020-07-02 07:07] LABS: BUN Creatinine Ratio 29.5 (10-20); Calcium 8.1 mg/dl (8.5-10.1); Creatinine Clr Calc Pharmacy 74.4 ml/min; Est GFR (African American) 74.9; Est GFR (Non-African American) 64.6
[2020-07-02] MEDS: dexAMETHasone 1 MG TAB PO SCH (08:58)
[2020-07-02] MEDS: ASPIRIN 81 MG ECTAB PO SCH (08:58)
[2020-07-02] MEDS: nadoloL 40 MG TAB PO SCH (08:59)
[2020-07-02] MEDS: FOLIC ACID 1 MG TAB PO SCH (08:59)
[2020-07-02] MEDS: SPIRONOLACTONE 100 MG TAB PO SCH (08:59)
[2020-07-02] MEDS: THIAMINE HCL 100 MG TAB PO SCH (08:59)
[2020-07-02] MEDS: FUROSEMIDE 20 MG TAB PO SCH ×2 (09:00→17:32)
[2020-07-02] MEDS ORDERED: INSULIN GLARGINE SOLOSTAR 100 UNITS/ML 3 ML PEN SC SCH (09:00)
[2020-07-02] MEDS ORDERED: INSULIN HUMAN NPH SC SCH (09:00)
[2020-07-02] MEDS: LIDOCAINE 5% 1 PATCH TD SCH (09:01)
--- NOTE | 2020-07-02 09:09 | Hospitalist Progress Note ---
Date of Service July 02, 2020 Assessment & Plan (1) Acute hypoxemic respiratory failure: COVID-19 pneumonia Present on admission with weakness and confusion Testing positive with COVID 19 CXR showed bilateral airspace opacities likely represent pulmonary edema. Continue dexamethasone 6mg IV, transition to PO Remdesivir did not start due to history of liver disease No plasma was offered on admission due to pulmonary edema on CXR Elevated procalcitonin, will add doxycycline for possible superimposed bacteria pneumonia On doxycycline to complete 5 days course, will complete today Will discontinue steroid on discharge Currently saturated well on RA Clinically improves significantly Confusion Pt was recently discharge on 06/[address] head showed no acute finding Resolved Weakness Might be related to COVID 19 Lyme titer negative PT/OT humberto Chowevita denied him because he did well with PT/OT case management will put referral for [place] If denies, plan to go home with home health [place] precaution Pulmonary edema repeat CXR showed small bilateral pleural effusions and bibasilar densities are again noted. Mild congestive change persists. Continue spironolactone 200mg daily On IV lasix 60 mg BID, now transitioned to PO lasix Hx CVA Continue aspirin Thrombocytopenia Platelet 99 today Continue monitor closely for sign of bleeding while on aspirin 81mg Hyperglycemia Mostly due to dexamethasone Most recent A1c 5.1 BS has been running in the 200 to 400's Continue lantus and insulin sliding scale Will consult pharmacy for glycemic management Will stop decadron as pt is on room air Lower extremity edema doppler of LE showed no sonographic evidence of deep venous thrombosis identified in the right or left lower extremity. 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 SCDs RE thrombocytopenia Full code Disposition: waiting for placement to [facility] Patient's , Mrs. Leona Deng, to be contacted at number #[phone] for updates. Admission and Anticipated Discharge Date Admission Date: June 26, 2020 Subjective Pt was seen and examined for follow up of COVID 19 Sitting up in bed in no distress Says that he feels ok He us currently on RA and has been for several days [place] was denies for rehab [facility] is out of network for him Case management said that the closest facility in [place] that is about 1 hr away - plan to possibly DC to [place] would like him to go to rehab Denies any chest pain, palpitation, dizziness and SOB Review of Systems Review of Systems: All systems reviewed & are unremarkable except as noted in HPI & below Constitutional: no fever and no chills Respiratory: no cough and no dyspnea Cardiovascular: no chest pain and no palpitations Gastrointestinal: no abdominal pain, no nausea and no vomiting Physical Exam Physical Exam: General- WD/WN, No acute distress Head- atraumatic Eyes- PERRL, EOMI, ENT- oropharynx clear Neck- supple, no JVD Lungs- overall clear to auscultation, no wheezing, no significant rhonchi Heart- regular rhythm; no murmur Abdomen- normal bowel sounds, soft, nontender Extremities- no calf tenderness, +edema R>L Neuro- alert, oriented x 3; PERRL, EOMI; no facial palsy; no dysarthria Skin- warm & dry Results & Data Results & Data ([facility]) Vital Signs (Past 12 Hours) Vital Signs Temp Pulse Pulse Pulse Resp BP Pulse Ox 07/02/20 07:27 36.9 C 53 L 18 134/60 95 07/02/20 03:51 36.6 C 53 L 20 123/58 L 96 07/01/20 23:37 36.6 C 55 L 20 134/55 L 96 07/01/20 22:21 60 Laboratory Results 07/02/20 07/02/20 07/02/20 Range/Units 08:10 06:02 03:52 Sodium 135 L (136-145) mmol/L Potassium 4.0 (3.5-5.1) mmol/L Chloride 98 (98-107) mmol/L Carbon Dioxide 34 H (21-32) mmol/L Anion Gap 3.0 (3-11) BUN 37 H (7-18) mg/dl Creatinine 1.24 (0.6-1.4) mg/dl Est Cr Clr Drug Dosing 74.4 ml/min Est GFR ( Amer) 74.9 Est GFR (Non-Af Amer) 64.6 BUN/Creatinine Ratio 29.5 H (10-20) Glucose 133 H (70-99) mg/dl POC Glucose 146 H 118 H (70-99) mg/dl Calcium 8.1 L (8.5-10.1) mg/dl 07/01/20 07/01/20 07/01/20 Range/Units 23:37 20:27 16:13 Sodium (136-145) mmol/L Potassium (3.5-5.1) mmol/L Chloride (98-107) mmol/L Carbon Dioxide (21-32) mmol/L Anion Gap (3-11) BUN (7-18) mg/dl Creatinine (0.6-1.4) mg/dl Est Cr Clr Drug Dosing ml/min Est GFR ( Amer) Est GFR (Non-Af Amer) BUN/Creatinine Ratio (10-20) Glucose (70-99) mg/dl POC Glucose 123 H 209 H 319 H* (70-99) mg/dl Calcium (8.5-10.1) mg/dl 07/01/20 Range/Units 11:28 Sodium (136-145) mmol/L Potassium (3.5-5.1) mmol/L Chloride (98-107) mmol/L Carbon Dioxide (21-32) mmol/L Anion Gap (3-11) BUN (7-18) mg/dl Creatinine (0.6-1.4) mg/dl Est Cr Clr Drug Dosing ml/min Est GFR ( Amer) Est GFR (Non-Af Amer) BUN/Creatinine Ratio (10-20) Glucose (70-99) mg/dl POC Glucose 214 H (70-99) mg/dl Calcium (8.5-10.1) mg/dl Medications Administered Current Inpatient Medications Acetaminophen (Acetaminophen 325 Mg Tab) 325 mg PO Q6H PRN PRN Reason: Mild Pain Stop: 07/26/20 07:43 Albuterol (Albuterol Hfa 8 Gm Inhaler) 2 puffs INH QIDR PRN PRN Reason: Shortness Of Breath Or Wheezin Stop: 07/26/20 07:59 Aspirin (Aspirin 81 Mg Ectab) 81 mg PO QAM [facility] Stop: 07/26/20 08:59 Last Admin: 07/01/20 08:27 Dose: 81 mg Documented by: Dexamethasone (Dexamethasone 1 Mg Tab) 6 mg PO DAILY [facility] Stop: 07/31/20 08:59 Last Admin: 07/01/20 08:26 Dose: 6 mg Documented by: Dextrose (Dextrose 50% 50 Ml Syringe) 25 - 50 ml IV UD PRN; Protocol PRN Reason: Hypoglycemia Protocol Stop: 07/29/20 13:33 Folic Acid (Folic Acid 1 Mg Tab) [facility] Stop: 07/26/20 08:59 Last Admin: 07/01/20 08:27 Dose: 1 mg Documented by: Furosemide (Furosemide 20 Mg Tab) 60 mg PO [id number] [facility] Stop: 07/26/20 08:59 Last Admin: 06/27/20 17:14 Dose: Not Given Documented by: Glucagon (Glucagon For Inj 1 Mg Vial) 1 mg SQ UD PRN; Protocol PRN Reason: Hypoglycemia Protocol Stop: 07/29/20 13:33 Glucose (Glucose 10 Tabs/Tube) 4 - 8 tabs PO UD PRN; Protocol PRN Reason: Hypoglycemia Protocol Stop: 07/29/20 13:33 Glucose (Glucose 40% Gel 15 Gm Tube) 15 - 30 gm PO UD PRN; Protocol PRN Reason: Hypoglycemia Protocol Stop: 07/29/20 13:33 Promethazine HCl 12.5 mg/ (Sodium Chloride) 50.5 mls @ 202 mls/hr IV Q6H PRN PRN Reason: Nausea And Vomiting Stop: 07/26/20 07:43 Insulin Aspart (Insulin Aspart 100 Units/Ml 3 Ml Pen) 0 units SC [facility]; Protocol Stop: 07/30/20 04:09 Last Admin: 07/01/20 20:31 Dose: 7 units Documented by: Insulin Glargine (Insulin Glargine Solostar 100 Units/Ml 3 Ml Pen) 20 units SC BID [facility]; Protocol Stop: 08/01/20 08:59 Insulin Human NPH (Insulin Human Nph) 25 units SC [facility]; Protocol Stop: 08/01/20 08:59 Lidocaine (Lidocaine 5% 1 Patch) 1 patch TD [facility] Stop: 07/29/20 09:14 Last Admin: 07/01/20 08:26 Dose: 1 patch Documented by: Miscellaneous (Remove Lidoderm Patch) 1 ea N/A DAILY@2100 [facility] Stop: 07/29/20 20:59 Last Admin: 07/01/20 20:20 Dose: 1 ea Documented by: Miscellaneous (Carbohydrates For Hypoglycemia ) 15 - 30 gm PO UD PRN PRN Reason: Hypoglycemia Protocol Stop: 07/29/20 13:33 Miscellaneous Information (Pharmacy Glycemic Mgmt Consult) 1 ea N/A UD PRN PRN Reason: Consult Stop: 07/31/20 17:59 Nadolol (Nadolol 40 Mg Tab) 40 mg PO [facility] Stop: 07/26/20 08:59 Last Admin: 07/01/20 08:27 Dose: 40 mg Documented by: Oxycodone HCl (Oxycodone Hcl Ir 5 Mg Tab (Immediate Release)) 5 mg PO Q4H PRN PRN Reason: Pain Stop: 07/10/20 07:43 Spironolactone (Spironolactone 100 Mg Tab) 200 mg PO [facility] Stop: 07/26/20 08:59 Last Admin: 07/01/20 08:26 Dose: 200 mg Documented by: Thiamine HCl (Thiamine Hcl 100 Mg Tab) 100 mg PO [facility] Stop: 07/26/20 08:59 Last Admin: 07/01/20 08:27 Dose: 100 mg Documented by:
--- NOTE | 2020-07-02 14:06 | Pharmacy Report ---
Pharmacy Glycemic Short Note 2 - Date of Service July 02, 2020 - Glycemic Short BSG Results (Last 24 hours): 07/01/20 07/01/20 07/01/20 16:13 20:27 23:37 Glucose POC Glucose 319 H* 209 H 123 H 07/02/20 07/02/20 07/02/20 03:52 06:02 08:10 Glucose 133 H POC Glucose 118 H 146 H 07/02/20 12:04 Glucose POC Glucose 252 H OUTPATIENT ANTIDIABETIC REGIMEN: * n/a * A1c: 5.1% 06-25-20 ASSESSMENT: * Patient likely experiencing stress/steroid induced hyperglycemia in the setting of COVID-19 * Upon consult last evening lantus orders were increased, novolog scale was tightened and NPH added for this morning * After this morning's dose, the dexamethasone was discontinued. Will continue with aggressive NovoLog today and plan to re-evaluate tomorrow, but ancipitate needs will lessen significantly. PLAN FOR INPATIENT GLYCEMIC CONTROL: * Hold outpatient oral diabetes medications * Basal insulin * Lantus 10 or 20 units SQ BID based on BSG-See MAR for details * NPH 25 units this morning with the dexamethasone * Bolus insulin * NovoLog per scale ACHS or Q6hrs while NPO * Goal Range: Low 110 mg/dL - High 140 mg/dL * Correction Factor: 10 mg/dL/unit * Nutritional / Prandial insulin per carb ratio of 1 unit per 4 grams CHO consumed
[2020-07-02] MEDS: INSULIN GLARGINE SOLOSTAR 100 UNITS/ML 3 ML PEN SC SCH (20:50)
[2020-07-03 07:07] LABS: BUN Creatinine Ratio 31.3 (10-20); Calcium 8.3 mg/dl (8.5-10.1); Creatinine Clr Calc Pharmacy 67.7 ml/min; Est GFR (African American) 67.5; Est GFR (Non-African American) 58.3; Magnesium 1.8 mg/dl (1.8-2.4); Potassium 4.1 mmol/L (3.5-5.1)
--- NOTE | 2020-07-03 08:16 | Hospitalist Progress Note ---
Date of Service July 03, 2020 Assessment & Plan (1) Acute hypoxemic respiratory failure: COVID-19 pneumonia Present on admission with weakness and confusion Testing positive with COVID 19 CXR showed bilateral airspace opacities likely represent pulmonary edema. Continued dexamethasone 6mg IV, transitioned to PO , now stopped Remdesivir did not start due to history of renal and liver disease No plasma was offered on admission due to pulmonary edema on CXR Elevated procalcitonin, added doxycycline for possible superimposed bacteria pneumonia On doxycycline to complete 5 days course, completed discontinue steroid Currently saturating well on RA and has been on RA for several days Clinically improved significantly Confusion Pt was recently discharge on 06/[address] head showed no acute finding Resolved Weakness Might be related to COVID 19 Lyme titer negative PT/OT humberto [place] denied him because he did well with PT/OT Plan to DC to [facility] precaution Pulmonary edema repeat CXR showed small bilateral pleural effusions and bibasilar densities are again noted. Mild congestive change persists. Continue spironolactone 200mg daily On IV lasix 60 mg BID, now transitioned to PO lasix Hx CVA Continue aspirin Thrombocytopenia Platelet 99 Continue monitor closely for sign of bleeding while on aspirin 81mg Hyperglycemia Mostly due to dexamethasone Most recent A1c 5.1 BS has been running in the 200 to 400's Continued lantus and insulin sliding scale Consulted pharmacy for glycemic management Stopped decadron as pt is on room air Recommend to monitor BS at SNF for next few days, and SSI as needed Pt should not need long-term insulin given A1c of 5.1 Lower extremity edema doppler of LE showed no sonographic evidence of deep venous thrombosis identified in the right or left lower extremity. No sign of cellulitis HTN BP stable Continue Nadolol Continue monitor BP Alcoholic Cirrhosis of Liver Hx Esophageal varices Pt has been abstinent for alcohol DVT prophylaxis. SCDs RE thrombocytopenia Full code Disposition: waiting for placement to [facility] Patient's , Mrs. Leona Deng, to be contacted at number #[phone] for updates. Admission and Anticipated Discharge Date Admission Date: June 26, 2020 Subjective Pt was seen and examined for follow up of COVID 19 Sitting up in bed in no distress Denies any shortness of breath, cough, chest pain He us currently on RA and has been for several days [place] was denies for rehab [facility] is out of network for him Plan to DC to [place] Review of Systems Review of Systems: All systems reviewed & are unremarkable except as noted in HPI & below Constitutional: no fever and no chills Respiratory: no cough and no dyspnea Cardiovascular: no chest pain and no palpitations Gastrointestinal: no abdominal pain, no nausea and no vomiting Physical Exam Physical Exam: General- WD/WN, No acute distress Head- atraumatic Eyes- PERRL, EOMI, ENT- oropharynx clear Neck- supple, no JVD Lungs- overall clear to auscultation, no wheezing, no significant rhonchi Heart- regular rhythm; no murmur Abdomen- normal bowel sounds, soft, nontender Extremities- no calf tenderness, +edema R>L Neuro- alert, oriented x 3; PERRL, EOMI; no facial palsy; no dysarthria Skin- warm & dry Results & Data Results & Data ([facility]) Vital Signs (Past 12 Hours) Vital Signs Temp Pulse Pulse Resp BP Pulse Ox 07/03/20 07:36 36.9 C 55 L 18 136/58 L 95 07/03/20 03:22 36.9 C 57 L 18 106/71 93 07/02/20 23:00 56 L 07/02/20 22:55 36.8 C 57 L 18 138/60 95 Laboratory Results 07/03/20 07/03/20 07/02/20 Range/Units 07:37 05:36 20:34 Sodium 133 L (136-145) mmol/L Potassium 4.1 (3.5-5.1) mmol/L Chloride 96 L (98-107) mmol/L Carbon Dioxide 31 (21-32) mmol/L Anion Gap 6.0 (3-11) BUN 42 H (7-18) mg/dl Creatinine 1.35 (0.6-1.4) mg/dl Est Cr Clr Drug Dosing 67.7 ml/min Est GFR ( Amer) 67.5 Est GFR (Non-Af Amer) 58.3 BUN/Creatinine Ratio 31.3 H (10-20) Glucose 129 H (70-99) mg/dl POC Glucose 131 H 161 H (70-99) mg/dl Calcium 8.3 L (8.5-10.1) mg/dl Magnesium 1.8 (1.8-2.4) mg/dl 07/02/20 07/02/20 Range/Units 16:52 12:04 Sodium (136-145) mmol/L Potassium (3.5-5.1) mmol/L Chloride (98-107) mmol/L Carbon Dioxide (21-32) mmol/L Anion Gap (3-11) BUN (7-18) mg/dl Creatinine (0.6-1.4) mg/dl Est Cr Clr Drug Dosing ml/min Est GFR ( Amer) Est GFR (Non-Af Amer) BUN/Creatinine Ratio (10-20) Glucose (70-99) mg/dl POC Glucose 193 H 252 H (70-99) mg/dl Calcium (8.5-10.1) mg/dl Magnesium (1.8-2.4) mg/dl Medications Administered Current Inpatient Medications Acetaminophen (Acetaminophen 325 Mg Tab) 325 mg PO Q6H PRN PRN Reason: Mild Pain Stop: 07/26/20 07:43 Albuterol (Albuterol Hfa 8 Gm Inhaler) 2 puffs INH QIDR PRN PRN Reason: Shortness Of Breath Or Wheezin Stop: 07/26/20 07:59 Aspirin (Aspirin 81 Mg Ectab) 81 mg PO QAM [facility] Stop: 07/26/20 08:59 Last Admin: 07/02/20 08:58 Dose: 81 mg Documented by: Dextrose (Dextrose 50% 50 Ml Syringe) 25 - 50 ml IV UD PRN; Protocol PRN Reason: Hypoglycemia Protocol Stop: 07/29/20 13:33 Folic Acid (Folic Acid 1 Mg Tab) [facility] Stop: 07/26/20 08:59 Last Admin: 07/02/20 08:59 Dose: 1 mg Documented by: Furosemide (Furosemide 20 Mg Tab) 60 mg PO [id number] [facility] Stop: 07/26/20 08:59 Last Admin: 07/02/20 17:32 Dose: 60 mg Documented by: Glucagon (Glucagon For Inj 1 Mg Vial) 1 mg SQ UD PRN; Protocol PRN Reason: Hypoglycemia Protocol Stop: 07/29/20 13:33 Glucose (Glucose 10 Tabs/Tube) 4 - 8 tabs PO UD PRN; Protocol PRN Reason: Hypoglycemia Protocol Stop: 07/29/20 13:33 Glucose (Glucose 40% Gel 15 Gm Tube) 15 - 30 gm PO UD PRN; Protocol PRN Reason: Hypoglycemia Protocol Stop: 07/29/20 13:33 Promethazine HCl 12.5 mg/ (Sodium Chloride) 50.5 mls @ 202 mls/hr IV Q6H PRN PRN Reason: Nausea And Vomiting Stop: 07/26/20 07:43 Insulin Aspart (Insulin Aspart 100 Units/Ml 3 Ml Pen) 0 units SC ACHS [facility]; Protocol Stop: 07/30/20 04:09 Last Admin: 07/02/20 20:49 Dose: 3 units Documented by: Insulin Glargine (Insulin Glargine Solostar 100 Units/Ml 3 Ml Pen) 0 units SC BID [facility]; Protocol Stop: 08/01/20 20:59 Last Admin: 07/02/20 20:50 Dose: 10 units Documented by: Lidocaine (Lidocaine 5% 1 Patch) 1 patch TD [facility] Stop: 07/29/20 09:14 Last Admin: 07/02/20 09:01 Dose: 1 patch Documented by: Miscellaneous (Remove Lidoderm Patch) 1 ea N/A DAILY@2100 [facility] Stop: 07/29/20 20:59 Last Admin: 07/02/20 20:50 Dose: 1 ea Documented by: Miscellaneous (Carbohydrates For Hypoglycemia ) 15 - 30 gm PO UD PRN PRN Reason: Hypoglycemia Protocol Stop: 07/29/20 13:33 Miscellaneous Information (Pharmacy Glycemic Mgmt Consult) 1 ea N/A UD PRN PRN Reason: Consult Stop: 07/31/20 17:59 Nadolol (Nadolol 40 Mg Tab) 40 mg PO [facility] Stop: 07/26/20 08:59 Last Admin: 07/02/20 08:59 Dose: 40 mg Documented by: Oxycodone HCl (Oxycodone Hcl Ir 5 Mg Tab (Immediate Release)) 5 mg PO Q4H PRN PRN Reason: Pain Stop: 07/10/20 07:43 Spironolactone (Spironolactone 100 Mg Tab) 200 mg PO [facility] Stop: 07/26/20 08:59 Last Admin: 07/02/20 08:59 Dose: 200 mg Documented by: Thiamine HCl (Thiamine Hcl 100 Mg Tab) 100 mg PO [facility] Stop: 07/26/20 08:59 Last Admin: 07/02/20 08:59 Dose: 100 mg Documented by:
[2020-07-03] MEDS ORDERED: MAGNESIUM SULFATE / D5W 1 GM/100 ML BAG IV ONE (08:45)
[2020-07-03] MEDS: LIDOCAINE 5% 1 PATCH TD SCH (09:20)
[2020-07-03] MEDS: SPIRONOLACTONE 100 MG TAB PO SCH (09:21)
[2020-07-03] MEDS: nadoloL 40 MG TAB PO SCH (09:21)
[2020-07-03] MEDS: ASPIRIN 81 MG ECTAB PO SCH (09:22)
[2020-07-03] MEDS: INSULIN ASPART 100 UNITS/ML 3 ML PEN SC SCH ×3 (09:22→17:40)
[2020-07-03] MEDS: FOLIC ACID 1 MG TAB PO SCH (09:22)
[2020-07-03] MEDS: FUROSEMIDE 20 MG TAB PO SCH ×2 (09:22→17:43)
[2020-07-03] MEDS: THIAMINE HCL 100 MG TAB PO SCH (09:22)
[2020-07-03] MEDS: INSULIN GLARGINE SOLOSTAR 100 UNITS/ML 3 ML PEN SC SCH (09:22)
--- NOTE | 2020-07-03 15:24 | Discharge Summary ---
Date of Service July 03, 2020 Admission HPI Per Admitting Provider History obtained from patient, family, and records. Medical is history significant for ischemic CVA/ICH as per records, COPD, alcoholic cirrhosis, hypertension, history of esophageal varices, chronic thrombocytopenia, chronic anemia (baseline hemoglobin 9-10), past tobacco/alcohol use. Recent confinement 3 days ago for confusion, body aches after receiving first dose of COVID-19 vaccine last week. COVID-19 test was negative. Patient discharged home. Patient still weak upon arriving home. No chest pain, no cough, no S OB. Increased leg swelling right greater than the left despite compliance with diuretic regimen. Denies dietary indiscretion. Patient had trouble walking and noted to be somewhat confused by . worried about another stroke. Patient brought to the ER for evaluation. O2 sats 70s at one point at the ER. MEDICAL HISTORY: As above. SURGERIES: None FAMILY HISTORY: Hypertension, heart disease, diabetes PERSONAL AND SOCIAL HISTORY: Past tobacco/alcohol use, disabled. Admission Exam Per Admitting Provider GENERAL: uncomfortable, mild hearing impairment, no respiratory distress SKIN: Pallor , warm HEENT: Pale palpebral conjunctivae, no ptosis, dry buccal mucosa NECK : Supple, no tenderness CHEST : CTA, no tenderness HEART : RRR, no obvious murmurs ABDOMEN: Some distention, nontender EXTREMITIES : Bilateral LE swelling (R>L) with minimal tenderness, no other conspicuous deformities noted NEUROLOGIC : Coherent, no facial asymmetry, mild hearing impairment, no other gross focality Principal Diagnosis COVID-19 pneumonia Generalized weakness Steroid-induced hyperglycemia Discharge Exam General- WD/WN, No acute distress Head- atraumatic Eyes- PERRL, EOMI, ENT- oropharynx clear Neck- supple, no JVD Lungs- overall clear to auscultation, no wheezing, no significant rhonchi Heart- regular rhythm; no murmur Abdomen- normal bowel sounds, soft, nontender Extremities- no calf tenderness, +edema R>L Neuro- alert, oriented x 3; PERRL, EOMI; no facial palsy; no dysarthria Skin- warm & dry Discharge Data Allergies Allergy/AdvReac Type Severity Reaction Status Date / Time Cephalosporins AdvReac Mild Nausea/Vomi Verified 06/26/20 00:29 ting Penicillins AdvReac Mild GI UPSET Verified 06/26/20 00:29 Consultations 06/26/20 00:25 ED Decision to Admit Stat Ordered Studies 06/26/20 01:19 US venous doppler LE BI Urgent IMPRESSION: There is no sonographic evidence of deep venous thrombosis identified in the right or left lower extremity. 06/26/20 01:26 CT head/brain wo con Urgent IMPRESSION: Chronic findings as above without acute intracranial abnormality. Hospital Course (1) Acute hypoxemic respiratory failure: COVID-19 pneumonia Present on admission with weakness and confusion Testing positive with COVID 19 CXR showed bilateral airspace opacities likely represent pulmonary edema. Continued dexamethasone 6mg IV, transitioned to PO , now stopped Remdesivir did not start due to history of renal and liver disease No plasma was offered on admission due to pulmonary edema on CXR Elevated procalcitonin, added doxycycline for possible superimposed bacteria pneumonia On doxycycline to complete 5 days course, completed discontinue steroid Currently saturating well on RA and has been on RA for several days Clinically improved significantly Confusion Pt was recently discharge on 06/[address] head showed no acute finding Resolved Weakness Might be related to COVID 19 Lyme titer negative PT/OT humberto Centeno denied him because he did well with PT/OT Plan to DC to [facility] precaution Pulmonary edema repeat CXR showed small bilateral pleural effusions and bibasilar densities are again noted. Mild congestive change persists. Continue spironolactone 200mg daily On IV lasix 60 mg BID, now transitioned to PO lasix Hx CVA Continue aspirin Thrombocytopenia Platelet 99 Continue monitor closely for sign of bleeding while on aspirin 81mg Hyperglycemia Mostly due to dexamethasone Most recent A1c 5.1 BS has been running in the 200 to 400's Continued lantus and insulin sliding scale Consulted pharmacy for glycemic management Stopped decadron as pt is on room air Recommend to monitor BS at SNF for next few days, and SSI as needed Pt should not need long-term insulin given A1c of 5.1 Lower extremity edema doppler of LE showed no sonographic evidence of deep venous thrombosis identified in the right or left lower extremity. No sign of cellulitis HTN BP stable Continue Nadolol Continue monitor BP Alcoholic Cirrhosis of Liver Hx Esophageal varices Pt has been abstinent for alcohol DVT prophylaxis. SCDs RE thrombocytopenia Full code Disposition: Plan to DC to [place] Patient's , Mrs. Leona Deng, to be contacted at number #[phone] for updates. Total Time Total Time Spent Total Time Spent (In Minutes): 35 Total Time Includes: Examination of the Patient, Discharge Planning and Medication Reconciliation Discharge Plan Discharge Items Patient Disposition: Transfer Detention Fac Reason For Visit: RESP FAILURE, COVID Discharge Diagnosis: COVID-19 pneumonia Generalized weakness Steroid-induced hyperglycemia Activity: Per Instructions section Non-emergency contact: Primary Care Provider Call non-emergency contact if: you have any medication questions and your symptoms worsen Follow-up/Referrals: William Faustin MD [Primary Care Provider] - () Diet: Carb Consistent or DM2 and Low Sodium (2gm) Fluids: 1800ml (7 cups) Addtl Attending Provider Instructions: Follow-up with your primary care doctor within 1-2 weeks, after being discharged from [facility]. Addtl Payroll Officer Provider Instructions: Coronavirus disease 2019 (COVID-19) is a virus that causes a respiratory illness. It is caused by a coronavirus called 2019 novel coronavirus (2019- nCoV). There are many types of coronavirus. Coronaviruses are a very common cause of bronchitis. They may sometimes cause lung infection(pneumonia). Symptoms can range from mild to severe respiratory illness. These viruses are also foundin some animals. COVID-19 was first found in people in [facility], in late 2019. In 2020, several cases of COVID-19 have been confirmed in the [place] Public health officials are working to find the source. How the virus spreads is not yet fully known. It may be spread through droplets of fluid that a person coughs or sneezes into the air. It may be spread if you touch a surface with virus on it, such as a handle or object, and then touch your mouth. What are the symptoms of COVID-19? Some people have no symptoms or mild symptoms. Symptoms may appear 2 to 14 days after contact with the virus. Symptoms can include: Fever Coughing Trouble breathing What are possible complications from COVID-19? In many cases, this virus can cause infection (pneumonia) in both lungs. In some cases, this can cause . How is COVID-19 diagnosed? Your healthcare provider will ask about your symptoms. He or she will also ask about your recent travel and contact with sick people. Testing for the virus is only done through the [facility]. If yourhealthcare provider thinks you may have COVID- 19, he or she will work with your local health department and the CDC on testing. Follow all instructions from your healthcare provider. COVID-19 is diagnosed by: Nasal and throat swab. A cotton-tipped swab is wiped inside your nose or throat. This is done to check for viruses in your nasal mucus. Sputum culture. A small sample of mucus coughed from your lungs (sputum) is collected if you have a cough. It is checked for the virus. How is COVID-19 treated? There is currently no medicine to treat the virus. Treatment is done to help your body while it fights the virus. This is known as supportive care. Supportive care may include: Pain medicine. These include acetaminophen and ibuprofen. They are used to help ease pain and reduce fever. Bed rest. This helps your body fight the illness. For severe illness, you may need to stay in the hospital. Care during severe illness may include: IV (intravenous) fluids.These are given through a vein to help keep your body hydrated. Oxygen. Supplemental oxygen or ventilation with a breathing machine (ventilator) may be given. This is done to keep enough oxygen in your body. Are you at risk for COVID-19? If youve been to a place where people have been sick with this virus, you are at risk for infection. You are at risk if you: Recently traveled to an affected area Had contact with a sick person who recently traveled to this area Had contact with a person who was diagnosed with COVID-19 How can COVID-19 be prevented? There is no vaccine yet. The best prevention is to not have contact with the virus. The CDC advises that people should not travel to areas where there are COVID-19 outbreaks right now for any reason that is not urgent. To help prevent spreading the infection, wash your hands often, or use an alcohol-basedhand safety supervisor. If you are in an area with COVID-19: Wash your hands often. Or use an alcohol-based hand safety supervisor often. Only touch your eyes, nose, or mouth with clean hands. Dont have contact with people who are sick. Follow local instructions about being in public. For example, you may be told to not use public transport for a period of time. Stay away from markets that have live or animals. Wash your hands after touching any animals. Don't touch animals that may be sick. Dont share eating or drinking tools with sick people. Dont kiss someone who is sick. Clean surfaces often with disinfectant. If you were in an area with COVID-19 in the last 14 days: Call your healthcare provider. He or she can talk with local health staff to see what action may be needed. Follow all instructions from your provider. Take your temperature every morning and evening for at least 14 days. This is to check for fever. Keep a record of the readings. Keep watch for symptoms of the virus. Tell your provider right away if you have symptoms. If you were in an area with COVID-19 and have a fever or other symptoms: Dont panic. Keep in mind that other illnesses can cause similar symptoms. Stay away from work, school, and public places. Limit physical contact with family members. Don't kiss anyone or share eating or drinking utensils. Clean surfaces you touch with disinfectant. This is to help prevent the virus from spreading. Call your healthcare provider. Explain that you have been exposed to COVID-19 and have symptoms. Do this before going to any hospital. Wait for instructions. Keep in mind that healthcare staff may wear protective equipment such as masks, gowns, gloves, and eye protection. You may be put in a separate room. This is to prevent the possible virus from spreading. Tell the healthcare staff about recent travel. This includes local travel on public transport. Staff may need to find other people you have been in contact with. Follow all instructions the healthcare staff give you. If you have been diagnosed with COVID-19 Follow all instructions from your healthcare provider. Dont leave your home, except to get medical care. Call your healthcare providers office before going. They can prepare and give you instructions. This will help prevent the virus from spreading. Dont go to work, school, or public areas. Dont use public transport or taxis. Stay away from other people in your home. Have them wear face masks around you. Dont share household items or food. Wear a face mask if you can. This includes at home or in a medical facility. Cover your face with a tissue when you cough or sneeze. Throw the tissue away. Wash your hands. Wash your hands often. Caregivers should: Follow all instructions from healthcare staff. Wear a face mask and protective clothing as advised. Wash hands often. Keep track of the sick persons symptoms. Clean surfaces, fabrics, and laundry thoroughly. Keep other people away from the sick person. When to call your healthcare provider Call your healthcare provider: If youve recently traveled and have symptoms If you have been diagnosed with COVID-19 and your symptoms are worse To learn more To find out more about COVID-19, visit the CDC website at www.cdc.gov/coronavirus/2019-ncov/index.html. [employer]. [address] [place] [address]. All rights reserved. This information is not intended as a substitute for professional medical care. Always follow your healthcare professional's instructions. This information has been adapted from [employer] Pending Studies at Discharge: No Stand-Alone Forms: My [email or web address], Smoking Cessation Skilled Items Patient informed of condition?: Yes DNR: No Discharge Level of Care: Skilled Communicable Disease: Yes Discharge Prognosis: Stable Lines: None Urinary Catheter: No Medications and DC Order Prescriptions: Continued thiamine HCl (vitamin B1) 100 mg Tablet 100 mg PO QAM RF: 0 aspirin [Aspirin Low Dose] 81 mg Tablet,Delayed Release (Dr/Ec) 81 mg PO QAM RF: 0 albuterol sulfate 90 mcg/actuation Hfa Aerosol Inhaler 1 inh INHALATION QID PRN (Reason: Shortness Of Breath) RF: 0 Men 50 Plus Multivitamin 300-600-300 mcg Tablet 1 tab PO QAM RF: 0 magnesium oxide 400 mg magnesium Tablet 200 mg PO QAM RF: 0 furosemide 40 mg tablet 60 mg PO BID RF: 0 folic acid 1 mg tablet 1 mg PO QAM RF: 0 spironolactone 100 mg tablet 200 mg PO QAM RF: 0 nadolol 40 mg tablet 40 mg PO QAM RF: 0 Discharge Orders: Discharge Order (Routine); Ordered 07/03/20 Ordered By: Osvaldo Hamilton Admission Data Admit Date/Time: 06/26/20 03:02 Attending Provider: Osvaldo Hamilton Admit Provider: Alec Haile Primary Care Provider: William Faustin Other Providers: Alec Haile ; [facility] ; [facility] ; [facility], ; Jaye Keller
== END 2020-07-03 18:46 | DRG 177 ==
LOC: ED 20:17 → 2E 06-26 03:02 → SUATTDRO 06-26 03:02 → 2E 06-26 06:45